=== PATIENT | female | born 1945 | race Caucasian/White ===

== ENCOUNTER 2016-02-24 17:31 | Inpatient (IN) | payer BC, OTHER ==
[~2016-02-24] VITALS: Ht 157.5 cm; Wt 82.0 kg
[~2016-02-24 17:31] MED LIST: ALBUAER2 INH; ALL300; ASPI81TA28 PO; DILT120C43 PO; DXY100 PO; FRS/40 PO; IPRASOL4 NEB; LORA-741 PO; MAGN250T3 PO; METO25TA56 PO; PARO1TAB27 PO; POTA10CA28 PO; PRED10TA PO; ZNTT/150 PO
--- NOTE | 2016-02-24 18:13 | DIAGNOSTIC IMAGING REPORT ---
CHEST ONE VIEW PORTABLE CLINICAL HISTORY: Respiratory distress. Dyspnea. COMPARISON STUDY: Chest radiograph December 30, 2015. FINDINGS: Interstitial thickening suggests pulmonary edema. There is stable cardiomegaly. No pneumothorax is present. Small to moderate right and small left pleural effusions are present. IMPRESSION: 1. Interstitial thickening suggestive of pulmonary edema. 2. Small to moderate right and small left pleural effusions. Electronically signed by: Esteban Tyler M.D. 02/24/2016 6:11 PM Dictated Date/Time: 02/24/2016 6:10 PM
[2016-02-24] MEDS ORDERED: ALBUT/IPRATROP 3MG/0.5MG NEB 3 ML VIAL INH STA (18:40)
[2016-02-24] MEDS ORDERED: METHYLPREDNISOLONE 125 MG VIAL IV STA (18:40)
[2016-02-24 19:07] LABS: BASO % 0.9 %; BASO ABS # 0.11 K/uL (0-0.2); COMPLETE YES; EOS % 5.6 %; HEMATOCRIT 39.8 % (37-47); IG% 0.2 %; LYMPH % 10.1 %; LYMPH ABS # 1.28 K/uL (1.2-3.4); MEAN CELL VOLUME 84.5 fL (80-100); MEAN CORPUSCULAR HEMOGLOBIN 26.3 pg (25-34); MEAN CORPUSCULAR HGB CONC 31.2 g/dl (32-36); MEAN PLATELET VOLUME 9.9 fL (7.4-10.4); MONO % 7.6 %; NEUT % 75.6 %; PLATELET COUNT 278 K/uL (130-400); RED BLOOD COUNT 4.71 M/uL (4.2-5.4); WHITE BLOOD COUNT 12.68 K/uL (4.8-10.8)
[2016-02-24 19:15] LABS: ALLEN TEST POS (POS); O2 ADMINISTRATION 2 L
[2016-02-24 19:16] LABS: ARTERIAL BLD GAS O2 SATURATION 87.3 % (90-95); ARTERIAL BLOOD GAS HCO3 24 mmol/L (19-24); ARTERIAL BLOOD GAS PO2 51 mm/Hg (80-95); ARTERIAL BLOOD GAS pH 7.51 (7.35-7.45)
[2016-02-24 19:17] LABS: ARTERIAL BLOOD GAS BASE EXCESS 1.8 mEq/L (-9-1.8)
[2016-02-24] MEDS ORDERED: CALC-478 PO (19:33)
[2016-02-24 19:43] LABS: BUN/CREATININE RATIO 21.5 (10-20); CALCIUM 9.6 mg/dl (8.5-10.1); CREATININE 1.1 mg/dl (0.60-1.20); POTASSIUM 3.8 mmol/L (3.5-5.1)
[2016-02-24 19:46] LABS: ALB/GLOB RATIO 0.9 (0.9-2)
[2016-02-24] MEDS ORDERED: FUROSEMIDE 40 MG/4 ML VIAL IV STA (20:57)
[2016-02-24] MEDS ORDERED: ACETAMINOPHEN 325 MG TAB PO PRN (22:00)
[2016-02-24] MEDS ORDERED: LORAZEPAM 0.5 MG TAB PO PRN (22:00)
[2016-02-24] MEDS ORDERED: ACETAMINOPHEN 325 MG TAB ONE ×2 (22:23→22:34)
--- NOTE | 2016-02-24 22:24 | EMERGENCY ROOM VISIT NOTE ---
History Report prepared by Saida: Dianna Livingston Under the Supervision of: Dr. Reymundo Reynoso M.D. First contact with patient: 17:45 Chief Complaint: RESPIRATORY PROBLEMS Stated Complaint: HARD TIME BREATHING, HEAVY IN CHEST Nursing Triage Summary: pt has hx of copd and CHF wears oxygen constantly pt has felt more sob all week chest tightness cough History of Present Illness The patient is a 71 year old female who presents to the Emergency Room with complaints of increased shortness of breath over the past week. Her shortness of breath is worse with exertion and talking, although that has been baseline for her over the past several months. She notes that she occasionally coughs but does not bring anything up. She also complains of sternal pain and pain under her left breast to the touch that began 2 days ago. She does not have any pain with breathing. Her current symptoms feel similar to previous flare-ups of COPD. The patient is on oxygen all the time. She was seen by Dr. Lani Adler yesterday and he recommended using a heating pad on her chest. Today, she developed some neck soreness and she states that her muscles felt tender. She was most recently admitted to the hospital for COPD flare up this past summer. The patient notes that she was hospitalized for pneumonia last year. She is on Lasix due to a history of pulmonary edema. She is not a smoker. She reports eating some salty foods over the recent holidays, but nothing out of the ordinary. She is not currently on steroids. She is not on a blood thinner. She has not had any recent long travel or immobilization. Pt denies LOC, headache, fevers, chills, diaphoresis, visual changes, nausea, vomiting, back pain, melena , hematochezia, urinary symptoms, calf soreness, numbness, weakness, lymphadenopathy, rash, or other complaints. Source of History: patient Onset: a week [employer] Position: other (Global - SOB) Timing: other (increased) Modifying Factors (Worsening): exertion, other (talking) Associated Symptoms: + chest pain, + neck pain Review of Systems See HPI for pertinent positives and negatives. A total of ten systems were reviewed and were otherwise negative. Past Medical & Surgical Medical Problems: (1) ACUTE BRONCO-PNEUM,ACUTE RESP FAIL (2) Acute CHF (3) acute exacer. copd, chronic resp failure (4) ACUTE EXACERBATION COPD, ABN.ECG (5) Acute kidney injury (6) ACUTE RESP.FAIL.,CHF,INTERST.LUNG DISEASE (7) Anterior Abdominal Wall Surgery (8) Appendectomy (9) Bronchitis (10) CHF exacerbation (11) CHF exacerbation (12) Congestive heart failure (13) Congestive heart failure (14) COPD exacerbation (15) Distal radius fracture, left (16) Epistaxis (17) Hernia (18) Hernia repair (19) History of - tubal ligation (20) Hypertension (21) Postoperative wound dehiscence (22) Radial head fracture, closed (23) RECCURENT SBO (24) Respiratory failure with hypoxia (25) Retinal artery occlusion (26) Right foot pain (27) Right foot pain (28) SBO (small bowel obstruction) (29) SOB (shortness of breath) (30) Tonsillectomy Family History Cancer Hypertension Social History Smoking Status: Never Smoker Alcohol Use: none Drug Use: none Marital Status: Housing Status: lives with family Occupation Status: retired Current/Historical Medications Scheduled Allopurinol (Allopurinol), 150 MG DAILY Aspirin (Aspirin Ec), 81 MG PO DAILY Hhnweym-Yxyipbsdg-Xwyl (Calcium & Magnesium + Zin 334-134-5 mg), 1 TAB PO DAILY Diltiazem Hcl Coated Beads (Cartia Xt), 120 MG PO DAILY Furosemide (Lasix), 40 MG PO BID Metoprolol Tartrate (Lopressor) (Lopressor), 25 MG PO BID Paroxetine (Paxil), 20 MG PO DAILY Potassium Chloride (Micro-K Ext Rel), 10 MEQ PO BID Ranitidine (Zantac), 150 MG PO BID Scheduled PRN Ipratropium-Albuterol (Duoneb), 3 ML NEB Q6H PRN for cough, shortness of breath Lorazepam (Ativan), 0.5 MG PO TID PRN for Anxiety Allergies Coded Allergies: Morphine (Verified Allergy, Unknown, 12/30/15) Sulfamethoxazole w/Trimethoprim (Verified Allergy, Unknown, ., 12/30/15) Codeine (Verified Adverse Reaction, Mild, nausea, 12/30/15) Penicillins (Verified Adverse Reaction, Mild, severe nausea,HAD CEPHALOSPORINS, ZOSYN W/O PROBLEM, 12/30/15) Physical Exam Vital Signs Date Time Temp Pulse Resp B/P Pulse Ox O2 Delivery O2 Flow Rate FiO2 1/6/17 22:04 68 22 167/89 93 Nasal Cannula 6.0 02/24/16 19:51 65 20 121/91 90 Nasal Cannula 4.0 02/24/16 18:13 52 02/24/16 17:47 Nasal Cannula 2.0 02/24/16 17:47 Nasal Cannula 2.0 02/24/16 17:37 Nasal Cannula 2.0 02/24/16 17:36 36.6 71 20 132/64 97 Nasal Cannula 2.0 Physical Exam GENERAL: Awake, alert, well-appearing, in no distress HENT: Normocephalic, atraumatic. Oropharynx unremarkable. EYES: Normal conjunctiva. Sclera non-icteric. NECK: Supple. No nuchal rigidity. FROM. No JVD. RESPIRATORY: Decreased breath sounds bilaterally. Pursed lip breathing. CARDIAC: Bradycardic rate, normal rhythm. Extremities warm and well perfused. Pulses equal. ABDOMEN: Soft, non-distended. No tenderness to palpation. No rebound or guarding. No masses. RECTAL: Deferred. MUSCULOSKELETAL: Chest examination reveals no tenderness. The back is symmetrical on inspection without obvious abnormality. There is no CVA tenderness to palpation. No joint edema. LOWER EXTREMITIES: Calves are equal size bilaterally and non-tender. Trace lower extremity edema. No discoloration. NEURO: Normal sensorium. No sensory or motor deficits noted. SKIN: No rash or jaundice noted. Medical Decision & Procedures ER Provider Diagnostic Interpretation: X-ray: Per my interpretation, radiologist review. CHEST ONE VIEW PORTABLE CLINICAL HISTORY: Respiratory distress. Dyspnea. COMPARISON STUDY: Chest radiograph December 30, 2015. FINDINGS: Interstitial thickening suggests pulmonary edema. There is stable cardiomegaly. No pneumothorax is present. Small to moderate right and small left pleural effusions are present. IMPRESSION: 1. Interstitial thickening suggestive of pulmonary edema. 2. Small to moderate right and small left pleural effusions. Electronically signed by: Esteban Tyler M.D. 02/24/2016 6:11 PM Dictated Date/Time: 02/24/2016 6:10 PM Laboratory Results 02/24/16 18:48 Red Blood Count 4.71, Mean Corpuscular Volume 84.5, Mean Corpuscular Hemoglobin 26.3, Mean Corpuscular Hemoglobin Concent 31.2, Mean Platelet Volume 9.9, Neutrophils (%) (Auto) 75.6, Lymphocytes (%) (Auto) 10.1, Monocytes (%) (Auto) 7.6, Eosinophils (%) (Auto) 5.6, Basophils (%) (Auto) 0.9, Neutrophils # (Auto) 9.60, Lymphocytes # (Auto) 1.28, Monocytes # (Auto) 0.96, Eosinophils # (Auto) 0.71, Basophils # (Auto) 0.11 02/24/16 18:48 Test 02/24/16 17:49 02/24/16 18:48 02/24/16 18:50 Influenza Type A Antigen Neg for Influ A (NEG) Influenza Type B Antigen Neg for Influ B (NEG) White Blood Count 12.68 K/uL (4.8-10.8) Red Blood Count 4.71 M/uL (4.2-5.4) Hemoglobin 12.4 g/dL (12.0-16.0) Hematocrit 39.8 % (37-47) Mean Corpuscular Volume 84.5 fL (80-100) Mean Corpuscular Hemoglobin 26.3 pg (25-34) Mean Corpuscular Hemoglobin Concent 31.2 g/dl (32-36) Platelet Count 278 K/uL (130-400) Mean Platelet Volume 9.9 fL (7.4-10.4) Neutrophils (%) (Auto) 75.6 % Lymphocytes (%) (Auto) 10.1 % Monocytes (%) (Auto) 7.6 % Eosinophils (%) (Auto) 5.6 % Basophils (%) (Auto) 0.9 % Neutrophils # (Auto) 9.60 K/uL (1.4-6.5) Lymphocytes # (Auto) 1.28 K/uL (1.2-3.4) Monocytes # (Auto) 0.96 K/uL (0.11-0.59) Eosinophils # (Auto) 0.71 K/uL (0-0.5) Basophils # (Auto) 0.11 K/uL (0-0.2) RDW Standard Deviation 60.8 fL (36.4-46.3) RDW Coefficient of Variation 19.5 % (11.5-14.5) Immature Granulocyte % (Auto) 0.2 % Immature Granulocyte # (Auto) 0.02 K/uL (0.00-0.02) Anion Gap 11.0 mmol/L (3-11) Est Creatinine Clear Calc Drug Dose 48.9 ml/min Estimated GFR () 58.1 Estimated GFR (Non- 50.1 BUN/Creatinine Ratio 21.5 (10-20) Calcium Level 9.6 mg/dl (8.5-10.1) Total Bilirubin 0.8 mg/dl (0.2-1) Aspartate Amino Transf (AST/SGOT) 14 U/L (15-37) Alanine Aminotransferase (ALT/SGPT) 15 U/L (12-78) Alkaline Phosphatase 114 U/L (45-117) Troponin I 0.018 ng/ml (0-0.045) Pro-B-Type Natriuretic Peptide 3560 pg/ml (0-900) Total Protein 7.4 gm/dl (6.4-8.2) Albumin 3.6 gm/dl (3.4-5.0) Globulin 3.8 gm/dl (2.5-4.0) Albumin/Globulin Ratio 0.9 (0.9-2) Arterial Blood pH 7.51 (7.35-7.45) Arterial Blood Partial Pressure CO2 31 mmHg (35-46) Arterial Blood Partial Pressure O2 51 mm/Hg (80-95) Arterial Blood HCO3 24 mmol/L (19-24) Arterial Blood Oxygen Saturation 87.3 % (90-95) Arterial Blood Base Excess 1.8 mEq/L (-9-1.8) Arterial Blood Gas Delivery 2 L David Test POS (POS) Laboratory results reviewed by me Medications Administered Medications (Trade) Dose Ordered Sig/Gilma Route Start Time Stop Time Status Last Admin Dose Admin Albuterol/ Ipratropium (Duoneb) 3 ml NOW STAT INH 02/24/16 18:40 02/24/16 18:42 DC 02/24/16 19:03 3 ML Methylprednisolone Sodium Succinate (Solu-Medrol IV) 125 mg NOW STAT IV 02/24/16 18:40 02/24/16 18:42 DC 02/24/16 19:03 125 MG Furosemide (Lasix Inj) 40 mg NOW STAT IV 02/24/16 20:57 02/24/16 20:58 DC 02/24/16 21:42 40 MG ECG Indication: SOB/dyspnea Rate (beats per minute): 53 Rhythm: sinus bradycardia Findings: T-wave inversion (Anterior), no ectopy Comparison ECG Date: 12/31/15 Change: no significant change ED Course 1830: The patient was evaluated in room B6. A complete history and physical exam was performed. 1839: Ordered Solu-Medrol 125 mg IV, DuoNeb 3 ml INH 2020: I reassessed the patient. She was not feeling much better after the DuoNeb. She is satting 94 on 4 liters of oxygen. 2057: Upon reexamination, the patient was resting comfortably. I discussed the test results and treatment plan with her. The patient will be evaluated for further management. Ordered Lasix Inj 40 mg IV. 2111: I discussed the case with Dr. Lani Adler [facility]. He will evaluate the patient for further management. Medical Decision Triage Nursing notes reviewed. The patient's presentation and history were concerning for shortness of breath. Etiologies such as pneumonia, COPD, reactive airway disease, CHF, cardiac ischemia, pulmonary embolism, pneumothorax, musculoskeletal, infections, gastrointestinal, as well as others were entertained. The patient was evaluated. She was pursed lip breathing. Breath sounds were tight. She was given a DuoNeb and Solu-Medrol based upon her history of COPD. The patient also notes taking Lasix. A chest x-ray performed. She did have some pulmonary edema. The patient had a mild leukocytosis but no evidence of pneumonia. She had a negative flu test. Chem panel cardiac markers were negative. BNP was moderately elevated concerning for CHF. ABG was done and shows significant hypoxia. The patient had a respiratory alkalosis present as well. She was given IV Lasix. Her oxygen was increased and the patient was feeling much better. The patient will need further evaluation and management in the hospital. Consultation was made with her primary physician Dr. Myra Villagomez. He evaluated the patient in the Emergency Room and admitted her for further treatment. The chart was completed utilizing [employer] Speech voice recognition software. Grammatical errors, random word insertions, pronoun errors, and incomplete sentences are an occasional consequence of this system due to software limitations, ambient noise, and hardware issues. Any formal questions or concerns about the content, text, or information contained within the body of this dictation should be directly addressed to the physician for clarification. Consults Time Called: 2057 Consulting Physician: Dr. Lani Adler - [facility] Returned Call: 2111 I discussed the case with him. He will evaluate the patient for further management. Impression Primary Impression: Respiratory failure Additional Impressions: Hypoxia, CHF (congestive heart failure), COPD ( chronic obstructive pulmonary disease) Scribe Attestation The scribe's documentation has been prepared under my direction and personally reviewed by me in its entirety. I confirm that the note above accurately reflects all work, treatment, procedures, and medical decision making performed by me. Departure Information Dispostion Being Evaluated By Hospitalist Referrals Chente Miranda M.D. (PCP) Patient Instructions A Signature Page, [facility]
[2016-02-25] VITALS (12 sets, daily range): BP systolic 130–150; BP diastolic 73–87; PULSE 59–110; TEMP 36.2–36.7; O2SAT 90–99; Ht 157.5 cm; Wt 82.0 kg
--- NOTE | 2016-02-25 00:51 | HISTORY & PHYSICAL EXAMINATION ---
DATE OF ADMISSION: 02/24/2016 A 71-year-old female admitted through the Emergency Room with acute respiratory failure. She has exacerbation of her chronic interstitial lung disease and also congestive heart failure. PRESENT ILLNESS: The patient with multiple medical problems including interstitial lung disease. Has had multiple exacerbations, requiring admissions. She has a history of abnormal EKG with a cardiac catheterization in July of 2015 which did not show any evidence of coronary artery disease. She does have severe interstitial lung disease and arterial hypertension and also chronic kidney disease. She has had multiple abdominal surgeries for hernias and recurrence. She has had multiple infections of her abdominal wall. The patient went out this evening to [facility] to celebrate her [facility]. While she was there, she got up and went to bathroom and then she felt like she was going to pass out. She was markedly dyspneic. She could not really do anything. She was brought to the Emergency Room. She was evaluated. Her treatment was initiated. The patient was seen in the office about 2 days ago. Overall, she was doing well and her condition was stable. She was complaining of pain in her abdominal wall, the upper side of the left abdomen. She has multiple nodular areas, all related to scarring and to the mesh from her prior surgeries for her abdominal hernias. Dr. Reynoso's note indicated that I asked the patient to apply moist heat to her chest and this is really not the case. Because of the tenderness and the pain over the upper abdominal area and the fact that it is related to scarring and mesh, I asked her to apply a heating pad to the painful area in her upper abdomen. I saw the patient in the Emergency Room. Unfortunately, she arrived to the Emergency Room around 1732. There was quite a bit of a problem related to her IV access. This is something really chronic for her. She received 1 dose of IV Solu-Medrol at 1903. She received high-flow treatment with albuterol. She received 1 dose of IV Lasix at 2. PAST MEDICAL HISTORY: 1. Multiple hospitalizations for abdominal pain and small-bowel obstruction. She also has had multiple abdominal hernias. Her last hospitalization for bowel obstruction was in 07/2015. She did require surgery by Dr. Da Silva. Subsequently, she had partial dehiscence of her wound and she has been sent to the wound care clinic and now her abdominal wall is healed. There is no ulceration or any open areas. 2. Known large ventral hernia which required surgery. 3. Prior hospitalizations for exacerbation of her lung disease with respiratory failure and abnormal EKG. She did have a cardiac catheterization done which did not show any evidence of coronary artery disease and no intervention was needed. 4. Hospitalization in 04/2005 with exacerbation of her lung disease secondary to bronchopneumonitis. 5. Longstanding history of arterial hypertension. 6. Appendectomy in the remote past. 7. After her appendectomy, she developed an incisional hernia. Subsequently, she had multiple areas of herniations that required multiple interventions, both here at [facility] and at [facility]. 8. 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 She has loss of vision in her right eye. 9. Fracture of the distal left radius in 2012 after a fall. 10. Bilateral tubal ligation in the remote past. 11. Hyperglycemia. Has not required any drug therapy. 12. There has been a chronic problem with dietary compliance, especially for her to try to lose weight or cut down on the salt intake as much as possible. SOCIAL HISTORY: She is . Has 3 children. There is no history of any smoking, no alcohol. She worked at [employer] in the past. She is retired. FAMILY HISTORY: Her father in his 50s, had a stroke. Her mother is in her 90s. She has multiple problems including arterial hypertension, peptic ulcer disease, valvular heart disease, congestive heart failure, but she is still alive and living independently. She has 3 brothers and 3 sisters. One sister has SLE. One sister is treated for arterial hypertension. ALLERGIES: Her allergy list includes: 1. CODEINE. 2. MORPHINE. 3. PENICILLIN. 4. SULFAMETHOXAZOLE WITH TRIMETHOPRIM. CURRENT MEDICATIONS: All as noted on her home medication list. REVIEW OF SYSTEMS: The main problem is with her shortness of breath. She has not had any fever. No chills. No sore throat, no earache. She does complain of chest pressure related to her shortness of breath. Markedly dyspneic with any activity. She does have chronic respiratory failure. She is on home oxygen. Abdominal pain as noted above, mostly abdominal wall pain. No back pain. She does have minimal ankle edema. PHYSICAL EXAMINATION: GENERAL: Well developed, in no distress. VITAL SIGNS: Blood pressure 132/64, pulse 71, respiration 20, temperature 36.6, oxygen saturation 97% on 2 liter oxygen by nasal cannula. SKIN: Warm and dry. No rash. HEENT: Loss of vision in the right eye. No mucosal abnormalities. Oxygen cannula in place. NECK: Supple. Nontender. No adenopathy, no thyromegaly. No JVD. CHEST: Normal. HEART: Regular heart sounds without any murmur, rub or gallop. LUNGS: Markedly decreased breath sounds. Bibasilar rales. ABDOMEN: Soft. She does have multiple nodular areas in her abdominal wall related to scarring and the mesh and prior surgeries. No evident organomegaly or masses. BACK: No spinal tenderness. EXTREMITIES: Trace edema, no clubbing, no cyanosis. Good pulses. NEUROLOGIC: She is alert and oriented without evidence of any deficit. LABORATORY TESTS: WBC count 12,680, hemoglobin 12.4, hematocrit 39.8, platelet count 278,000. Sodium 141, potassium 3.8, chloride 103, CO2 27, BUN 24, creatinine 1.1, glucose 95, calcium 9.6, total bilirubin 0.8, AST 14, ALT 15, alkaline phosphatase 114. Troponin I 0.018. ProBNP 3560. Total protein 7.4, albumin 3.6, globulin 3.8. Her chest x-ray is reported to show interstitial thickening suggestive of pulmonary edema and stable to moderate right and small left pleural effusions. Her electrocardiogram showed sinus bradycardia. No acute changes noted. ASSESSMENT: 1. Acute respiratory failure. 2. Severe interstitial lung disease. 3. Chronic respiratory failure, on home oxygen. 4. Bradycardia. 5. Arterial hypertension. 6. History of multiple abdominal surgeries for hernias. 7. Arterial hypertension. 8. Hyperglycemia. PLAN: The patient was admitted to PCU telemetry. Resuscitation level 1. All her laboratory tests were ordered. Cardiac isoenzymes were ordered. Serial electrocardiograms were also ordered. An echocardiogram was ordered. She will be diuresed with IV Lasix. We will monitor her electrolytes. We will check her test as noted. She is on oxygen. In the Emergency Room, I did increase her oxygen to 6 liters per minute by nasal cannula. Her oxygen saturation did improve. She did have a set of ABGs done in the Emergency Room on 2 liter oxygen by nasal cannula and the results were reported to show a pH of 7.51, pCO2 31, pO2 51, saturation 87.3%. For now, I held off on her diltiazem and also on her metoprolol. I was concerned about the bradycardia even in the face of respiratory failure and exacerbation of her lung disease. We have had severe problem with IV access every time she comes to the hospital. The last time she was admitted, we discussed placing an infusaport. Just to give an example, today she came to the Emergency Room and there was quite a bit of delay in establishing an IV line and ability to administer her medications intravenously. I will work on requesting a surgical consultation for placement of her A-port during this hospitalization.
[2016-02-25] MEDS ORDERED: FUROSEMIDE INJ 60 MG in SYRINGE 0 ML IV ONE (03:00)
[2016-02-25 03:47] LABS: INR 1.2 (0.9-1.1); PROTHROMBIN TIME (PATIENT) 12.7 SECONDS (9.0-12.0)
[2016-02-25] MEDS: LEVALBUTEROL 1.25MG/3ML NEB INH SCH ×6 (03:52→23:12)
[2016-02-25 06:22] LABS: BASO % 0.2 %; BASO ABS # 0.02 K/uL (0-0.2); COMPLETE YES; EOS % 0.5 %; HEMATOCRIT 37.4 % (37-47); IG% 0.4 %; LYMPH % 9.3 %; LYMPH ABS # 0.86 K/uL (1.2-3.4); MEAN CELL VOLUME 82.7 fL (80-100); MEAN CORPUSCULAR HEMOGLOBIN 25.7 pg (25-34); MEAN PLATELET VOLUME 10.2 fL (7.4-10.4); MONO % 1.4 %; NEUT % 88.2 %; PLATELET COUNT 274 K/uL (130-400); RED BLOOD COUNT 4.52 M/uL (4.2-5.4)
[2016-02-25 06:50] LABS: BLOOD UREA NITROGEN 28 mg/dl (7-18); BUN/CREATININE RATIO 20.1 (10-20); CALCIUM 9.3 mg/dl (8.5-10.1); CARBON DIOXIDE 26 mmol/L (21-32); CHLORIDE 103 mmol/L (98-107); GLUCOSE 202 mg/dl (70-99); POTASSIUM 3.8 mmol/L (3.5-5.1); SODIUM 140 mmol/L (136-145)
[2016-02-25 07:01] LABS: CKMB/CK RATIO 3.3 (0-3.0); THYROID STIMULATING HORMONE 0.622 uIu/ml (0.300-4.500)
[2016-02-25] MEDS ORDERED: PERFLUTREN LIPID MICROSPHERE (DEFINITY) IV ONE (07:43)
--- NOTE | 2016-02-25 07:44 | DIAGNOSTIC IMAGING REPORT ---
CHEST ONE VIEW PORTABLE CLINICAL HISTORY: Congestive heart failure. COMPARISON STUDY: Chest radiograph February 24, 2016. FINDINGS: There is no pneumothorax. There are small bilateral pleural effusions. There is pulmonary vascular congestion with mild interstitial thickening. Hazy right midlung opacity has developed. There is mild hazy left basilar opacity which is unchanged. IMPRESSION: 1. Findings suggestive of persistent pulmonary edema and small bilateral pleural effusions. 2. Interval development of hazy right midlung opacity. This could reflect layering pleural fluid, asymmetric pulmonary edema or superimposed pneumonia. Electronically signed by: Esteban Tyler M.D. 02/25/2016 7:42 AM Dictated Date/Time: 02/25/2016 7:41 AM
[2016-02-25] MEDS: ALLOPURINOL 300 MG TAB PO SCH (08:40)
[2016-02-25] MEDS: POTASSIUM CHLORIDE 20 MEQ TABCR PO SCH ×2 (08:40→21:29)
[2016-02-25] MEDS: PAROXETINE 20 MG TAB PO SCH (08:41)
[2016-02-25] MEDS: ASPIRIN 81 MG ECTAB PO SCH (08:41)
[2016-02-25] MEDS: RANITIDINE HCL 150 MG TAB PO SCH ×2 (08:41→21:29)
[2016-02-25] MEDS: HEPARIN SOD 5000 UNIT/0.5 ML CARP SQ SCH ×2 (08:52→21:31)
--- NOTE | 2016-02-25 09:13 | DIAGNOSTIC IMAGING REPORT ---
CHEST ONE VIEW PORTABLE CLINICAL HISTORY: Right PICC placement COMPARISON STUDY: Chest radiograph February 25, 2016 at 7:24 AM FINDINGS: The right PICC tip is obscured but likely projects over the proximal right atrium. The catheter could be withdrawn 3 cm. Cardiomegaly is unchanged. There are persistent bilateral pleural effusions and hazy bibasilar opacities. Pulmonary vascular congestion persists. IMPRESSION: 1. Right PICC tip partially obscured but likely projects of the proximal right atrium. The catheter could be withdrawn 3 cm. 2. Persistent bilateral pleural effusions, associated hazy opacities and pulmonary vascular congestion Electronically signed by: Esteban Tyler M.D. 02/25/2016 9:11 AM Dictated Date/Time: 02/25/2016 9:09 AM
--- NOTE | 2016-02-25 10:00 | DIAGNOSTIC IMAGING REPORT ---
CHEST ONE VIEW PORTABLE CLINICAL HISTORY: picc placement- catheter repositioned COMPARISON STUDY: Chest radiograph February 25, 2016 at 8:45 AM FINDINGS: The tip of the right PICC injected over the distal SVC. There is no pneumothorax. Small bilateral pleural effusions persist. Hazy right mid and lower lung opacity as well as left basilar opacity persists. There is interstitial thickening. IMPRESSION: 1. Tip of right PICC projects over the distal SVC. 2. Small bilateral pleural effusions, associated opacities and suspected mild pulmonary edema. Electronically signed by: Esteban Tyler M.D. 02/25/2016 9:58 AM Dictated Date/Time: 02/25/2016 9:57 AM
[2016-02-25] MEDS ORDERED: TRAMADOL HCL 50 MG TAB PO PRN (10:45)
--- NOTE | 2016-02-25 11:46 | ECHOCARDIOGRAM REPORT ---
*NOTICE TO RECEIVING CONSTITUTION PARTY AGENCY This information is strictly Confidential and protected under [place] law. [place] law prohibits you from making any further disclosure of this information unless further disclosure is expressly permitted by the written consent of the person to whom it pertains or is authorized by law. A general authorization for the release of medical or other information is not sufficient for this purpose. Hospital accepts no responsibility if the information is made available to any other person, INCLUDING THE PATIENT. Interpretation Summary * Name: KAYLENE FLEMING Study Date: 02/25/2016 07:43 AM BP: 131/75 mmHg * Patient Location: C.2T\S\E220\S\1 HR: 61 * : 1945 (M/d/yyyy) Gender: Female Height: 65 in * Age: 71 yrs Ethnicity: CA Weight: 180 lb * Ordering Physician: Chente Miranda * Performed By: Cynthia Garza * * Reason For Study: CHF * BSA: 1.9 m2 -- Conclusions -- * Ejection Fraction = 65-70%. Overall normal left ventricular function. * Significant dilatation of the right ventricle. The right ventricular systolic function is reduced as assessed by tricuspid annular plane systolic excursion (TAPSE) (TAPSE <1.6 cm). The right atrium is moderately dilated. * Right ventricular systolic pressure estimated 73mmHg (severe pulmonary hypertension). * Mild valvular aortic stenosis. * There is mild to moderate mitral regurgitation. * There is severe tricuspid regurgitation. Procedure Details * A complete two-dimensional transthoracic echocardiogram was performed (2D, M-mode, Doppler and color flow Doppler). * The study was technically difficult. * A contrast injection of Definity was performed to improve assessment of LV function. * Contrast was injected into an intravenous site in the right arm. * One vial of Definity ultrasound contrast was diluted in normal saline to a total volume of 10 ml. A total of '2' ml of solution was administered during imaging. * Lot # [id number] of Definity utilized for procedure. * Expiration date 08/04. Left Ventricle * The left ventricle is grossly normal size. * There is borderline concentric left ventricular hypertrophy. * Ejection Fraction = 65-70%. * The left ventricular wall motion is normal at rest. Right Ventricle * The right ventricular cavity size is enlarged (proximal parasternal long axis right ventricular outflow tract dimension >3.3 cm). * The right ventricular systolic function is reduced as assessed by tricuspid annular plane systolic excursion (TAPSE) (TAPSE <1.6 cm). Atria * The left atrium is mildly dilated. * The right atrium is moderately dilated. Mitral Valve * There is moderate mitral annular calcification. * There is mild to moderate mitral regurgitation. Tricuspid Valve * There is severe tricuspid regurgitation. * Right ventricular systolic pressure is elevated at >60mmHg. Aortic Valve * Mild valvular aortic stenosis. * Mild aortic regurgitation. Pulmonic Valve * The pulmonic valve is not well visualized. MMode 2D Measurements and Calculations IVSd 0.77 cm IVSs 1.2 cm LVIDd 4.9 cm LVIDs 3.4 cm LVPWd 0.75 cm LVPWs 0.95 cm IVS/LVPW 1.0 FS 32.0 % EDV(Teich) 115.0 ml ESV(Teich) 46.0 ml EF(Teich) 60.0 % EDV(cubed) 120.6 ml ESV(cubed) 37.9 ml EF(cubed) 68.6 % % IVS thick 60.1 % % LVPW thick 27.5 % LV mass(C)d 124.9 grams LV mass(C)dI 66.0 grams/m\S\2 LV mass(C)s 111.5 grams LV mass(C)sI 59.0 grams/m\S\2 SV(Teich) 68.9 ml SI(Teich) 36.4 ml/m\S\2 SV(cubed) 82.7 ml SI(cubed) 43.7 ml/m\S\2 ACS 1.2 cm asc Aorta Diam 3.0 cm LVOT diam 1.5 cm LVOT area 1.9 cm\S\2 LVAd ap4 20.6 cm\S\2 LVLd ap4 6.5 cm EDV(MOD-sp4) 53.3 ml EDV(sp4-el) 55.2 ml LVAs ap4 10.9 cm\S\2 LVLs ap4 5.5 cm ESV(MOD-sp4) 18.1 ml ESV(sp4-el) 18.4 ml EF(MOD-sp4) 66.0 % EF(sp4-el) 66.6 % LVAd ap2 26.3 cm\S\2 LVLd ap2 6.7 cm EDV(MOD-sp2) 85.1 ml EDV(sp2-el) 87.4 ml LVAs ap2 13.6 cm\S\2 LVLs ap2 5.3 cm ESV(MOD-sp2) 28.8 ml ESV(sp2-el) 29.5 ml EF(MOD-sp2) 66.2 % EF(sp2-el) 66.2 % LVLd %diff 2.8 % EDV(MOD-bp) 67.3 ml LVLs %diff -2.73 % ESV(MOD-bp) 23.1 ml EF(MOD-bp) 65.6 % SV(MOD-sp4) 35.1 ml SI(MOD-sp4) 18.6 ml/m\S\2 SV(MOD-sp2) 56.4 ml SI(MOD-sp2) 29.8 ml/m\S\2 SV(MOD-bp) 44.1 ml SI(MOD-bp) 23.3 ml/m\S\2 SV(sp4-el) 36.7 ml SI(sp4-el) 19.4 ml/m\S\2 SV(sp2-el) 57.9 ml SI(sp2-el) 30.6 ml/m\S\2 Doppler Measurements and Calculations MV E max cristina 99.8 cm/sec MV A max cristina 112.2 cm/sec MV E/A 0.89 MV V2 max 119.4 cm/sec MV max PG 5.7 mmHg MV V2 mean 62.0 cm/sec MV mean PG 1.9 mmHg MV V2 VTI 38.2 cm MV dec time 0.35 sec Ao V2 max 163.7 cm/sec Ao max PG 10.7 mmHg Ao max PG (full) 5.1 mmHg REGINA(V,A) 1.4 cm\S\2 REGINA(V,D) 1.4 cm\S\2 AI max cristina 374.9 cm/sec AI max PG 56.2 mmHg AI dec slope 148.7 cm/sec\S\2 AI P1/2t 738.3 msec LV V1 max PG 5.6 mmHg LV V1 max 118.1 cm/sec MR max cristina 365.3 cm/sec MR max PG 56.0 mmHg PA V2 max 62.6 cm/sec PA max PG 1.6 mmHg PI end-d cristina 122.4 cm/sec TR max cristina 388.2 cm/sec
[2016-02-25 12:53] LABS: CKMB/CK RATIO 3.3 (0-3.0)
[2016-02-25] MEDS ORDERED: ONDANSETRON INJ 8 MG in DEXTROSE 5% 50ML 50 ML IV PRN (15:45)
[2016-02-25] MEDS: KETOROLAC TROMETHAMINE 15 MG/ML VIAL IV PRN (15:55)
--- NOTE | 2016-02-25 15:55 | PROGRESS NOTE ---
DATE: 02/25/2016 DATE: 02/25/2016. SUBJECTIVE: Mrs. Shepard is a 71-year-old female admitted through the Emergency Room with: 1. Acute respiratory failure. 2. Acute congestive heart failure, mostly diastolic. 3. Severe interstitial lung disease. 4. Chronic respiratory failure on home oxygen. 5. Arterial hypertension. 6. History of multiple abdominal surgeries for abdominal wall hernias. The patient was admitted. She has extremely difficult IV access. She was given IV Lasix. She is diuresing. She really because of her respiratory status and her difficulty getting in and out of bed to urinate during the time she is being diuresed a Britton catheter was placed. Also a PICC line placement was ordered because of the difficulty for any IV access. This morning she is feeling better. She is resting comfortably. She still complains of shortness of breath with any activity. She is complaining of headache. No dizziness, no lightheadedness. No chest pain. No cough, no sputum. She does have some abdominal wall tenderness over the areas where she has mesh and some induration, but there is no evidence of any infection or any redness. No nausea, no vomiting. Has not had any problem with her bowel movements. She has a Britton catheter in place. No pain in her back or extremities. PHYSICAL EXAMINATION: GENERAL: Well-developed in no distress. VITAL SIGNS: Blood pressure 150/87, pulse 67, respirations 16, temperature 36.4, oxygen saturation 99% on 2 liter oxygen by nasal cannula. SKIN: Warm and dry. No rash. HEAD, EYES, EARS, NOSE, AND THROAT: Oxygen cannula in place. NECK: No JVD, no adenopathy. HEART: Regular heart sounds. LUNGS: Chronic coarse rales both lung elder. ABDOMEN: Soft. Some tenderness over the indurated areas, most likely related to her mesh. BACK: No spinal tenderness. EXTREMITIES: No edema, clubbing, or cyanosis. LABORATORY TESTS: WBC count 9200, hemoglobin 11.6, hematocrit 37.4, platelet count 274,000. Sodium 140, potassium 3.8, chloride 103, CO2 26, BUN 28, creatinine 1.4, glucose 202, calcium 9.3, magnesium 2.0, total CK 24, MB fraction 0.8, troponin I less than 0.015. TSH is 0.622. T4 9.8. Repeat chest x-ray this morning still showing the interstitial edema. ASSESSMENT: 1. Acute respiratory failure. 2. Acute diastolic congestive heart failure. 3. Arterial hypertension. 4. Chronic respiratory failure on home oxygen. 5. Interstitial lung disease. 6. Chronic kidney disease, usually is worsened by diuresis. 7. Overweight. 8. Hyperglycemia. PLAN: 1. Continuing the same medications including IV Lasix. 2. Continue monitoring her respiratory status and her congestive heart failure. 3. Because of extremely poor IV access and every time she comes to the hospital we have to place either a midline or PICC line discussed with the patient placing an Infusaport. That will make IV access much easier and will avoid any delays in her treatment in any acute situation. 4. Surgical consultation was requested from Dr. Alfredo Lynn. I spoke with him and requested a consultation for placement of an Infusaport. 5. Will start increasing her activity as soon her condition improves.
[2016-02-25] MEDS: FUROSEMIDE INJ 40 MG in SYRINGE 0 ML IV SCH (16:24)
[2016-02-25] MEDS: ZOLPIDEM TARTRATE 5 MG TAB PO PRN (21:28)
[2016-02-26] VITALS (13 sets, daily range): BP systolic 111–151; BP diastolic 62–97; PULSE 60–83; TEMP 36.4–36.8; O2SAT 86–100
[2016-02-26] MEDS: LEVALBUTEROL 1.25MG/3ML NEB INH SCH ×6 (03:17→23:36)
[2016-02-26 07:11] LABS: BASO % 0.1 %; BASO ABS # 0.02 K/uL (0-0.2); COMPLETE YES; EOS % 0.1 %; HEMATOCRIT 35.5 % (37-47); IG% 0.2 %; LYMPH % 8.9 %; LYMPH ABS # 1.39 K/uL (1.2-3.4); MEAN CELL VOLUME 84.5 fL (80-100); MEAN CORPUSCULAR HEMOGLOBIN 25.7 pg (25-34); MEAN CORPUSCULAR HGB CONC 30.4 g/dl (32-36); MEAN PLATELET VOLUME 9.9 fL (7.4-10.4); MONO % 10.8 %; NEUT % 79.9 %; PLATELET COUNT 283 K/uL (130-400); WHITE BLOOD COUNT 15.63 K/uL (4.8-10.8)
[2016-02-26 07:43] LABS: BUN/CREATININE RATIO 25.1 (10-20); CALCIUM 9.1 mg/dl (8.5-10.1); CREATININE 1.4 mg/dl (0.60-1.20); POTASSIUM 4.1 mmol/L (3.5-5.1)
--- NOTE | 2016-02-26 07:58 | DIAGNOSTIC IMAGING REPORT ---
CHEST ONE VIEW PORTABLE HISTORY: Short of breath. COMPARISON: Chest 02/25/2016. FINDINGS: No pneumothorax. Small bilateral pleural effusions have slightly improved. The heart remains enlarged. Mild pulmonary edema has also improved. The right PICC terminates in the SVC. Mitral annulus calcifications. IMPRESSION: Improvement in the mild interstitial pulmonary edema and small bilateral pleural effusions. Electronically signed by: Richi Pearson M.D. 02/26/2016 7:56 AM Dictated Date/Time: 02/26/2016 7:56 AM
[2016-02-26] MEDS: FUROSEMIDE INJ 40 MG in SYRINGE 0 ML IV SCH ×2 (08:16→18:14)
[2016-02-26] MEDS: ALLOPURINOL 300 MG TAB PO SCH (08:16)
[2016-02-26] MEDS: ASPIRIN 81 MG ECTAB PO SCH (08:17)
[2016-02-26] MEDS: RANITIDINE HCL 150 MG TAB PO SCH ×2 (08:17→20:45)
[2016-02-26] MEDS: PAROXETINE 20 MG TAB PO SCH (08:17)
[2016-02-26] MEDS: POTASSIUM CHLORIDE 20 MEQ TABCR PO SCH ×2 (08:18→20:44)
--- NOTE | 2016-02-26 08:19 | Medical Consult ---
Consultation Date of Consultation: Feb 26, 2016. Attending Physician: Chente Miranda M.D. History of Present Illness pt in/out of hospital frequently. this admission for respiratory issues. 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 (3) CHF (congestive heart failure) Status: Acute (4) CHF (congestive heart failure) Status: Acute (5) COPD (chronic obstructive pulmonary disease) Status: Acute (6) COPD (chronic obstructive pulmonary disease) Status: Acute (7) COPD with acute exacerbation Status: Acute (8) Dyspnea Status: Acute (9) Headache Status: Acute (10) Hypoxia Status: Acute (11) Interstitial lung disease Status: Acute (12) Nausea & vomiting Status: Acute (13) Neck pain Status: Acute (14) Pneumonia Status: Acute (15) Respiratory failure Status: Acute (16) Respiratory failure Status: Acute (17) Respiratory failure Status: Acute (18) Small bowel obstruction Status: Acute (19) Small bowel obstruction Status: Acute (20) UTI (urinary tract infection) Status: Acute Family History Cancer Hypertension Social History Smoking Status: Never Smoker Drug Use: none Marital Status: Housing Status: lives with family Occupation Status: retired Allergies Coded Allergies: Morphine (Verified Allergy, Unknown, 12/30/15) Sulfamethoxazole w/Trimethoprim (Verified Allergy, Unknown, ., 12/30/15) Codeine (Verified Adverse Reaction, Mild, nausea, 12/30/15) Penicillins (Verified Adverse Reaction, Mild, severe nausea,HAD CEPHALOSPORINS, ZOSYN W/O PROBLEM, 12/30/15) Current Inpatient Medications Current Inpatient Medications Medications (Trade) Dose Ordered Sig/Gilma Route Start Time Stop Time Status Last Admin Dose Admin Heparin Sodium (Porcine) (Heparin Sq 5000 Unit/0.5ml) 5,000 unit Q12H SQ 02/25/16 09:00 03/26/16 08:59 02/25/16 21:31 5,000 UNIT Acetaminophen (Tylenol Tab) 650 mg Q4H PRN PO 02/24/16 22:00 03/25/16 21:59 02/25/16 04:11 650 MG Allopurinol (Zyloprim Tab) 150 mg DAILY PO 02/25/16 09:00 03/26/16 08:59 02/25/16 08:40 150 MG Aspirin (Ecotrin Tab) 81 mg DAILY PO 02/25/16 09:00 03/26/16 08:59 02/25/16 08:41 81 MG Lorazepam (Ativan Tab) 0.5 mg TID PRN PO 02/24/16 22:00 03/25/16 21:59 Paroxetine HCl (pAXil TAB) 20 mg DAILY PO 02/25/16 09:00 03/26/16 08:59 02/25/16 08:41 20 MG Ranitidine HCl (zANTac TAB) 150 mg BID PO 02/25/16 09:00 03/26/16 08:59 02/25/16 21:29 150 MG Zolpidem Tartrate (Ambien Tab) 5 mg HS PRN PO 02/24/16 22:00 03/25/16 21:59 02/25/16 21:28 5 MG Levalbuterol (Xopenex 1.25MG/ 3ML Neb) 1.25 mg Q4R INH 02/25/16 04:00 03/26/16 03:59 02/26/16 07:30 1.25 MG Potassium Chloride (Klor-Con Tab) 20 meq BID PO 02/25/16 09:00 03/26/16 08:59 02/25/16 21:29 20 MEQ Heparin Sodium (Porcine) (Heparin 10 Unit/ ml 5 ml Flush) 5 ml PRN PRN FLUSH 02/25/16 09:00 03/26/16 08:59 Tramadol HCl 50 mg 50 mg Q4H PRN PO 02/25/16 10:45 03/26/16 10:44 02/25/16 12:35 50 MG Furosemide 40 mg/ Syringe 4 ml @ 4 mls/min BID17 IV 02/25/16 17:00 03/26/16 16:59 02/25/16 16:24 4 MLS/MIN Ondansetron HCl/ Dextrose (Zofran Inj/D5 50ml) 54 ml @ 200 mls/hr Q4H PRN IV 02/25/16 15:45 03/26/16 15:44 02/25/16 16:21 200 MLS/HR Ketorolac Tromethamine (Toradol Inj) 15 mg Q6H PRN IV 02/25/16 15:45 03/01/16 15:44 1/7/17 15:55 15 MG Review of Systems Respiratory: + cough, + shortness of breath Physical Exam Date Time Temp Pulse Resp B/P Pulse Ox O2 Delivery O2 Flow Rate FiO2 02/26/16 07:35 36.4 62 16 150/82 90 2.0 02/26/16 07:30 60 16 90 Nasal Cannula 2.0 02/26/16 04:00 Nasal Cannula 2.0 02/26/16 03:57 36.8 65 18 111/70 94 Nasal Cannula 2.0 02/26/16 03:18 65 16 92 Nasal Cannula 2.0 02/26/16 00:00 Nasal Cannula 2.0 02/25/16 23:31 36.6 73 20 130/73 94 Nasal Cannula 2.0 02/25/16 23:13 72 16 91 Nasal Cannula 2.0 02/25/16 20:13 73 16 90 Nasal Cannula 2.0 02/25/16 20:00 Nasal Cannula 2.0 02/25/16 19:46 36.6 70 18 134/74 93 Nasal Cannula 2.0 02/25/16 16:11 69 16 91 Nasal Cannula 2.0 02/25/16 16:00 Nasal Cannula 2.0 02/25/16 15:45 36.3 70 18 147/78 94 Nasal Cannula 2.0 02/25/16 12:00 Nasal Cannula 2.0 02/25/16 11:43 36.6 66 18 136/78 94 2.0 02/25/16 11:42 110 16 91 Nasal Cannula 2.0 02/25/16 08:28 36.4 67 16 150/87 99 Nasal Cannula 2.0 General Appearance: no apparent distress Head: normocephalic Eyes: normal inspection, EOMI ENT: hearing grossly normal Neck: supple, no adenopathy Abdomen/GI: non tender, soft Laboratory Results Last 24 Hours Test 02/25/16 12:20 02/25/16 17:55 02/26/16 06:22 Total Creatine Kinase 21 U/L Creatine Kinase MB 0.7 ng/ml Creatine Kinase MB Ratio 3.3 Troponin I < 0.015 ng/ml 0.020 ng/ml White Blood Count 15.63 K/uL Red Blood Count 4.20 M/uL Hemoglobin 10.8 g/dL Hematocrit 35.5 % Mean Corpuscular Volume 84.5 fL Mean Corpuscular Hemoglobin 25.7 pg Mean Corpuscular Hemoglobin Concent 30.4 g/dl Platelet Count 283 K/uL Mean Platelet Volume 9.9 fL Neutrophils (%) (Auto) 79.9 % Lymphocytes (%) (Auto) 8.9 % Monocytes (%) (Auto) 10.8 % Eosinophils (%) (Auto) 0.1 % Basophils (%) (Auto) 0.1 % Neutrophils # (Auto) 12.49 K/uL Lymphocytes # (Auto) 1.39 K/uL Monocytes # (Auto) 1.69 K/uL Eosinophils # (Auto) 0.01 K/uL Basophils # (Auto) 0.02 K/uL RDW Standard Deviation 59.9 fL RDW Coefficient of Variation 19.3 % Immature Granulocyte % (Auto) 0.2 % Immature Granulocyte # (Auto) 0.03 K/uL Sodium Level 143 mmol/L Potassium Level 4.1 mmol/L Chloride Level 105 mmol/L Carbon Dioxide Level 27 mmol/L Anion Gap 11.0 mmol/L Blood Urea Nitrogen 35 mg/dl Creatinine 1.40 mg/dl Est Creatinine Clear Calc Drug Dose 35.6 ml/min Estimated GFR () 43.4 Estimated GFR (Non- 37.4 BUN/Creatinine Ratio 25.1 Random Glucose 131 mg/dl Calcium Level 9.1 mg/dl Assessment & Plan discussed with Dr. Dahl. he and pt would like a mediport placed b/c she is extremely difficult to place IV's she needs to come to hospital frequently and He is afraid not being able to obtain IV's timely may become a medical emergency for her I discusses this with her including the risks ( bleeding/infection/dvt/ pneumothorax/infection of the port requiring removal etc...) she would like to have this placed will add on to the OR schedule for tomorrow
[2016-02-26] MEDS: HEPARIN SOD 5000 UNIT/0.5 ML CARP SQ SCH ×2 (08:20→20:51)
--- NOTE | 2016-02-26 17:44 | PROGRESS NOTE ---
DATE: 02/26/2016 A 71-year-old female admitted with: 1. Acute congestive heart failure thought to be diastolic. 2. Chronic respiratory failure. 3. Severe interstitial lung disease. 4. Arterial hypertension. 5. History of multiple abdominal wall surgeries because of recurrent hernias. The patient was admitted. She was diuresed with IV Lasix. She has extremely poor IV access. A PICC line was placed. She is receiving her IV Lasix. Overall, her condition improved. She denied any headache. No dizziness. No chest pain. Her shortness of breath is subsiding. She is on home oxygen. Denied any abdominal pain, no nausea, no vomiting. No problem with her bowel movements. She does have a Britton catheter in place. It was inserted during the time that she is being diuresed with Lasix because of the degree of difficulty she has to get up repeatedly to urinate. Denied any pain in her back. No ankle edema. REVIEW OF SYSTEMS: She is resting comfortably. I had to wake her up this morning. She slept well during the night. She did take 1 Ambien last night, only the 5 mg. PHYSICAL EXAMINATION: GENERAL: Well developed, in no distress. VITAL SIGNS: Blood pressure 150/82, pulse 62, respirations 16, temperature 36.4, oxygen saturation 90% on 2-liter oxygen by nasal cannula. SKIN: Warm and dry. No rash. HEENT: Oxygen cannula in place. NECK: No JVD, no adenopathy. HEART: Regular heart sounds. LUNGS: Decreased breath sounds. Basilar rales. ABDOMEN: Protruded. Soft, nontender. Multiple surgical scars. BACK: No spinal tenderness. EXTREMITIES: No edema, clubbing, or cyanosis. TODAY'S LABORATORY TESTS: WBC count 15,630, hemoglobin 10.8, hematocrit 35.5, platelet count 283,000. Sodium 143, potassium 4.1, chloride 105, CO2 27, BUN 35, creatinine 1.4, glucose 131, calcium 9.1. ASSESSMENT: 1. Acute diastolic congestive heart failure. 2. Diastolic dysfunction. 3. Chronic interstitial lung disease. 4. Chronic respiratory failure. 5. Arterial hypertension. 6. History of multiple abdominal surgeries. PLAN: 1. Continuing her IV Lasix. 2. Continue monitoring her renal function. In the past whenever she received IV Lasix, her creatinine does rise but is staying around 1.4 this time. We will continue monitoring that. 3. Her WBC count is elevated. We will monitor that. She did receive a dose of Solu-Medrol and that usually elevates her WBC count, but we will monitor that. I am not continuing her on steroid at this point. 4. Surgical consultation was requested and she was seen by Dr. Alfredo Lynn. We need to place an A-port. My main concern is that she has extremely difficult IV access. Even in the Emergency Room, there have been episodes where her treatment was delayed because of the absence of IV access. 5. The intent is for her to go back home after her acute hospitalization.
[2016-02-26] MEDS: ZOLPIDEM TARTRATE 5 MG TAB PO PRN (20:52)
[2016-02-26] MEDS: KETOROLAC TROMETHAMINE 15 MG/ML VIAL IV PRN (20:52)
[2016-02-27] VITALS (10 sets, daily range): BP systolic 123–164; BP diastolic 53–78; PULSE 74–89; TEMP 36.3–36.7; O2SAT 89–95
[2016-02-27] MEDS: LEVALBUTEROL 1.25MG/3ML NEB INH SCH ×6 (04:00→23:22)
[2016-02-27 06:20] LABS: BASO % 0.5 %; BASO ABS # 0.05 K/uL (0-0.2); COMPLETE YES; EOS % 3.8 %; HEMATOCRIT 34.3 % (37-47); IG% 0.2 %; LYMPH % 19.1 %; MEAN CELL VOLUME 86.4 fL (80-100); MEAN CORPUSCULAR HEMOGLOBIN 25.4 pg (25-34); MEAN CORPUSCULAR HGB CONC 29.4 g/dl (32-36); MEAN PLATELET VOLUME 9.5 fL (7.4-10.4); MONO % 10.7 %; NEUT % 65.7 %; PLATELET COUNT 255 K/uL (130-400); RED BLOOD COUNT 3.97 M/uL (4.2-5.4); WHITE BLOOD COUNT 9.94 K/uL (4.8-10.8)
[2016-02-27 06:52] LABS: BUN/CREATININE RATIO 27.3 (10-20); CALCIUM 8.7 mg/dl (8.5-10.1); CREATININE 1.5 mg/dl (0.60-1.20); POTASSIUM 4.3 mmol/L (3.5-5.1)
[2016-02-27] MEDS: HEPARIN SOD 5000 UNIT/0.5 ML CARP SQ SCH ×2 (09:00→21:11)
[2016-02-27] MEDS: FUROSEMIDE INJ 40 MG in SYRINGE 0 ML IV SCH ×2 (09:02→16:55)
[2016-02-27] MEDS: ALLOPURINOL 300 MG TAB PO SCH (09:06)
[2016-02-27] MEDS: ASPIRIN 81 MG ECTAB PO SCH (09:06)
[2016-02-27] MEDS: PAROXETINE 20 MG TAB PO SCH (09:06)
[2016-02-27] MEDS: POTASSIUM CHLORIDE 20 MEQ TABCR PO SCH ×2 (09:07→21:08)
[2016-02-27] MEDS: RANITIDINE HCL 150 MG TAB PO SCH ×2 (09:07→21:09)
[2016-02-27] MEDS ORDERED: MIDAZOLAM HCL 1 MG/ML 2ML VIAL ONE ×2 (11:40→11:41)
[2016-02-27] MEDS ORDERED: PROPOFOL IV EMULSION 10 MG/ML 20 ML VIAL IV ONE (11:40)
[2016-02-27] MEDS ORDERED: FENTANYL CITRATE INJ 50 MCG/1 ML 2 ML VIAL ONE (11:40)
[2016-02-27] MEDS ORDERED: NURSING VERBAL MED ORDER ONE (12:45)
[2016-02-27] MEDS ORDERED: CLINDAMYCIN 600 MG/54 ML D5W IV ONE (12:46)
--- NOTE | 2016-02-27 12:58 | History & Physical Bridge Note ---
H&P Re-Evaluation Bridge Note: I have examined the patient, reviewed the History & Physical and in the interval since the performance of the History & Physical I have noted the following changes of clinical significance: No changes noted
[2016-02-27] MEDS ORDERED: BUPIVACAINE/EPINEPHRINE 0.5% MPF 1:200,000 30 ML VIAL INJ ONE (14:14)
[2016-02-27] MEDS ORDERED: HEPARIN 500 UNITS/5ML FLUSH SYRINGE FLUSH ONE (14:15)
[2016-02-27] MEDS ORDERED: SODIUM CHLORIDE 0.9% PF 50 ML VIAL INJ ONE (14:16)
--- NOTE | 2016-02-27 14:18 | [facility] Operative Report ---
Operative Report Operative Date Feb 27, 2016. Pre-Operative Diagnosis Poor IV access Post-Operative Diagnosis same Procedure(s) Performed left subclavian mediport insertion Surgeon Dr. Alfredo Lynn Entry Level Project Coordinator Surgeon(s) None Estimated Blood Loss 10 ml Findings slightly aberrant subclavian vein Specimens none per surgeon Complication(s) None Disposition Recovery Room / PACU I attest to the content of the Intraoperative Record and any orders documented therein. Any exceptions are noted below.
[2016-02-27] MEDS ORDERED: ATROPINE SULFATE 0.1 MG/ML 5ML SYR IV PRN (14:30)
[2016-02-27] MEDS ORDERED: EpHEDrine SULFATE INJ 50 MG/ML AMP IV PRN (14:30)
--- NOTE | 2016-02-27 14:44 | Anesthesiology Progress Note ---
Anesthesia Post Op Note Date & Time Feb 27, 2016 at 14:43 Vital Signs Pain Intensity: 1 Vital Signs Past 12 Hours Date Time Temp Pulse Resp B/P Pulse Ox O2 Delivery O2 Flow Rate FiO2 02/27/16 14:30 36.2 78 16 147/79 95 Nasal Cannula 3 02/27/16 14:20 74 16 160/84 98 Nasal Cannula 3 02/27/16 14:12 36 77 16 162/76 97 Nasal Cannula 3 02/27/16 12:10 36.8 80 18 148/78 96 Nasal Cannula 4 02/27/16 11:41 80 16 92 Nasal Cannula 3.0 02/27/16 08:00 Nasal Cannula 2.0 02/27/16 07:31 36.5 77 20 137/72 90 Nasal Cannula 2.0 02/27/16 07:05 77 16 89 Nasal Cannula 3.0 Notes Mental Status: alert / awake / arousable, participated in evaluation Pt Amnestic to Procedure: Yes Nausea / Vomiting: adequately controlled Pain: adequately controlled Airway Patency, RR, SpO2: stable & adequate BP & HR: stable & adequate Hydration State: stable & adequate Anesthetic Complications: no major complications apparent
--- NOTE | 2016-02-27 14:46 | DIAGNOSTIC IMAGING REPORT ---
CHEST ONE VIEW PORTABLE CLINICAL HISTORY: port placement COMPARISON STUDY: 02/26/2016 FINDINGS: There is no change the position right-sided PICC catheter. There is been interval placement of a left subclavian A-Port catheter. The tip projects over the brachiocephalic vein confluence. The heart is enlarged. There is worsening pulmonary edema. There is calcification within the mitral valve annulus. No pneumothorax is visualized.[ IMPRESSION: 1. Worsening pulmonary edema 2. No evidence of pneumothorax status post placement of a left subclavian A-Port catheter Electronically signed by: Danie Ortiz M.D. 02/27/2016 2:44 PM Dictated Date/Time: 02/27/2016 2:42 PM
--- NOTE | 2016-02-27 17:57 | OPERATIVE REPORT ---
DATE OF OPERATION: 02/27/2016 PREOPERATIVE DIAGNOSES: Poor IV access and need for chronic IV access. POSTOPERATIVE DIAGNOSES: Same. PROCEDURE: Left subclavian MediPort insertion under fluoroscopy. SURGEON: Alfredo Lynn DO ESTIMATED BLOOD LOSS: 20 mL. COMPLICATIONS: No immediate. ANESTHESIA: MAC with local anesthetic. DISPOSITION: The patient tolerated the procedure well. DESCRIPTION OF PROCEDURE: After informed consent was obtained, the patient was taken to the operating suite and placed in the supine position. IV sedation was administered. Once the patient was comfortable, we tucked both arms and placed a rolled towel between her shoulder blades. We then sterilely prepped and draped the left subclavian region. We made a horizontal incision of the clavicle and carried this down through the soft tissue using electrocautery. We used blunt finger dissection to create housing pocket for the MediPort. We then used a finder needle to again IV access in the left subclavian vein. After the first stick, we again access; however, when we passed the wire under fluoroscopy, the wire kept wanting to pass into an accessory vein. I then removed this needle stick and performed a second needle stick more proximal on the clavicle. We were then able leak again accessed to the left subclavian vein and then passed the guidewire under fluoroscopy. I then removed the needle and again under fluoroscopy, passed the vascular dilator and peel-away sheath. We then cut the catheter tubing to appropriate size by measuring it under fluoroscopy. It was attached to the MediPort itself and secured using the collar. We then placed this into the pocket. We pulled away the dilator and advanced the catheter through the peel-away sheath. We then peeled the sheath away leaving the catheter in place. A C-arm placement looked okay. The catheter flushed easily and we were able to withdraw dark venous blood. We then flushed it with about 10 mL of injectable heparin saline mix. I then secured the MediPort to the pectoralis muscle using 0 Ethibond in interrupted fashion. We thoroughly irrigated the wound. I closed in 2 layers using 3-0 Monocryl for both layers. Sterile dressing was applied. The patient was awakened and transferred to recovery in stable condition. Postoperative portable chest x-ray is currently pending. I attest to the content of the Intraoperative Record and any orders documented therein. Any exceptio ns are noted below.
--- NOTE | 2016-02-27 20:36 | PROGRESS NOTE ---
DATE: 02/27/2016 A 71-year-old female, admitted with: 1. Acute diastolic congestive heart failure. 2. Interstitial lung disease. 3. Chronic respiratory failure. 4. Arterial hypertension. 5. History of multiple abdominal surgeries, mostly related to ventral and incisional hernias. Overall, she is doing better. Her shortness of breath has subsided. She is resting comfortably. She can sleep flat in bed without any shortness of breath. She denied any headache, dizziness or lightheadedness. No chest pain, no nausea, no vomiting. No problem with her bowel movements. She does have a Britton catheter in place. No ankle edema. PHYSICAL EXAMINATION: GENERAL: Well-developed, in no acute distress. VITAL SIGNS: Blood pressure 137/72, pulse 77, respiration 20, temperature 36.5 and oxygen saturation 90% on 2 liters oxygen by nasal cannula. SKIN: Warm and dry. No rash. HEENT: No evidence of any mucosal abnormalities. NECK: No JVD. HEART: Regular heart sounds. LUNGS: Chronic rales related to her interstitial lung disease. ABDOMEN: Soft, nontender. Multiple surgical scars. BACK: No spinal tenderness. EXTREMITIES: No edema, clubbing or cyanosis. TODAY'S LABORATORY TESTS: WBC count 9940, hemoglobin 10.1, hematocrit 34.3 and platelet count 255,000. Sodium 143, potassium 4.3, chloride 106, CO2 30, BUN 41, creatinine 1.5, glucose 86 and calcium 8.7. ASSESSMENT: 1. Acute diastolic congestive heart failure. 2. Severe interstitial lung disease. 3. Chronic respiratory failure, on home oxygen. 4. Arterial hypertension. 5. Chronic kidney disease. 6. Poor IV access. PLAN: 1. Her Britton catheter was removed. 2. Continue the same medications. 3. An infusaport was placed today by Dr. Lynn. The procedure was well tolerated. 4. We will gradually increase her activity. 5. Eventually, I anticipate that she will go home once her condition permits.
[2016-02-27] MEDS: ZOLPIDEM TARTRATE 5 MG TAB PO PRN (21:08)
[2016-02-27] MEDS: HYDROCODONE/ACETAMOPHEN 5/325MG TAB PO PRN (22:40)
[2016-02-28] VITALS (9 sets, daily range): BP systolic 133–172; BP diastolic 62–78; PULSE 77–91; TEMP 36.7; O2SAT 91–96
[2016-02-28] MEDS: LEVALBUTEROL 1.25MG/3ML NEB INH SCH ×6 (03:48→23:14)
[2016-02-28 06:23] LABS: BASO % 0.5 %; BASO ABS # 0.05 K/uL (0-0.2); COMPLETE YES; EOS % 8.1 %; HEMATOCRIT 33.9 % (37-47); IG% 0.3 %; LYMPH % 13.9 %; LYMPH ABS # 1.53 K/uL (1.2-3.4); MEAN CELL VOLUME 85.2 fL (80-100); MEAN CORPUSCULAR HEMOGLOBIN 25.4 pg (25-34); MEAN CORPUSCULAR HGB CONC 29.8 g/dl (32-36); MEAN PLATELET VOLUME 9.9 fL (7.4-10.4); MONO % 11.9 %; NEUT % 65.3 %; PLATELET COUNT 253 K/uL (130-400); RED BLOOD COUNT 3.98 M/uL (4.2-5.4); WHITE BLOOD COUNT 11.03 K/uL (4.8-10.8)
[2016-02-28 06:57] LABS: BUN/CREATININE RATIO 26.3 (10-20); CALCIUM 9.1 mg/dl (8.5-10.1); CREATININE 1.2 mg/dl (0.60-1.20)
[2016-02-28] MEDS: ALLOPURINOL 300 MG TAB PO SCH (08:09)
[2016-02-28] MEDS: RANITIDINE HCL 150 MG TAB PO SCH ×2 (08:10→20:21)
[2016-02-28] MEDS: PAROXETINE 20 MG TAB PO SCH (08:10)
[2016-02-28] MEDS: FUROSEMIDE INJ 40 MG in SYRINGE 0 ML IV SCH ×2 (08:10→16:34)
[2016-02-28] MEDS: POTASSIUM CHLORIDE 20 MEQ TABCR PO SCH ×2 (08:10→20:21)
[2016-02-28] MEDS: ASPIRIN 81 MG ECTAB PO SCH (08:10)
[2016-02-28] MEDS: HEPARIN SOD 5000 UNIT/0.5 ML CARP SQ SCH ×2 (08:14→20:20)
--- NOTE | 2016-02-28 11:51 | DIAGNOSTIC IMAGING REPORT ---
CHEST 2 VIEWS ROUTINE CLINICAL HISTORY: CHF, INTERSTITIAL LUNG DISEASE COMPARISON STUDY: 02/27/2016 FINDINGS: The heart remains enlarged. There is been no change the position right-sided PICC catheter left-sided A-Port catheter. There is calcification mitral valve annulus. There is improving congestive failure/pulmonary edema. There is a small right pleural effusion.[ IMPRESSION: 1. Improving congestive failure/pulmonary edema 2. Small right pleural effusion Electronically signed by: Danie Ortiz M.D. 02/28/2016 11:49 AM Dictated Date/Time: 02/28/2016 11:48 AM
[2016-02-28] MEDS: HYDROCODONE/ACETAMOPHEN 5/325MG TAB PO PRN (13:02)
[2016-02-28] MEDS: KETOROLAC TROMETHAMINE 15 MG/ML VIAL IV PRN (15:47)
[2016-02-28] MEDS: ZOLPIDEM TARTRATE 5 MG TAB PO PRN (20:20)
--- NOTE | 2016-02-28 23:27 | PROGRESS NOTE ---
DATE: 02/28/2016 A 71-year-old female admitted with diastolic congestive heart failure, interstitial lung disease and chronic respiratory failure. She is also treated for arterial hypertension. She has chronic kidney disease. She has history of multiple abdominal surgeries because of multiple hernias. The patient was admitted. Diuresed with IV Lasix. She has extremely poor IV access. An Infusaport was placed yesterday by Dr. Alfredo Lynn. The procedure was well-tolerated. Prior to that, she also had a PICC line placed. Her condition has gradually improved. She denied any chest pain. No shortness of breath at rest. She is resting comfortably. She is sleeping flat in bed without any shortness of breath. No abdominal pain, no nausea, no vomiting. No problem with her bowel movements or urination. No pain in her back or extremities. She is complaining of some discomfort at the site of the placement of the Infusaport. PHYSICAL EXAMINATION: GENERAL: Well developed, in no acute distress. VITAL SIGNS: Blood pressure 145/78, pulse 91, respiration 18, temperature 36.7, oxygen saturation 91% on 2 liters oxygen by nasal cannula. SKIN: Warm and dry. No rash. HEENT: Oxygen cannula in place. No mucosal abnormality. NECK: No JVD, no adenopathy. HEART: Regular heart sounds. LUNGS: Chronic interstitial sounds. ABDOMEN: Soft, nontender with no organomegaly or masses. BACK: No spinal tenderness. EXTREMITIES: No edema, clubbing, or cyanosis. LABORATORY TESTS: WBC count 11,030, hemoglobin 10.1, hematocrit 33.9, platelet count 253,000. Sodium 144, potassium 4.0, chloride 104, CO2 29, BUN 32, creatinine 1.2, glucose 104, calcium 9.1. Chest x-ray was done today and showed significant improvement of interstitial edema previously noted. ASSESSMENT: 1. Diastolic congestive heart failure. 2. Interstitial lung disease. 3. Chronic respiratory failure. 4. Arterial hypertension. 5. Chronic kidney disease. PLAN: 1. Continuing the same medications. 2. Continue diuresing with IV Lasix. 3. Overall, her condition is improved. I intend to send her home tomorrow morning if her condition remained stable throughout the night. We will remove her PICC line tomorrow and in the future we should be able to review is her [id number] without any delayed.
[2016-02-29 00:05] VITALS: BP 145/79; PULSE 82; TEMP 36.7; O2SAT 94
[2016-02-29] MEDS: LEVALBUTEROL 1.25MG/3ML NEB INH SCH ×3 (04:00→11:39)
[2016-02-29 06:40] LABS: BASO % 0.4 %; BASO ABS # 0.04 K/uL (0-0.2); COMPLETE YES; EOS % 10.2 %; HEMATOCRIT 35.5 % (37-47); IG% 0.3 %; LYMPH % 20.8 %; LYMPH ABS # 2.13 K/uL (1.2-3.4); MEAN CELL VOLUME 85.7 fL (80-100); MEAN CORPUSCULAR HEMOGLOBIN 25.6 pg (25-34); MEAN CORPUSCULAR HGB CONC 29.9 g/dl (32-36); MEAN PLATELET VOLUME 10.1 fL (7.4-10.4); MONO % 7.7 %; NEUT % 60.6 %; PLATELET COUNT 261 K/uL (130-400); RED BLOOD COUNT 4.14 M/uL (4.2-5.4); WHITE BLOOD COUNT 10.24 K/uL (4.8-10.8)
[2016-02-29 07:06] LABS: CALCIUM 9.3 mg/dl (8.5-10.1); CREATININE 1.2 mg/dl (0.60-1.20); POTASSIUM 4.6 mmol/L (3.5-5.1)
[2016-02-29 07:16] VITALS: PULSE 84; O2SAT 88
[2016-02-29 07:21] VITALS: BP 153/82; PULSE 81; TEMP 36.6; O2SAT 92
--- NOTE | 2016-02-29 08:33 | Discharge Instructions ---
Discharge Instructions Admission Reason for Admission: Acute Respiratory Failure, Chf Discharge Discharge Diagnosis / Problem: ACUTE DIASTOLIC CONGESTIVE HEART FAILURE. CHRONIC RESPIRATORY FAILURE. Discharge Goals Goal(s): Decrease discomfort, Improve function, Increase independence, Improve disease control, Improve nutritional status Activity Recommendations Activity Limitations: resume your previous activity . Instructions / Follow-Up Instructions / Follow-Up DR LANIER IN ONE WEEK Current Hospital Diet Patient's current hospital diet: Low Sodium Diet (2gm Na) Discharge Diet Recommended Diet: Low Sodium Diet (2gm Na) Procedures Procedures Performed: Left Subclavian Infusaport Insertion Pending Studies Studies pending at discharge: no Medical Emergencies . Who to Call and When: Medical Emergencies: If at any time you feel your situation is an emergency, please call 911 immediately. . Non-Emergent Contact Non-Emergency issues call your: Primary Care Provider . . "Provider Documentation" section prepared by Chente Lanier. VTE Core Measure Inpt VTE Proph given/why not?: Treatment not indicated
[2016-02-29] MEDS: PAROXETINE 20 MG TAB PO SCH (08:35)
[2016-02-29] MEDS: POTASSIUM CHLORIDE 20 MEQ TABCR PO SCH (08:35)
[2016-02-29] MEDS: FUROSEMIDE INJ 40 MG in SYRINGE 0 ML IV SCH (08:35)
[2016-02-29] MEDS: ASPIRIN 81 MG ECTAB PO SCH (08:35)
[2016-02-29] MEDS: ALLOPURINOL 300 MG TAB PO SCH (08:36)
[2016-02-29] MEDS: RANITIDINE HCL 150 MG TAB PO SCH (08:36)
[2016-02-29] MEDS: HEPARIN SOD 5000 UNIT/0.5 ML CARP SQ SCH (08:38)
[2016-02-29 10:16] VITALS: BP 153/82; PULSE 81; TEMP 36.6; O2SAT 92
--- NOTE | 2016-02-29 10:57 | Anesthesiology Progress Note ---
Anesthesia Post Op Note Date & Time Feb 29, 2016 at 10:56 Vital Signs Pain Intensity: 0.0 Vital Signs Past 12 Hours Date Time Temp Pulse Resp B/P Pulse Ox O2 Delivery O2 Flow Rate FiO2 02/29/16 10:16 36.6 81 16 92 Nasal Cannula 02/29/16 08:00 Nasal Cannula 02/29/16 07:21 36.6 81 16 153/82 92 2.0 02/29/16 07:16 84 16 88 Nasal Cannula 2.0 02/29/16 00:05 36.7 82 20 145/79 94 Nasal Cannula 2.0 02/29/16 00:00 Nasal Cannula 2.0 Notes Mental Status: alert / awake / arousable, participated in evaluation Pt Amnestic to Procedure: Yes Nausea / Vomiting: adequately controlled Pain: adequately controlled Airway Patency, RR, SpO2: stable & adequate BP & HR: stable & adequate Hydration State: stable & adequate Anesthetic Complications: no major complications apparent
--- NOTE | 2016-02-29 11:22 | Surgery Progress Note ---
Surgery Progress Note Date of Service Feb 29, 2016. Subjective Post OP Day: 1 little soreness from port placement Objective Vital Signs: Date Time Temp Pulse Resp B/P Pulse Ox O2 Delivery O2 Flow Rate FiO2 02/29/16 10:16 36.6 81 16 92 Nasal Cannula 02/29/16 08:00 Nasal Cannula 02/29/16 07:21 36.6 81 16 153/82 92 2.0 02/29/16 07:16 84 16 88 Nasal Cannula 2.0 02/29/16 00:05 36.7 82 20 145/79 94 Nasal Cannula 2.0 02/29/16 00:00 Nasal Cannula 2.0 02/28/16 19:45 84 16 96 Nasal Cannula 2.0 02/28/16 16:06 80 16 92 Nasal Cannula 2.0 02/28/16 16:00 92 Nasal Cannula 2.0 02/28/16 15:54 36.7 79 20 172/73 92 Nasal Cannula 2.0 02/28/16 11:30 77 16 91 Nasal Cannula 2.0 Incision(s): clean, dry, hematoma, ecchymosis Laboratory Results: Results Past 24 Hours Test 02/29/16 06:10 Range/Units White Blood Count 10.24 4.8-10.8 K/uL Red Blood Count 4.14 4.2-5.4 M/uL Hemoglobin 10.6 12.0-16.0 g/dL Hematocrit 35.5 37-47 % Mean Corpuscular Volume 85.7 80-100 fL Mean Corpuscular Hemoglobin 25.6 25-34 pg Mean Corpuscular Hemoglobin Concent 29.9 32-36 g/dl Platelet Count 261 130-400 K/uL Mean Platelet Volume 10.1 7.4-10.4 fL Neutrophils (%) (Auto) 60.6 % Lymphocytes (%) (Auto) 20.8 % Monocytes (%) (Auto) 7.7 % Eosinophils (%) (Auto) 10.2 % Basophils (%) (Auto) 0.4 % Neutrophils # (Auto) 6.21 1.4-6.5 K/uL Lymphocytes # (Auto) 2.13 1.2-3.4 K/uL Monocytes # (Auto) 0.79 0.11-0.59 K/uL Eosinophils # (Auto) 1.04 0-0.5 K/uL Basophils # (Auto) 0.04 0-0.2 K/uL RDW Standard Deviation 61.0 36.4-46.3 fL RDW Coefficient of Variation 19.2 11.5-14.5 % Immature Granulocyte % (Auto) 0.3 % Immature Granulocyte # (Auto) 0.03 0.00-0.02 K/uL Sodium Level 142 136-145 mmol/L Potassium Level 4.6 3.5-5.1 mmol/L Chloride Level 104 98-107 mmol/L Carbon Dioxide Level 29 21-32 mmol/L Anion Gap 9.0 3-11 mmol/L Blood Urea Nitrogen 29 7-18 mg/dl Creatinine 1.20 0.60-1.20 mg/dl Est Creatinine Clear Calc Drug Dose 42.1 ml/min Estimated GFR () 52.3 Estimated GFR (Non- 45.1 BUN/Creatinine Ratio 24.0 10-20 Random Glucose 91 70-99 mg/dl Calcium Level 9.3 8.5-10.1 mg/dl Assessment & Plan s/p port placement going home today can follow-up in our office for any concerns about incision has appt next week with PCP, can establish for port flushes
[2016-02-29 11:39] VITALS: PULSE 81; O2SAT 96
--- NOTE | 2016-02-29 21:47 | PROGRESS NOTE ---
DATE: 02/29/2016 A 71-year-old female, with multiple medical problems includin. Acute congestive heart failure, diastolic. 2. Diastolic dysfunction. 3. Interstitial lung disease. 4. Chronic respiratory failure. 5. Arterial hypertension. 6. Chronic kidney disease. Her condition has improved. She denied any headache. No dizziness, no lightheadedness. She denied any chest pain. No shortness of breath at rest and with her level of activity. No cough, no sputum. No abdominal pain, no nausea, no vomiting. No problem with her bowel movements. No problem urinating. During her hospitalization because of usual very poor IV access, an A-port was placed. PHYSICAL EXAMINATION: GENERAL: Well-developed, in no distress. VITAL SIGNS: Blood pressure 153/82, pulse 81, respirations 16, temperature 36.6 and oxygen saturation 92% on 2 liters oxygen by nasal cannula. SKIN: Warm and dry. No rash. HEENT: Oxygen cannula in place. NECK: No JVD, no adenopathy. HEART: Regular heart sounds. LUNGS: Decreased breath sounds. Chronic coarse rales. ABDOMEN: Obese, soft and nontender. BACK: No spinal tenderness. EXTREMITIES: No edema, clubbing or cyanosis. The site of her Infusaport is feeling fine. TODAY'S LABORATORY TESTS: WBC count 10,240, hemoglobin 10.6, hematocrit 35.5 and platelet count 261,000. Sodium 142, potassium 4.6, chloride 104, CO2 29, BUN 29, creatinine 1.2, glucose 91 and calcium 9.3. ASSESSMENT: 1. Acute congestive heart failure, diastolic. 2. Acute and chronic respiratory failure. 3. Interstitial lung disease. 4. Obesity. 5. Chronic kidney disease. PLAN: 1. Her condition is stable. 2. Continuing the same medications. 3. PICC line removed. 4. Home today. 5. Follow up in the office in one week.
--- NOTE | 2016-03-13 22:43 | DISCHARGE SUMMARY ---
DISCHARGE DIAGNOSES: 1. Acute diastolic congestive heart failure. 2. Acute respiratory failure superimposed on chronic respiratory failure. 3. Interstitial lung disease. 4. Arterial hypertension. 5. Chronic kidney disease. 6. History of multiple abdominal wall surgeries for hernias. 7. Poor IV access. DISCHARGE MEDICATIONS: Included: 1. Allopurinol 150 mg daily. 2. Aspirin 81 mg daily. 3. Calcium, magnesium and zinc supplement 334-134-5 mg 1 tablet daily. 4. Diltiazem CD 120 mg daily. 5. Furosemide 40 mg twice a day. 6. DuoNeb nebulizer 3 mL every 6 hours. 7. Lorazepam 0.5 mg 3 times a day as needed for anxiety. 8. Metoprolol tartrate 25 mg twice a day. 9. Paroxetine 20 mg daily. 10. Potassium chloride 10 mEq twice a day. 11. Ranitidine 150 mg twice a day. CONSULTATION: Dr. Alfredo Lynn in general surgery. PROCEDURE: Placement of an Infusaport. HISTORY OF PRESENT ILLNESS: Mrs. Shepard is a 71-year-old female admitted through the Emergency Room with acute respiratory failure. She has chronic interstitial lung disease and chronic respiratory failure. She is on home oxygen. She also presented with congestive heart failure. The patient was out with her family to [facility] to celebrate her birthday. While she was there, she got up and went to the bathroom and then she felt like she was going to pass out. She was markedly dyspneic. She could not really do anything. She was brought to the Emergency Room. She was evaluated. Her treatment was initiated. The patient was seen in the office about 2 days prior to her admission. Overall, she was doing quite well. She was complaining of pain in her abdominal wall and the upper abdominal area related to the mesh that she has had from prior surgery. She had an extensive workup in the Emergency Room. She was found to have congestive heart failure. Her oxygen saturation was markedly decreased. Her oxygen flow was increased. She was given IV Solu-Medrol and also a dose of IV Lasix. She was also given high-flow treatment. The patient was admitted for further treatment. PAST MEDICAL HISTORY, SOCIAL HISTORY AND FAMILY HISTORY: All as noted. ALLERGIES: 1. CODEINE. 2. MORPHINE. 3. PENICILLIN. 4. SULFA MEDICATION. MEDICATIONS ON ADMISSION: All as noted on her home medication list. PHYSICAL EXAMINATION AND ADMISSION LABORATORY TESTS: All as noted. HOSPITAL COURSE: The patient was admitted to PCU telemetry. Resuscitation level 1. All her laboratory tests were ordered. Cardiac isoenzymes and serial electrocardiograms were ordered. An echocardiogram was also ordered. She was continued on IV Lasix. Her electrolytes were monitored. From past experience whenever she is diuresed, her BUN and creatinine increased, but eventually they returned to her baseline. The patient was diuresed with IV Lasix. All her laboratory tests were monitored. Her cardiac isoenzymes were also monitored. There was no evidence of any myocardial infarction. Her echocardiogram showed evidence of diastolic dysfunction. Her condition gradually improved. Unfortunately, she has a very poor IV access, so a PICC line was placed. Her condition started to improve. Her activity was increased gradually. Her creatinine increased initially up to 1.5 but subsequently came down to 1.2. Also, her WBC count did rise and this was thought to be related to the steroids, but again, it started to come down toward the normal range. She was tolerating her diet. She was tolerating her ambulation. She was continued on oxygen. Because of her poor IV access, we discussed having an Infusaport placed. I consulted Dr. Alfredo Lynn. He was able to place the A-port without any difficulty. The patient was discharged home. Medications as noted above. She was continued on her oxygen. All her medications are as noted. Follow up in the office in 1 week.
== END 2016-02-29 13:02 | disposition home or self-care (01) | DRG 291 ==
LOC: ENRESERVDT → ENRESERVTM → C.EDB 17:32 → C.2T 22:09 → C.MED 02-26 12:15
PROVIDERS: ADMIT Internal Medicine; ATTEND Internal Medicine
PROC: 05H633Z Insertion of Infusion Device into Left Subclavian Vein, Percutaneous Approach (ICD-10-PCS; principal; 2016-02-27 12:30)
DX: I13.0 Hypertensive heart and chronic kidney disease with heart failure and stage 1 through stage 4 chronic kidney disease, or unspecified chronic kidney disease (principal); I50.31 Acute diastolic (congestive) heart failure; J96.00 Acute respiratory failure, unspecified whether with hypoxia or hypercapnia; J84.9 Interstitial pulmonary disease, unspecified; N18.9 Chronic kidney disease, unspecified; Z99.81 Dependence on supplemental oxygen; J44.9 Chronic obstructive pulmonary disease, unspecified; Z80.9 Family history of malignant neoplasm, unspecified; Z82.49 Family history of ischemic heart disease and other diseases of the circulatory system; E66.9 Obesity, unspecified; Z88.6 Allergy status to analgesic agent; Z88.0 Allergy status to penicillin; Z88.2 Allergy status to sulfonamides

== ENCOUNTER → 2016-03-08 | Outpatient (CLI) | payer BC ==
[~2016-03-08] MED LIST changes: -ALBUAER2 INH; +CALC-478 PO; +CIPR1TAB10 PO; -DXY100 PO; -MAGN250T3 PO; -PRED10TA PO
== END | disposition home or self-care (01) ==
LOC: C.LABSPEC 12:50
PROVIDERS: ATTEND Internal Medicine
DX: L02.211 Cutaneous abscess of abdominal wall (principal)

== ENCOUNTER 2016-04-06 12:50 | Inpatient (IN) | payer BC, OTHER ==
[~2016-04-06] VITALS: Ht 157.5 cm; Wt 81.6 kg
[~2016-04-06 12:50] MED LIST changes: -CIPR1TAB10 PO
[2016-04-06] MEDS ORDERED: BENZONATATE 100MG CAP PO PRN (13:15)
[2016-04-06 14:00] VITALS: BP 163/89; PULSE 71; TEMP 36.4; O2SAT 89; Ht 157.5 cm; Wt 81.6 kg
[2016-04-06 14:17] LABS: BASO % 0.6 %; BASO ABS # 0.08 K/uL (0-0.2); HEMATOCRIT 38.1 % (37-47); IG% 0.2 %; LYMPH % 13.7 %; LYMPH ABS # 1.75 K/uL (1.2-3.4); MEAN CELL VOLUME 83.6 fL (80-100); MEAN CORPUSCULAR HEMOGLOBIN 25.7 pg (25-34); MEAN PLATELET VOLUME 9.8 fL (7.4-10.4); MONO % 7.6 %; NEUT % 74.9 %; PLATELET COUNT 288 K/uL (130-400); RED BLOOD COUNT 4.56 M/uL (4.2-5.4); WHITE BLOOD COUNT 12.76 K/uL (4.8-10.8)
[2016-04-06 14:20] LABS: COMPLETE YES; MEAN CORPUSCULAR HGB CONC 30.7 g/dl (32-36)
[2016-04-06] MEDS: METHYLPREDNISOLONE IV 20 MG in SYRINGE 0 ML IV SCH ×2 (14:32→21:10)
[2016-04-06] MEDS: ACETAMINOPHEN 500 MG TAB PO PRN ×2 (14:38→23:56)
[2016-04-06 15:10] LABS: ALKALINE PHOSPHATASE 131 U/L (45-117); ALT/SGPT 12 U/L (12-78); AST/SGOT 17 U/L (15-37); BLOOD UREA NITROGEN 21 mg/dl (7-18); BUN/CREATININE RATIO 20.9 (10-20); CALCIUM 9.4 mg/dl (8.5-10.1); CARBON DIOXIDE 28 mmol/L (21-32); CHLORIDE 103 mmol/L (98-107); CREATININE 0.99 mg/dl (0.60-1.20); GLUCOSE 99 mg/dl (70-99); POTASSIUM 3.5 mmol/L (3.5-5.1); SODIUM 141 mmol/L (136-145)
[2016-04-06] MEDS: LEVALBUTEROL 1.25MG/3ML NEB INH SCH ×2 (15:15→15:28)
[2016-04-06 15:28] VITALS: PULSE 60; O2SAT 82
[2016-04-06 15:37] LABS: ALLEN TEST POS (POS); ARTERIAL BLOOD GAS BASE EXCESS 3.9 mEq/L (-9-1.8); ARTERIAL BLOOD GAS HCO3 27 mmol/L (19-24); ARTERIAL BLOOD GAS PO2 45 mm/Hg (80-95); ARTERIAL BLOOD GAS pH 7.52 (7.35-7.45); O2 ADMINISTRATION 3L
--- NOTE | 2016-04-06 16:59 | DIAGNOSTIC IMAGING REPORT ---
CHEST 2 VIEWS ROUTINE CLINICAL HISTORY: RESP FAILURE dyspnea COMPARISON STUDY: 02/28/2016 FINDINGS: Congestive heart failure. Bilateral pleural effusions. Central catheter medial left subclavian vein. IMPRESSION: Congestive heart failure. Bilateral pleural effusions. Findings are mildly progressive from the prior study. Electronically signed by: Mello Mayfield M.D. 04/06/2016 4:58 PM Dictated Date/Time: 04/06/2016 4:57 PM
[2016-04-06] MEDS ORDERED: FUROSEMIDE INJ 60 MG in SYRINGE 0 ML IV ONE ×2 (18:00→23:00)
[2016-04-06 21:00] VITALS: BP 135/79; PULSE 65; O2SAT 91
[2016-04-06] MEDS: LORAZEPAM 0.5 MG TAB PO PRN (21:09)
[2016-04-06] MEDS: POTASSIUM CHLORIDE 10 MEQ TABCR PO SCH (21:10)
[2016-04-06] MEDS: METOPROLOL TARTRATE 25 MG TAB PO SCH (21:10)
[2016-04-06] MEDS: RANITIDINE HCL 150 MG TAB PO SCH (21:10)
[2016-04-06] MEDS: HEPARIN SOD 5000 UNIT/0.5 ML CARP SQ SCH (21:14)
[2016-04-06 21:48] VITALS: PULSE 61; O2SAT 90
[2016-04-07] VITALS (12 sets, daily range): BP systolic 124–147; BP diastolic 64–82; PULSE 64–80; TEMP 36–36.6; O2SAT 89–98
[2016-04-07] MEDS: LEVALBUTEROL 1.25MG/3ML NEB INH SCH ×6 (00:33→19:50)
--- NOTE | 2016-04-07 00:37 | HISTORY & PHYSICAL EXAMINATION ---
DATE OF ADMISSION: 04/06/2016 A 71-year-old female admitted directly from the office with acute respiratory failure superimposed on chronic respiratory failure, diastolic congestive heart failure superimposed on chronic diastolic congestive heart failure. The patient with interstitial lung disease, has had multiple exacerbations requiring hospitalization. She also has diastolic congestive heart failure with multiple exacerbations. She has chronic kidney disease. She has chronic respiratory failure, on home oxygen. Has had multiple abdominal surgeries, has had recurrent hernias. Also recurrent ulcers in her abdominal wall. She has been going to the wound care clinic. There is also a major problem with dietary compliance as far as her salt intake. The patient does eat quite a bit of food with high salt intake including cold cuts and lunch meat and she does eat multiple meals at the [employer] and also canned products. The patient called the office this morning complaining of severe shortness of breath. We saw her in the office. She was markedly dyspneic. She was hypoxic even on her oxygen by nasal cannula at 3 liters. Her oxygen saturation was 87%. She was complaining of shortness of breath. No chest pain. She is complaining of wheezing and cough. No production of any sputum. No sore throat. In view of her severe dyspnea and hypoxemia, the patient was admitted directly from the office. PAST MEDICAL HISTORY: 1. As noted, she has had multiple prior hospitalizations with diastolic congestive heart failure. 2. Chronic respiratory failure, on home oxygen. 3. Multiple hospitalizations for abdominal pain and small-bowel obstruction. She also has multiple abdominal hernias. In July of 2015, she did require surgery for her bowel obstruction. She had mostly lysis of adhesions. Subsequently, she had partial dehiscence of her wound. She was treated at the wound care clinic. 4. Prior hospitalization for exacerbation of her lung disease with respiratory failure and abnormal electrocardiogram. She did have a cardiac catheterization done and she did not have evidence of any occlusive coronary artery disease. 5. Longstanding history of arterial hypertension, treated. 6. Appendectomy in the remote past. 7. After her appendectomy, that is when she developed ventral hernias and incisional hernias and has required multiple interventions both here at [facility] and also at [facility]. 8. Right central retinal artery occlusion in 2005. She does have loss of vision in the right eye. 9. Fracture of the distal left radius in 2012 after a fall. 10. Bilateral tubal ligation in the remote past. 11. Hyperglycemia. Not requiring any treatment. 12. A-Port placed during her last hospitalization because of poor IV access. SOCIAL HISTORY: She is , has 3 children. No history of any smoking or alcohol. She worked in the past at [employer] and she has been retired. FAMILY HISTORY: Her father in his 50s, had a stroke. Her mother is still alive, she is in her mid 90s. She has multiple problems including arterial hypertension, peptic ulcer disease, valvular heart disease, congestive heart failure. She is still living independently. She has 3 brothers and 3 sisters. One sister has SLE. One sister is treated for arterial hypertension. ALLERGIES: 1. CODEINE. 2. MORPHINE SULFATE. 3. PENICILLINS. 4. SULFA MEDICATIONS. MEDICATIONS ON ADMISSION: All as noted on her home medication list. REVIEW OF SYSTEMS: She has been complaining of feeling weak and tired. She denied any headache. No dizziness. No earache, sore throat or neck pain. Denied any chest pain. She is complaining of severe shortness of breath. She is on home oxygen. She does have pain in her upper abdomen related to scar tissue and mesh. No nausea, no vomiting. No problem with her bowel movements. No urinary problem. No pain in her back or extremities. No ankle edema. PHYSICAL EXAMINATION: GENERAL: Well developed, in no distress. Weight 81 kg, height 157.5 cm, BMI 32.7. VITAL SIGNS: Blood pressure 163/89, pulse 71, respirations 18, temperature 36.4, oxygen saturation 89% on 2 liter oxygen by nasal cannula. She did have another reading which was 82% on 3 liters by nasal cannula. SKIN: Warm and dry. No rash. HEENT: She does have loss of vision in her right eye. Normal oronasal and pharyngeal mucosa. Oxygen cannula in place. NECK: Supple without adenopathy or thyromegaly. No JVD. No carotid bruit. CHEST : A-port in place. HEART: Regular heart sounds. Distant. LUNGS: Decreased breath sounds bilaterally. She does have bilateral rales. ABDOMEN: Abdomen is protruded. She does have tenderness in the upper abdomen with areas of indurations related to scarring. No evident organomegaly. Good bowel sounds. BACK: No spinal tenderness. EXTREMITIES: No edema, clubbing or cyanosis. No joint or muscle tenderness. Good pulses. NEUROLOGIC: She is alert and oriented without deficit. ADMISSION LABORATORY TESTS: WBC count 12,760, hemoglobin 11.7, hematocrit 38.1, platelet count 288,000. Sodium 141, potassium 3.5, chloride 103, CO2 28, BUN 21, creatinine 0.99, glucose 99, calcium 9.4, total bilirubin 0.8, AST 17, ALT 12, alkaline phosphatase 131, total protein 6.9, albumin 3.5, globulin 3.4. Her chest x-ray showed evidence of bilateral pleural effusions. Findings are consistent with congestive heart failure. Her electrocardiogram showed a regular sinus rhythm. Incomplete right bundle-branch block. Possible right ventricular hypertrophy. ASSESSMENT: 1. Acute diastolic congestive heart failure. 2. Chronic diastolic congestive heart failure. 3. Interstitial lung disease. 4. Chronic respiratory failure, on home oxygen. 5. Obesity. 6. Noncompliance with salt intake which always is excessive. 7. Arterial hypertension. 8. History of multiple abdominal surgeries. 9. 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 PLAN: The patient was admitted to medical bed. Resuscitation level 1. All her laboratory tests were ordered. Will be diuresed with IV Lasix. Her electrolytes and renal function will be monitored. She is continued on her oral medications. Her oxygen flow was increased. We will monitor her oxygenation. On admission, her ABGs were markedly abnormal. Her pH was 7.52 with a pCO2 of 34, pO2 of 45 and saturation 92%. A Britton catheter was placed because it is very difficult for her to get in and out of bed to urinate, especially while she is being diuresed. Discussed her condition with the patient and her family. Her salt intake always has been an issue and it remains. She tells me that she knows what she needs to do but unfortunately she has not been able to be more compliant. STANLEY
[2016-04-07] MEDS: METHYLPREDNISOLONE IV 20 MG in SYRINGE 0 ML IV SCH ×4 (02:31→20:15)
[2016-04-07 05:59] LABS: BASO % 0.1 %; BASO ABS # 0.01 K/uL (0-0.2); COMPLETE YES; EOS % 0.1 %; HEMATOCRIT 37.3 % (37-47); IG% 0.3 %; LYMPH % 7.6 %; LYMPH ABS # 0.73 K/uL (1.2-3.4); MEAN CELL VOLUME 83.6 fL (80-100); MEAN CORPUSCULAR HEMOGLOBIN 25.6 pg (25-34); MEAN CORPUSCULAR HGB CONC 30.6 g/dl (32-36); MEAN PLATELET VOLUME 9.9 fL (7.4-10.4); MONO % 1.9 %; PLATELET COUNT 300 K/uL (130-400); RED BLOOD COUNT 4.46 M/uL (4.2-5.4); WHITE BLOOD COUNT 9.58 K/uL (4.8-10.8)
[2016-04-07 06:36] LABS: BUN/CREATININE RATIO 20.3 (10-20); CALCIUM 9.1 mg/dl (8.5-10.1); CREATININE 1.2 mg/dl (0.60-1.20); MAGNESIUM 1.9 mg/dl (1.8-2.4); POTASSIUM 3.9 mmol/L (3.5-5.1)
[2016-04-07] MEDS: POTASSIUM CHLORIDE 10 MEQ TABCR PO SCH ×2 (08:54→20:14)
[2016-04-07] MEDS: ASPIRIN 81 MG ECTAB PO SCH (08:54)
[2016-04-07] MEDS: DILTIAZEM HCL 120 MG CAPCR PO SCH (08:54)
[2016-04-07] MEDS: ALLOPURINOL 300 MG TAB PO SCH (08:55)
[2016-04-07] MEDS: METOPROLOL TARTRATE 25 MG TAB PO SCH ×2 (08:55→20:14)
[2016-04-07] MEDS: RANITIDINE HCL 150 MG TAB PO SCH ×2 (08:55→20:14)
[2016-04-07] MEDS: PAROXETINE 20 MG TAB PO SCH (08:55)
[2016-04-07] MEDS: HEPARIN SOD 5000 UNIT/0.5 ML CARP SQ SCH ×2 (08:57→20:41)
--- NOTE | 2016-04-07 09:58 | DIAGNOSTIC IMAGING REPORT ---
CHEST 2 VIEWS ROUTINE CLINICAL HISTORY: Congestive heart failure. COMPARISON STUDY: Chest radiograph April 06, 2016. FINDINGS: A left subclavian [id number] is in place. There is no pneumothorax. Small to moderate bilateral pleural effusions persist. Associated bibasilar opacities are unchanged. Cardiomegaly is unchanged. Pulmonary edema has slightly improved. There is extensive mitral annular calcification. IMPRESSION: 1. Persistent, but slightly improved, pulmonary edema. 2. No significant change in bilateral pleural effusions and associated bibasilar opacities which statistically represent atelectasis. Electronically signed by: Esteban Tyler M.D. 04/07/2016 9:57 AM Dictated Date/Time: 04/07/2016 9:56 AM
[2016-04-07] MEDS: ACETAMINOPHEN 500 MG TAB PO PRN (13:47)
--- NOTE | 2016-04-07 18:17 | PROGRESS NOTE ---
DATE: 04/07/2016 A 71-year-old female admitted with acute respiratory failure, acute diastolic congestive heart failure, arterial hypertension, chronic interstitial lung disease and chronic respiratory failure. The patient was admitted. She was started on IV Lasix. A Britton catheter was placed because it is difficult for her to get in and out of bed to void while she is being diuresed. She has diuresed very well through the night. Overall, she is improved. She denied any headache. No dizziness. She denied any chest pain. Her shortness of breath has definitely improved. No nausea, no vomiting. No swelling in her ankles. PHYSICAL EXAMINATION: GENERAL: Well-developed, in no distress. VITAL SIGNS: Blood pressure 145/80, pulse 64, temperature 36.6 and oxygen saturation 90% on 6 liters oxygen by nasal cannula. SKIN: Warm and dry. No rash. HEENT: Oxygen cannula is in place. NECK: No adenopathy, no thyromegaly, no JVD. HEART: Regular heart sounds. LUNGS: Markedly decreased breath sounds. No wheezing. ABDOMEN: Soft and nontender. Protruded. She does have an ulcer on her abdominal wall, with dressing. BACK: No spinal tenderness. EXTREMITIES: No edema, clubbing or cyanosis. LABORATORY TESTS: WBC count 9580, hemoglobin 11.4, hematocrit 37.3 and platelet count 300,000. Sodium 143, potassium 3.9, chloride 102, CO2 29, BUN 24, creatinine 1.2, glucose 154, calcium 9.1 and magnesium 1.9. ASSESSMENT: 1. Acute respiratory failure. 2. Acute diastolic congestive heart failure. 3. Chronic diastolic congestive heart failure. 4. Chronic respiratory failure, on home oxygen. 5. Arterial hypertension. 6. Ulcer, abdominal wall. PLAN: 1. She has diuresed a large amount of urine. She is doing better. 2. A chest x-ray was done today; showing some improvement as far as the congestive heart failure. 3. Continuing all her medications. 4. We will reassess the need for IV Lasix. 5. Dietary precautions have been an issue as far as her salt intake. I will ask the dietitian to see her again during her hospitalization to help her understand more about the salt restriction. The main problem is with the type of food that she eats. Cold cuts , canned foods, fast foods; all with high salt intake. [facility]
[2016-04-07] MEDS ORDERED: MAGNESIUM HYDROXIDE SUSP 30 ML UDC PO ONE (19:45)
[2016-04-07] MEDS: LORAZEPAM 0.5 MG TAB PO PRN (22:26)
[2016-04-08] VITALS (11 sets, daily range): BP systolic 116–150; BP diastolic 72–85; PULSE 61–85; TEMP 36.4–36.8; O2SAT 90–94
[2016-04-08] MEDS: LEVALBUTEROL 1.25MG/3ML NEB INH SCH ×7 (00:05→23:10)
[2016-04-08] MEDS: METHYLPREDNISOLONE IV 20 MG in SYRINGE 0 ML IV SCH ×4 (02:12→19:52)
[2016-04-08 06:14] LABS: BASO % 0.1 %; BASO ABS # 0.01 K/uL (0-0.2); COMPLETE YES; HEMATOCRIT 36.9 % (37-47); IG% 0.3 %; LYMPH % 4.6 %; LYMPH ABS # 0.85 K/uL (1.2-3.4); MEAN CORPUSCULAR HEMOGLOBIN 25.3 pg (25-34); MEAN CORPUSCULAR HGB CONC 30.9 g/dl (32-36); MONO % 5.2 %; NEUT % 89.8 %; PLATELET COUNT 325 K/uL (130-400); WHITE BLOOD COUNT 18.61 K/uL (4.8-10.8)
[2016-04-08 07:00] LABS: BUN/CREATININE RATIO 30.2 (10-20); CREATININE 1.3 mg/dl (0.60-1.20); POTASSIUM 3.8 mmol/L (3.5-5.1)
[2016-04-08] MEDS: POLYETHYLENE (MIRALAX) 17 GM PACK PO SCH (08:00)
[2016-04-08] MEDS: POTASSIUM CHLORIDE 10 MEQ TABCR PO SCH ×2 (08:15→19:52)
[2016-04-08] MEDS: DILTIAZEM HCL 120 MG CAPCR PO SCH (08:15)
[2016-04-08] MEDS: ASPIRIN 81 MG ECTAB PO SCH (08:15)
[2016-04-08] MEDS: PAROXETINE 20 MG TAB PO SCH (08:15)
[2016-04-08] MEDS: RANITIDINE HCL 150 MG TAB PO SCH ×2 (08:15→19:52)
[2016-04-08] MEDS: METOPROLOL TARTRATE 25 MG TAB PO SCH ×2 (08:15→19:52)
[2016-04-08] MEDS ORDERED: FUROSEMIDE INJ 40 MG in SYRINGE 0 ML IV ONE ×2 (08:15→09:45)
[2016-04-08] MEDS: ALLOPURINOL 300 MG TAB PO SCH (08:16)
[2016-04-08] MEDS: HEPARIN SOD 5000 UNIT/0.5 ML CARP SQ SCH ×2 (08:18→19:53)
--- NOTE | 2016-04-08 09:12 | DIAGNOSTIC IMAGING REPORT ---
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 Subtle increase in volume or right effusion. Persistent prominence of pulmonary vasculature. Unchanged small left effusion. IMPRESSION: Congestive failure essentially unchanged in the prior study. Possible subtle increase in volume of a small right effusion Electronically signed by: Mello Mayfield M.D. 04/08/2016 9:10 AM Dictated Date/Time: 04/08/2016 9:09 AM
[2016-04-08 10:28] LABS: URINE APPEARANCE CLEAR (CLEAR); URINE BILIRUBIN NEG (NEG); URINE COLOR YELLOW; URINE NITRITE POS (NEG); URINE SPECIFIC GRAVITY 1.008 (1.000-1.030); UROBILINOGEN NEG (NEG)
[2016-04-08 10:29] LABS: MANUAL MICROSCOPIC REQUIRED? NO; REVIEW REQ? NO
[2016-04-08] MEDS: CIPROFLOXACIN / D5W 400 MG in PREMIXED IN D5W 200 ML IV SCH ×2 (16:18→23:07)
--- NOTE | 2016-04-08 20:54 | PROGRESS NOTE ---
DATE: 04/08/2016 A 71-year-old female admitted with acute respiratory, acute diastolic congestive heart failure, chronic renal disease, chronic respiratory failure on home oxygen and chronic diastolic congestive heart failure. She is also treated for arterial hypertension. She has had multiple abdominal surgeries with multiple abdominal hernias. The patient was admitted. She was diuresed with IV Lasix. She had an excellent response. The main problem we are dealing with is her noncompliance with salt restriction at home. She did compensate on many occasions and required hospitalizations. She is feeling better. No headache. No dizziness. No chest pain. Her shortness of breath has improved. No abdominal pain, no nausea, no vomiting. No problem with her bowel movements. No melena. No rectal bleeding. She has a Britton catheter in place. No pain in her back or extremities. PHYSICAL EXAMINATION: GENERAL: Well-developed, in no distress. VITAL SIGNS: Blood pressure 116/72, pulse 63, respirations 16, temperature 36.4 and oxygen saturation 93% on 6 liters oxygen by nasal cannula SKIN: Warm and dry. No rash. HEENT: Oxygen cannula in place. NECK: No JVD. No adenopathy. HEART: Regular heart sounds. LUNGS: Decreased breath sounds. ABDOMEN: Obese, soft, nontender. Protruded. Dressing over an ulcerated area of her abdominal wall. BACK: No spinal tenderness. EXTREMITIES: No edema, clubbing or cyanosis. LABORATORY TESTS: WBC count 18,610, hemoglobin 11.4, hematocrit 36.9 platelet count 325,000. Sodium 142, potassium 3.8, chloride 102, CO2 29, BUN 39, creatinine 1.3, glucose 148, calcium 9.0. Her chest x-ray done this morning showed evidence of congestive heart failure. The right pleural effusion is still small; there may be a slight increase. ASSESSMENT: 1. Acute diastolic congestive heart failure. 2. Chronic diastolic congestive heart failure. 3. Chronic respiratory failure. 4. Interstitial lung disease. 5. Obesity. 6. Arterial hypertension. PLAN: 1. We will continue IV Lasix, we will be give additional doses today. 2. Continue monitoring her respiratory status. 3. Continue all her other medications. 4. We will start cutting down on her steroids. 5. Elevation of her WBC count is related to the steroids that has happened on every hospitalization she has had in the past. 6. Continue monitoring her renal function. 7. We will remove the Britton catheter once her diuresis is completed. We will increase her activity. [facility]
[2016-04-08] MEDS: LORAZEPAM 0.5 MG TAB PO PRN (21:26)
[2016-04-09] VITALS (12 sets, daily range): BP systolic 136–159; BP diastolic 79–96; PULSE 60–69; TEMP 36.4–36.6; O2SAT 90–96
[2016-04-09] MEDS: METHYLPREDNISOLONE IV 20 MG in SYRINGE 0 ML IV SCH ×2 (01:28→08:46)
[2016-04-09] MEDS: LEVALBUTEROL 1.25MG/3ML NEB INH SCH ×6 (03:20→23:58)
[2016-04-09] MEDS: CIPROFLOXACIN / D5W 400 MG in PREMIXED IN D5W 200 ML IV SCH ×2 (08:46→20:44)
[2016-04-09] MEDS: ASPIRIN 81 MG ECTAB PO SCH (08:47)
[2016-04-09] MEDS: ALLOPURINOL 300 MG TAB PO SCH (08:47)
[2016-04-09] MEDS: PAROXETINE 20 MG TAB PO SCH (08:47)
[2016-04-09] MEDS: RANITIDINE HCL 150 MG TAB PO SCH ×2 (08:47→19:50)
[2016-04-09] MEDS: METOPROLOL TARTRATE 25 MG TAB PO SCH ×2 (08:47→19:50)
[2016-04-09] MEDS: POTASSIUM CHLORIDE 10 MEQ TABCR PO SCH ×2 (08:48→19:51)
[2016-04-09] MEDS: POLYETHYLENE (MIRALAX) 17 GM PACK PO SCH (08:48)
[2016-04-09] MEDS: DILTIAZEM HCL 120 MG CAPCR PO SCH (08:48)
[2016-04-09] MEDS: HEPARIN SOD 5000 UNIT/0.5 ML CARP SQ SCH ×2 (08:50→20:45)
[2016-04-09] MEDS ORDERED: FUROSEMIDE INJ 40 MG in SYRINGE 0 ML IV SCH ×2 (09:00→15:00)
[2016-04-09 09:32] LABS: BASO % 0.1 %; BASO ABS # 0.01 K/uL (0-0.2); COMPLETE YES; HEMATOCRIT 38.9 % (37-47); IG% 0.2 %; LYMPH % 7.6 %; LYMPH ABS # 1.35 K/uL (1.2-3.4); MEAN CELL VOLUME 84.6 fL (80-100); MEAN CORPUSCULAR HEMOGLOBIN 25.4 pg (25-34); MEAN CORPUSCULAR HGB CONC 30.1 g/dl (32-36); MEAN PLATELET VOLUME 10.2 fL (7.4-10.4); MONO % 0.9 %; NEUT % 91.2 %; PLATELET COUNT 345 K/uL (130-400); WHITE BLOOD COUNT 17.84 K/uL (4.8-10.8)
[2016-04-09 09:53] LABS: BUN/CREATININE RATIO 32.5 (10-20); CALCIUM 9.1 mg/dl (8.5-10.1); CREATININE 1.5 mg/dl (0.60-1.20); POTASSIUM 4.1 mmol/L (3.5-5.1)
[2016-04-09] MEDS: ACETAMINOPHEN 500 MG TAB PO PRN (13:39)
[2016-04-09] MEDS: LORAZEPAM 0.5 MG TAB PO PRN (20:50)
--- NOTE | 2016-04-09 22:48 | PROGRESS NOTE ---
DATE: 04/09/2016 SUBJECTIVE: A 71-year-old female admitted with acute respiratory failure and acute diastolic congestive heart failure. She is treated for arterial hypertension, chronic kidney disease, has had prior episodes of decompensation with her congestive heart failure. She also has interstitial lung disease. Chronic respiratory failure, she is on home oxygen. The patient was admitted. She was started on IV Lasix. Also IV steroids. Her condition gradually improved. She diuresed very well. She denied any headache or dizziness. No chest pain, no shortness of breath with her activity around her room. No nausea, no vomiting. No problem with her bowel movements. No problem urinating. The Britton catheter was removed today. No pain in her back or extremities. PHYSICAL EXAMINATION: GENERAL: Well developed in no distress. VITAL SIGNS: Blood pressure 159/84, pulse 68, respirations 20, temperature 36.4, oxygen saturation 90% on 6 liters, multiple other saturations were taken during the day and her oxygen saturations were 94% and 96% on 4 liters and 94% on 3 liters oxygen by nasal cannula. SKIN: Warm and dry. No rash. HEENT: Oxygen cannula in place. NECK: No JVD, no adenopathy. HEART: Regular heart sounds. LUNGS: Decreased breath sounds. No wheezing. ABDOMEN: Soft, nontender. Dressing of the abdomen over the ulcerated area. BACK: No spinal tenderness. EXTREMITIES: No edema, clubbing, or cyanosis. TODAY'S LABORATORY TESTS: WBC count 17,840, hemoglobin 11.7, hematocrit 38.9, platelet count 345,000. Sodium 139, potassium 4.1, chloride 102, CO2 25, BUN 49, creatinine 1.5. Glucose 194, calcium 9.1. ASSESSMENT: 1. Acute respiratory failure. 2. Chronic respiratory failure. 3. Acute diastolic congestive heart failure. 4. Interstitial lung disease. 5. Arterial hypertension. 6. Obesity. 7. Abdominal wall ulcer. PLAN: 1. She was given additional IV Lasix today. 2. Also, the Britton catheter was removed. 3. Switched to oral prednisone from Solu-Medrol. 4. If her condition remains stable, the intent is for her to go home tomorrow. We will be repeating her chest x-ray in the future. She will be continued on her oral Lasix. [facility]TD[facility]
[2016-04-10 04:29] VITALS: PULSE 74; O2SAT 93
[2016-04-10] MEDS: LEVALBUTEROL 1.25MG/3ML NEB INH SCH ×2 (04:29→07:28)
[2016-04-10 06:08] LABS: COMPLETE YES; HEMATOCRIT 36.1 % (37-47); IG% 0.2 %; LYMPH % 9.7 %; MEAN CELL VOLUME 82.4 fL (80-100); MEAN CORPUSCULAR HEMOGLOBIN 25.3 pg (25-34); MEAN CORPUSCULAR HGB CONC 30.7 g/dl (32-36); MEAN PLATELET VOLUME 9.9 fL (7.4-10.4); MONO % 3.7 %; NEUT % 86.4 %; PLATELET COUNT 269 K/uL (130-400); RED BLOOD COUNT 4.38 M/uL (4.2-5.4); WHITE BLOOD COUNT 13.41 K/uL (4.8-10.8)
[2016-04-10 06:41] LABS: BUN/CREATININE RATIO 36.9 (10-20); CALCIUM 8.9 mg/dl (8.5-10.1); CREATININE 1.3 mg/dl (0.60-1.20); POTASSIUM 4.3 mmol/L (3.5-5.1)
[2016-04-10 07:28] VITALS: PULSE 61; O2SAT 93
[2016-04-10] MEDS ORDERED: CIPR1TAB10 PO (07:35)
--- NOTE | 2016-04-10 07:39 | Discharge Instructions ---
Discharge Instructions Admission Reason for Admission: Respiratory Failure, Chronic Lung Disease Discharge Discharge Diagnosis / Problem: RESPIRATORY FAILURE, CONGESTIVE FEART FAILURE, INTERSTITIAL LUNG DISEASE Discharge Goals Goal(s): Decrease discomfort, Increase independence, Improve disease control, Improve nutritional status Activity Recommendations Activity Limitations: resume your previous activity . Instructions / Follow-Up Instructions / Follow-Up YOU NEED TO BE VERY CAREFUL WITH SALT INTAKE DR LANIER IN ONE WEEK Current Hospital Diet Patient's current hospital diet: Low Sodium Diet (2gm Na) Discharge Diet Recommended Diet: Low Sodium Diet (2gm Na) Pending Studies Studies pending at discharge: no Medical Emergencies . Who to Call and When: Medical Emergencies: If at any time you feel your situation is an emergency, please call 911 immediately. . Non-Emergent Contact Non-Emergency issues call your: Primary Care Provider . . "Provider Documentation" section prepared by Chente Lanier. VTE Core Measure Inpt VTE Proph given/why not?: Treatment not indicated
[2016-04-10 07:43] VITALS: BP 143/82; PULSE 61; TEMP 36.5; O2SAT 93
[2016-04-10] MEDS: METOPROLOL TARTRATE 25 MG TAB PO SCH (07:49)
[2016-04-10] MEDS: POLYETHYLENE (MIRALAX) 17 GM PACK PO SCH (07:49)
[2016-04-10] MEDS: RANITIDINE HCL 150 MG TAB PO SCH (07:49)
[2016-04-10] MEDS: ALLOPURINOL 300 MG TAB PO SCH (07:49)
[2016-04-10] MEDS: CIPROFLOXACIN / D5W 400 MG in PREMIXED IN D5W 200 ML IV SCH (07:49)
[2016-04-10] MEDS: ASPIRIN 81 MG ECTAB PO SCH (07:50)
[2016-04-10] MEDS: POTASSIUM CHLORIDE 10 MEQ TABCR PO SCH (07:50)
[2016-04-10] MEDS: PAROXETINE 20 MG TAB PO SCH (07:50)
[2016-04-10] MEDS: HEPARIN SOD 5000 UNIT/0.5 ML CARP SQ SCH (07:50)
[2016-04-10] MEDS: DILTIAZEM HCL 120 MG CAPCR PO SCH (07:50)
[2016-04-10 08:00] VITALS: BP 121/74; PULSE 62; TEMP 36.5; O2SAT 92
--- NOTE | 2016-04-11 00:44 | PROGRESS NOTE ---
DATE: 04/10/2016 A 71-year-old female admitted with acute respiratory failure superimposed on chronic respiratory failure and diastolic congestive heart failure. She is treated for arterial hypertension. Obesity. Interstitial lung disease. Her condition improved. She was diuresed with IV Lasix. She had good diuresis. Her condition improved without any headache or dizziness. No chest pain, no chest pain. She does complain of shortness of breath with activity. She is on oxygen. No abdominal pain, no nausea, no vomiting. No problem with her bowel movements or urination. No ankle edema. PHYSICAL EXAMINATION: GENERAL: Well developed, in no distress. VITAL SIGNS: Blood pressure 121/74, pulse 62, respiration 18, temperature 36.5, oxygen saturation 92% on 3 liters oxygen by nasal cannula. SKIN: Warm and dry. No rash. HEENT: Oxygen cannula in place. NECK: No JVD. No adenopathy. HEART: Regular heart sounds. LUNGS: Decreased breath sounds bilaterally. No wheezing. ABDOMEN: Soft, nontender. There is a small area of ulcer on her abdominal wall, with dressing. BACK: No spinal tenderness. EXTREMITIES: No edema, clubbing, or cyanosis. ASSESSMENT: 1. Acute diastolic congestive heart failure. 2. Respiratory failure. 3. Arterial hypertension. 4. Interstitial lung disease. PLAN: 1. She diuresed very well, her condition improved. 2. Continuing the same medications. 3. Continue oxygen at the same level of 3 liters per minute. 4. Discharged home today. 5. She does have a urinary tract infection and she was discharged on oral Cipro. 6. Follow up in the office in 1 week.
--- NOTE | 2016-04-24 00:14 | DISCHARGE SUMMARY ---
DISCHARGE DIAGNOSES: 1. Acute diastolic congestive heart failure. 2. Chronic diastolic congestive heart failure. 3. Interstitial lung disease. 4. Chronic obstructive pulmonary disease. 5. Chronic respiratory failure, on home oxygen. 6. Arterial hypertension. 7. History of multiple abdominal surgeries. 8. Noncompliance with dietary restriction as far as salt intake. 9. 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 10. Obesity. 11. Urinary tract infection. DISCHARGE MEDICATIONS: Include: 1. Ciprofloxacin 250 mg twice a day for 7 days. 2. Allopurinol 150 mg daily. 3. Aspirin 81 mg daily. 4. Calcium, magnesium and zinc supplement 334-130-5 mg 1 tablet daily. 5. Diltiazem CD 120 mg daily. 6. Furosemide 40 mg twice a day. 7. DuoNeb through her nebulizer every 6 hours. 8. Lorazepam 0.5 mg, up to 3 times a day as needed for anxiety. 9. Metoprolol tartrate 25 mg twice a day. 10. Paxil 20 mg daily. 11. Potassium chloride 10 mEq twice a day. 12. Ranitidine 150 mg twice a day. A 71-year-old female, admitted directly from the office with acute respiratory failure superimposed on chronic respiratory failure, diastolic congestive heart failure, superimposed on chronic diastolic congestive heart failure. The patient also has interstitial lung disease, obstructive lung disease. She is on home oxygen. She has had prior episodes of diastolic congestive heart failure. She also has chronic kidney disease. She has had multiple abdominal surgeries with hernias and the last time she had surgery was for small bowel obstruction that required lysis of adhesions and partial small bowel resection. The patient called the office on the morning of her admission complaining of severe shortness of breath. Her [id number] brought her to the office. She was markedly dyspneic. She was hypoxic even on her oxygen by nasal cannula at 3 liters per minute by nasal cannula. Her oxygen saturation was down to 87%. She was complaining of shortness of breath. Cannot catch her breath. No chest pain. She was also complaining of wheezing and cough. In view of her symptomatology, arrangements were made for admission. PAST MEDICAL HISTORY, SOCIAL HISTORY AND FAMILY HISTORY: All as noted. ALLERGIES: 1. CODEINE. 2. MORPHINE SULFATE. 3. PENICILLIN. 4. SULFA MEDICATIONS. MEDICATIONS ON ADMISSION: All as noted. PHYSICAL EXAMINATION AND ADMISSION LABORATORY TESTS: All as noted. HOSPITAL COURSE: The patient was admitted to medical bed. Resuscitation level 1. All her laboratory tests were ordered. She was given IV Lasix for diuresis. Her renal function and electrolytes were monitored. She was continued on her oral medications. Continued on oxygen. On admission, her ABGs were markedly abnormal. Her pH was 7.52 with a pCO2 of 34, pO2 45, saturation 92%. A Britton catheter was placed because it was difficult for her to get in and out of bed to void, especially that she is being diuresed. One of the major issues we have been dealing with is her dietary noncompliance. She really does not watch her diet, especially the salt intake. The type of foods that she eats, mostly cold cuts, lunch meat and canned food. Also, she eats quite a bit at the pizza shop. All these foods have a large amount of sodium in them. She understands that, but she continues without taking the necessary precautions. The patient diuresed very well. Her condition started to improve. Her laboratory tests were monitored. She had an excellent diuresis. She was continued on her medications, especially the IV Lasix. Also initially, because of the wheezing and the chronic lung disease, she was started on Solu-Medrol IV and the dose was also reduced. As her condition improved, we started increasing her activity. Also, we were able to cut down on her diuresis. Her Britton catheter was also removed. Her urine culture did grow E. coli. She was started on ciprofloxacin. Her condition improved. She was tolerating her diet. She was getting out of bed. The patient was discharged home. Medications as noted above. Follow up in the office in 1 week. She was determined this time to be more careful with her diet. [facility]
== END 2016-04-10 10:25 | disposition home or self-care (01) | DRG 291 ==
LOC: C.4E 13:09
PROVIDERS: ADMIT Internal Medicine; ATTEND Internal Medicine
DX: I50.33 Acute on chronic diastolic (congestive) heart failure (principal); J96.21 Acute and chronic respiratory failure with hypoxia; J84.9 Interstitial pulmonary disease, unspecified; I13.0 Hypertensive heart and chronic kidney disease with heart failure and stage 1 through stage 4 chronic kidney disease, or unspecified chronic kidney disease; L98.499 Non-pressure chronic ulcer of skin of other sites with unspecified severity; N18.9 Chronic kidney disease, unspecified; H54.61 Unqualified visual loss, right eye, normal vision left eye; R73.9 Hyperglycemia, unspecified; E66.9 Obesity, unspecified; Z68.32 Body mass index [BMI] 32.0-32.9, adult; Z91.11 Patient's noncompliance with dietary regimen; Z99.81 Dependence on supplemental oxygen

== ENCOUNTER 2016-04-25 11:55 | Inpatient (IN) | payer BC, OTHER ==
[~2016-04-25] VITALS: Ht 157.5 cm; Wt 78.7 kg
[2016-04-25] MEDS ORDERED: ONDANSETRON INJ 2 MG/ML 2 ML VIAL IV STA (12:22)
[2016-04-25 13:10] VITALS: PULSE 77; O2SAT 86
[2016-04-25] MEDS ORDERED: ALBUT/IPRATROP 3MG/0.5MG NEB 3 ML VIAL INH ONE (13:45)
--- NOTE | 2016-04-25 13:57 | EMERGENCY ROOM VISIT NOTE ---
History Report prepared by Saida: Ivory Boo Under the Supervision of: Dr. Desmond Tate D.O. First contact with patient: 13:26 Chief Complaint: ABDOMINAL PAIN Stated Complaint: SICK TO STOMACH Nursing Triage Summary: Triage Note: pt reports nausea and vomitting since eating at approx 1145. pt denies any abd pain at this time reports "i had pain before when this happend." History of Present Illness The patient is a 71 year old female who presents to the Emergency Room with complaints of worsening abdominal pain for the past week. The patient states that she has had this abdominal pain for "some time," but over the past week it has become much worse. She feels nauseated after eating. She describes her pain as sharp. 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 She denies any hematemesis. The patient had a normal bowel movement this morning. She has not been passing any gas today. She has a history of a bowel obstruction but is unsure if these symptoms feel similar or different. She denies black or bloody stools. The patient typically wears 3L of O2 due to her COPD. In the ED today the nurse reports that the patient was at 69% on 3L of O2. She has a port in place in her upper left chest, but denies any personal history of cancer. Source of History: patient, nursing staff Onset: the past week Position: abdomen Quality: sharp Timing: worsening Modifying Factors (Worsening): eating Associated Symptoms: + SOB, + nausea, + vomiting, No hematochezia, No melena Review of Systems See above for pertinent positives & negatives. A total of 10 systems reviewed and were otherwise negative. Past Medical & Surgical Medical Problems: (1) ACUTE BRONCO-PNEUM,ACUTE RESP FAIL (2) Acute CHF (3) acute exacer. copd, chronic resp failure (4) ACUTE EXACERBATION COPD, ABN.ECG (5) Acute kidney injury (6) ACUTE RESP.FAIL.,CHF,INTERST.LUNG DISEASE (7) ACUTE RESP.FAIL.,EXACERB.LUNG DIS (8) ACUTE+CHRONIC RESP.FAIL,,?ABD ABCESS (9) Anterior Abdominal Wall Surgery (10) Appendectomy (11) Bronchitis (12) CHF exacerbation (13) CHF exacerbation (14) Congestive heart failure (15) Congestive heart failure (16) COPD exacerbation (17) Distal radius fracture, left (18) Epistaxis (19) Hernia (20) Hernia repair (21) History of - tubal ligation (22) Hypertension (23) Postoperative wound dehiscence (24) Radial head fracture, closed (25) RECCURENT SBO (26) Respiratory failure with hypoxia (27) Retinal artery occlusion (28) Right foot pain (29) Right foot pain (30) SBO (small bowel obstruction) (31) SOB (shortness of breath) (32) Tonsillectomy Family History Cancer Hypertension Social History Smoking Status: Never Smoker Alcohol Use: none Drug Use: none Marital Status: Housing Status: lives with family Occupation Status: retired Current/Historical Medications Scheduled Allopurinol (Allopurinol), 150 MG QAM Aspirin (Aspirin Ec), 81 MG PO QAM Ayoyrog-Swqfayhxe-Giey (Calcium & Magnesium + Zin 334-134-5 mg), 1 TAB PO QAM Diltiazem Hcl Coated Beads (Cartia Xt), 120 MG PO QAM Furosemide (Lasix), 40 MG PO BID Metoprolol Tartrate (Lopressor) (Lopressor), 25 MG PO BID Paroxetine (Paxil), 20 MG PO DAILY Potassium Chloride (Micro-K Ext Rel), 10 MEQ PO BID Ranitidine (Zantac), 150 MG PO BID Scheduled PRN Ipratropium-Albuterol (Duoneb), 3 ML NEB Q6H PRN for cough, shortness of breath Lorazepam (Ativan), 0.5 MG PO TID PRN for Anxiety Allergies Coded Allergies: Morphine (Verified Allergy, Unknown, 04/25/16) Sulfamethoxazole w/Trimethoprim (Verified Allergy, Unknown, ., 04/25/16) Codeine (Verified Adverse Reaction, Mild, nausea, 04/25/16) Penicillins (Verified Adverse Reaction, Mild, severe nausea,HAD CEPHALOSPORINS, ZOSYN W/O PROBLEM, 04/25/16) Physical Exam Vital Signs Date Time Temp Pulse Resp B/P Pulse Ox O2 Delivery O2 Flow Rate FiO2 04/25/16 17:34 58 04/25/16 16:25 60 17 86 Mask 10.0 04/25/16 15:58 127/64 04/25/16 15:57 62 18 127/64 88 Mask 10.0 04/25/16 15:55 62 25 83 04/25/16 15:25 60 30 86 04/25/16 14:55 60 30 87 04/25/16 14:30 58 24 135/65 88 Mask 10.0 04/25/16 14:25 60 21 90 04/25/16 14:00 135/65 04/25/16 13:59 132/74 04/25/16 13:55 58 22 87 04/25/16 13:25 57 26 04/25/16 13:10 77 18 86 Diffusion Mask 10.0 04/25/16 13:08 58 04/25/16 13:07 65 04/25/16 13:00 146/70 04/25/16 13:00 83 Mask 10.0 04/25/16 12:58 67 20 146/72 76 Nasal Cannula 3.0 04/25/16 12:00 36.3 83 20 151/70 96 Nasal Cannula 3.0 Physical Exam GENERAL: Patient is well appearing and in no acute distress. HEENT: No acute trauma, normocephalic atraumatic, mucous membranes moist, no nasal congestion, no scleral icterus. NECK: No stridor, no adenopathy, no meningismus, trachea is midline. LUNGS: No dyspnea. Diffuse wheezes bilaterally. No rhonchi. HEART: Tachycardic rate and regular rhythm. No murmurs, rubs, gallops appreciated. ABDOMEN: Protuberant abdomen with ventral tenderness, bowel sounds positive, no masses appreciated, no peritonitis. BACK: No midline tenderness, no CVA tenderness EXTREMITIES: Normal motion all extremities, no cyanosis, no edema. NEUROLOGIC: Alert and oriented, no acute motor or sensory deficits, no focal weakness, cranial nerves grossly intact. SKIN: No rash, no jaundice, no diaphoresis. Medical Decision & Procedures ER Provider Diagnostic Interpretation: Radiology results as stated below per my review and radiologist interpretation: CHEST ONE VIEW PORTABLE CLINICAL HISTORY: SHORTNESS OF BREATH COMPARISON STUDY: 04/08/2016 FINDINGS: The cardiac and mediastinal contours remain stable. There is a left subclavian central venous A-Port catheter. There is radiographic evidence of congestive failure. There are persistent bilateral pleural effusions with associated bibasal airspace opacities[ IMPRESSION: Congestive failure with bilateral pleural effusions and associated bibasal airspace opacities Electronically signed by: Danie Ortiz M.D. 04/25/2016 1:54 PM Dictated Date/Time: 04/25/2016 1:53 PM KUB CLINICAL HISTORY: hx sob COMPARISON STUDY: 08/08/2015 FINDINGS: Increased fecal load throughout the colon. No evidence for true bowel obstructive change. No significant small bowel distention IMPRESSION: Nonobstructive bowel pattern. Increased fecal load throughout the colon Electronically signed by: Mello Mayfield M.D. 04/25/2016 4:26 PM Dictated Date/Time: 04/25/2016 4:[address] SCAN OF THE ABDOMEN AND PELVIS WITH IV CONTRAST CLINICAL HISTORY: Nausea. Generalized abdominal pain. COMPARISON STUDY: Abdominal CT dated 08/04/2015. KUB dated 04/25/2016. TECHNIQUE: Following the IV administration of 93 cc of Optiray 320, CT scan of the abdomen and pelvis is performed from the lung bases to the proximal femora. Images are reviewed in the axial, sagittal, and coronal planes. IV contrast was administered without complication. Automated dose control exposure was utilized. CT DOSE: 580.37 mGy.cm FINDINGS: Lung bases: The heart is enlarged and without pericardial effusion. The coronary arteries and mitral annulus are densely calcified. There are moderate pleural effusions with dense bibasilar consolidation. Liver: The contrast-enhanced liver is top normal in size and normal in contour. The liver demonstrates diffusely diminished attenuation consistent with hepatic steatosis. There is no intrahepatic biliary ductal dilatation. The hepatic veins and portal veins are patent. Gallbladder: Unremarkable. Spleen: Normal in size and attenuation. Pancreas: Mildly atrophic and grossly unremarkable. Adrenal glands: Unremarkable. Kidneys: The contrast enhanced kidneys are atrophic and without hydronephrosis. The kidneys enhance symmetrically. Scattered subcentimeter cortical hypodensities likely represent cysts but are too small for definitive characterization. Abdominal vasculature: The abdominal aorta is normal in course and caliber noting moderate to advanced atherosclerotic calcification. Bowel: There is marked laxity of the ventral abdominal wall with diastases of the rectus musculature and ventral protrusion of both small bowel loops and colon. There is no bowel obstruction. A duodenal diverticulum is noted. Moderate colonic fecal retention is observed. The appendix is not identified and reported surgically absent. Peritoneum: There is a small volume of abdominopelvic ascites. No intraperitoneal free air is seen. Fluid is seen tracking along the mesentery. A more organized collection is questioned with a thin enhancing wall on image #[id number] in the ventral central mesentery. Lymphadenopathy: None. Pelvic viscera: Although decompressed, the bladder wall appears thickened and there is pericystic stranding identified. The uterus and adnexa are normal as imaged. Skeletal structures: The skeletal structures are osteopenic. Mild lumbosacral spondylosis is observed. No lytic or blastic lesions are seen. There are healed right pubic ring fractures. IMPRESSION: 1. There is marked laxity of the ventral abdominal wall with diastases of the rectus abdominal musculature and ventral protrusion of both small bowel and colon. 2. There is no bowel obstruction. Moderate fecal retention is seen throughout the colon. 3. There is a small volume of abdominopelvic ascites. No intraperitoneal free air is seen. 4. A 3.9 x 1.7 cm more organized fluid collection is questioned in the mid abdomen. Although considered unlikely, abscess would be impossible to exclude. Clinical correlation will be required. 5. Moderate pleural effusions with dense bibasilar consolidation. 6. Cardiomegaly. 7. Hepatic steatosis. 8. The bladder wall appears thickened and there is pericystic inflammation. Correlate clinically and with urinalysis for evidence of cystitis. 9. Additional changes as above. Electronically signed by: Sunil Keenan M.D. 04/25/2016 5:45 PM Dictated Date/Time: 04/25/2016 5:34 PM Laboratory Results Test 04/25/16 13:31 04/25/16 14:15 04/25/16 14:35 Red Blood Cell Morphology Unremarkable Urine Color DK YELLOW Urine Appearance CLOUDY (CLEAR) Urine pH 5.0 (4.5-7.5) Urine Specific Monitor 1.020 (1.000-1.030) Urine Protein 3+ (NEG) Urine Glucose (UA) NEG (NEG) Urine Ketones NEG (NEG) Urine Occult Blood NEG (NEG) Urine Nitrite NEG (NEG) Urine Bilirubin NEG (NEG) Urine Urobilinogen NEG (NEG) Urine Leukocyte Esterase TRACE (NEG) Urine WBC (Auto) 1-5 /hpf (0-5) Urine RBC (Auto) 0-4 /hpf (0-4) Urine Hyaline Casts (Auto) 5-10 /lpf (0-5) Urine Epithelial Cells (Auto) >30 /lpf (0-5) Urine Bacteria (Auto) NEG (NEG) Urine Renal Epithelial Cells /lpf (0-5) Urine Crystals See comments (NONE PRSENT) Urine Pathogenic Casts /lpf (0) Urine Mucus PRESENT (NONE PRSENT) Direct Bilirubin mg/dl (0-0.2) Troponin I < 0.015 ng/ml (0-0.045) Pro-B-Type Natriuretic Peptide 4645 pg/ml (0-900) Chemistry Specimen Hemolysis Laboratory results as reviewed by me. Medications Administered Medications (Trade) Dose Ordered Sig/Gilma Route Start Time Stop Time Status Last Admin Dose Admin Ondansetron HCl (Zofran Inj) 4 mg NOW STAT IV 04/25/16 12:22 04/25/16 12:24 DC 04/25/16 13:04 4 MG Albuterol/ Ipratropium (Duoneb) 6 ml ONE ONCE INH 04/25/16 13:45 04/25/16 13:46 DC 04/25/16 13:50 6 ML Morphine Sulfate (MoRPHine SULFATE INJ) 2 mg NOW STAT IV 04/25/16 14:03 04/25/16 14:13 DC 04/25/16 14:22 2 MG Piperacillin Sod/ Tazobactam Sod (Zosyn Iv) 4.5 gm NOW STAT IV 04/25/16 18:26 04/25/16 18:28 DC 04/25/16 19:13 4.5 GM Acetaminophen (Tylenol Tab) 650 mg Q4H PRN PO 04/25/16 18:45 05/25/16 18:44 04/26/16 00:46 650 MG Hydromorphone HCl (Dilaudid Inj) 0.5 mg Q3H PRN IV 04/25/16 18:45 04/26/16 10:42 DC 04/26/16 06:11 0.5 MG Lorazepam (Ativan Tab) 0.5 mg TID PRN PO 04/25/16 18:45 04/26/16 10:42 DC 04/26/16 00:46 0.5 MG ECG Indication: SOB/dyspnea Rate (beats per minute): 60 Rhythm: sinus bradycardia Findings: RBBB (incomplete), prolonged QT (at 542) Comparison ECG Date: 04/06/16 Change: Increase in QTC. ED Course 1222: ED PROTOCOL ORDER: Zofran 4 mg IV 1326: The patient was evaluated in room C9. A complete history and physical exam was performed. 1345: DuoNeb 6 ml INH 1403: Morphine sulfate 2 mg IV 1646: I updated the patient on the results. She is doing well. 1822: I reassessed the patient at this time. She is resting comfortably. I discussed the results and treatment plan with the patient. I answered all pertaining questions that she had. She expressed understanding and verbalized agreement. 1834: I spoke with Dr. Dahl. We discussed the patients results and treatment plan. He will evaluate the patient in the ED for further management. Medical Decision Differential: Appendicitis, Diverticulitis, PUD/Gastritis, Biliary Pathology, UTI, Pyelonephritis, Renal Colic, Bowel Obstruction, Aortic Pathology, Acute Coronary Syndrome, amongst other pathologies entertained. Patient is 71-year-old female who requires home oxygen normally at 3 L. She presented today for increasing abdominal pain nausea with occasional vomiting. More to a prior small bowel obstruction she had surgically corrected several months ago. While in the emergency department her oxygen requirement continued to increase, she was asymptomatic however. On blood gas testing it appears that she has acute on chronic respiratory failure I am highly suspicious that is due to increasing atelectatic lung and poor positioning in the hospital bed which she sitting more in a recumbent position as opposed to the upright position she is normally in. Additionally she was found to have a fluid collection indicative of possible early abscess, accordingly have started her on Zosyn for possible intra- abdominal abscess as well as it would also have adequate pulmonary coverage. Consults Time Called: 1823 Consulting Physician: Dr. Dahl Returned Call: [address] Dahl. We discussed the patients results and treatment plan. He will evaluate the patient in the ED for further management. Impression Primary Impression: Acute and chronic respiratory failure Additional Impression: Intra-abdominal abscess Scribe Attestation The scribe's documentation has been prepared under my direction and personally reviewed by me in its entirety. I confirm that the note above accurately reflects all work, treatment, procedures, and medical decision making performed by me. Departure Information Dispostion Being Evaluated By Hospitalist Referrals Chente Miranda M.D. (PCP) Patient Instructions My [facility] Problem Qualifiers
[2016-04-25] MEDS ORDERED: MoRPHine SULFATE 2 MG/ML CARP IV STA (14:03)
[2016-04-25 14:10] LABS: MEAN CORPUSCULAR HGB CONC 30.9 g/dl (32-36); MEAN PLATELET VOLUME 10.9 fL (7.4-10.4); PLATELET COUNT 222 K/uL (130-400)
[2016-04-25 14:13] LABS: HEMATOCRIT 40.4 % (37-47); MEAN CELL VOLUME 82.3 fL (80-100); MEAN CORPUSCULAR HEMOGLOBIN 25.5 pg (25-34); RED BLOOD COUNT 4.91 M/uL (4.2-5.4); WHITE BLOOD COUNT 13.82 K/uL (4.8-10.8)
[2016-04-25 14:14] LABS: BASO % 0.9 %; BASO ABS # 0.13 K/uL (0-0.2); COMPLETE YES; EOS % 2.3 %; IG% 0.4 %; LYMPH ABS # 0.69 K/uL (1.2-3.4); NEUT % 82.4 %
[2016-04-25 14:57] LABS: URINE APPEARANCE CLOUDY (CLEAR); URINE COLOR DK YELLOW; URINE EPITHELIAL CELL AUTO >30 /lpf (0-5); URINE NITRITE NEG (NEG); UROBILINOGEN NEG (NEG); ZZURINE CULT IF INDIC CATH NO
[2016-04-25 15:12] LABS: MANUAL MICROSCOPIC REQUIRED? NO; REVIEW REQ? YES
[2016-04-25] MEDS ORDERED: OPTIRAY 320 IV PRN (15:15)
[2016-04-25 15:16] LABS: URINE BILIRUBIN NEG (NEG)
[2016-04-25 15:32] LABS: URINE MUCUS PRESENT (NONE PRSENT)
[2016-04-25 15:44] LABS: ALKALINE PHOSPHATASE 147 U/L (45-117); ALT/SGPT 16 U/L (12-78); AST/SGOT 19 U/L (15-37); BLOOD UREA NITROGEN 25 mg/dl (7-18); BUN/CREATININE RATIO 19.6 (10-20); CALCIUM 8.9 mg/dl (8.5-10.1); CARBON DIOXIDE 27 mmol/L (21-32); CHLORIDE 105 mmol/L (98-107); GLUCOSE 137 mg/dl (70-99); POTASSIUM 4.3 mmol/L (3.5-5.1); SODIUM 141 mmol/L (136-145)
--- NOTE | 2016-04-25 16:27 | DIAGNOSTIC IMAGING REPORT ---
KUB CLINICAL HISTORY: hx sob COMPARISON STUDY: 08/08/2015 FINDINGS: Increased fecal load throughout the colon. No evidence for true bowel obstructive change. No significant small bowel distention IMPRESSION: Nonobstructive bowel pattern. Increased fecal load throughout the colon Electronically signed by: Mello Mayfield M.D. 04/25/2016 4:26 PM Dictated Date/Time: 04/25/2016 4:14 PM
[2016-04-25 17:44] LABS: ALLEN TEST POS (POS); ARTERIAL BLD GAS O2 SATURATION 89.4 % (90-95); ARTERIAL BLOOD GAS BASE EXCESS -1.4 mEq/L (-9-1.8); ARTERIAL BLOOD GAS HCO3 25 mmol/L (19-24); ARTERIAL BLOOD GAS PO2 64 mm/Hg (80-95); ARTERIAL BLOOD GAS pH 7.33 (7.35-7.45); O2 ADMINISTRATION 10 liters O2
--- NOTE | 2016-04-25 17:46 | DIAGNOSTIC IMAGING REPORT ---
CT SCAN OF THE ABDOMEN AND PELVIS WITH IV CONTRAST CLINICAL HISTORY: Nausea. Generalized abdominal pain. COMPARISON STUDY: Abdominal CT dated 08/04/2015. KUB dated 04/25/2016. TECHNIQUE: Following the IV administration of 93 cc of Optiray 320, CT scan of the abdomen and pelvis is performed from the lung bases to the proximal femora. Images are reviewed in the axial, sagittal, and coronal planes. IV contrast was administered without complication. Automated dose control exposure was utilized. CT DOSE: 580.37 mGy.cm FINDINGS: Lung bases: The heart is enlarged and without pericardial effusion. The coronary arteries and mitral annulus are densely calcified. There are moderate pleural effusions with dense bibasilar consolidation. Liver: The contrast-enhanced liver is top normal in size and normal in contour. The liver demonstrates diffusely diminished attenuation consistent with hepatic steatosis. There is no intrahepatic biliary ductal dilatation. The hepatic veins and portal veins are patent. Gallbladder: Unremarkable. Spleen: Normal in size and attenuation. Pancreas: Mildly atrophic and grossly unremarkable. Adrenal glands: Unremarkable. Kidneys: The contrast enhanced kidneys are atrophic and without hydronephrosis. The kidneys enhance symmetrically. Scattered subcentimeter cortical hypodensities likely represent cysts but are too small for definitive characterization. Abdominal vasculature: The abdominal aorta is normal in course and caliber noting moderate to advanced atherosclerotic calcification. Bowel: There is marked laxity of the ventral abdominal wall with diastases of the rectus musculature and ventral protrusion of both small bowel loops and colon. There is no bowel obstruction. A duodenal diverticulum is noted. Moderate colonic fecal retention is observed. The appendix is not identified and reported surgically absent. Peritoneum: There is a small volume of abdominopelvic ascites. No intraperitoneal free air is seen. Fluid is seen tracking along the mesentery. A more organized collection is questioned with a thin enhancing wall on image #[id number] in the ventral central mesentery. Lymphadenopathy: None. Pelvic viscera: Although decompressed, the bladder wall appears thickened and there is pericystic stranding identified. The uterus and adnexa are normal as imaged. Skeletal structures: The skeletal structures are osteopenic. Mild lumbosacral spondylosis is observed. No lytic or blastic lesions are seen. There are healed right pubic ring fractures. IMPRESSION: 1. There is marked laxity of the ventral abdominal wall with diastases of the rectus abdominal musculature and ventral protrusion of both small bowel and colon. 2. There is no bowel obstruction. Moderate fecal retention is seen throughout the colon. 3. There is a small volume of abdominopelvic ascites. No intraperitoneal free air is seen. 4. A 3.9 x 1.7 cm more organized fluid collection is questioned in the mid abdomen. Although considered unlikely, abscess would be impossible to exclude. Clinical correlation will be required. 5. Moderate pleural effusions with dense bibasilar consolidation. 6. Cardiomegaly. 7. Hepatic steatosis. 8. The bladder wall appears thickened and there is pericystic inflammation. Correlate clinically and with urinalysis for evidence of cystitis. 9. Additional changes as above. Electronically signed by: Sunil Keenan M.D. 04/25/2016 5:45 PM Dictated Date/Time: 04/25/2016 5:34 PM
[2016-04-25] MEDS ORDERED: PIPERACILLIN/TAZOBACTAM 4.5 GM/100ML D5W IV STA (18:26)
[2016-04-25] MEDS ORDERED: HYDROmorphone INJ 0.5 MG/0.5 ML SYR IV PRN (18:45)
[2016-04-25] MEDS ORDERED: LORAZEPAM 0.5 MG TAB PO PRN (18:45)
[2016-04-25] MEDS ORDERED: FUROSEMIDE INJ 60 MG in SYRINGE 0 ML IV ONE (20:00)
[2016-04-25] MEDS ORDERED: PIPERACILL/TAZOBAC CONSULT ACTIVE PRN (20:15)
[2016-04-25] MEDS: POTASSIUM CHLORIDE 10 MEQ TABCR PO SCH (20:40)
[2016-04-25 20:45] LABS: INR 1.1 (0.9-1.1); PROTHROMBIN TIME (PATIENT) 11.7 SECONDS (9.0-12.0)
[2016-04-25] MEDS ORDERED: METOPROLOL TARTRATE 25 MG TAB PO SCH (21:00)
[2016-04-25] MEDS: LEVALBUTEROL 1.25MG/3ML NEB INH SCH (21:14)
[2016-04-25 21:15] VITALS: PULSE 59; O2SAT 87
[2016-04-25] MEDS: HEPARIN SOD 5000 UNIT/0.5 ML CARP SQ SCH (21:40)
[2016-04-25 22:00] VITALS: O2SAT 88; Ht 157.5 cm; Wt 78.7 kg
--- NOTE | 2016-04-25 23:32 | HISTORY & PHYSICAL EXAMINATION ---
DATE OF ADMISSION: 04/25/2016 A 71-year-old female, admitted with worsening abdominal pain. She also has acute superimposed on chronic respiratory failure. HISTORY OF PRESENT ILLNESS: The patient with multiple medical problems including interstitial lung disease, obstructive lung disease, chronic respiratory failure, on home oxygen, diastolic congestive heart failure, has had multiple exacerbations, chronic kidney disease, obesity, has had multiple abdominal surgeries, has had multiple hernias involving her abdominal wall, requiring multiple interventions. She was last hospitalized at on 04/06/2016 with an acute diastolic congestive heart failure. The patient called the office last night, stating that she has had a problem with burning on urination and urinary frequency and some discomfort in her lower abdomen. She was asked to come to the office to check a urinalysis. This was done this morning. There was no evidence of any urinary tract infection. Subsequently, she continued to have lower abdominal pain. The lower abdomen was getting worse. She was having nausea and she vomited once. She did have a normal bowel movement. There was no blood in her stool. She has not had any fever or any chills. The patient came to the Emergency Room. She was evaluated. She had imaging studies. There was a moderate amount of stool in her intestine. Also there was suspicion that she may have a fluid collection in her abdomen. An abscess could not be ruled out definitely. Cultures were done in the Emergency Room. She was started on IV Zosyn. I saw the patient in the Emergency Room and she was admitted. PAST MEDICAL HISTORY: 1. Diastolic congestive heart failure, has had multiple hospitalizations in the past. 2. Chronic respiratory failure, on home oxygen. 3. Chronic obstructive pulmonary disease. 4. Chronic interstitial lung disease. 5. Has had multiple hospitalizations for abdominal pain and small bowel obstruction. In July of 2015, she did require surgery for lysis of adhesions. She also had a partial small bowel resection. 6. Longstanding history of arterial hypertension. 7. Appendectomy in the remote past. 8. After her appendectomy, she developed a ventral hernia. She also had incisional hernias. Since then she has had multiple interventions both here at and at [facility] because of the hernia and the infections and the ruptures. 9. Right central retinal artery occlusion in 2005. She has loss of vision in her right eye. 10. Hyperglycemia, not requiring any treatment. 11. Bilateral tubal ligation in the remote past. 12. A-port was placed during her prior hospitalization because of poor IV access. SOCIAL HISTORY: She is , has 3 children. There is no history of any smoking or alcohol. 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 FAMILY HISTORY: Her father in his 50s, had a stroke. Her mother is still alive. She is in her 90s, has multiple problems including arterial hypertension, peptic ulcer disease, aortic stenosis, congestive heart failure. She is still living independently. She has 3 brothers and 3 sisters. One sister has SLE. One sister is treated for arterial hypertension. ALLERGIES: 1. CODEINE. 2. MORPHINE SULFATE. 3. PENICILLIN. 4. SULFA MEDICATION. MEDICATIONS ON ADMISSION: All as noted on her home medication list. REVIEW OF SYSTEMS: As noted above. PHYSICAL EXAMINATION: GENERAL: Well developed, in no acute distress. Her recorded weight is 80 kg, height 157.5 cm, BMI 32.2. VITAL SIGNS: On arrival to the Emergency Room, her blood pressure was 151/70, pulse 83, respirations 20, temperature 36.3, oxygen saturation 96% on 3-liter oxygen by nasal cannula. Shortly after she arrived, she became dyspneic and hypoxic and her oxygen saturation dropped down to 76% on 3 liters. She was placed on a mask. SKIN: Warm and dry. No rash. HEENT: She does have loss of vision in her right eye. No mucosal abnormality. Oxygen mask in place. NECK: Supple. Nontender. No adenopathy, no thyromegaly. No JVD. No carotid bruit. CHEST: A-port in place. HEART: Regular heart sounds. No evident murmur, rub, or gallop. LUNGS: Markedly decreased breath sounds. No wheezing. ABDOMEN: Protruded. Soft. Multiple scars. No evident organomegaly or masses. Good bowel sounds. BACK: No spinal tenderness. EXTREMITIES: Trace to 1+ edema. No clubbing, no cyanosis. No joint or muscle tenderness. Good pulses. NEUROLOGIC: She is alert and oriented. There is no deficit. LABORATORY TESTS: WBC count 13,820, hemoglobin 12.5, hematocrit 40.4, platelet count 220,000. INR 1.1. Sodium 141, potassium 4.3, chloride 105, CO2 27, BUN 25, creatinine 1.3, glucose 137, calcium 8.9, total bilirubin 0.7, AST 19, ALT 16, alkaline phosphatase 147. Troponin I less than 0.015. ProBNP 4645. Total protein 7.1, albumin 4.3. ABGs done on 10-liter oxygen by mask showed the pH 7.33, pCO2 of 49, pO2 64, saturation 89.4%. Her urinalysis showed trace leukocyte esterase with only 1-5 WBCs. Imaging studies including a chest x-ray which showed congestive heart failure with bilateral pleural effusions and bibasilar airspace opacities. Her CT scan of the abdomen and pelvis, there was marked laxity of the ventral abdominal wall with diastasis of the rectus abdominal musculature and ventral protrusion of both small bowel and colon. There was no evidence of any obstruction. Moderate fecal retention noted throughout the colon. Small amount of ascites noted. A 3.9 x 1.7 cm more organized fluid collection was questioned in the mid abdomen. The possibility of an abscess could not be excluded. She had moderate pleural effusions with dense bibasilar consolidation. Cardiomegaly was noted. Hepatic steatosis was noted. The urinary bladder wall was thickened. The possibility of cystitis was considered, but her urinalysis is not consistent with that. ASSESSMENT: 1. Acute and chronic respiratory failure. 2. Interstitial lung disease. 3. Obstructive lung disease. 4. Chronic respiratory failure. 5. Question fluid collection of the abdomen with possibility of abscess, but not certain. 6. Chronic kidney disease. 7. History of multiple abdominal surgeries related to abdominal hernias. 8. Diastolic congestive heart failure. 9. History of cardiac catheterization done in July of last year showed no evidence of any occlusive coronary artery disease. PLAN: The patient was admitted to medical bed. Resuscitation level 1. All her laboratory tests were ordered. She was started on IV Zosyn. She was also given Xopenex. We will try to reduce her oxygen as tolerated. We will need to proceed with evaluation of the collection noted and see if it is indeed any infectious process. I will speak with the radiologist and see if an ultrasound will be helpful or a needle aspiration if possible. We will increase her activity as tolerated. She will be diuresed with IV Lasix as we have done in the past. A Britton catheter was placed because it is very difficult with her respiratory status to get in and out of bed to urinate during the period of diuresis. Tomorrow morning, I will give her a dose of magnesium.
[2016-04-25 23:56] VITALS: PULSE 54; O2SAT 92
[2016-04-25] MEDS: PIPERACILL/TAZOBAC IV 3.375 GM in DEXTROSE 5% 100ML 100 ML IV SCH (23:56)
[2016-04-26] VITALS (28 sets, daily range): BP systolic 107–164; BP diastolic 61–92; PULSE 52–110; TEMP 36.1–36.8; O2SAT 81–100
[2016-04-26] MEDS: ACETAMINOPHEN 325 MG TAB PO PRN (00:46)
[2016-04-26] MEDS: LEVALBUTEROL 1.25MG/3ML NEB INH SCH ×7 (01:59→23:31)
[2016-04-26] MEDS ORDERED: LORAZEPAM 0.5 MG TAB PO STA (04:22)
[2016-04-26] MEDS ORDERED: NURSING VERBAL MED ORDER ONE ×4 (04:30→17:15)
[2016-04-26] MEDS ORDERED: OPTIRAY 320 IV PRN (04:45)
[2016-04-26] MEDS ORDERED: METHYLPREDNISOLONE IV 125 MG in SYRINGE 0 ML IV ONE (04:45)
[2016-04-26] MEDS ORDERED: ONDANSETRON INJ 2 MG/ML 2 ML VIAL ONE ×2 (05:16→12:40)
[2016-04-26] MEDS ORDERED: ONDANSETRON INJ 8 MG in DEXTROSE 5% 50ML 50 ML IV ONE (05:30)
[2016-04-26] MEDS ORDERED: FUROSEMIDE INJ 60 MG in SYRINGE 0 ML IV ONE (06:00)
--- NOTE | 2016-04-26 06:37 | DIAGNOSTIC IMAGING REPORT ---
CHEST CTA for PULMONARY ARTERIES CT DOSE: 573.91 mGy.cm HISTORY: Chest pain dyspnea TECHNIQUE: Multiaxial CT images of the chest were performed following the intravenous administration of contrast to evaluate the pulmonary arteries. Maximal intensity projection images were also obtained. COMPARISON STUDY: 03/24/2015 FINDINGS: Large bilateral pleural effusions. Bilateral lower lobe atelectatic change. Esophagus is fluid-filled. Several nonspecific mediastinal and/or hilar nodes. Upper abdominal ascites. Pulmonary vasculature enhances appropriately. No significant and/or major central filling defects. Heart is moderately enlarged. IMPRESSION: 1. Study is negative for pulmonary embolus. 2. Bilateral pleural effusions with bilateral lower lobe atelectatic change. 3. Fluid-filled esophagus. 4. Secondary evidence for pulmonary arterial hypertension. 5. Mild cardiomegaly. Electronically signed by: Mello Mayfield M.D. 04/26/2016 6:36 AM Dictated Date/Time: 04/26/2016 6:34 AM
[2016-04-26 06:52] LABS: BASO % 0.8 %; BASO ABS # 0.12 K/uL (0-0.2); COMPLETE YES; EOS % 1.2 %; HEMATOCRIT 42.3 % (37-47); IG% 0.3 %; LYMPH % 7.2 %; MEAN CELL VOLUME 83.6 fL (80-100); MEAN CORPUSCULAR HEMOGLOBIN 24.9 pg (25-34); MEAN CORPUSCULAR HGB CONC 29.8 g/dl (32-36); MEAN PLATELET VOLUME 10.2 fL (7.4-10.4); MONO % 8.6 %; NEUT % 81.9 %; PLATELET COUNT 268 K/uL (130-400); RED BLOOD COUNT 5.06 M/uL (4.2-5.4); WHITE BLOOD COUNT 15.21 K/uL (4.8-10.8)
[2016-04-26 07:06] LABS: PARTIAL THROMBOPLASTIN RATIO 1.3
[2016-04-26 07:08] LABS: BUN/CREATININE RATIO 17.2 (10-20); CALCIUM 9.1 mg/dl (8.5-10.1); CREATININE 1.7 mg/dl (0.60-1.20); POTASSIUM 4.8 mmol/L (3.5-5.1)
[2016-04-26 07:11] LABS: ALB/GLOB RATIO 0.9 (0.9-2)
[2016-04-26] MEDS: PIPERACILL/TAZOBAC IV 3.375 GM in DEXTROSE 5% 100ML 100 ML IV SCH ×3 (07:55→23:31)
--- NOTE | 2016-04-26 08:32 | Clinical Documentation Query ---
Dr. ANASTACIO [facility] : CLINICAL DOCUMENTATION QUERIES QUERY 1 OF 2 Patient is a 71 year old female admitted for evaluation and treatment of: 1. Acute and chronic respiratory failure. 2. Interstitial lung disease. 3. Obstructive lung disease. 4. Chronic respiratory failure. 5. Question fluid collection of the abdomen with possibility of abscess, but not certain. 6. Chronic kidney disease. 7. History of multiple abdominal surgeries related to abdominal hernias. 8. Diastolic congestive heart failure She is being treated with IV Lasix and monitored with I/O including Britton catheter. Chest radiograph read to include "Congestive failure with bilateral pleural effusions and associated bibasal airspace opacities". Please explicitly specify the acuity of diastolic CHF in your patient as this cannot be assumed by the professional flamer sealer and impacts DRG assignment. Thank you. In your clinical opinion is this patient being managed for: ( x ) Acute on chronic diastolic congestive heart failure ( ) Other explanation of clinical findings (Please Explain) ( ) Unable to determine (Please Define) ( ) Need to Discuss ( ) Not Agree The medical record reflects the following clinical findings, treatment, and risk factors. Clinical Indicators: As above Treatment:IV Lasix and monitored with I/O including Britton catheter, chest radiograph, CT chest Risk Factors: Age, history of chronic diastolic CHF with prior exacerbations, COPD, hypertension. QUERY 2 OF 2 Documentation includes CKD, not otherwise specified. Historical GFR range from 11/03 to present of 34-60 ml/min. Additionally, BUN and creatinine on admission were 25 mg/dl adn 1.30 mg/dl with rise on hospital day 2 to 29 mg/dl and 1.70 mg/dl. Risk factors include acute on chronic diastolic CHF, Lasix administration. She is being monitored with serial chemistries. In your clinical opinion is this patient being managed for: (x ) Acute kidney failure on CKD stage 3 ( ) Other explanation of clinical findings (Please Explain) ( ) Unable to determine (Please Define) ( ) Need to Discuss ( ) Not Agree The medical record reflects the following clinical findings, treatment, and risk factors. Clinical Indicators: As above Treatment: She is being monitored with serial chemistries. Risk Factors: Acute on chronic diastolic CHF, Lasix administration Please clarify and document your clinical opinion in the progress notes and discharge summary. Terms such as "probable", "suspected", "likely", "questionable", "possible", or "still to be ruled out" are acceptable. IF IN AGREEMENT, YOU MUST DOCUMENT ABOVE DIAGNOSTIC STATEMENT IN DAILY PROGRESS NOTES AND DISCHARGE SUMMARY. This document is not part of the patient's record. Thank You, Desmond Salamanca, LAKIA [phone]
[2016-04-26] MEDS: POTASSIUM CHLORIDE 10 MEQ TABCR PO SCH ×2 (08:44→21:00)
[2016-04-26] MEDS: DILTIAZEM HCL 120 MG CAPCR PO SCH (08:44)
[2016-04-26] MEDS: ALLOPURINOL 300 MG TAB PO SCH (08:45)
[2016-04-26] MEDS: PAROXETINE 20 MG TAB PO SCH (08:45)
[2016-04-26] MEDS: HEPARIN SOD 5000 UNIT/0.5 ML CARP SQ SCH ×2 (08:54→21:55)
[2016-04-26] MEDS ORDERED: NALOXONE HCL 0.4 MG/1 ML VIAL/CARP IV STA (09:54)
[2016-04-26 09:55] LABS: ARTERIAL BLD GAS O2 SATURATION 98.3 % (90-95); ARTERIAL BLOOD GAS BASE EXCESS -3.3 mEq/L (-9-1.8); ARTERIAL BLOOD GAS HCO3 26 mmol/L (19-24); ARTERIAL BLOOD GAS PO2 131 mm/Hg (80-95); ARTERIAL BLOOD GAS pH 7.22 (7.35-7.45)
[2016-04-26 09:57] LABS: ALLEN TEST POS (POS); O2 ADMINISTRATION 100% FIO2
[2016-04-26] MEDS ORDERED: METHYLPREDNISOLONE IV 20 MG in SYRINGE 0 ML IV SCH (10:00)
--- NOTE | 2016-04-26 10:06 | DIAGNOSTIC IMAGING REPORT ---
CHEST ONE VIEW PORTABLE CLINICAL HISTORY: right thoracentesis dyspnea COMPARISON STUDY: 04/25/2016 FINDINGS: Interval right sided thoracentesis. No evidence pneumothorax. Unchanging consolidative change left base. IMPRESSION: No evidence pneumothorax status post right thoracentesis Electronically signed by: Mello Mayfield M.D. 04/26/2016 10:05 AM Dictated Date/Time: 04/26/2016 10:02 AM
--- NOTE | 2016-04-26 10:58 | PULMONARY CONSULTATION ---
DATE OF CONSULTATION: 04/26/2016 TIME: 10:00 a.m. REPORT OF CONSULTATION: The patient was seen in room 261, bed 1. She is a 71-year-old female who presented to the Emergency Room yesterday complaining of abdominal pain. This had been going on for approximately a week. She had nausea, especially postprandially. She did have some vomiting. There was no reported hematemesis. She reportedly had had a bowel movement yesterday. She has a history of bowel obstruction in the past and she has also had numerous abdominal surgeries. Her oxygen saturation in the Emergency Department was only 69% on 3 liters of oxygen. She was placed on a mask. Subsequently, BiPAP was tried. Reportedly, she did not tolerate the BiPAP. She is currently on BiPAP, however. She has become more obtunded this morning. The patient herself is minimally arousable and cannot give me any history. Dr. Bernardo within the past half hour did a right thoracentesis with removal of 800 mL of fluid. He felt it was an urgent procedure and the patient was unable to give permission. He thus did the procedure in light of the fact it seemed to be an emergency. The patient does have a history of lung problems. I discussed the case with Dr. Dahl who tells me she has interstitial lung disease and COPD. She also has diastolic congestive heart failure. Her x-ray has shown bilateral pleural effusions. PAST SURGICAL HISTORY: 1. Appendectomy. 2. Left radius fracture. 3. Hernia repair. 4. Tubal ligation. 5. At least 1 surgery or perhaps multiple for bowel obstruction. PAST MEDICAL HISTORY: Respiratory failure, COPD, CHF, acute kidney injury, epistaxis, retinal artery occlusion. SOCIAL HISTORY: Tobacco none. ETOH -- none. ALLERGIES: PENICILLIN, SULFA, CODEINE, MORPHINE. FAMILY HISTORY: Father in his 50s from a CVA. Mother living in her 90s with hypertension and CHF. One sister living has SLE. REVIEW OF SYSTEMS: Unobtainable. MEDICATIONS (AT HOME): 1. DuoNeb p.r.n. 2. Ativan 0.5 t.i.d. p.r.n. 3. Ranitidine 150 b.i.d. 4. Potassium 10 mEq b.i.d. 5. Paxil 20 mg daily. 6. Lopressor 25 mg b.i.d. 7. Furosemide 40 mg b.i.d. 8. Diltiazem 120 mg daily. 9. Aspirin 81 mg daily. 10. Allopurinol 150 mg daily. PHYSICAL EXAMINATION: VITAL SIGNS: The patient is a 71-year-old female who is minimally responsive. I could only get her to barely open her eyes and take a breath with strong encouragement. HEENT: Pupils were reactive. I could not examine the nasal passage or oropharynx due to the BiPAP mask. Her BMI is 32.2. HEART: Rate is 55 per minute. Rhythm was regular. LUNGS: Lung elder revealed severely diminished breath sounds bilaterally but more so on the right. This is following thoracentesis. Her respirations were shallow. Respiratory rate was approximately 8. Oxygen saturation was 98%. ABDOMEN: Markedly distended. She has numerous scars from prior surgeries. Bowel sounds were somewhat distant. There was no apparent tenderness to palpation, but the patient is almost obtunded. A Britton catheter is in place. EXTREMITIES: Showed trace edema bilaterally. There was no cyanosis or clubbing. LABORATORY DATA: CBC today shows a white count of 15.21. Hemoglobin is 12.6. Platelets 268,000. INR is 1.1. PTT was 32.6. D-dimer was 5880. Urinalysis shows 3+ protein, bacteria was negative. Pleural pH was 7.25. Blood gas yesterday afternoon at 5:30 p.m. showed a pH of 7.33 with a pCO2 of 49 and a pO2 of 64. This was done with 10 liters of oxygen. Blood gas just done at 9:42 a.m. showed a pH of 7.22 with a pCO2 of 64 and a pO2 of 131. This reflects acute respiratory acidosis. Electrolytes show sodium 141, potassium 4.8, chloride 102, bicarb 28. BUN was 29 with a creatinine of 1.7. Blood sugar is 136. AST was 14, ALT 16, and alkaline phosphatase was 134 which should be mildly elevated. Troponin was negative. IMPRESSION: 1. Acute on chronic respiratory failure with hypoxia and hypercarbia. 2. Bilateral pleural effusions. 3. Interstitial lung disease by history. 4. Chronic obstructive pulmonary disease by history. 5. Abdominal pain of uncertain origin. RECOMMENDATIONS: It is advised that the patient be moved to the Intensive Care Unit. I am going to have them put a backup rate on the BiPAP. We will back her up with a rate of 16 for now. She has had some narcotic within the past several hours. We will give her 1 dose of Narcan and see if she has any response. The patient did have a CT angio of the chest that was negative for pulmonary embolism. There were significant atelectatic changes of both lower lung elder which probably are related to the effusions. She did have a fluid-filled esophagus which would make vomiting or aspiration more of a concern. She did have dye for that study and we need to have close observation on her creatinine which did go from 1.3 up to 1.7. I consider her condition critical. The patient needs some nebulizer treatments. She is ordered Xopenex q. 4 hours. Thank you for asking me to assist in her care.
[2016-04-26] MEDS ORDERED: PANTOprazole INJ 40 MG in SYRINGE 0 ML IV SCH (11:00)
[2016-04-26 11:15] LABS: PLEURAL FLUID TOTAL PROTEIN 4.7 g/dl
[2016-04-26] MEDS ORDERED: FLUMAZENIL 0.1 MG/1 ML 10 ML VIAL IV STA (11:16)
[2016-04-26] MEDS ORDERED: FLUMAZENIL 0.1 MG/1 ML 10 ML VIAL - CCU EMERGENCY DRUG IV ONE (11:24)
--- NOTE | 2016-04-26 11:39 | DIAGNOSTIC IMAGING REPORT ---
CHEST ONE VIEW PORTABLE CLINICAL HISTORY: s/p R thoracentesis ? PTX dyspnea COMPARISON STUDY: 04/26/2016 9:53 AM FINDINGS: Study remains negative for pneumothorax. Generally good aeration right hemithorax. Persistent consolidative change left base. IMPRESSION: No evidence pneumothorax. Unchanging consolidative change left base. Electronically signed by: Mello Mayfield M.D. 04/26/2016 11:38 AM Dictated Date/Time: 04/26/2016 11:36 AM
[2016-04-26 12:17] LABS: IPAP 18; ISTAT ALLEN TEST Pass; ISTAT ARTERIAL BLOOD GAS HCO3 27 meq/L (19-24); ISTAT ARTERIAL BLOOD GAS PCO2 53 mmHg (35-46); ISTAT ARTERIAL BLOOD GAS PO2 169 mmHg (80-95); ISTAT ARTERIAL BLOOD GAS pH 7.31 (7.35-7.45); ISTAT CARBON DIOXIDE 28 mEq/l (24-31); ISTAT DELIVERY SYSTEM BIPAP; ISTAT FIO2 100 %; ISTAT RATE 20; ISTAT SITE L Radial
[2016-04-26 12:23] LABS: PLEURAL FLUID APPEARANCE BLOODY; PLEURAL FLUID COLOR RED; PLEURAL FLUID MONONUC RELAT 61.1 %; PLEURAL FLUID POLYNUC 38.9 %; PLEURAL FLUID SOURCE RIGHT LUNG; PLEURAL FLUID WBC (A) 293 /uL
--- NOTE | 2016-04-26 13:43 | CRITICAL CARE CONSULTATION ---
DATE OF CONSULTATION: 04/26/2016 CHIEF COMPLAINT: Drowsiness and low oxygen saturations. HISTORY OF PRESENT ILLNESS: The patient is a 71-year-old woman with multiple medical problems such as hypertension, interstitial lung disease, diastolic dysfunction and chronic kidney disease and she presented to the Emergency Department yesterday secondary to abdominal pain. She is unable to give me any history secondary to her altered mental status. She was seen in the Emergency Department, where she was noted to be hypoxemic. She had a KUB done, showing increased fecal load throughout the colon and also CT of the abdomen and pelvis with IV contrast, revealing moderate fecal retention throughout the colon as well as a 3.9 x 1.7-cm fluid collection in the mid abdomen with a question of abscess. She also had moderate pleural effusions and dense bibasilar consolidation. Please see the full report for details. She was admitted to the hospital and received Lasix 60 mg last night. She was on a 100% nonrebreather mask and at some point, was tried on BiPAP last night. I understand she wore it for about half an hour. Last night, she also received Ativan and this morning, she received Ativan as well as Dilaudid. Due to low oxygen saturations or borderline oxygen saturation, she was placed on BiPAP and a pulmonary consultation was sought. I got a call from Dr. Silvestre regarding this patient, who was having some periods of apnea on the BIPAP with borderline oxygen saturations. She was transferred to the intensive care unit and BiPAP settings have been adjusted. She will awaken, but does not stay awake for very long. She was given Narcan 0.8 mg prior to transfer to the ICU and I have given her a total of 0.4 mg of flumazenil, which seems to have improved her mental status somewhat. She denies chest pain or abdominal pain. She is mildly nauseated. She was not coughing prior to being hospitalized and she has undergone a right thoracentesis today by the thoracic surgery service for a total of 800 mL of fluid. PAST MEDICAL HISTORY: Hypertension; interstitial lung disease and she wears oxygen at home, but not all the time; diastolic dysfunction, and chronic kidney disease. Pulmonary function tests in January of 2015 showed mild obstruction with normal DLCO. Ulceration of the abdominal wall, small bowel obstruction, obesity, retinal artery occlusion with vision loss in the right eye. Pulmonary hypertension, most recent echocardiogram in February 2016 showed right ventricular dilatation and severe pulmonary hypertension. PAST SURGICAL HISTORY: Status post multiple abdominal surgeries secondary to hernia or small bowel obstruction, appendectomy, bilateral tubal ligation, A-port, and tonsillectomy. ALLERGIES: CODEINE, MORPHINE, PENICILLIN, AND BACTRIM. OUTPATIENT MEDICATIONS: Allopurinol 150 mg daily, aspirin 81 mg daily, calcium/magnesium/zinc 1 tab daily, Cartia XT 120 mg p.o. q.a.m., Lasix 40 mg b.i.d., DuoNebs p.r.n., Ativan 0.5 mg t.i.d. p.r.n., Lopressor 25 mg p.o. b.i.d., Paxil 20 mg daily, potassium chloride 10 mEq b.i.d., and Zantac 150 mg p.o. b.i.d. SOCIAL HISTORY: She does not smoke or drink. 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 FAMILY HISTORY: Significant for father, who of a CVA. Mother with congestive heart failure, heart valvular disease and peptic ulcer disease. REVIEW OF SYSTEMS: Unable to be obtained as the patient cannot stay awake long enough for me to ask for many questions. PHYSICAL EXAMINATION: VITAL SIGNS: Temperature 36.5, heart rate 56, respiratory rate 20, blood pressure 131/73, and oxygen saturation 96% on BiPAP 18/7 at 100%. HEENT: Pupils are approximately 8 mm bilaterally and reactive. Oral examination is limited due to the BIPAP mask being in place, but the tongue appears dry. NECK: Veins are flat. LUNGS: With decreased breath sounds in bilateral bases, right greater than left. No rales, rhonchi or wheezes. HEART: Bradycardic, regular. No murmurs. ABDOMEN: Soft, nondistended, and nontender. There are multiple scars over the abdomen. EXTREMITIES: Slightly cool with 1+ dorsalis pedis and radial pulses bilaterally. NEUROLOGIC: She will awaken, tell me her name, follow commands, move all 4 extremities and fall back asleep. LABORATORY DATA: White blood cell count 15.28, hemoglobin 12.6, hematocrit 42.3 and platelets 268. ABG, pH 7.22, pCO2 of 64, pO2 of 131, and HCO3 of 26. Followup ABG, pH 7.31, pCO2 of 53, pO2 of 169, and HCO3 of 27. Sodium 141, potassium 4.8, chloride 102, CO2 of 28, BUN 29, creatinine 1.7, and blood sugar 137. AST 14 and ALT 134. ProBNP 4645. Urinalysis shows 1-5 white blood cells, trace leukocyte esterase, some urinary crystals as well as some mucus. Microbiology data is pending. Portable chest x-ray from this morning and this afternoon were reviewed and showed improvement of the right-sided pleural effusion and better aeration on the right. There is still effusion and some atelectasis or consolidation on the left at the base. CT angiogram of the chest shows no pulmonary embolus with bilateral pleural effusions and bilateral lower lobe atelectasis as well as fluid filled esophagus, secondary evidence for pulmonary arterial hypertension and mild cardiomegaly. EKG from admission shows sinus bradycardia, incomplete right bundle-branch block with prolonged QT interval. IMPRESSION: 1. Acute on chronic hypoxemic hypercapnic respiratory failure. Her arterial blood gas is improving with adjustment of the BiPAP settings as well as the use of some Narcan. Hopefully, she will oxygenate better now that she also has had a right-sided thoracentesis. She may also benefit from a left-sided thoracentesis. 2. Acute kidney injury on chronic kidney disease. She had Lasix last night. 3. Metabolic encephalopathy secondary to hypercapnia. This may also be secondary to sedating medications verses infection 4. Possible intraabdominal abscess, although her abdominal exam is benign right now. She has a leukocytosis but is not febrile. 5. Severe pulmonary hypertension. 6. Oxygen dependent pulmonary disease. 7. History of hypertension. 8. History of diastolic dysfunction. 9. Bilateral pleural effusions, unclear etiology. PLAN: 1. Continue Romazicon p.r.n. 2. I will increase the steroids to 60 mg IV q. 6 hours. 3. Continue BiPAP - settings have been adjusted and her mental status has improved. Follow up ABG. 4. Consider thoracentesis on the left side. 5. Consider discontinuing Zosyn. Follow cultures and exam. 6. Continue DVT and GI prophylaxis. 7. Consider bronchodilators, although she is not wheezing. 8. Discontinue Ativan and Dilaudid. 9. Maintain n.p.o. until she is awake enough to take medications and her nutrition safely. The patient's care was discussed in detail with Dr. Dahl. Please call me with any questions or concerns. Critical care time 60 minutes. MTDD
--- NOTE | 2016-04-26 14:26 | OPERATIVE REPORT ---
DATE OF OPERATION: 04/26/2016 PREOPERATIVE DIAGNOSIS: Bilateral pleural effusions, right greater than left in a patient who has acute respiratory failure. POSTOPERATIVE DIAGNOSIS: Same. PROCEDURE: Right thoracentesis. ANESTHESIA: Local. SURGEON: Dr. Bernardo. CIRCUIT MANAGER: HEIDY Felder. INDICATION FOR PROCEDURE: Met the patient on the morning of 04/26/2016 and she looked quite ill to me. She had marginal saturations even on BiPAP. We sat her up and I performed a right thoracentesis under ultrasound guidance without difficulty. 800 mL of reddish serous fluid was drained. The pH of this was 7.25. She tolerated it well and chest x-ray showed no evidence of pneumothorax with good drainage of right pleural fluid. DESCRIPTION OF PROCEDURE: The patient sitting upright. I used ultrasound and found a window a bit lateral to the midclavicular line. This area was prepped and draped in the usual sterile fashion. 1% Xylocaine without epinephrine was used to anesthetize the skin and subcutaneous tissues. A large bore needle was used to anesthetize the deeper tissues and pleura and I got free flowing fluid back. Guidewire was inserted and needle removed. A triple lumen catheter was slid over the guidewire a total of 17 cm and the guidewire removed. Two ports (middle and proximal ports) were then attached to suction devices and about 400 mL was drawn into each one. The patient had some reexpansion coughing. She did not appear to have pain. We could drain no more fluid, and I removed the catheter. We put antimicrobial dressing over this. Chest x-ray showed no evidence of pneumothorax. I attest to the content of the Intraoperative Record and any orders documented therein. Any exceptions are noted below. MTDD
--- NOTE | 2016-04-26 14:27 | SURGICAL CONSULTATION ---
DATE OF CONSULTATION: 04/26/2016 DATE OF CONSULTATION: 04/25/2016. REASON FOR CONSULTATION: Bilateral pleural effusions. HISTORY OF PRESENT ILLNESS: Maribel Shepard is a 71-year-old female who is normally followed by Dr. Dahl. The patient has a history of multiple problems with her abdomen and had multiple episodes of small bowel obstructions who presented with abdominal pain for a week. She came to the Emergency Room on 04/25/2016 complaining of abdominal pain and with some vomiting and some nausea and was found to be markedly hypoxic with saturations in the 60s. She was admitted to the hospital to the floor and I was asked to see her. She had bilateral pleural effusions but no evidence of pulmonary embolism. The patient has a mildly elevated white count, but is markedly hypoxic. I was asked to see her and she was on BiPAP with saturations in the high 80s and was essentially obtunded. I was asked to manage these pleural effusions. PAST MEDICAL HISTORY: 1. Chronic obstructive pulmonary disease. 2. Apparent interstitial lung disease. 3. Acute kidney injury in the past. 4. Episodes of congestive heart failure. 5. Retinal artery occlusion. 6. Lifetime nonsmoker. 7. Questionable history of gout. PAST SURGICAL HISTORY: 1. Open reduction internal fixation of left radius fracture. 2. Appendectomy. 3. Incisional hernia at site of appendectomy with subsequent repair. 4. Recurrent multiple repairs. 5. Bilateral tubal ligation. 6. 3, para 3. 7. Insertion of left infraclavicular Port-A-Cath. MEDICATIONS (AT HOME): 1. Allopurinol. 2. DuoNebs. 3. Aspirin. 4. Diltiazem. 5. Lopressor. 6. Paxil. 7. Lasix. 8. Potassium supplements. 9. Ranitidine. 10. Ativan. ALLERGIES: 1. PENICILLIN. 2. SULFA. 3. MORPHINE. 4. CODEINE. SOCIAL HISTORY: The patient has never smoked cigarettes or used alcohol. She is , lives in [place]. She lives with her family. FAMILY MEDICAL HISTORY: The patient's mother is still in her 90s. Father in his 50's, had a cerebrovascular accident. She has a sister who has lupus. Her children are healthy. REVIEW OF SYSTEMS (FROM CHART): There were known episodes of small-bowel obstruction in the past and has history of small-bowel obstructions and presented with abdominal pain. Had this for over the past week or so. She is moving her bowels. She has become much more short of breath. She has also had some vomiting. She does not have a cardiac history, not really and she is not really answering questions, but apparently no history of chest pain or palpitations. No skin breakdown. She does have some edema of her lower legs. She has become very weak. The patient does have a Port-A-Cath due to poor IV access. PHYSICAL EXAMINATION: GENERAL: This is a 5 foot 2 inch, 175 pound white female who is wearing BiPAP and not really responding to questions. HEAD, EYES, EARS, NOSE, AND THROAT: Her sclerae are quite pale and her pupils are small but reactive. She has no evidence of scleral icterus. Oral mucosa is quite dry. NECK: Supple. Hard for me to hear a bruit, but I she did not appear to have any upper airway stridor or lymphadenopathy. LUNGS: Decreased breath sounds in both bases. Distant heart sounds but regular rate. ABDOMEN: She has a small breakdown lower abdomen at another incision site which is about 1.5 x 0.5 cm with a small eschar. Her abdomen is a bit distended, but it is difficult to say if she has tenderness. She has hypoactive bowel sounds. I detect no obvious hernias with incarceration. The patient is diaphoretic and cool. I could not palpate pulses. She had no joint effusions. NEUROLOGIC: She is moving everything but very difficult to keep awake. ASSESSMENT AND PLAN: Bilateral pleural effusions, right greater than left in a patient who appears to be quite ill, also quite hypoxic. Despite the fact this patient is unable to give consent, I felt that a thoracentesis would be very important given her quite precarious respiratory state. I discussed this with Dr. Silvestre after I performed a thoracentesis and drained her for 800 mL on the right. She appeared to be a bit better, still is quite toxic appearing. We are going to move her to the intensive care unit.
--- NOTE | 2016-04-26 16:37 | DIAGNOSTIC IMAGING REPORT ---
CHEST ONE VIEW PORTABLE CLINICAL HISTORY: History of left-sided thoracentesis COMPARISON STUDY: 04/26/2016 FINDINGS: The heart is mildly enlarged. The left-sided A-Port catheter remains unchanged in position. There is a small left-sided pneumothorax with maximal pleural separation of 12 mm. This subpulmonic right pleural effusion. There is improved aeration left base. There is improving pulmonary vascular congestion.[ IMPRESSION: 1. Small 12 mm left apical pneumothorax status post thoracentesis 2. Subglottic right pleural effusion 3. Improving pulmonary vascular congestion 4. Improving aeration of the left lung base Electronically signed by: Danie Ortiz M.D. 04/26/2016 4:36 PM Dictated Date/Time: 04/26/2016 4:34 PM
[2016-04-26] MEDS: METHYLPREDNISOLONE IV 60 MG in SYRINGE 0 ML IV SCH ×2 (16:42→21:57)
--- NOTE | 2016-04-26 17:20 | OPERATIVE REPORT ---
DATE OF OPERATION: 04/26/2016 PREOPERATIVE DIAGNOSIS: Left pleural effusion with continued respiratory insufficiency. POSTOPERATIVE DIAGNOSIS: Same. PROCEDURE: Left thoracentesis under ultrasound guidance. SURGEON: Dr. Bernardo. WEB ART DIRECTOR: HEIDY Felder. ANESTHESIA: Local. SPECIFICS OF PROCEDURE: I am concerned about this patient. I performed a right thoracentesis for 800 mL of fluid this morning and while the Gram stain has been negative, pH was 7.25 and I am a bit concerned about that. It is still unclear to us as to the etiology of this woman's mental obtundation and overall presentation. My concern is that she may have an early septic onset. I discussed this case and felt that we should do a therapeutic left thoracentesis also, which the CT scan showed a few 100 mL of fluid there. She has remained on BiPAP. PROCEDURE IN DETAIL: The patient was placed in the seated position. Under ultrasound guidance, the area was selected. This window between her ribs is about the 7th interspace, a bit laterally, in the midclavicular line posteriorly. The patient was prepped and draped in usual sterile fashion. A skin wheal was raised with 25 gauge needle, a large bore needle was used to enter the pleural cavity. We got some fluid back. We also got some air. A large bore needle was used to enter the pleural cavity and get free flowing fluid and a guidewire was inserted through this and needle removed. An introducer was used to dilate this up gently and then a triple lumen catheter was slid into 17 cm. A total of about 500 mL of a tea-colored fluid was drained. It was sent to the lab for analysis. I removed the catheter slowly after we could get no more fluid. We drained a minimum amount of air. I placed a suture to prevent any backbleeding. Antimicrobial dressing was placed. Chest x-ray showed resolution of the fluid and she had a small pneumothorax apically. We will continue to watch this. I did discuss this with Dr. Monie Dang from the shoe laster service. The patient remains a bit lethargic. She sounds better on auscultation. Her A-a gradient is a bit better also. I attest to the content of the Intraoperative Record and any orders documented therein. Any exceptio ns are noted below.
[2016-04-26] MEDS: FLUMAZENIL 0.1 MG/1 ML 10 ML VIAL IV SCH (17:22)
[2016-04-26 17:40] LABS: PLEURAL FLUID APPEARANCE BLOODY; PLEURAL FLUID COLOR RED; PLEURAL FLUID MONONUC RELAT 78.2 %; PLEURAL FLUID POLYNUC 21.8 %; PLEURAL FLUID SOURCE RIGHT LUNG; PLEURAL FLUID WBC (A) 544 /uL
[2016-04-26 17:41] LABS: PLEURAL FLUID TOTAL PROTEIN 3.6 g/dl
[2016-04-26] MEDS ORDERED: ACETAMINOPHEN IV 100 ML IV ONE (17:45)
--- NOTE | 2016-04-26 17:45 | Progress Note ---
Progress Note Date of Service Apr 26, 2016. Progress Note Architecture Drafter: Patient's minute ventilation on Bipap is variable. She will awaken and can stay awake to have a normal conversation but falls asleep easily if not stimulated. She describes SOB that was worse over the past few days - had to sit down more often with activity and abdominal pain with some nausea that "comes and goes". She denies abdominal pain presently. She denies fevers or productive cough. She was given another 0.2mg of romazicon x2 this afternoon although I don't think, at this point, the benzodiazapines from last night should be affecting her mental status. Her F/U abg after transfer the the ICU was improved. She is s/p L thoracentesis by Dr. Bernardo this afternoon. F/U CXR with 12mm PTX. Will keep on 100% FIO2 and follow serial chest xrays. O2 saturation is 100% on 100% FIO2 but difficult to obtain saturations. I am reluctant to decrease her inspiratory pressure on the bipap due to her variable minute ventilation but it may put her at risk for developing an larger ptx. Without it, she may retain more CO2 and require intubation. Will continue to follow carefully.
--- NOTE | 2016-04-26 20:58 | PROGRESS NOTE ---
DATE: 04/26/2016 A 71-year-old female, admitted with: 1. Acute superimposed on chronic respiratory failure. 2. Chronic obstructive pulmonary disease. 3. Interstitial lung disease. 4. Chronic respiratory failure, on home oxygen. 5. History of multiple abdominal surgeries. I saw the patient early this morning. The main problem is that she was having problem maintaining an adequate oxygen saturation. She was placed on a mask. The flow had to be increased to 15 liters per minute. Her saturation remained borderline, but as time passed her saturations started to decrease even with 15 liters of oxygen. We were able to place her on BiPAP. We tried the BiPAP during the night, but she definitely did not tolerate it. This morning, her mental status was getting worse. She was getting more obtunded. When I first saw her in the morning, I was able to wake her up and then speak with her and she was answering appropriately, but then subsequently she was becoming more obtunded. The patient has bilateral pleural effusion. I did request a consultation from Dr. Bernardo. He saw the patient this morning and he did a right-sided thoracentesis and was able to remove 800 mL of fluid. I was expecting that with removal of pleural fluid her respiratory status should start improving, but her mental status continues to be more obtunded. She was seen in pulmonary consultation by. Dr. Silvestre. Dr. Silvestre ordered a set of ABGs. Her ABGs were abnormal. Her pH was 7.22 with a pCO2 of 64, pO2 131 and saturation was 98.3%. This was on 100% oxygen. Dr. Silvestre recommended that we move the patient to ICU. This was done little before noon time. She was continued on her BiPAP. She already had a thoracentesis on the right side. Dr. Bernardo came back in the afternoon and did a thoracentesis on the left side. Subsequently, she developed a 12 mm pneumothorax. Her mental status improved, but initially we had to keep waking her up. Otherwise, she drifts into her sleep and her respiratory status was quite precarious. During last night, the patient did receive 1 dose of Dilaudid and also received oral lorazepam. Both medications were reversed. I saw Mrs. Shepard again this afternoon. Her family was at her bedside. She was still on the BiPAP. She seems to be tolerating it. She was complaining of feeling thirsty and her mouth is very dry. She denied any headache. No dizziness. Denied any chest pain. Her respiratory status seems to be stable at this point. No abdominal pain, no nausea, no vomiting. She does have a Britton catheter in place. When she was admitted yesterday, a CT scan of the abdomen and pelvis were done. The radiologist was concerned about the possibility of a collection, but I spoke with him this morning and actually the collection he is describing is not really certain and he thought it will be too small to try to attempt any drainage. His recommendation was to repeat her CT scan in about 1 week. Also, when she came in last night to the Emergency Room she was started on IV Zosyn. PHYSICAL EXAMINATION: VITAL SIGNS: This evening, her blood pressure was 127/66; pulse 58; respirations 18; temperature 36.2 and oxygen saturation was 100% on her BiPAP. SKIN: Warm and dry. No rash. HEENT: BiPAP mask in place. NECK: No JVD, no adenopathy. HEART: Regular heart sounds. LUNGS: Decreased breath sounds. No evidence of any wheezing. ABDOMEN: Soft. There is minimal tenderness, but no guarding or rebound. Good bowel sounds. EXTREMITIES: No edema, clubbing or cyanosis. Her last set of ABGs which was done around noon time showed a pH of 7.31, pCO2 53, pO2 169 and saturation 99%. This was also done on 100% oxygen. Today's CBC showed a WBC count of 15,210, hemoglobin 12.6, hematocrit 42.3, platelet count 268,000. Sodium 141, potassium 4.8, chloride 102, CO2 28, BUN 29, creatinine 1.7, glucose 136, calcium 9.1, total bilirubin 0.9, AST 14, ALT 16, alkaline phosphatase 134, total protein 7.0 and albumin 3.4. ASSESSMENT: 1. Acute respiratory failure. 2. Chronic respiratory failure. 3. Chronic obstructive lung disease. 4. Interstitial lung disease. 5. Mental status changes with obtundation. 6. Arterial hypertension. 7. Chronic kidney disease. PLAN: 1. She is continued on the same medications. 2. Continuing on her BiPAP. 3. Serial chest x-rays will be done to monitor the size of her pneumothorax. 4. As noted, all her family was at her bedside. We discussed her condition. 5. The plan is to continue her IV Zosyn for now. 6. We will plan on repeating her CT scan in the future.
--- NOTE | 2016-04-26 21:11 | DIAGNOSTIC IMAGING REPORT ---
CHEST ONE VIEW PORTABLE CLINICAL HISTORY: Pneumothorax. History of left-sided thoracentesis. COMPARISON STUDY: 04/26/2016 FINDINGS: The heart is mildly enlarged. The left-sided A-Port catheter remains unchanged in position. There is calcification mitral valve annulus. There is interstitial thickening most pronounced within the right lower lobe. There is mild right hilar prominence. There is a small subpulmonic right pleural effusion. There is interval decrease in the size of the left pneumothorax with only a trace residual.[ IMPRESSION: Interval decrease in the size of the small left apical pneumothorax. Electronically signed by: Danie Ortiz M.D. 04/26/2016 9:10 PM Dictated Date/Time: 04/26/2016 9:09 PM
[2016-04-27] VITALS (19 sets, daily range): BP systolic 104–140; BP diastolic 50–104; PULSE 70–87; TEMP 36.4–36.9; O2SAT 86–100
[2016-04-27] MEDS: METHYLPREDNISOLONE IV 60 MG in SYRINGE 0 ML IV SCH (03:29)
[2016-04-27] MEDS: LEVALBUTEROL 1.25MG/3ML NEB INH SCH ×6 (03:44→23:12)
[2016-04-27 06:11] LABS: HEMATOCRIT 40.3 % (37-47); MEAN CORPUSCULAR HEMOGLOBIN 24.8 pg (25-34); MEAN CORPUSCULAR HGB CONC 29.5 g/dl (32-36); PLATELET COUNT 260 K/uL (130-400)
[2016-04-27 06:47] LABS: BASO % 0.1 %; BASO ABS # 0.03 K/uL (0-0.2); COMPLETE YES; IG% 0.3 %; LYMPH % 6.7 %; LYMPH ABS # 1.36 K/uL (1.2-3.4); MONO % 2.6 %; NEUT % 90.3 %; POLYCHROMASIA 1+
[2016-04-27 06:48] LABS: BUN/CREATININE RATIO 17.4 (10-20); CALCIUM 9.1 mg/dl (8.5-10.1); CREATININE 2.4 mg/dl (0.60-1.20); MAGNESIUM 2.6 mg/dl (1.8-2.4); PHOSPHORUS 6.9 mg/dl (2.5-4.9); POTASSIUM 5.3 mmol/L (3.5-5.1)
[2016-04-27] MEDS: PIPERACILL/TAZOBAC IV 3.375 GM in DEXTROSE 5% 100ML 100 ML IV SCH ×2 (07:25→17:23)
--- NOTE | 2016-04-27 07:25 | DIAGNOSTIC IMAGING REPORT ---
CHEST ONE VIEW PORTABLE CLINICAL HISTORY: pleural effusion dyspnea COMPARISON STUDY: 04/26/2016 FINDINGS: No significant residual pneumothorax. Unchanging increased density left base. Right lung is generally clear. Pulmonary vasculature is mildly prominent diminished from the prior study. IMPRESSION: Mildly improved exam. No significant residual pneumothorax. Electronically signed by: Mello Mayfield M.D. 04/27/2016 7:23 AM Dictated Date/Time: 04/27/2016 7:21 AM
[2016-04-27] MEDS: ACETAMINOPHEN 325 MG TAB PO PRN (07:28)
[2016-04-27] MEDS: POTASSIUM CHLORIDE 10 MEQ TABCR PO SCH (07:54)
[2016-04-27] MEDS: ALLOPURINOL 300 MG TAB PO SCH (07:55)
[2016-04-27] MEDS: PAROXETINE 20 MG TAB PO SCH (07:55)
[2016-04-27] MEDS: HEPARIN SOD 5000 UNIT/0.5 ML CARP SQ SCH ×2 (07:57→20:45)
[2016-04-27] MEDS: DILTIAZEM HCL 120 MG CAPCR PO SCH (07:59)
--- NOTE | 2016-04-27 09:02 | Surgery Progress Note ---
Subjective Date of Service: Apr 27, 2016. Pt. notes this am her breathing has markedly improved. She currently denies fevers, shakes, chills. No CP. Objective Vitals Date Time Temp Pulse Resp B/P Pulse Ox O2 Delivery O2 Flow Rate FiO2 04/27/16 07:20 80 25 100 BiPAP/CPAP 100 04/27/16 07:20 80 100 100 04/27/16 06:00 79 18 139/74 100 BiPAP 100 04/27/16 04:00 36.8 75 23 138/76 100 BiPAP 100 04/27/16 04:00 100 BiPAP 100 04/27/16 03:10 76 22 95 BiPAP/CPAP 100 04/27/16 02:55 76 95 100 04/27/16 02:00 74 19 133/78 100 BiPAP 100 04/27/16 00:01 36.9 72 25 125/78 100 BiPAP 100 04/26/16 23:59 100 BiPAP 100 04/26/16 23:33 73 100 100 04/26/16 23:31 73 18 97 BiPAP/CPAP 100 04/26/16 22:00 69 18 107/66 94 BiPAP 100 04/26/16 20:03 63 100 100 04/26/16 20:00 36.8 70 17 121/61 100 BiPAP 100 04/26/16 20:00 100 BiPAP 100 04/26/16 19:30 63 21 100 BiPAP/CPAP 100 04/26/16 18:00 60 15 133/73 94 BiPAP 100 04/26/16 16:36 58 20 97 BiPAP/CPAP 100 04/26/16 16:00 BiPAP 100 04/26/16 16:00 36.2 58 18 127/66 100 BiPAP 100 04/26/16 14:21 59 100 100 04/26/16 14:00 59 16 115/64 100 BiPAP 100 04/26/16 12:15 57 20 123/68 94 BiPAP 100 04/26/16 12:00 BiPAP 100 04/26/16 12:00 59 19 134/63 96 BiPAP 100 04/26/16 11:45 57 19 131/73 96 BiPAP 100 04/26/16 11:42 56 20 92 BiPAP/CPAP 100 04/26/16 11:42 56 97 100 04/26/16 11:30 55 20 148/71 90 BiPAP 100 04/26/16 11:24 36.5 56 16 04/26/16 11:15 56 20 164/67 92 BiPAP 100 04/26/16 11:01 56 14 143/69 95 BiPAP 100 04/26/16 11:00 36.1 55 15 Physical Exam General: + well developed, + well nourished, No distress CV: + RRR Pulmonary: + pertinent finding (slight decrease noted at bases), No accessory muscle use, No respiratory distress Neurologic: + alert & oriented x 3 Radiology CXR today shows marked improvement of pleural effusion and no significant pneumothorax Assessment & Plan 71 year old female with acute respiratory failure BILATERAL PLEURAL EFFUSIONS NOTED -pt. underwent bilateral thoracentesis (04/26/16) -no organisms noted on gram stains; bacterial cultures are pending -fungal and AFB culture are pending -pleural fluid cytology pending -fluid appears transudative -continue abx. as directed by primary service -PNEUMOTHORAX -left sided following thoracentesis -resolved on serial CXR
[2016-04-27] MEDS: PANTOprazole SOD 40 MG TAB PO SCH (09:58)
[2016-04-27] MEDS: METHYLPREDNISOLONE IV 40 MG in SYRINGE 0 ML IV SCH ×3 (10:05→22:17)
[2016-04-27 11:31] LABS: BUN/CREATININE RATIO 17.8 (10-20); CREATININE 2.5 mg/dl (0.60-1.20); POTASSIUM 5.3 mmol/L (3.5-5.1)
[2016-04-27] MEDS ORDERED: FENTANYL CITRATE INJ 50 MCG/1 ML 2 ML VIAL IV ONE (13:45)
--- NOTE | 2016-04-27 14:33 | CRITICAL CARE PROGRESS NOTE ---
DATE: 04/27/2016 DATE: 04/27/2016. GENERAL INFORMATION: This is a 71-year-old woman with a history of interstitial lung disease who was transferred from the floor to the intensive care unit yesterday secondary to somnolence and acute on chronic hypoxemic hypercapneic respiratory failure. She was maintained on BiPAP overnight 14/7 100%. She had been given Romazicon as well as Narcan yesterday and had bilateral thoracenteses which I believe both to be transudative. She developed a left apical pneumothorax yesterday and follow-up chest x-ray that I reviewed last night showed resolution. This morning her care was discussed in detail on multidisciplinary rounds. She is like a new woman today. She is awake, alert and complains of headache for which Tylenol has not been effective. She has been off the BiPAP since this morning and is eating a little bit. She is on 5 liters nasal cannula and is not coughing. She denies abdominal pain. PHYSICAL EXAMINATION: VITAL SIGNS: Maximum temperature 36.8, heart rate 70-80, respiratory rate 19-25, blood pressure 107-139/70s, oxygen saturation 92% on 4 liters nasal cannula. 24-hour fluid balance negative 558 mL. GENERAL: She is awake, alert and sitting in a chair. She appears mildly dyspneic. NEUROLOGIC: She follows commands and moves all 4 extremities. LUNGS: Have decreased breath sounds throughout. No rales, rhonchi or wheezes. HEART: Regular rate and rhythm. CHEST: Symmetric expansion. Abdominal exam limited due to her seated position but seems somewhat firm, but nontender. Hypoactive bowel sounds. EXTREMITIES: With trace pretibial edema. LABORATORY DATA: White blood cell count 20.2, hemoglobin 11.9, hematocrit 40.3, platelets 260. Sodium 137, potassium 5.3, chloride 100, CO2 23, BUN 45, creatinine 2.5, blood sugar 202. Procalcitonin 0.12. MICROBIOLOGY DATA shows blood cultures from 04/25/2016 no growth to date. Right-sided thoracentesis no organisms on Gram stain, no growth to date. AFB culture sent and pending. Fungal smear pending. Urine culture less than 1000 colonies per mL. Left thoracentesis fluid shows no organisms and no growth thus far. AFB pending. IMAGING: Portable chest x-ray from this morning was reviewed and shows mildly prominent pulmonary vasculature and decreased size of bilateral pleural effusions compared to yesterday morning. MEDICATIONS: Acetaminophen, allopurinol, Cardizem, heparin, Xopenex, Solu-Medrol, Zofran, Protonix, Paxil, Zosyn. IMPRESSION: 1. Acute on chronic hypoxemic hypercapnic respiratory failure. This is improved status post bilateral thoracentesis. She may have also had altered mental status secondary to some of the medication she was given along with her renal failure and elevated carbon dioxide level. She is doing quite well in this regard today. 2. Acute kidney injury, this may be secondary to contrast she received. She is nonoliguric, but her potassium is mildly elevated. 3. Metabolic encephalopathy, improved. 4. Possible intraabdominal abscess, relatively benign exam today. Leukocytosis is a bit worse today, but she is also on steroids. 5. Severe pulmonary hypertension. 6. Interstitial lung disease with oxygen dependence 3 liters by nasal cannula. 7. History of diastolic dysfunction. 8. Bilateral pleural effusions this admission status post bilateral thoracentesis, nothing so far to suggest empyema. 9. Headache. 10. Left pneumothorax, resolved. PLAN: NEUROLOGY: Continue acetaminophen for pain. I will give her 1 dose of 12.5 mcg of fentanyl to see if that will take the edge off of her headache. Avoid NSAIDs and regular use of sedatives as far as pain medicines go. PULMONARY: Decrease Solu-Medrol to 40 mg IV q. 6 hours. Continue bronchodilators. I think she can use the BiPAP as needed. Out of bed to chair and encourage incentive spirometry. CARDIOVASCULAR: History of hypertension. Continue antihypertensives. RENAL: Follow the BUN and creatinine carefully along with her volume status. She received Lasix yesterday. Hold on any diuresis today. Replete electrolytes. She had a renal diet already ordered. GASTROINTESTINAL: Diet was advanced this morning. Provide GI prophylaxis. INFECTIOUS DISEASE: She is on Zosyn secondary to what may have had been an intraabdominal abscess. I think her white blood cell count may be elevated secondary to her steroids. Consider discontinuing Zosyn tomorrow if she continues to improve. She will require a follow-up CT scan of the abdomen to reassess. Avoid IV contrast. MISCELLANEOUS: Continue heparin and SCDs for DVT prophylaxis. Thank you for asking me to see this nice lady. Her was at the bedside and I updated him today. STANLEY
[2016-04-27] MEDS ORDERED: NURSING VERBAL MED ORDER ONE (17:30)
[2016-04-27] MEDS: ALBUMIN HUMAN 25% 12.5 GM/50 ML VIAL IV SCH ×2 (18:24→18:37)
[2016-04-27 18:36] LABS: BUN/CREATININE RATIO 17.7 (10-20); CALCIUM 8.6 mg/dl (8.5-10.1); POTASSIUM 5.2 mmol/L (3.5-5.1)
[2016-04-27] MEDS ORDERED: SODIUM CHLORIDE 0.45% 1000ML 1,000 ML IV SCH (19:15)
--- NOTE | 2016-04-27 19:59 | PROGRESS NOTE ---
DATE: 04/27/2016 SUBJECTIVE: A 71-year-old female admitted with acute respiratory failure. She has multiple medical problems including chronic obstructive pulmonary disease, chronic interstitial lung disease, chronic respiratory failure on home oxygen, has had multiple abdominal surgeries. She was also complaining of abdominal pain. The patient was admitted. Her respiratory status deteriorated. She was transferred to ICU. She required BiPAP. She had received IV Dilaudid and oral lorazepam prior to the deterioration of her lung disease and respiratory failure and mental status which became obtunded. Both medications were reversed. Overall, her condition is improving. She is now off her BiPAP. She is back on nasal cannula. She is maintaining a good saturation. As far as her mental status, she is pretty much to her baseline this evening. She denied any headache. No dizziness. Denied any chest pain. No cough, no sputum. No abdominal pain, no nausea, no vomiting. Has not had a bowel movement. She does have a Britton catheter in place. PHYSICAL EXAMINATION: GENERAL: Well-developed in no distress. VITAL SIGNS: Blood pressure 122/60, pulse 70, respirations 15, temperature 36.5, oxygen saturation 98% on 4 liter oxygen by nasal cannula. SKIN: Warm and dry. No rash. HEENT: Oxygen cannula in place. NECK: No adenopathy. No JVD. HEART: Regular heart sounds. LUNGS: Decreased breath sounds. No wheezing. ABDOMEN: Soft. Minimal diffuse tenderness without any guarding or rebound. EXTREMITIES: No edema, clubbing, or cyanosis. TODAY'S LABORATORY TESTS: This morning her WBC count was 20,200, hemoglobin 11.9, hematocrit 40.3, platelet count 260,000. Her PRP showed a sodium 137, potassium 5.3, chloride 100, CO2 23, BUN 45, creatinine 2.5, glucose 202, calcium 9.0. Rechecked her PRP this evening and her sodium was 136, potassium 5.2, chloride 99, CO2 24, BUN 53, creatinine 3.0, glucose 220, calcium 8.6. Her chest x-ray done this morning showed decrease in the size of the previously noted pneumothorax from yesterday. Overall, the appearance of her chest was improved. The patient did undergo bilateral thoracentesis yesterday. ASSESSMENT: 1. Acute respiratory failure. 2. Chronic respiratory failure, on home oxygen. 3. Chronic obstructive lung disease. 4. Interstitial lung disease. 5. Acute renal failure superimposed on chronic renal failure. PLAN: 1. Continuing her medications. 2. This evening, I started her on half normal saline just 50 mL an hour. 3. This has been observed in the past whenever she was admitted and she required diuresis and she is acutely ill and she goes on steroids. Her WBC count increases and also her renal function deteriorates, but eventually she goes back to her baseline. 4. She is on nasal cannula. 5. We will repeat her laboratory tests in the morning.
[2016-04-27] MEDS: INSULIN ASPART 100 UNITS/ML 3 ML PEN SC SCH (20:50)
[2016-04-28] VITALS (28 sets, daily range): BP systolic 128–163; BP diastolic 61–78; PULSE 74–90; TEMP 36.3–37.5; O2SAT 88–97
[2016-04-28] MEDS: ACETAMINOPHEN 325 MG TAB PO PRN (00:40)
[2016-04-28] MEDS: METHYLPREDNISOLONE IV 40 MG in SYRINGE 0 ML IV SCH ×4 (03:49→23:35)
[2016-04-28] MEDS: PIPERACILL/TAZOBAC IV 3.375 GM in DEXTROSE 5% 100ML 100 ML IV SCH ×2 (03:49→17:10)
[2016-04-28] MEDS: LEVALBUTEROL 1.25MG/3ML NEB INH SCH ×6 (04:45→23:44)
[2016-04-28 06:06] LABS: BASO ABS # 0.01 K/uL (0-0.2); COMPLETE YES; HEMATOCRIT 34.7 % (37-47); IG% 0.3 %; LYMPH % 2.1 %; LYMPH ABS # 0.44 K/uL (1.2-3.4); MEAN CELL VOLUME 80.3 fL (80-100); MEAN CORPUSCULAR HEMOGLOBIN 25.2 pg (25-34); MEAN CORPUSCULAR HGB CONC 31.4 g/dl (32-36); MEAN PLATELET VOLUME 9.5 fL (7.4-10.4); MONO % 3.8 %; NEUT % 93.8 %; PLATELET COUNT 238 K/uL (130-400); RED BLOOD COUNT 4.32 M/uL (4.2-5.4); WHITE BLOOD COUNT 20.75 K/uL (4.8-10.8)
[2016-04-28 06:33] LABS: BUN/CREATININE RATIO 19.1 (10-20); CALCIUM 8.8 mg/dl (8.5-10.1); CREATININE 3.2 mg/dl (0.60-1.20); MAGNESIUM 2.5 mg/dl (1.8-2.4); PHOSPHORUS 6.4 mg/dl (2.5-4.9); POTASSIUM 4.9 mmol/L (3.5-5.1)
--- NOTE | 2016-04-28 07:04 | DIAGNOSTIC IMAGING REPORT ---
CHEST ONE VIEW PORTABLE CLINICAL HISTORY: Pleural effusions COMPARISON STUDY: 04/27/2016 FINDINGS: The cardiac and mediastinal contours remain stable. There is a left subclavian central venous catheter. Small bilateral pleural effusions are suspected. Since the prior study, the patient developed right basilar airspace opacities. There is also evidence for left basilar atelectasis/consolidation. IMPRESSION: 1. No evidence of pneumothorax 2. Increasing small right pleural effusion 3. Interval development of right basilar airspace opacities. Clinical correlation in regards to a pneumonia is recommended 4. Persistent left basilar atelectasis/consolidation Electronically signed by: Danie Ortiz M.D. 04/28/2016 7:03 AM Dictated Date/Time: 04/28/2016 7:01 AM
--- NOTE | 2016-04-28 07:29 | Surgery Progress Note ---
Subjective Date of Service: Apr 28, 2016. Pt. resting in bed. She states her breathing feels comfortable. Objective Vitals Date Time Temp Pulse Resp B/P Pulse Ox O2 Delivery O2 Flow Rate FiO2 04/28/16 06:00 76 15 137/73 96 BiPAP 100 04/28/16 05:37 78 96 60 04/28/16 04:45 76 18 97 BiPAP/CPAP 60.0 04/28/16 04:00 BiPAP 60 04/28/16 04:00 36.8 78 14 141/70 93 BiPAP 60 04/28/16 02:00 81 93 60 04/28/16 02:00 79 16 141/74 93 BiPAP 04/28/16 00:01 36.8 82 17 128/61 93 BiPAP 60 04/27/16 23:59 BiPAP 60 04/27/16 23:13 80 100 100 04/27/16 23:00 82 18 98 BiPAP/CPAP 60.0 04/27/16 22:00 80 19 128/50 86 Nasal Cannula 04/27/16 20:00 Nasal Cannula 4.0 04/27/16 20:00 78 22 95 Nasal Cannula 5.0 04/27/16 20:00 36.4 79 20 140/82 90 Nasal Cannula 04/27/16 18:07 76 22 95 Mask 9.0 04/27/16 18:00 85 17 133/68 95 Nasal Cannula 4.0 04/27/16 16:00 36.5 70 15 122/60 98 Nasal Cannula 4.0 04/27/16 16:00 Nasal Cannula 4.0 04/27/16 14:00 75 23 104/81 98 Nasal Cannula 4.0 04/27/16 12:00 Nasal Cannula 4.0 04/27/16 12:00 36.8 79 19 128/60 100 Nasal Cannula 4.0 04/27/16 11:20 79 22 92 Mask 9.0 04/27/16 10:00 79 12 114/55 97 Nasal Cannula 4.0 04/27/16 08:00 36.9 87 17 133/104 95 Nasal Cannula 4.0 04/27/16 08:00 Nasal Cannula 04/27/16 08:00 Nasal Cannula 4.0 Physical Exam General: No distress CV: + RRR Pulmonary: + pertinent finding (decreased at abses), No accessory muscle use, No respiratory distress Neurologic: + alert & oriented x 3 Radiology CXR today shows no pneumothorax; right basilar opacity noted Assessment & Plan 71 year old female with acute respiratory failure BILATERAL PLEURAL EFFUSIONS NOTED -pt. underwent bilateral thoracentesis (04/26/16) -no organisms noted on gram stains; bacterial cultures are (-) to date -fungal and AFB culture are pending -pleural fluid cytology shows no malignancy -fluid appears transudative -continue abx. as directed by primary service -PNEUMOTHORAX -left sided following thoracentesis -resolved on serial CXRs
[2016-04-28] MEDS: INSULIN ASPART 100 UNITS/ML 3 ML PEN SC SCH ×4 (08:24→20:45)
[2016-04-28] MEDS: ALLOPURINOL 300 MG TAB PO SCH (09:17)
[2016-04-28] MEDS: PANTOprazole SOD 40 MG TAB PO SCH (09:18)
[2016-04-28] MEDS: PAROXETINE 20 MG TAB PO SCH (09:18)
[2016-04-28] MEDS: DILTIAZEM HCL 120 MG CAPCR PO SCH (09:18)
[2016-04-28] MEDS: HEPARIN SOD 5000 UNIT/0.5 ML CARP SQ SCH ×2 (09:21→21:48)
[2016-04-28] MEDS: ONDANSETRON INJ 2 MG/ML 2 ML VIAL IV PRN (11:21)
[2016-04-28] MEDS ORDERED: DOCUSATE SODIUM 100 MG CAP PO ONE (12:15)
[2016-04-28] MEDS ORDERED: POLYETHYLENE (MIRALAX) 17 GM PACK PO ONE (12:30)
[2016-04-28] MEDS ORDERED: CALCIUM CARBONATE 500 MG CHEWABLE PO PRN (13:15)
--- NOTE | 2016-04-28 14:27 | CRITICAL CARE PROGRESS NOTE ---
DATE: 04/28/2016 DATE: 04/28/2016. SUBJECTIVE: There were no acute events overnight. The patient wore her BIPAP 15/5 with an FIO2 of 60% throughout most of the night. Her oxygen saturations are marginal on 6 liters nasal cannula while she is eating, but overall she is feeling better. Her care was discussed with her bedside nurse, Karen. She has not had a bowel movement yet. She denies pain and no longer has a headache. PHYSICAL EXAMINATION: VITAL SIGNS: Temperature 36.8, heart rate 70s-80s, respiratory rate 15-18, blood pressure 120-141/70s, oxygen saturation 88-92% on 6 liters nasal cannula. 24-hour fluid balance positive 746 mL. GENERAL: She is awake, alert sitting in the chair and can speak in full sentences, but appears mildly dyspneic. NEUROLOGIC: She is easily able to carry on a conversation and she is generally weak. She moves all 4 extremities. LUNGS: Decreased breath sounds throughout, more so in the right base. No rhonchi or wheezes. HEART: Regular rate and rhythm. No murmurs, gallops or rubs. ABDOMINAL EXAMINATION: Deferred due to her seated position. EXTREMITIES: Warm. No edema. LABORATORY DATA: White blood cell count 20.75, hemoglobin 10.9, hematocrit 34.7, and platelets 238. Sodium 136, potassium 4.9, chloride 98, CO2 24, BUN 61, creatinine 3.2, blood sugar 165, magnesium 2.5, phosphorus 6.4. Additional labs also reviewed. MEDICATIONS: Acetaminophen, allopurinol, TUMs, diltiazem, subcutaneous heparin, sliding scale insulin, Xopenex, Solu-Medrol, Zofran, Protonix, Paxil, Zosyn day 3. Microbiology data reviewed. IMAGING: Portable chest x-ray from this morning was reviewed and shows increasing right pleural effusion and right basilar airspace opacities. Bibasilar infiltrates which may be atelectasis or consolidation. IMPRESSION: 1. Acute on chronic hypoxemic hypercapnic respiratory failure, improved from when she was admitted to the intensive care unit; however, she is still hypoxemic. She is status post bilateral thoracentesis, which were transudative. 2. Bilateral pleural effusions status post thoracentesis. 3. Metabolic encephalopathy, resolved. 4. Acute kidney injury, worsening may be secondary to having 2 dye loads on admission. Hyperkalemia is improved. Dr. Tinsley is now seeing the patient. 5. Possible intra-abdominal fluid collection. The patient has no complaints of abdominal pain but was a bit nauseated earlier today. Leukocytosis is improving and overall her abdominal exam is unimpressive although very limited due to her seated position today. 6. Severe pulmonary hypertension. 7. History of interstitial lung disease with oxygen dependence. 8. History of diastolic dysfunction. 9. Headache, resolved. 10. Left pneumothorax after thoracentesis, resolved. 11. Constipation. PLAN: NEUROLOGIC: Avoid sedating medications. Continue acetaminophen for pain control. PULMONARY: Continue bronchodilators and I will decrease her steroids to 40 mg IV q. 8 hours today. Consider inhaled steroids. Continue BIPAP at night and p.r.n. She may benefit from diuresis. She may require another thoracentesis or PleurX catheter on the right. Follow chest xray. CARDIOVASCULAR: Continue po Cardizem. Watch volume status carefully. INFECTIOUS DISEASE: No clear source of infection. She is on Zosyn empirically secondary to the potential intra-abdominal fluid collection and possibly pneumonia with leukocytosis. She is also on steroids. WBC is improving. GASTROINTESTINAL: She is eating well. Colace and MiraLax were added to her medication profile. Continue protonix for GI prophylaxis. RENAL: Her IV fluids have been discontinued. Follow potassium carefully. Await any other recommendations by Dr. Tinsley. HEMATOLOGY: No acute active issues. Continue heparin for DVT prophylaxis. Thank you for asking me to see this patient. I discussed her care with both the patient and her . Questions were answered. STANLEY
[2016-04-28 18:31] LABS: BUN/CREATININE RATIO 18.5 (10-20); CREATININE 3.5 mg/dl (0.60-1.20); POTASSIUM 4.8 mmol/L (3.5-5.1)
[2016-04-28] MEDS: DOCUSATE SODIUM 100 MG CAP PO SCH (20:33)
--- NOTE | 2016-04-28 22:04 | PROGRESS NOTE ---
DATE: 04/28/2016 SUBJECTIVE: A 71-year-old female with multiple problems includin. Acute and chronic respiratory failure. 2. Acute on chronic renal failure. 3. Chronic obstructive pulmonary disease. 4. Interstitial lung disease. 5. Chronic respiratory failure on home oxygen. 6. Right-sided heart failure. 7. Pulmonary hypertension. The patient had to be kept on her BiPAP through the night. Also, throughout the day today. Whenever she is placed on her oxygen by mask or by nasal cannula her oxygen saturation does decrease significantly. So she is continued on the BiPAP. She maintains a good saturation. Her mental status has markedly improved. She is quite to her baseline. She denied any headache or dizziness. No chest pain. No shortness of breath at rest. She is not tachypneic. Denied any abdominal pain, no nausea, no vomiting. She is tolerating her diet. She has not had a bowel movement yet. She has a Britton catheter in place. PHYSICAL EXAMINATION: GENERAL: Well developed, in no distress. VITAL SIGNS: Blood pressure 135/72, pulse 77, respirations 18, temperature 36.7, oxygen saturation 92% on her BiPAP with 60% FIO2. SKIN: Warm and dry. No rash. HEENT: BiPAP mask in place. NECK: No JVD. No adenopathy. HEART: Regular heart sounds. LUNGS: Markedly decreased breath sounds. No wheezing. ABDOMEN: Soft, nontender. EXTREMITIES: No edema, clubbing, or cyanosis. TODAY'S LABORATORY TESTS: WBC count 20,750, hemoglobin 10.9, hematocrit 34.7, platelet count 238,000. Sodium 136, potassium 4.9, chloride 98, CO2 of 24, BUN 61, creatinine 3.2, glucose 165, calcium 8.8, phosphorus 6.4, magnesium 2.5. Her chest x-ray showed small right pleural effusion. She does have what is described as right basilar airspace opacities. Persistent left basilar atelectasis/consolidation. PLAN: 1. Continuing the same medications. 2. Continue the low flow rate of IV fluid. 3. Because of her worsening renal function, renal consultation was requested. She was seen by Dr. Tinsley. 4. Will continue the BiPAP. 5. Continue monitoring her chest x-ray and the reaccumulation of the right-sided pleural effusion. If it becomes significant, Dr. Dang is recommending a PleurX tube to be placed by Dr. Bernardo. 6. She is kept in ICU today. We will monitor her condition. If she remains stable, we will consider moving her to PCU tomorrow.
[2016-04-29] VITALS (34 sets, daily range): BP systolic 132–164; BP diastolic 56–87; PULSE 76–100; TEMP 36.6–36.8; O2SAT 85–97
[2016-04-29] MEDS: ONDANSETRON INJ 2 MG/ML 2 ML VIAL IV PRN ×3 (00:29→11:08)
[2016-04-29] MEDS: LEVALBUTEROL 1.25MG/3ML NEB INH SCH ×6 (03:14→23:17)
[2016-04-29] MEDS ORDERED: NURSING VERBAL MED ORDER ONE ×3 (03:15→23:30)
[2016-04-29] MEDS ORDERED: METOCLOPRAMIDE HCL INJ 5 MG/ML 2 ML VIAL ONE (03:22)
[2016-04-29] MEDS: PIPERACILL/TAZOBAC IV 3.375 GM in DEXTROSE 5% 100ML 100 ML IV SCH ×2 (04:16→16:12)
[2016-04-29 05:29] LABS: BASO % 0.1 %; BASO ABS # 0.01 K/uL (0-0.2); COMPLETE YES; HEMATOCRIT 35.3 % (37-47); IG% 0.3 %; LYMPH % 4.2 %; LYMPH ABS # 0.68 K/uL (1.2-3.4); MEAN CELL VOLUME 78.6 fL (80-100); MEAN CORPUSCULAR HEMOGLOBIN 24.7 pg (25-34); MEAN CORPUSCULAR HGB CONC 31.4 g/dl (32-36); MONO % 2.2 %; NEUT % 93.2 %; PLATELET COUNT 251 K/uL (130-400); RED BLOOD COUNT 4.49 M/uL (4.2-5.4); WHITE BLOOD COUNT 16.16 K/uL (4.8-10.8)
[2016-04-29 06:02] LABS: BUN/CREATININE RATIO 20.2 (10-20); CALCIUM 8.7 mg/dl (8.5-10.1); CREATININE 3.6 mg/dl (0.60-1.20); MAGNESIUM 2.6 mg/dl (1.8-2.4); POTASSIUM 4.4 mmol/L (3.5-5.1)
[2016-04-29] MEDS: INSULIN ASPART 100 UNITS/ML 3 ML PEN SC SCH ×4 (06:10→20:03)
[2016-04-29] MEDS ORDERED: BISACODYL 10 MG SUPP ONE ×2 (07:57→13:16)
[2016-04-29] MEDS ORDERED: BISACODYL 10 MG SUPP PR STA (07:57)
--- NOTE | 2016-04-29 07:59 | DIAGNOSTIC IMAGING REPORT ---
KUB CLINICAL HISTORY: Enteric tube placement. FINDINGS: An AP, portable, supine abdominal radiograph is correlated with abdominal CT dated 317. An enteric tube projects over the distal stomach. There is no radiographic evidence of bowel obstruction. Fecal retention is seen in the colon. Surgical mesh is noted in the abdomen. No evidence of intraperitoneal free air is seen on this supine view. The skeletal structures are osteopenic. Lumbosacral spondylosis is observed. Cardiomegaly is noted. There are bilateral pleural effusions. IMPRESSION: 1. An enteric tube projects over the distal stomach. 2. There is no radiographic evidence of bowel obstruction. Electronically signed by: Sunil Keenan M.D. 04/29/2016 7:57 AM Dictated Date/Time: 04/29/2016 7:56 AM
[2016-04-29] MEDS: HEPARIN SOD 5000 UNIT/0.5 ML CARP SQ SCH ×2 (08:05→20:04)
[2016-04-29] MEDS: METHYLPREDNISOLONE IV 40 MG in SYRINGE 0 ML IV SCH ×2 (08:06→16:12)
--- NOTE | 2016-04-29 08:17 | Surgery Progress Note ---
Subjective Date of Service: Apr 29, 2016. Pt. notes her breathing does not feel quite as good as yesterday. Objective Vitals Date Time Temp Pulse Resp B/P Pulse Ox O2 Delivery O2 Flow Rate FiO2 04/29/16 07:30 88 93 60 04/29/16 07:28 88 24 93 BiPAP/CPAP 60 04/29/16 06:01 89 15 164/84 93 04/29/16 06:00 87 13 93 04/29/16 05:22 87 93 60 04/29/16 05:01 89 13 155/80 94 04/29/16 05:00 88 13 93 04/29/16 04:24 90 BiPAP 60.0 60 04/29/16 04:01 36.8 80 17 151/77 93 04/29/16 04:00 80 15 93 04/29/16 03:30 86 22 162/87 91 04/29/16 03:14 94 24 92 BiPAP/CPAP 60 04/29/16 01:00 36.7 93 17 162/85 92 04/29/16 00:09 90 BiPAP 60.0 60 04/29/16 00:00 90 19 151/74 91 04/28/16 23:45 90 94 60 04/28/16 23:44 90 20 94 BiPAP/CPAP 60 04/28/16 23:08 77 14 153/66 90 04/28/16 23:00 78 15 153/66 90 04/28/16 22:00 80 19 163/74 90 04/28/16 21:00 77 18 151/72 90 04/28/16 20:03 77 95 60 04/28/16 20:02 77 18 95 BiPAP/CPAP 60 04/28/16 20:00 36.7 77 20 141/78 90 04/28/16 20:00 90 BiPAP 60.0 60 04/28/16 19:00 77 29 143/65 90 04/28/16 18:00 76 17 140/69 90 BiPAP 60 04/28/16 16:00 37.5 76 17 140/72 94 BiPAP 60 04/28/16 16:00 37.5 76 17 140/72 94 BiPAP 04/28/16 16:00 92 BiPAP 60.0 60 04/28/16 15:45 74 95 60 04/28/16 15:43 74 16 95 BiPAP/CPAP 60.0 04/28/16 14:00 75 22 152/70 92 BiPAP 60 04/28/16 12:00 36.3 89 26 154/66 88 Nasal Cannula 6.0 04/28/16 12:00 92 BiPAP 60.0 60 04/28/16 11:14 80 93 60 04/28/16 11:13 80 23 93 BiPAP/CPAP 60.0 04/28/16 10:00 80 14 152/71 04/28/16 08:18 80 96 60 04/28/16 08:17 80 18 96 BiPAP/CPAP 60.0 Physical Exam General: No distress CV: + RRR Pulmonary: + pertinent finding (decreased at bases) Neurologic: + alert & oriented x 3 Radiology CXR today shows no pneumothorax, right basilar opacity and small pleural effusion Assessment & Plan 71 year old female with acute respiratory failure BILATERAL PLEURAL EFFUSIONS NOTED -pt. underwent bilateral thoracentesis (04/26/16) -no organisms noted on gram stains; bacterial cultures are (-) to date -fungal and AFB culture are pending -pleural fluid cytology shows no malignancy -fluid appears transudative -continue abx. as directed by primary service -if pleural effusions reaccumulate, will consider placing pleurex catheter -PNEUMOTHORAX -left sided following thoracentesis -resolved on serial CXRs
--- NOTE | 2016-04-29 08:20 | DIAGNOSTIC IMAGING REPORT ---
SINGLE VIEW CHEST CLINICAL HISTORY: Hypoxia. FINDINGS: An AP, portable, upright chest radiograph is compared to study dated 04/28/2016. Correlation is made with chest CT dated 04/26/2016. The examination is degraded by portable technique and patient rotation, as well as by the patient's head obscuring the lung apices. A left subclavian central venous infusion port is unchanged in position. An enteric tube projects below the diaphragm. The heart is enlarged and there is atherosclerotic calcification of the thoracic and. Pulmonary vascular congestion persists. The mitral annulus is densely calcified. There are layering pleural effusions with bibasilar consolidation. No pneumothorax is seen. The skeletal structures are osteopenic. The bony thorax is grossly intact. Degenerative change is noted throughout the thoracic spine. IMPRESSION: 1. Cardiomegaly with evidence of congestive failure. This is similar to yesterday. 2. Layering pleural effusions with bibasilar consolidation, also unchanged. 3. An enteric tube now projects above the diaphragm. Electronically signed by: Sunil Keenan M.D. 04/29/2016 8:19 AM Dictated Date/Time: 04/29/2016 8:16 AM
[2016-04-29] MEDS: POLYETHYLENE (MIRALAX) 17 GM PACK PO SCH (09:00)
[2016-04-29] MEDS: DOCUSATE SODIUM 100 MG CAP PO SCH ×2 (09:29→19:58)
[2016-04-29] MEDS ORDERED: FUROSEMIDE INJ 60 MG in SYRINGE 0 ML IV SCH (09:45)
--- NOTE | 2016-04-29 09:49 | Nephrology Consultation ---
Nephrology Consultation Date & Providers Date of Consultation: Apr 28, 2016. Primary Care Provider: Chente Miranda M.D. Referring Provider: Reason for Consultation Evaluation and management for acute kidney injury with history of chronic kidney disease. History of Present Illness Maribel Is a 71-year-old female with past medical history significant for stage 3 chronic kidney disease, hypertension, history of for of pulmonary hypertension and diastolic dysfunction admitted to the hospital with abdominal pain and acute respiratory failure with acute on chronic diastolic CHF. Nephrologic consult was requested as patient developed acute kidney injury and has been progressively worsening over last few days. Electronic medical records including labs and imaging are reviewed in detail during patient's visit. Maribel presented to the emergency room as she was having abdominal pain. CT scan of abdominal and pelvis with IV contrast on admission was otherwise unremarkable of although there was some eye of intra-abdominal fluid collection and abscess could not be excluded. She was started with IV Zosyn empirically, blood culture was negative. On admission she was also having shortness of breath, thought to be secondary to acute exacerbation of chronic diastolic CHF and started on IV Lasix. at home she was on Lasix 40 twice a day. She was found to have bilateral pleural effusion and had thoracentesis done and the fluid was found to be at a transudative. Yesterday she was transferred to ICU 2 days ago as she was found to have some change in mental status and respiratory depression which was thought to be at due to some pain medications. Her mental status improve significantly and currently she is awake and alert although she a has been up on BiPAP as serum her oxygen saturation drops significantly once BiPAP is removed. chest x-ray yesterday was concerning for right lower lobe pneumonia and continued on Zosyn. She has stage 3 chronic kidney disease however her baseline creatinine seems to be extremely variable and every time she presented to the hospital with CHF exacerbation, she had change in her renal function. her change in creatinine seems to be some volume related as her creatinine was 1.0 in March. at home she has been on Lasix 40 twice a day. on admission her creatinine was 1.3 on 04/25/2016. she had CT scan of abdomen pelvis and CTA both with IV contrast on 04/25 and 04/26. Her renal function rapidly started to decline and creatinine this morning was 3.2. her blood pressure has been variable throughout the hospital course but no significant hypotensive episode. on admission she was started on IV Lasix which was stopped as her renal function worsened. Yesterday IV fluid was restarted at 50 cc/hour.. Her urine output has been low over last 2 days which did not improve overnight. Urinalysis was positive for proteinuria no sign of significant urinary tract infection. Echo in December 2015 showed EF 65-70%, grade 1 diastolic dysfunction and pulmonary hypertension. Abdomen CT on admission showed otherwise normal size kidney with cortical atrophy. Currently overall she is feeling slightly better compared to last few days, denies any significant shortness of breath or chest pain, has anorexia but denies any nausea or abdominal pain. Allergies Coded Allergies: Morphine (Verified Allergy, Unknown, 04/25/16) Sulfamethoxazole w/Trimethoprim (Verified Allergy, Unknown, ., 04/25/16) Codeine (Verified Adverse Reaction, Mild, nausea, 04/25/16) Penicillins (Verified Adverse Reaction, Mild, severe nausea,HAD CEPHALOSPORINS, ZOSYN W/O PROBLEM, 04/25/16) Inpatient Medications Current Inpatient Medications Medications (Trade) Dose Ordered Sig/Gilma Route Start Time Stop Time Status Last Admin Dose Admin Ioversol (Optiray 320) 100 ml UD PRN IV 04/25/16 15:15 04/29/16 15:14 Acetaminophen (Tylenol Tab) 650 mg Q4H PRN PO 04/25/16 18:45 05/25/16 18:44 04/28/16 00:40 650 MG Heparin Sodium (Porcine) (Heparin Sq 5000 Unit/0.5ml) 5,000 unit Q12H SQ 04/25/16 21:00 05/25/16 20:59 04/28/16 09:21 5,000 UNIT Allopurinol (Zyloprim Tab) 150 mg QAM PO 04/26/16 09:00 05/26/16 08:59 04/28/16 09:17 150 MG Diltiazem HCl (Cardizem Cd Cap) 120 mg QAM PO 04/26/16 09:00 05/26/16 08:59 04/28/16 09:18 120 MG Paroxetine HCl (pAXil TAB) 20 mg DAILY PO 04/26/16 09:00 05/26/16 08:59 04/28/16 09:18 20 MG Piperacillin Sod/ Tazobactam Sod (Consult) 1 ea UD PRN N/A 04/25/16 20:15 05/25/16 20:14 Heparin Sodium (Porcine) (Heparin 100 Unit/ml 5ml Flush) 5 ml PRN PRN IV 04/25/16 20:30 05/25/16 20:29 04/26/16 06:11 5 ML Ioversol (Optiray 320) 100 ml UD PRN IV 04/26/16 04:45 04/30/16 04:44 Levalbuterol (Xopenex 1.25MG/ 3ML Neb) 1.25 mg Q4R INH 04/26/16 05:00 05/26/16 04:59 04/28/16 11:13 1.25 MG Ondansetron HCl 4 mg 4 mg Q6H PRN IV 04/26/16 13:00 05/26/16 12:59 04/28/16 11:21 4 MG Acetaminophen 100 ml @ 400 mls/hr Q8H PRN IV 04/26/16 17:30 05/26/16 17:29 Methylprednisolone Sodium Succinate/ Syringe (Solu-Medrol IV/ Syringe) 0.64 ml @ 1.5 mls/min Q6H IV 04/27/16 10:00 05/27/16 09:59 04/28/16 09:22 1.5 MLS/MIN Pantoprazole Sodium 40 mg 40 mg QAM PO 04/27/16 09:00 05/27/16 08:59 04/28/16 09:18 40 MG Piperacillin Sod/ Tazobactam Sod/ Dextrose (Zosyn Iv/D5 100ml) 115 ml @ 28.75 mls/ hr Q12H IV 04/27/16 16:00 05/04/16 23:59 04/28/16 03:49 28.75 MLS/HR Insulin Aspart SLIDING SCALE G... ACHS SC 04/27/16 21:00 05/27/16 20:59 04/28/16 08:24 3 UNITS Sodium Chloride (1/2 Nss 1000ml) 1,000 ml @ 50 mls/hr Q20H IV 04/27/16 19:15 05/27/16 19:14 04/27/16 20:41 50 MLS/HR Docusate Sodium (coLACE CAP) 100 mg BID PO 04/28/16 21:00 05/28/16 20:59 Polyethylene (Miralax Powder Packet) 17 gm DAILY PO 04/29/16 09:00 05/29/16 08:59 Family History Cancer Hypertension Social History Smoking Status: Never Smoker Drug Use: none Marital Status: Occupation: retired Review of Systems A complete review of systems was performed. Pertinent positives are noted above. All other systems are negative. Physical Exam Date Time Temp Pulse Resp B/P Pulse Ox O2 Delivery O2 Flow Rate FiO2 04/28/16 11:14 80 93 60 04/28/16 11:13 80 23 93 BiPAP/CPAP 60.0 04/28/16 10:00 80 14 152/71 04/28/16 08:18 80 96 60 04/28/16 08:17 80 18 96 BiPAP/CPAP 60.0 04/28/16 08:00 36.7 77 18 135/72 92 BiPAP 60 04/28/16 08:00 92 BiPAP 60.0 60 04/28/16 08:00 BiPAP 60 04/28/16 06:00 76 15 137/73 96 BiPAP 100 04/28/16 05:37 78 96 60 04/28/16 04:45 76 18 97 BiPAP/CPAP 60.0 04/28/16 04:00 BiPAP 60 04/28/16 04:00 36.8 78 14 141/70 93 BiPAP 60 04/28/16 02:00 81 93 60 04/28/16 02:00 79 16 141/74 93 BiPAP 04/28/16 00:01 36.8 82 17 128/61 93 BiPAP 60 04/27/16 23:59 BiPAP 60 04/27/16 23:13 80 100 100 04/27/16 23:00 82 18 98 BiPAP/CPAP 60.0 04/27/16 22:00 80 19 128/50 86 Nasal Cannula 04/27/16 20:00 Nasal Cannula 4.0 04/27/16 20:00 78 22 95 Nasal Cannula 5.0 04/27/16 20:00 36.4 79 20 140/82 90 Nasal Cannula 04/27/16 18:07 76 22 95 Mask 9.0 04/27/16 18:00 85 17 133/68 95 Nasal Cannula 4.0 04/27/16 16:00 36.5 70 15 122/60 98 Nasal Cannula 4.0 04/27/16 16:00 Nasal Cannula 4.0 04/27/16 14:00 75 23 104/81 98 Nasal Cannula 4.0 GENERAL: Elderly female, AAA x 3, pleasant, ill-appearing, in mild to moderate distress. HEENT: Atraumatic, normocephalic. NECK: Supple, no JVD, no carotid bruit appreciated. ENT: No sinus tenderness MOUTH and THROAT: Wearing BiPAP RESPIRATORY: Decreased breath sound bilateral bases CARDIOVASCULAR: S1, S2 normal, rate rhythm regular. ABDOMEN: Soft, nontender, positive bowel sound. MUSCULOSKELETAL: No joint swelling, erythema or tenderness. SKIN: No skin rash EXTREMITY: No lower extremity edema NEURO: No gross focal neurological deficit, speech fluent. PSYCHIATRY: Normal mood and judgment Laboratory Results Last 24 Hours Test 04/27/16 18:07 04/27/16 20:42 04/28/16 05:32 04/28/16 11:18 Sodium Level 136 mmol/L 136 mmol/L Potassium Level 5.2 mmol/L 4.9 mmol/L Chloride Level 99 mmol/L 98 mmol/L Carbon Dioxide Level 24 mmol/L 24 mmol/L Anion Gap 13.0 mmol/L 14.0 mmol/L Blood Urea Nitrogen 53 mg/dl 61 mg/dl Creatinine 3.00 mg/dl 3.20 mg/dl Est Creatinine Clear Calc Drug Dose 16.6 ml/min 15.5 ml/min Estimated GFR () 17.3 16.0 Estimated GFR (Non- 14.9 13.8 BUN/Creatinine Ratio 17.7 19.1 Random Glucose 220 mg/dl 165 mg/dl Calcium Level 8.6 mg/dl 8.8 mg/dl Bedside Glucose 163 mg/dl 177 mg/dl White Blood Count 20.75 K/uL Red Blood Count 4.32 M/uL Hemoglobin 10.9 g/dL Hematocrit 34.7 % Mean Corpuscular Volume 80.3 fL Mean Corpuscular Hemoglobin 25.2 pg Mean Corpuscular Hemoglobin Concent 31.4 g/dl Platelet Count 238 K/uL Mean Platelet Volume 9.5 fL Neutrophils (%) (Auto) 93.8 % Lymphocytes (%) (Auto) 2.1 % Monocytes (%) (Auto) 3.8 % Eosinophils (%) (Auto) 0.0 % Basophils (%) (Auto) 0.0 % Neutrophils # (Auto) 19.45 K/uL Lymphocytes # (Auto) 0.44 K/uL Monocytes # (Auto) 0.79 K/uL Eosinophils # (Auto) 0.00 K/uL Basophils # (Auto) 0.01 K/uL RDW Standard Deviation 50.1 fL RDW Coefficient of Variation 17.0 % Immature Granulocyte % (Auto) 0.3 % Immature Granulocyte # (Auto) 0.06 K/uL Phosphorus Level 6.4 mg/dl Magnesium Level 2.5 mg/dl Noe López is a 71-year-old female with them complicated past medical history including stage 3 chronic kidney disease, hypertension, history of for a COPD and interstitial lung disease, pulmonary hypertension, tricuspid regurgitation, diastolic CHF, prior history of via intestinal resection for bowel obstruction admitted to the hospital with abdominal pain and respiratory failure with them acute on chronic diastolic CHF. She had [id number] IV contrast us study on 2 consecutive days. Has history of stage 3 chronic kidney disease, creatinine seems to be variable from 1-1.5, possibly secondary to microvascular disease versus grade 2 cardiorenal syndrome. On admission creatinine was 1.3 which rapidly worsened over last few days and creatinine was 3.2 days this morning and she has been oliguric. Currently her blood pressure, volume status and other electrolyte acceptable. Overall she seems to be clinically improving but still requiring BiPAP to maintain her oxygen saturation. Chest x-ray yesterday was concerning for right lower lobe pneumonia, currently on Zosyn empirically. On admission she was also found to have bilateral pleural effusion and had a thoracentesis done, with transudative effusion. Recommendations --Will hold off on the IV fluid as patient is able to take orally now and the fact that her urine output has been low last 2 days and there was no significant improvement overnight with continued IV fluid --encourage to increase p.o. intake. --monitor intake and output closely, if urine output continues to be low, suggest giving 1 dose of Lasix 80 mg IV --Monitor renal function closely with daily renal panel, as renal function continues to worsen slowly without any sign of recovery from possible ATN after recurrent IV contrast exposure and concomitant use of IV diuretics -- avoid nephrotoxins medications --dose medications for GFR less than 10 --start on Tums 1 tablet 3 times a day with each meal as phosphate binder Thank you for allowing me to participate in your patient's care. It was a pleasure to see Maribel This chart was completed utilizing [employer] Speech and voice recognition software. Grammatical errors, random word insertions, pronoun errors and incomplete sentences are occasional consequences of this system. Any questions or concerns about the content, text or information contained within the body of this dictation should be addressed directly to the physician for clarification.
[2016-04-29] MEDS: ALLOPURINOL 300 MG TAB PO SCH ×2 (10:26→11:20)
[2016-04-29] MEDS: PANTOprazole SOD 40 MG TAB PO SCH (10:26)
[2016-04-29] MEDS: PAROXETINE 20 MG TAB PO SCH ×2 (10:26→11:20)
[2016-04-29] MEDS: SENNA 17.6 MG/10 ML UDP PO SCH ×2 (10:27→11:20)
[2016-04-29] MEDS: DILTIAZEM HCL 120 MG CAPCR PO SCH (10:27)
[2016-04-29] MEDS ORDERED: SOAP SUDS ENEMA PR SCH (10:30)
--- NOTE | 2016-04-29 10:59 | Nephrology Progress Note ---
Nephrology Progress Note Date of Service Apr 29, 2016. Chief Complaint Evaluation and management for acute kidney injury with history of chronic kidney disease. Fadumo López was seen and examined in ICU this am. Still oliguric, renal function continues to worsen, cr 3.6, BUN 76. BP acceptable. Desaturates easily off of BiPAP. Overall seems uncomfortable. Review of Systems A complete review of systems was performed. Pertinent positives are noted above. All other systems are negative. Vital Signs Last 8 Hrs Date Time Temp Pulse Resp B/P Pulse Ox O2 Delivery O2 Flow Rate FiO2 04/29/16 07:30 88 93 60 04/29/16 07:28 88 24 93 BiPAP/CPAP 60 04/29/16 06:01 89 15 164/84 93 04/29/16 06:00 87 13 93 04/29/16 05:22 87 93 60 04/29/16 05:01 89 13 155/80 94 04/29/16 05:00 88 13 93 04/29/16 04:24 90 BiPAP 60.0 60 04/29/16 04:01 36.8 80 17 151/77 93 04/29/16 04:00 80 15 93 04/29/16 03:30 86 22 162/87 91 04/29/16 03:14 94 24 92 BiPAP/CPAP 60 I & O 24-Hour Column 04/29/16 08:00 Intake Total 1299 ml Output Total 575 ml Balance 724 ml Last Recorded Weight Weight (Kilograms): 82.300 Physical Exam GENERAL: elderly female, AAA x 3, ill-appearing, in mild to moderate respiratory distress. NECK: Supple, no JVD. RESPIRATORY: Decrease BS rt base but otherwise clear CARDIOVASCULAR: S1, S2 normal, rate rhythm regular. EXTREMITY: No lower extremity edema NEURO: speech fluent. PSYCHIATRY: Normal mood and judgment Family History Cancer Hypertension Social History Smoking Status: Never smoker Drug Use: none Marital Status: Occupation: retired Laboratory Results Past 24 Hours 04/29/16 04:40 Red Blood Count 4.49, Mean Corpuscular Volume 78.6, Mean Corpuscular Hemoglobin 24.7, Mean Corpuscular Hemoglobin Concent 31.4, Mean Platelet Volume 10.0, Neutrophils (%) (Auto) 93.2, Lymphocytes (%) (Auto) 4.2, Monocytes (%) (Auto) 2.2, Eosinophils (%) (Auto) 0.0, Basophils (%) (Auto) 0.1, Neutrophils # (Auto) 15.06, Lymphocytes # (Auto) 0.68, Monocytes # (Auto) 0.36, Eosinophils # (Auto) 0.00, Basophils # (Auto) 0.01 04/28/16 18:06 04/29/16 04:40 Test 04/28/16 11:18 04/28/16 17:00 04/28/16 18:06 04/28/16 20:41 Bedside Glucose 177 mg/dl (70-90) 129 mg/dl (70-90) 149 mg/dl (70-90) Anion Gap 15.0 mmol/L (3-11) Est Creatinine Clear Calc Drug Dose 14.2 ml/min Estimated GFR () 14.3 Estimated GFR (Non- 12.4 BUN/Creatinine Ratio 18.5 (10-20) Calcium Level 9.0 mg/dl (8.5-10.1) Test 04/29/16 04:40 04/29/16 08:30 White Blood Count 16.16 K/uL (4.8-10.8) Red Blood Count 4.49 M/uL (4.2-5.4) Hemoglobin 11.1 g/dL (12.0-16.0) Hematocrit 35.3 % (37-47) Mean Corpuscular Volume 78.6 fL (80-100) Mean Corpuscular Hemoglobin 24.7 pg (25-34) Mean Corpuscular Hemoglobin Concent 31.4 g/dl (32-36) Platelet Count 251 K/uL (130-400) Mean Platelet Volume 10.0 fL (7.4-10.4) Neutrophils (%) (Auto) 93.2 % Lymphocytes (%) (Auto) 4.2 % Monocytes (%) (Auto) 2.2 % Eosinophils (%) (Auto) 0.0 % Basophils (%) (Auto) 0.1 % Neutrophils # (Auto) 15.06 K/uL (1.4-6.5) Lymphocytes # (Auto) 0.68 K/uL (1.2-3.4) Monocytes # (Auto) 0.36 K/uL (0.11-0.59) Eosinophils # (Auto) 0.00 K/uL (0-0.5) Basophils # (Auto) 0.01 K/uL (0-0.2) RDW Standard Deviation 48.6 fL (36.4-46.3) RDW Coefficient of Variation 17.0 % (11.5-14.5) Immature Granulocyte % (Auto) 0.3 % Immature Granulocyte # (Auto) 0.05 K/uL (0.00-0.02) Anion Gap 16.0 mmol/L (3-11) Est Creatinine Clear Calc Drug Dose 13.8 ml/min Estimated GFR () 13.9 Estimated GFR (Non- 12.0 BUN/Creatinine Ratio 20.2 (10-20) Calcium Level 8.7 mg/dl (8.5-10.1) Magnesium Level 2.6 mg/dl (1.8-2.4) Lactic Acid Level 0.8 mmol/L (0.4-2.0) Total Bilirubin 0.8 mg/dl (0.2-1) Direct Bilirubin 0.6 mg/dl (0-0.2) Aspartate Amino Transf (AST/SGOT) 23 U/L (15-37) Alanine Aminotransferase (ALT/SGPT) 17 U/L (12-78) Alkaline Phosphatase 105 U/L (45-117) Total Protein 6.9 gm/dl (6.4-8.2) Albumin 3.3 gm/dl (3.4-5.0) Lipase 129 U/L (73-393) Allergies Coded Allergies: Morphine (Verified Allergy, Unknown, 04/25/16) Sulfamethoxazole w/Trimethoprim (Verified Allergy, Unknown, ., 04/25/16) Codeine (Verified Adverse Reaction, Mild, nausea, 04/25/16) Penicillins (Verified Adverse Reaction, Mild, severe nausea,HAD CEPHALOSPORINS, ZOSYN W/O PROBLEM, 04/25/16) Medications Current Inpatient Medications Medications (Trade) Dose Ordered Sig/Gilma Route Start Time Stop Time Status Last Admin Dose Admin Ioversol (Optiray 320) 100 ml UD PRN IV 04/25/16 15:15 04/29/16 15:14 Acetaminophen (Tylenol Tab) 650 mg Q4H PRN PO 04/25/16 18:45 05/25/16 18:44 04/28/16 00:40 650 MG Heparin Sodium (Porcine) (Heparin Sq 5000 Unit/0.5ml) 5,000 unit Q12H SQ 04/25/16 21:00 05/25/16 20:59 04/29/16 08:05 5,000 UNIT Allopurinol (Zyloprim Tab) 150 mg QAM PO 04/26/16 09:00 05/26/16 08:59 04/28/16 09:17 150 MG Diltiazem HCl (Cardizem Cd Cap) 120 mg QAM PO 04/26/16 09:00 05/26/16 08:59 04/28/16 09:18 120 MG Paroxetine HCl (pAXil TAB) 20 mg DAILY PO 04/26/16 09:00 05/26/16 08:59 04/28/16 09:18 20 MG Piperacillin Sod/ Tazobactam Sod (Consult) 1 ea UD PRN N/A 04/25/16 20:15 05/25/16 20:14 Heparin Sodium (Porcine) (Heparin 100 Unit/ml 5ml Flush) 5 ml PRN PRN IV 04/25/16 20:30 05/25/16 20:29 04/26/16 06:11 5 ML Ioversol (Optiray 320) 100 ml UD PRN IV 04/26/16 04:45 04/30/16 04:44 Levalbuterol (Xopenex 1.25MG/ 3ML Neb) 1.25 mg Q4R INH 04/26/16 05:00 05/26/16 04:59 04/29/16 07:28 1.25 MG Ondansetron HCl 4 mg 4 mg Q6H PRN IV 04/26/16 13:00 05/26/16 12:59 04/29/16 06:39 4 MG Acetaminophen (Ofirmev Iv) 100 ml @ 400 mls/hr Q8H PRN IV 04/26/16 17:30 05/26/16 17:29 Pantoprazole Sodium 40 mg 40 mg QAM PO 04/27/16 09:00 05/27/16 08:59 04/28/16 09:18 40 MG Piperacillin Sod/ Tazobactam Sod/ Dextrose (Zosyn Iv/D5 100ml) 115 ml @ 28.75 mls/ hr Q12H IV 04/27/16 16:00 05/04/16 23:59 04/29/16 04:16 28.75 MLS/HR Insulin Aspart (novoLOG ASPART) SLIDING SCALE G... ACHS SC 04/27/16 21:00 05/27/16 20:59 04/28/16 13:24 6 UNITS Docusate Sodium (coLACE CAP) 100 mg BID PO 04/28/16 21:00 05/28/16 20:59 04/29/16 09:29 100 MG Polyethylene (Miralax Powder Packet) 17 gm DAILY PO 04/29/16 09:00 05/29/16 08:59 Calcium Carbonate 500 mg 500 mg AC PRN PO 04/28/16 13:15 05/28/16 13:14 04/28/16 23:46 500 MG Methylprednisolone Sodium Succinate/ Syringe (Solu-Medrol IV/ Syringe) 0.64 ml @ 1.5 mls/min Q8H IV 04/29/16 00:00 05/29/16 00:00 04/29/16 08:06 1.5 MLS/MIN Senna 17.6 mg 17.6 mg 0930 PO 04/29/16 09:30 04/29/16 11:00 Furosemide/Syringe (Lasix Inj/ Syringe) 6 ml @ 4 mls/min 0945 IV 04/29/16 09:45 04/29/16 11:00 Noe López is a 71-year-old female with them complicated past medical history including stage 3 chronic kidney disease, hypertension, history of for a COPD and interstitial lung disease, pulmonary hypertension, tricuspid regurgitation, diastolic CHF, prior history of via intestinal resection for bowel obstruction admitted to the hospital with abdominal pain and respiratory failure with them acute on chronic diastolic CHF. She had [id number] IV contrast us study on 2 consecutive days. Has history of stage 3 chronic kidney disease, creatinine seems to be variable from 1-1.5, possibly secondary to microvascular disease versus grade 2 cardiorenal syndrome. On admission creatinine was 1.3 which rapidly worsened over last few days and creatinine was 3.2 days this morning and she has been oliguric. Currently her blood pressure, volume status and other electrolyte acceptable. Overall she seems to be clinically improving but still requiring BiPAP to maintain her oxygen saturation. Chest x-ray yesterday was concerning for right lower lobe pneumonia, currently on Zosyn empirically. On admission she was also found to have bilateral pleural effusion and had a thoracentesis done, with transudative effusion. Recommendations --monitor UO with IV lasix --Fena suggest prerenal and on exam no significant pulmonary congestion, SOB and desaturation could be due to underlying restrictive lung disease and reaccumulation of rt pl effusion. Gastric decompression done with NG tube but still abdomen seems distended which could be contributing as well. --encouraged to increase p.o. intake. --if no response to diuretics, will consider IV NS @100ml/h and reassess but needs to monitor closely with underlying pulmonary hypertension and diastolic dysfunction --Monitor renal function closely with daily renal panel, as renal function continues to worsen slowly without any sign of recovery from possible ATN after recurrent IV contrast exposure --electrolytes acceptable, no indication for [employer] at this point -- avoid nephrotoxins medications --dose medications for GFR less than 10 --continue on Tums 1 tablet 3 times a day with each meal as phosphate binder Will follow
--- NOTE | 2016-04-29 11:37 | PROGRESS NOTE ---
DATE: 04/29/2016 DATE: 04/29/2016. SUBJECTIVE: A 71-year-old female with extensive medical problems includin. Acute respiratory failure. 2. Chronic respiratory failure on home oxygen. 3. Interstitial lung disease. 4. Chronic obstructive pulmonary disease. 5. Bilateral pleural effusions requiring thoracentesis. 6. Diastolic congestive heart failure, acute and chronic. 7. Severe pulmonary hypertension. 8. Acute renal failure. 9. Chronic kidney disease. 10. History of multiple abdominal surgeries. During the night the patient presented with an acute onset of severe abdominal pain. An NG tube was placed. She was also given 1 dose of IV Reglan. Her symptoms did subside. We are still dealing with her respiratory failure. She is on BiPAP. Her FIO2 is 60 and 70%. Her chest x-ray showing evidence of congestive heart failure, also right pleural effusion. This morning when I saw with Mrs. Shepard she was resting comfortably. She was not in any distress. She denied any headache. No dizziness. She had no chest pain. She is on the BiPAP, 70% FIO2. She is not having any abdominal pain. The problem is that from the time of her admission on all the imaging studies she had evidence of a large amount of retained stool. This could very well account for her abdominal pain. She has a Britton catheter in place. No pain in her back or extremities. PHYSICAL EXAMINATION: GENERAL: Well-developed. No acute distress. VITAL SIGNS: Blood pressure 164/80, pulse 88, respiration 15, temperature 36.7, oxygen saturation 94% on her BIPAP with 70% FIO2. SKIN: Warm and dry. No rash. HEAD, EYES, EARS, NOSE, AND THROAT: BiPAP mask in place. NG tube in place. NECK: No JVD. HEART: Regular heart sounds. 2/6 systolic murmur. LUNGS: Decreased breath sounds. Rhonchi. No wheezing. ABDOMEN: Slightly distended. Soft. No significant tenderness. Decreased bowel sounds. EXTREMITIES: No edema, clubbing, or cyanosis. [facility] LABORATORY TESTS: WBC count 16,160, hemoglobin 11.1, hematocrit 35.3, platelet count 251,000. Sodium 135, potassium 4.4, chloride 97, CO2 22, BUN 73, creatinine 3.6, glucose 125, calcium 8.7, magnesium 2.6, lactic acid 0.6, total bilirubin 0.8, direct bilirubin 0.6, AST 23, ALT 17, alkaline phosphatase 105, total protein 6.9, albumin 3.3, alkaline phosphatase 129. Her chest x-ray showed evidence of congestive heart failure. Also, she does have layering pleural effusions. Thought to be looking the same as it did yesterday. ASSESSMENT: 1. Acute respiratory failure. 2. Acute renal failure. 3. Diastolic congestive heart failure, acute and chronic. 4. Abdominal pain and constipation. 5. Pulmonary hypertension. PLAN: 1. All her laboratory tests were reviewed. 2. Dr. Dang already ordered dose of IV Lasix 60 mg IV. 3. She already had a suppository this morning, but no results yet. 4. We will try to give her a soapsuds enema. We need to try to relieve some of her constipation. I think that would have a beneficial effect as far as her abdominal pain. 5. At this time, her abdomen is not consistent with an acute abdominal pathology. 6. Continue regulating her FIO2 to assure adequate oxygenation on her BiPAP. Unfortunately, she has not tolerated being off the BiPAP. 7. Her renal function is being monitored. Yesterday, her creatinine was 3.5. It was 3.6 this morning. Hopefully the elevation will level off. 8. Also, her WBC count started to decrease. Dr. Dang decreased her steroid dose yesterday. 9. The patient remains in critical condition. Multiple ongoing problems.
--- NOTE | 2016-04-29 12:45 | CRITICAL CARE PROGRESS NOTE ---
DATE: 04/29/2016 GENERAL INFORMATION: This is a 71-year-old woman with a history of multiple abdominal surgeries as well as interstitial lung disease and diastolic dysfunction, using 3 liters of oxygen at home. She presented to the Emergency Department on April 25 secondary to abdominal pain. A CT scan of the abdomen and pelvis noted a 3.9 x 1.7 cm more organized fluid collection, questioned in the mid abdomen. She also had moderate pleural effusions with dense bilateral consolidation. She was admitted to the hospital and started on Zosyn and was given some Ativan and Dilaudid. In the afternoon on April 26, she was extremely lethargic and was transferred to the intensive care unit. Prior to her transfer, she received Narcan, which improved her mental status and when she was in the intensive care unit, she received flumazenil. Her mental status improved but not dramatically. She underwent bilateral thoracentesis on 04/26 and developed a left apical pneumothorax which quickly resolved. The following day, her mental status had significantly improved and she was off BiPAP most of the day. Since then, her oxygen requirement has increased and she is reaccumulating fluid on the right side. Additionally, she has gone into renal failure which may be secondary to 2 dye loads for CTs earlier in her hospitalization. She is also constipated and has fecal retention in the colon. Last night she complained of nausea and generalized abdominal discomfort. She was given Zofran and an NG tube was placed. A KUB showed no bowel obstruction and fecal retention in the colon. Additionally, she has required BiPAP much of the time since yesterday, 15/5, 70%. She continues to complain of generalized abdominal discomfort. She has not had a bowel movement since admission. She had dry heaving last night. PHYSICAL EXAMINATION: VITAL SIGNS: Maximum temperature 37.5, heart rate 80-94, respiratory rate 13-16, blood pressure 140-164/77-84, oxygen saturation 93%. BiPAP 15/5, 70%. GENERAL: She will awaken on the BiPAP and is able to communicate her needs. NEUROLOGIC: She follows commands and moves all 4 extremities. LUNGS: Decreased breath sounds in the bases with some mild bilateral rales. No rhonchi or wheezes. HEART: Regular rate and rhythm with a 2/6 systolic murmur heard best at the apex. ABDOMEN: Moderately distended but soft with generalized tenderness with the exception of the right lower quadrant. No rebound or guarding. Hypoactive bowel sounds. EXTREMITIES: Warm with trace pretibial edema. LABORATORY DATA: White blood cell count 16.16, hemoglobin 11.1, hematocrit 35.3, platelets 251. Sodium 135, potassium 4.4, chloride 97, CO2 22, BUN 73, creatinine 3.6. Portable chest x-ray from this morning was reviewed and shows pulmonary edema as well as bibasilar consolidation. The right pleural effusion is present. NG tube below the diaphragm on my interpretation. MEDICATIONS: Acetaminophen, allopurinol, calcium carbonate, Cardizem CD, Colace, heparin, insulin, Xopenex, Solu-Medrol, Zofran, Protonix, Paxil, Zosyn day 4, MiraLax, senna. MICROBIOLOGY DATA: Was reviewed. There is no growth on the thoracentesis fluid or blood cultures. IMPRESSION: 1. Acute on chronic hypoxemic respiratory failure. She has underlying interstitial lung disease and her right pleural effusion is reaccumulating. In addition, she has severe pulmonary hypertension. I am less suspicious that she has pneumonia. 2. Abdominal pain with fecal retention. Lactate and lipase are within normal limits. LFT's are not remarkable. She is on Zosyn for the possibility of an intra-abdominal abscess which could be followed up with a CT in the next 1-2 days. I do not think she has an obstruction or an acute abdomen. 3. Acute kidney injury, likely secondary to acute tubular necrosis. Urine output is decreasing and Lasix 60 mg IV was given this morning. Nephrology is consulting and wants senait try fluids if lasix does not improve urine output. 4. Bilateral pleural effusions, status post bilateral thoracentesis on 04/26. Right is reaccummulating. 5. Constipation. 6. Interstitial lung disease with oxygen dependence. 7. Moderate to severe pulmonary hypertension. 8. History of diastolic dysfunction. 9. Leukocytosis, worse with steroids but beginning to improve. In talking to Dr. Dahl, he reports that she often will bump her white count dramatically when she is on steroids. PLAN: NEUROLOGIC: Continue to avoid sedating medications and using acetaminophen for pain control. PULMONARY: Continue BiPAP and increase the PEEP. Continue bronchodilators and steroids at the present dose. Consider ultrasound of the right chest and possible Pleurx catheter. Await reevaluation by thoracic surgery tomorrow. RENAL: Many thanks to Dr. Tinsley who is seeing her. Try some Lasix 60 mg IV x1 today. If there is no improvement, she and I talked about starting some fluid on her. No indications presently for emergent hemodialysis. Watch potassium carefully. INFECTIOUS DISEASE: No definite source of infection. I do not think she has an acute abdomen and she remains on Zosyn empirically. Consider CT of the abdomen. If she has a fever, panculture and expand antibiotic coverage and check ct abdomen and pelvis. CARDIOVASCULAR: Heart rate and blood pressure have been acceptable. Continue Cardizem p.o. GASTROINTESTINAL: I ordered a Dulcolax suppository this morning and recently ordered a soapsuds enema. She is on Colace and MiraLax as well as senna. Continue Protonix for GI prophylaxis. Consider moving her diet back to clears or full liquids if she decompensates further or looks like she is going to need to be intubated. HEMATOLOGY: No active acute issues. Continue heparin for deep venous thrombosis prophylaxis. IV Access: APort in R chest. I discussed her care with Dr. Dahl this morning and updated family yesterday. She is quite frail and I do not think she has a lot of reserve. I discussed intubation with her several days ago and she is agreeable to it if there is the possibility of recovery and getting off the ventilator. Critical care time, 60 minutes. [facility]
[2016-04-29 14:13] LABS: URINE APPEARANCE TURBID (CLEAR); URINE BILIRUBIN NEG (NEG); URINE COLOR YELLOW; URINE EPITHELIAL CELL AUTO >30 /lpf (0-5); URINE NITRITE NEG (NEG); URINE SPECIFIC GRAVITY 1.013 (1.000-1.030); UROBILINOGEN NEG (NEG)
[2016-04-29 14:14] LABS: MANUAL MICROSCOPIC REQUIRED? NO; REVIEW REQ? YES
[2016-04-29 14:31] LABS: URINE PATH CASTS 0-3 GRANULAR CASTS /lpf (0)
[2016-04-29] MEDS ORDERED: LACTULOSE SYRUP 30 GM/45 ML UDP NG ONE (19:30)
[2016-04-29] MEDS ORDERED: FUROSEMIDE INJ 40 MG in SYRINGE 0 ML IV ONE (23:45)
[2016-04-30] VITALS (34 sets, daily range): BP systolic 130–179; BP diastolic 70–125; PULSE 87–109; TEMP 36.5–37; O2SAT 84–96
[2016-04-30] MEDS: METHYLPREDNISOLONE IV 40 MG in SYRINGE 0 ML IV SCH ×2 (00:09→08:13)
[2016-04-30] MEDS: LEVALBUTEROL 1.25MG/3ML NEB INH SCH ×6 (03:31→23:24)
[2016-04-30] MEDS: PIPERACILL/TAZOBAC IV 3.375 GM in DEXTROSE 5% 100ML 100 ML IV SCH ×2 (03:44→16:57)
[2016-04-30 05:43] LABS: BASO % 0.1 %; BASO ABS # 0.01 K/uL (0-0.2); COMPLETE YES; IG% 0.2 %; LYMPH % 5.8 %; LYMPH ABS # 0.84 K/uL (1.2-3.4); MEAN CELL VOLUME 78.2 fL (80-100); MEAN CORPUSCULAR HEMOGLOBIN 25.2 pg (25-34); MEAN CORPUSCULAR HGB CONC 32.2 g/dl (32-36); MEAN PLATELET VOLUME 9.8 fL (7.4-10.4); MONO % 0.5 %; NEUT % 93.4 %; PLATELET COUNT 264 K/uL (130-400); RED BLOOD COUNT 4.73 M/uL (4.2-5.4); WHITE BLOOD COUNT 14.41 K/uL (4.8-10.8)
[2016-04-30 06:09] LABS: BUN/CREATININE RATIO 23.6 (10-20); CALCIUM 8.8 mg/dl (8.5-10.1); CREATININE 3.3 mg/dl (0.60-1.20); MAGNESIUM 2.9 mg/dl (1.8-2.4); POTASSIUM 3.8 mmol/L (3.5-5.1)
[2016-04-30 06:15] LABS: FERRITIN 114.9 ng/ml (8.0-388.0); PHOSPHORUS 6.9 mg/dl (2.5-4.9)
--- NOTE | 2016-04-30 07:14 | DIAGNOSTIC IMAGING REPORT ---
CHEST ONE VIEW PORTABLE CLINICAL HISTORY: hypoxia, ILD pain COMPARISON STUDY: 04/29/2016 FINDINGS: Components of congestive failure slightly improved radiographically. Bilateral pleural effusions similar. Nasogastric tube within the stomach. IMPRESSION: Congestive failure and bilateral pleural effusions. No change radiographically from the prior date. Electronically signed by: Mello Mayfield M.D. 04/30/2016 7:13 AM Dictated Date/Time: 04/30/2016 7:12 AM
[2016-04-30] MEDS ORDERED: MINERAL OIL 30 ML UDC NG STA (08:09)
[2016-04-30] MEDS: HEPARIN SOD 5000 UNIT/0.5 ML CARP SQ SCH ×2 (08:14→21:18)
[2016-04-30] MEDS: INSULIN ASPART 100 UNITS/ML 3 ML PEN SC SCH ×4 (08:15→21:17)
[2016-04-30] MEDS ORDERED: LACTULOSE SYRUP 20 GM/30 ML UDC PO ONE (08:15)
[2016-04-30] MEDS ORDERED: FUROSEMIDE INJ 60 MG in SYRINGE 0 ML IV SCH (08:15)
--- NOTE | 2016-04-30 09:32 | SURGERY PROGRESS NOTE ---
DATE: 04/30/2016 Ms. Shepard was seen today on 04/30/2016. The patient is on BiPAP. She is awake and alert. She has minimal abdominal tenderness. She has good bowel sounds today. The patient has no wheezing, does have decreased breath sounds throughout, particularly in the bases. Her x-ray does not really look much different. She has reaccumulated a small amount of pleural fluid. At this time, we would continue to watch these pleural effusions. The pathology and labs are really unrevealing. This does indeed appear to be a transudate as the LDH is 124 and serum LDH of 236.
--- NOTE | 2016-04-30 09:46 | Nephrology Progress Note ---
Nephrology Progress Note Date of Service Apr 30, 2016. Chief Complaint F/U for acute kidney injury with history of chronic kidney disease. Fadumo López was seen and examined in ICU this am. Overall stable and feeling slightly better, denies SOB, still requiring BiPAP. BP well controlled. UO improved. Cr seems to have peaked and started to improve slowly, other electrolytes table. Review of Systems A complete review of systems was performed. Pertinent positives are noted above. All other systems are negative. Vital Signs Last 8 Hrs Date Time Temp Pulse Resp B/P Pulse Ox O2 Delivery O2 Flow Rate FiO2 04/30/16 07:28 95 20 96 BiPAP/CPAP 70 04/30/16 07:23 95 96 70 04/30/16 06:00 36.7 87 20 142/72 93 BiPAP 70 04/30/16 04:00 36.8 96 21 130/70 95 BiPAP 70 04/30/16 04:00 BiPAP 70 04/30/16 03:32 93 94 70 04/30/16 03:31 93 16 94 BiPAP/CPAP 70 04/30/16 02:00 96 16 154/91 92 BiPAP I & O 24-Hour Column 04/30/16 08:00 Intake Total 76 ml Output Total 1250 ml Balance -1174 ml Last Recorded Weight Weight (Kilograms): 82.300 Physical Exam GENERAL: elderly female, AAA x 3, ill-appearing, in mild distress. NECK: Supple, no JVD. RESPIRATORY: Decrease BS B/L bases CARDIOVASCULAR: S1, S2 normal, rate rhythm regular. EXTREMITY: No lower extremity edema NEURO: speech fluent. PSYCHIATRY: Normal mood and judgment Family History Cancer Hypertension Social History Smoking Status: Never smoker Drug Use: none Marital Status: Occupation: retired Laboratory Results Past 24 Hours 04/30/16 05:36 Red Blood Count 4.73, Mean Corpuscular Volume 78.2, Mean Corpuscular Hemoglobin 25.2, Mean Corpuscular Hemoglobin Concent 32.2, Mean Platelet Volume 9.8, Neutrophils (%) (Auto) 93.4, Lymphocytes (%) (Auto) 5.8, Monocytes (%) (Auto) 0.5, Eosinophils (%) (Auto) 0.0, Basophils (%) (Auto) 0.1, Neutrophils # (Auto) 13.46, Lymphocytes # (Auto) 0.84, Monocytes # (Auto) 0.07, Eosinophils # (Auto) 0.00, Basophils # (Auto) 0.01 04/30/16 05:36 Test 04/29/16 12:28 04/29/16 13:45 04/29/16 16:10 04/29/16 19:57 Bedside Glucose 143 mg/dl (70-90) 142 mg/dl (70-90) 153 mg/dl (70-90) Urine Color YELLOW Urine Appearance TURBID (CLEAR) Urine pH 5.0 (4.5-7.5) Urine Specific Echo 1.013 (1.000-1.030) Urine Protein TRACE (NEG) Urine Glucose (UA) NEG (NEG) Urine Ketones NEG (NEG) Urine Occult Blood 1+ (NEG) Urine Nitrite NEG (NEG) Urine Bilirubin NEG (NEG) Urine Urobilinogen NEG (NEG) Urine Leukocyte Esterase NEG (NEG) Urine WBC (Auto) 10-30 /hpf (0-5) Urine RBC (Auto) 5-10 /hpf (0-4) Urine Hyaline Casts (Auto) 1-5 /lpf (0-5) Urine Epithelial Cells (Auto) >30 /lpf (0-5) Urine Bacteria (Auto) 1+ (NEG) Urine Renal Epithelial Cells /lpf (0-5) Urine Crystals See comments (NONE PRSENT) Urine Pathogenic Casts 0-3 GRANULAR CASTS /lpf (0) Urine Yeast (Auto) (NONE PRSENT) Test 04/30/16 05:36 White Blood Count 14.41 K/uL (4.8-10.8) Red Blood Count 4.73 M/uL (4.2-5.4) Hemoglobin 11.9 g/dL (12.0-16.0) Hematocrit 37.0 % (37-47) Mean Corpuscular Volume 78.2 fL (80-100) Mean Corpuscular Hemoglobin 25.2 pg (25-34) Mean Corpuscular Hemoglobin Concent 32.2 g/dl (32-36) Platelet Count 264 K/uL (130-400) Mean Platelet Volume 9.8 fL (7.4-10.4) Neutrophils (%) (Auto) 93.4 % Lymphocytes (%) (Auto) 5.8 % Monocytes (%) (Auto) 0.5 % Eosinophils (%) (Auto) 0.0 % Basophils (%) (Auto) 0.1 % Neutrophils # (Auto) 13.46 K/uL (1.4-6.5) Lymphocytes # (Auto) 0.84 K/uL (1.2-3.4) Monocytes # (Auto) 0.07 K/uL (0.11-0.59) Eosinophils # (Auto) 0.00 K/uL (0-0.5) Basophils # (Auto) 0.01 K/uL (0-0.2) RDW Standard Deviation 48.5 fL (36.4-46.3) RDW Coefficient of Variation 16.8 % (11.5-14.5) Immature Granulocyte % (Auto) 0.2 % Immature Granulocyte # (Auto) 0.03 K/uL (0.00-0.02) Anion Gap 16.0 mmol/L (3-11) Est Creatinine Clear Calc Drug Dose 15.3 ml/min Estimated GFR () 15.4 Estimated GFR (Non- 13.3 BUN/Creatinine Ratio 23.6 (10-20) Calcium Level 8.8 mg/dl (8.5-10.1) Phosphorus Level 6.9 mg/dl (2.5-4.9) Magnesium Level 2.9 mg/dl (1.8-2.4) Iron Level 33 mcg/dl (35-150) Total Iron Binding Capacity 399 mcg/dl (250-450) Transferrin 303 mg/dl (200-360) Transferrin % Saturation 8 % (15-50) Ferritin 114.9 ng/ml (8.0-388.0) Allergies Coded Allergies: Morphine (Verified Allergy, Unknown, 04/25/16) Sulfamethoxazole w/Trimethoprim (Verified Allergy, Unknown, ., 04/25/16) Codeine (Verified Adverse Reaction, Mild, nausea, 04/25/16) Penicillins (Verified Adverse Reaction, Mild, severe nausea,HAD CEPHALOSPORINS, ZOSYN W/O PROBLEM, 04/25/16) Medications Current Inpatient Medications Medications (Trade) Dose Ordered Sig/Gilma Route Start Time Stop Time Status Last Admin Dose Admin Acetaminophen (Tylenol Tab) 650 mg Q4H PRN PO 04/25/16 18:45 05/25/16 18:44 04/28/16 00:40 650 MG Heparin Sodium (Porcine) (Heparin Sq 5000 Unit/0.5ml) 5,000 unit Q12H SQ 04/25/16 21:00 05/25/16 20:59 04/30/16 08:14 5,000 UNIT Allopurinol (Zyloprim Tab) 150 mg QAM PO 04/26/16 09:00 05/26/16 08:59 04/28/16 09:17 150 MG Diltiazem HCl (Cardizem Cd Cap) 120 mg QAM PO 04/26/16 09:00 05/26/16 08:59 04/29/16 10:27 120 MG Paroxetine HCl (pAXil TAB) 20 mg DAILY PO 04/26/16 09:00 05/26/16 08:59 04/28/16 09:18 20 MG Piperacillin Sod/ Tazobactam Sod (Consult) 1 ea UD PRN N/A 04/25/16 20:15 05/25/16 20:14 Heparin Sodium (Porcine) (Heparin 100 Unit/ml 5ml Flush) 5 ml PRN PRN IV 04/25/16 20:30 05/25/16 20:29 04/26/16 06:11 5 ML Levalbuterol (Xopenex 1.25MG/ 3ML Neb) 1.25 mg Q4R INH 04/26/16 05:00 05/26/16 04:59 04/30/16 07:28 1.25 MG Ondansetron HCl 4 mg 4 mg Q6H PRN IV 04/26/16 13:00 05/26/16 12:59 04/29/16 11:08 4 MG Acetaminophen (Ofirmev Iv) 100 ml @ 400 mls/hr Q8H PRN IV 04/26/16 17:30 05/26/16 17:29 Pantoprazole Sodium 40 mg 40 mg QAM PO 04/27/16 09:00 05/27/16 08:59 04/29/16 10:26 40 MG Piperacillin Sod/ Tazobactam Sod/ Dextrose (Zosyn Iv/D5 100ml) 115 ml @ 28.75 mls/ hr Q12H IV 04/27/16 16:00 05/04/16 23:59 04/30/16 03:44 28.75 MLS/HR Insulin Aspart (novoLOG ASPART) SLIDING SCALE G... ACHS SC 04/27/16 21:00 05/27/16 20:59 04/30/16 08:15 1 UNITS Docusate Sodium (coLACE CAP) 100 mg BID PO 04/28/16 21:00 05/28/16 20:59 04/29/16 19:58 100 MG Polyethylene (Miralax Powder Packet) 17 gm DAILY PO 04/29/16 09:00 05/29/16 08:59 Calcium Carbonate 500 mg 500 mg AC PRN PO 04/28/16 13:15 05/28/16 13:14 04/28/16 23:46 500 MG Methylprednisolone Sodium Succinate 40 mg/Syringe 0.64 ml @ 1.5 mls/min Q8H IV 04/29/16 00:00 05/29/16 00:00 04/30/16 08:13 1.5 MLS/MIN Furosemide/Syringe (Lasix Inj/ Syringe) 6 ml @ 4 mls/min TODAY@0815 IV 04/30/16 08:15 04/30/16 10:00 04/30/16 08:13 4 MLS/MIN Impression (1) Acute kidney injury (2) acute exacer. copd, chronic resp failure (3) Anemia (4) Hyperphosphatemia (5) ACUTE BRONCO-PNEUM,ACUTE RESP FAIL (6) CKD (chronic kidney disease) stage 3, GFR 30-59 ml/min Maribel is a 71-year-old female with them complicated past medical history including stage 3 chronic kidney disease, hypertension, history of for a COPD and interstitial lung disease, pulmonary hypertension, tricuspid regurgitation, diastolic CHF, prior history of via intestinal resection for bowel obstruction admitted to the hospital with abdominal pain and respiratory failure with them acute on chronic diastolic CHF. She had [id number] IV contrast us study on 2 consecutive days. Has history of stage 3 chronic kidney disease, creatinine seems to be variable from 1-1.5, possibly secondary to microvascular disease versus grade 2 cardiorenal syndrome. On admission creatinine was 1.3 which rapidly worsened over last few days and creatinine was 3.2 days this morning and she has been oliguric. Currently her blood pressure, volume status and other electrolyte acceptable. Overall she seems to be clinically improving but still requiring BiPAP to maintain her oxygen saturation. Chest x-ray yesterday was concerning for right lower lobe pneumonia, currently on Zosyn empirically. On admission she was also found to have bilateral pleural effusion and had a thoracentesis done, with transudative effusion. Recommendations --continue diuretics as needed, aim for net even, as creatinine seems to have peaked and now slowly started to improve, expect UO to improve and may not need much diuretics on going --Monitor renal function closely with daily renal panel -- avoid nephrotoxins medications --avoid hypotension --dose medications for GFR less than 10 --continue on Tums 1 tablet 3 times a day with each meal as phosphate binder --start on Venofer 200mg IV every other day for total 5 doses Will follow
--- NOTE | 2016-04-30 09:50 | Pulmonology Progress Note ---
Pulmonary Progress Note Date of Service Apr 30, 2016. Attending Dr. Garcia Subjective Patient awake and alert, she notes severe dyspnea even at rest. At this time she denies: Pleurisy, cardiac chest pain, productive cough Objective Patient is notably tachypnea get rest and with minimal conversation using accessory muscles. PmHx: ILD (3L oxygen support), diastolic heart failure Vital signs: Tm: 96, RR: 16-27, FiO2: 100%, high flow oxygen system: 60%, 45 L/ m General: Fatigued Respiratory: Apices bilaterally clear with decreased breath sounds and dullness to percussion the right lower lobe posterior subsegment Cardiac: S1-S2 tachycardic distant heart sounds I'm unable to auscultate for murmurs rubs or gallops Skin: Intact Abdomen: Decreased bowel sounds soft nontender, no rebound Radiology: CT abdomen and pelvis 07/25/2015: Small right-sided pleural effusion CT angiogram 04/26/2016: Bilateral pleural effusions appears associated trapped lung Chest x-ray 04/30/2016: Opacification global RLL, bilateral parabronchial cuffing, fluid in the minor fissure, costophrenic blunting bilaterally Medications: #1 methylprednisolone 40 mg IV every 8 #2 Zosyn 3.375g Q12 (start date: 04/27/2016) #3 Xopenex nebulizer every 4 hours Abd pain (CT 3.9 x 1.7cm possible organized fluid collection mid abdomen) Txted with Zosyn Respiratory: Abdomen: Status post Dilaudid/Ativan Respiratory acidosis Hypoxia: AA gradient 454 (BIPAP: FIO2:100%) Bilateral pleural exudative effusions: Thoracentesis right-sided (04/26/16) 800cc, pH 7.25 Thoracentesis left-sided (04/26/16) 500cc, pH 7.28 Complication: PTX small Microbiology: Negative to date Pathology: No malignant cells noted Interstitial lung disease: Continue Solu-Medrol Renal: Progressive renal insufficiency BUN/Cr: 78/3.30 UOP: 450cc Assessment & Plan 71-year-old female admitted 04/25/16 with abdominal pain now with progressive hypoxic respiratory insufficiency: #1 Hypoxemia: Patient currently stabilizing on high flow oxygen but continues with notable hypoxemia last AA gradient 454. Agree with BiPAP when necessary and high flow oxygen for rest. Etiology most likely from SIRS/ARDS physiology, underlying ILD, diastolic heart failure, renal insufficiency with volume overload and bilateral pleural effusions. Continue to monitor at this time and when patient stable obtain noncontrast CT of the chest for follow-up on abnormal right lower lobe via chest x-ray. #2 pleural effusions: Patient with bilateral exudative pleural effusions with notable decreased pH. His pleural effusions also had a low pH. This type of acidotic pleural effusion is most often associated with parapneumonic effusions , malignant effusions, tuberculosis, rheumatoid arthritis, esophageal ruptures, paragonimiasis, empyema is our possibly even pneumothoraces. The atypical nature of this effusion is at also had a normal glucose level which is not consistent with any these current diagnoses. This could be a pseudo-acidotic effusion secondary to lidocaine contamination. I suggest we continue to follow her effusions possibly repeating thoracentesis if necessary. She will need a 6- 12 month follow-up as an outpatient. Data Medications: Current Inpatient Medications Medications (Trade) Dose Ordered Sig/Gilma Route Start Time Stop Time Status Last Admin Dose Admin Acetaminophen (Tylenol Tab) 650 mg Q4H PRN PO 04/25/16 18:45 05/25/16 18:44 04/28/16 00:40 650 MG Heparin Sodium (Porcine) (Heparin Sq 5000 Unit/0.5ml) 5,000 unit Q12H SQ 04/25/16 21:00 05/25/16 20:59 04/30/16 08:14 5,000 UNIT Allopurinol (Zyloprim Tab) 150 mg QAM PO 04/26/16 09:00 05/26/16 08:59 04/28/16 09:17 150 MG Diltiazem HCl (Cardizem Cd Cap) 120 mg QAM PO 04/26/16 09:00 05/26/16 08:59 04/29/16 10:27 120 MG Paroxetine HCl (pAXil TAB) 20 mg DAILY PO 04/26/16 09:00 05/26/16 08:59 04/28/16 09:18 20 MG Piperacillin Sod/ Tazobactam Sod (Consult) 1 ea UD PRN N/A 04/25/16 20:15 05/25/16 20:14 Heparin Sodium (Porcine) (Heparin 100 Unit/ml 5ml Flush) 5 ml PRN PRN IV 04/25/16 20:30 05/25/16 20:29 04/26/16 06:11 5 ML Levalbuterol (Xopenex 1.25MG/ 3ML Neb) 1.25 mg Q4R INH 04/26/16 05:00 05/26/16 04:59 04/30/16 07:28 1.25 MG Ondansetron HCl 4 mg 4 mg Q6H PRN IV 04/26/16 13:00 05/26/16 12:59 04/29/16 11:08 4 MG Acetaminophen (Ofirmev Iv) 100 ml @ 400 mls/hr Q8H PRN IV 04/26/16 17:30 05/26/16 17:29 Pantoprazole Sodium 40 mg 40 mg QAM PO 04/27/16 09:00 05/27/16 08:59 04/29/16 10:26 40 MG Piperacillin Sod/ Tazobactam Sod/ Dextrose (Zosyn Iv/D5 100ml) 115 ml @ 28.75 mls/ hr Q12H IV 04/27/16 16:00 05/04/16 23:59 04/30/16 03:44 28.75 MLS/HR Insulin Aspart (novoLOG ASPART) SLIDING SCALE G... ACHS SC 04/27/16 21:00 05/27/16 20:59 04/30/16 08:15 1 UNITS Docusate Sodium (coLACE CAP) 100 mg BID PO 04/28/16 21:00 05/28/16 20:59 04/29/16 19:58 100 MG Polyethylene (Miralax Powder Packet) 17 gm DAILY PO 04/29/16 09:00 05/29/16 08:59 Calcium Carbonate 500 mg 500 mg AC PRN PO 04/28/16 13:15 05/28/16 13:14 04/28/16 23:46 500 MG Methylprednisolone Sodium Succinate 40 mg/Syringe 0.64 ml @ 1.5 mls/min Q8H IV 04/29/16 00:00 05/29/16 00:00 04/30/16 08:13 1.5 MLS/MIN Furosemide/Syringe (Lasix Inj/ Syringe) 6 ml @ 4 mls/min TODAY@0815 IV 04/30/16 08:15 04/30/16 10:00 04/30/16 08:13 4 MLS/MIN I & O: 24-Hour Column 04/30/16 08:00 Intake Total 76 ml Output Total 1250 ml Balance -1174 ml Vital Signs: Date Time Temp Pulse Resp B/P Pulse Ox O2 Delivery O2 Flow Rate FiO2 04/30/16 08:00 36.6 94 16 164/91 94 BiPAP 70 04/30/16 08:00 BiPAP 70 04/30/16 07:28 95 20 96 BiPAP/CPAP 70 04/30/16 07:23 95 96 70 04/30/16 06:00 36.7 87 20 142/72 93 BiPAP 70 04/30/16 04:00 36.8 96 21 130/70 95 BiPAP 70 04/30/16 04:00 BiPAP 70 04/30/16 03:32 93 94 70 04/30/16 03:31 93 16 94 BiPAP/CPAP 70 04/30/16 02:00 96 16 154/91 92 BiPAP 04/30/16 00:00 94 27 144/78 93 04/29/16 23:59 BiPAP 70 04/29/16 23:17 95 18 93 BiPAP/CPAP 70 04/29/16 23:17 95 93 70 04/29/16 23:01 89 24 142/65 92 04/29/16 23:00 87 28 92 04/29/16 22:01 84 23 132/56 93 04/29/16 22:00 83 27 93 04/29/16 21:01 94 31 136/69 95 04/29/16 21:00 96 24 95 04/29/16 20:13 87 95 70 04/29/16 20:08 87 22 95 BiPAP/CPAP 70 04/29/16 20:00 BiPAP 70 04/29/16 20:00 36.6 91 16 158/81 97 BiPAP 70 04/29/16 18:00 82 18 154/74 93 BiPAP 70 04/29/16 16:00 36.6 100 20 158/83 93 BiPAP 70 04/29/16 16:00 BiPAP 70 04/29/16 14:52 90 20 93 BiPAP/CPAP 70 04/29/16 14:48 90 93 70 04/29/16 14:00 78 23 161/72 92 BiPAP 70 04/29/16 12:00 36.6 76 15 151/82 91 BiPAP 70 04/29/16 12:00 BiPAP 70 04/29/16 11:35 77 20 85 Nasal Cannula 6.0 04/29/16 10:00 90 15 159/77 94 BiPAP 70 Laboratory Results: Last 24 Hours Test 04/29/16 12:28 04/29/16 13:45 04/29/16 16:10 04/29/16 19:57 Bedside Glucose 143 mg/dl 142 mg/dl 153 mg/dl Urine Color YELLOW Urine Appearance TURBID Urine pH 5.0 Urine Specific [place] 1.013 Urine Protein TRACE Urine Glucose (UA) NEG Urine Ketones NEG Urine Occult Blood 1+ Urine Nitrite NEG Urine Bilirubin NEG Urine Urobilinogen NEG Urine Leukocyte Esterase NEG Urine WBC (Auto) 10-30 /hpf Urine RBC (Auto) 5-10 /hpf Urine Hyaline Casts (Auto) 1-5 /lpf Urine Epithelial Cells (Auto) >30 /lpf Urine Bacteria (Auto) 1+ Urine Renal Epithelial Cells /lpf Urine Crystals See comments Urine Pathogenic Casts 0-3 GRANULAR CASTS /lpf Urine Yeast (Auto) Test 04/30/16 05:36 White Blood Count 14.41 K/uL Red Blood Count 4.73 M/uL Hemoglobin 11.9 g/dL Hematocrit 37.0 % Mean Corpuscular Volume 78.2 fL Mean Corpuscular Hemoglobin 25.2 pg Mean Corpuscular Hemoglobin Concent 32.2 g/dl Platelet Count 264 K/uL Mean Platelet Volume 9.8 fL Neutrophils (%) (Auto) 93.4 % Lymphocytes (%) (Auto) 5.8 % Monocytes (%) (Auto) 0.5 % Eosinophils (%) (Auto) 0.0 % Basophils (%) (Auto) 0.1 % Neutrophils # (Auto) 13.46 K/uL Lymphocytes # (Auto) 0.84 K/uL Monocytes # (Auto) 0.07 K/uL Eosinophils # (Auto) 0.00 K/uL Basophils # (Auto) 0.01 K/uL RDW Standard Deviation 48.5 fL RDW Coefficient of Variation 16.8 % Immature Granulocyte % (Auto) 0.2 % Immature Granulocyte # (Auto) 0.03 K/uL Sodium Level 139 mmol/L Potassium Level 3.8 mmol/L Chloride Level 100 mmol/L Carbon Dioxide Level 23 mmol/L Anion Gap 16.0 mmol/L Blood Urea Nitrogen 78 mg/dl Creatinine 3.30 mg/dl Est Creatinine Clear Calc Drug Dose 15.3 ml/min Estimated GFR () 15.4 Estimated GFR (Non- 13.3 BUN/Creatinine Ratio 23.6 Random Glucose 147 mg/dl Calcium Level 8.8 mg/dl Phosphorus Level 6.9 mg/dl Magnesium Level 2.9 mg/dl Iron Level 33 mcg/dl Total Iron Binding Capacity 399 mcg/dl Transferrin 303 mg/dl Transferrin % Saturation 8 % Ferritin 114.9 ng/ml
--- NOTE | 2016-04-30 10:37 | Critical Care Progress Note ---
Critical Care Progress Note Date of Service Apr 30, 2016. ICU Day ICU Day Number: [address] Tate Subjective Patient is alert and oriented, no vomiting overnight States she is feeling a little better, plan is try to high flow this am and patient agreeable Objective General: ambulatory, not in acute distress, BIPAP is on Skin: no rashes noted, no suspicious lesions, no areas of inflammations/ lacerations/ erythema noted CVS: S1/ S2 noted, RRR, no rubs/ murmurs noted, no cyanosis RVS: not in acute respiratory distress, coarse breath sounds noted, decreased to bilat bases Neck: inspection WNL, full ROM of neck ABD: BSx4 however hypoactive, distended abdomen, no pain on palpation MSK: inspection of all limbs WNL, motor and sensation intact in all limbs, no swelling/ pain on palpation of joints, YOSI on bilat LE NVS:Alert, oriented x 3 Lymph: No lymphadenopathy palpable Assessment & Plan 1. Acute on chronic hypoxemic respiratory failure 2. Recurring right pleural effusion; Bilateral pleural effusions - thoracentesis 04/26 3. Severe pulmonary hypertension: Feb 25, 2016 pressure was 73 mm HG with RV/ RA dilation 4. Abdominal pain with fecal retention 5. RAMBO on CKD; ATN: multifactorial 6. ILD with oxygen dependence 7. Diastolic dysfunction 8. Depression 9. Gout NVS: alert and oriented - continue to avoid sedating medications - Tylenol for pain control - continue paxil RVS - attempt to transition to Hi flow today -Thoracic sx - no need for thoracentesis at this point - pulmonary consult - Transition of steroids - Hydrocort 20 mg q 8 h today - Prednisone 20 mg bid x 2 days - Prednisone 10 mg daily x 2 days - bronchodilators as gilma CVS - continue to monitor but NSR - Cardizem PO cont ID - Patient is on Zosyn empirically for concern for intra abdominal abscess- day GI - Patient has still not had a BM this am - most likely the cause of the N&V yesterday - 30 mg of Mineral oil and lactulose - continue the docusate and miralax - NG tube clamped - clear fluid diet and advance as tolerated - protonix daily PO 40 mg RENAL Consult nephro- appreciate in put - Cr improved to 3.3 today - negative balance - follow BMP ENDO - Insulin NSS - BSG AC HS HEME - heparin bid for DVT prophylaxis Access: A Port in right chest PT/OT Resident Physician Supervision Note: Dr. Figueroa was resident physician during care of patient. I separately evaluated patient and did history and exam. I discussed the case with the resident and generally agree with the findings and plan. No BM since admission, no hard evidence of SBO at this time. Want to prevent stercol-colitis. replete K, out of bed, and vibration to help with GI motility. Avoid nephro-toxins. I have personally spent 40 minutes of critical care time in the direct management of this patient. This is a life/limb threatening event. This includes time spent evaluating patient, direct bedside care, chart review, placing orders, interpretation of diagnostic studies, discussion with consultants, patient, and family members, as well as other required patient management activities. This time is exclusive of all separately billable procedures, and teaching time and separate from and in addition to any other critical care service time. Documented By: Desmond Tate DO Data Medications: Current Inpatient Medications Medications (Trade) Dose Ordered Sig/Gilma Route Start Time Stop Time Status Last Admin Dose Admin Acetaminophen (Tylenol Tab) 650 mg Q4H PRN PO 04/25/16 18:45 05/25/16 18:44 04/28/16 00:40 650 MG Heparin Sodium (Porcine) (Heparin Sq 5000 Unit/0.5ml) 5,000 unit Q12H SQ 04/25/16 21:00 05/25/16 20:59 04/30/16 08:14 5,000 UNIT Allopurinol (Zyloprim Tab) 150 mg QAM PO 04/26/16 09:00 05/26/16 08:59 04/28/16 09:17 150 MG Diltiazem HCl (Cardizem Cd Cap) 120 mg QAM PO 04/26/16 09:00 05/26/16 08:59 04/29/16 10:27 120 MG Paroxetine HCl (pAXil TAB) 20 mg DAILY PO 04/26/16 09:00 05/26/16 08:59 04/28/16 09:18 20 MG Piperacillin Sod/ Tazobactam Sod (Consult) 1 ea UD PRN N/A 04/25/16 20:15 05/25/16 20:14 Heparin Sodium (Porcine) (Heparin 100 Unit/ml 5ml Flush) 5 ml PRN PRN IV 04/25/16 20:30 05/25/16 20:29 04/26/16 06:11 5 ML Levalbuterol (Xopenex 1.25MG/ 3ML Neb) 1.25 mg Q4R INH 04/26/16 05:00 05/26/16 04:59 04/30/16 07:28 1.25 MG Ondansetron HCl 4 mg 4 mg Q6H PRN IV 04/26/16 13:00 05/26/16 12:59 04/29/16 11:08 4 MG Acetaminophen (Ofirmev Iv) 100 ml @ 400 mls/hr Q8H PRN IV 04/26/16 17:30 05/26/16 17:29 Pantoprazole Sodium 40 mg 40 mg QAM PO 04/27/16 09:00 05/27/16 08:59 04/29/16 10:26 40 MG Piperacillin Sod/ Tazobactam Sod/ Dextrose (Zosyn Iv/D5 100ml) 115 ml @ 28.75 mls/ hr Q12H IV 04/27/16 16:00 05/04/16 23:59 04/30/16 03:44 28.75 MLS/HR Insulin Aspart (novoLOG ASPART) SLIDING SCALE G... ACHS SC 04/27/16 21:00 05/27/16 20:59 04/30/16 08:15 1 UNITS Docusate Sodium (coLACE CAP) 100 mg BID PO 04/28/16 21:00 05/28/16 20:59 04/29/16 19:58 100 MG Polyethylene (Miralax Powder Packet) 17 gm DAILY PO 04/29/16 09:00 05/29/16 08:59 Calcium Carbonate 500 mg 500 mg AC PRN PO 04/28/16 13:15 05/28/16 13:14 04/28/16 23:46 500 MG Methylprednisolone Sodium Succinate 20 mg/Syringe 0.32 ml @ 1.5 mls/min Q8H IV 04/30/16 16:00 05/01/16 00:01 Iron Sucrose/ Sodium Chloride (Venofer Inj/Nss 100ml) 110 ml @ 220 mls/hr Q2D@1100 IV 04/30/16 11:00 05/08/16 16:00 I & O: 24-Hour Column 04/30/16 07:59 Intake Total 76 ml Output Total 1250 ml Balance -1174 ml Vital Signs: Date Time Temp Pulse Resp B/P Pulse Ox O2 Delivery O2 Flow Rate FiO2 04/30/16 10:00 101 23 168/95 91 High Flow Oxygen 60 04/30/16 08:00 36.6 94 16 164/91 94 BiPAP 70 04/30/16 08:00 BiPAP 70 04/30/16 08:00 BiPAP 70 04/30/16 07:28 95 20 96 BiPAP/CPAP 70 04/30/16 07:23 95 96 70 04/30/16 06:00 36.7 87 20 142/72 93 BiPAP 70 04/30/16 04:00 36.8 96 21 130/70 95 BiPAP 70 04/30/16 04:00 BiPAP 70 04/30/16 03:32 93 94 70 04/30/16 03:31 93 16 94 BiPAP/CPAP 70 04/30/16 02:00 96 16 154/91 92 BiPAP 04/30/16 00:00 94 27 144/78 93 04/29/16 23:59 BiPAP 70 04/29/16 23:17 95 18 93 BiPAP/CPAP 70 04/29/16 23:17 95 93 70 04/29/16 23:01 89 24 142/65 92 04/29/16 23:00 87 28 92 04/29/16 22:01 84 23 132/56 93 04/29/16 22:00 83 27 93 04/29/16 21:01 94 31 136/69 95 04/29/16 21:00 96 24 95 04/29/16 20:13 87 95 70 04/29/16 20:08 87 22 95 BiPAP/CPAP 70 04/29/16 20:00 BiPAP 70 04/29/16 20:00 36.6 91 16 158/81 97 BiPAP 70 04/29/16 18:00 82 18 154/74 93 BiPAP 70 04/29/16 16:00 36.6 100 20 158/83 93 BiPAP 70 04/29/16 16:00 BiPAP 70 04/29/16 14:52 90 20 93 BiPAP/CPAP 70 04/29/16 14:48 90 93 70 04/29/16 14:00 78 23 161/72 92 BiPAP 70 04/29/16 12:00 36.6 76 15 151/82 91 BiPAP 70 04/29/16 12:00 BiPAP 70 04/29/16 11:35 77 20 85 Nasal Cannula 6.0 Laboratory Results: Last 24 Hours Test 04/29/16 12:28 04/29/16 13:45 04/29/16 16:10 04/29/16 19:57 Bedside Glucose 143 mg/dl 142 mg/dl 153 mg/dl Urine Color YELLOW Urine Appearance TURBID Urine pH 5.0 Urine Specific [place] 1.013 Urine Protein TRACE Urine Glucose (UA) NEG Urine Ketones NEG Urine Occult Blood 1+ Urine Nitrite NEG Urine Bilirubin NEG Urine Urobilinogen NEG Urine Leukocyte Esterase NEG Urine WBC (Auto) 10-30 /hpf Urine RBC (Auto) 5-10 /hpf Urine Hyaline Casts (Auto) 1-5 /lpf Urine Epithelial Cells (Auto) >30 /lpf Urine Bacteria (Auto) 1+ Urine Renal Epithelial Cells /lpf Urine Crystals See comments Urine Pathogenic Casts 0-3 GRANULAR CASTS /lpf Urine Yeast (Auto) Test 04/30/16 05:36 White Blood Count 14.41 K/uL Red Blood Count 4.73 M/uL Hemoglobin 11.9 g/dL Hematocrit 37.0 % Mean Corpuscular Volume 78.2 fL Mean Corpuscular Hemoglobin 25.2 pg Mean Corpuscular Hemoglobin Concent 32.2 g/dl Platelet Count 264 K/uL Mean Platelet Volume 9.8 fL Neutrophils (%) (Auto) 93.4 % Lymphocytes (%) (Auto) 5.8 % Monocytes (%) (Auto) 0.5 % Eosinophils (%) (Auto) 0.0 % Basophils (%) (Auto) 0.1 % Neutrophils # (Auto) 13.46 K/uL Lymphocytes # (Auto) 0.84 K/uL Monocytes # (Auto) 0.07 K/uL Eosinophils # (Auto) 0.00 K/uL Basophils # (Auto) 0.01 K/uL RDW Standard Deviation 48.5 fL RDW Coefficient of Variation 16.8 % Immature Granulocyte % (Auto) 0.2 % Immature Granulocyte # (Auto) 0.03 K/uL Sodium Level 139 mmol/L Potassium Level 3.8 mmol/L Chloride Level 100 mmol/L Carbon Dioxide Level 23 mmol/L Anion Gap 16.0 mmol/L Blood Urea Nitrogen 78 mg/dl Creatinine 3.30 mg/dl Est Creatinine Clear Calc Drug Dose 15.3 ml/min Estimated GFR () 15.4 Estimated GFR (Non- 13.3 BUN/Creatinine Ratio 23.6 Random Glucose 147 mg/dl Calcium Level 8.8 mg/dl Phosphorus Level 6.9 mg/dl Magnesium Level 2.9 mg/dl Iron Level 33 mcg/dl Total Iron Binding Capacity 399 mcg/dl Transferrin 303 mg/dl Transferrin % Saturation 8 % Ferritin 114.9 ng/ml
[2016-04-30] MEDS: IRON SUCROSE INJ 200 MG in SODIUM CHLORIDE 0.9% 100ML 100 ML IV SCH (11:12)
[2016-04-30] MEDS ORDERED: NURSING VERBAL MED ORDER ONE (12:15)
[2016-04-30] MEDS ORDERED: MINERAL OIL 30 ML UDC NG ONE (12:30)
[2016-04-30] MEDS: POLYETHYLENE (MIRALAX) 17 GM PACK PO SCH (12:56)
[2016-04-30] MEDS: ONDANSETRON INJ 2 MG/ML 2 ML VIAL IV PRN (13:29)
[2016-04-30] MEDS: PANTOprazole SOD 40 MG TAB PO SCH (15:48)
[2016-04-30] MEDS: ALLOPURINOL 300 MG TAB PO SCH (15:48)
[2016-04-30] MEDS: DILTIAZEM HCL 120 MG CAPCR PO SCH (15:48)
[2016-04-30] MEDS: PAROXETINE 20 MG TAB PO SCH (15:48)
[2016-04-30] MEDS: DOCUSATE SODIUM 100 MG CAP PO SCH ×2 (15:48→19:49)
[2016-04-30] MEDS: METHYLPREDNISOLONE IV 20 MG in SYRINGE 0 ML IV SCH ×2 (16:57→23:49)
[2016-04-30] MEDS ORDERED: GLYCOPYRROLATE INJ 0.2 MG/ML VIAL IV SCH (17:45)
[2016-04-30] MEDS ORDERED: NEOSTIGMINE METHYLSULFATE 1 MG/ML 10ML VIAL IV ONE (17:45)
[2016-04-30] MEDS ORDERED: METOPROLOL TARTRATE 1 MG/ML VIAL IV STA (20:50)
[2016-04-30] MEDS ORDERED: MAGNESIUM CITRATE 296 ML/BTL NG ONE (21:00)
--- NOTE | 2016-04-30 23:05 | PROGRESS NOTE ---
DATE: 04/30/2016 A 71-year-old female, with multiple medical problems includin. Acute respiratory failure. 2. Chronic respiratory failure, on home oxygen. 3. Interstitial lung disease. 4. Chronic obstructive pulmonary disease. 5. Bilateral pleural effusion status post bilateral thoracentesis. 6. Diastolic congestive heart failure, acute and chronic. 7. Severe pulmonary hypertension. 8. Acute renal failure, superimposed on chronic kidney disease. 9. Constipation. Overall, her condition has not really significantly changed. She is still requiring BIPAP to maintain adequate oxygen saturation. She seems to be comfortable, not complaining of any pain. She denied any headache or dizziness. No chest pain. She does get dyspneic and tachypneic with minimal activity, even just moving in bed. She has had recurrent abdominal pain, mostly spastic in nature. She has not had a bowel movement yet. She still has her NG tube in place. She denied any pain in her back or extremities. No ankle edema. PHYSICAL EXAMINATION: GENERAL: Well-developed, in no acute distress. VITAL SIGNS: Blood pressure 165/80, pulse 103, respirations 21, temperature 36.5 and oxygen saturation 89% on 90% FIO2. This was on high-flow oxygen. SKIN: Warm and dry. No rash. HEENT: BiPAP mask in place. NG tube in place. NECK: No JVD, no adenopathy. HEART: Regular heart sounds, 2/6 systolic murmur. LUNGS: Decreased breath sounds at the bases. No wheezing. ABDOMEN: Distended. Soft. Slight tenderness. Nonspecific. Markedly decreased bowel sounds. EXTREMITIES: No edema, clubbing or cyanosis. RECTAL: Done this afternoon showed the rectum to be completely empty. No stool whatsoever. No impaction in her rectum. TODAY'S LABORATORY TESTS: WBC count 14,410 which is improving, hemoglobin 11.9, hematocrit 37% and platelet count 264,000. Sodium 139, potassium 3.8, chloride 100, CO2 23, BUN 78, creatinine 3.3 which is improving, glucose 147, calcium 8.8, phosphorus 6.9, magnesium 2.9, iron 33, transferrin 303 ____ and ferritin level 114.9. Her chest x-ray continued to show bilateral pleural effusion and evidence of congestive heart failure. ASSESSMENT: 1. Acute respiratory failure. 2. Chronic respiratory failure. 3. Acute renal failure. 4. Chronic renal failure. 5. Diastolic congestive heart failure. 6. Arterial hypertension. 7. Constipation. PLAN: 1. This morning, she was given one dose of IV Lasix 60 mg IV and she had a good response with good diuresis. 2. She was also given 60 grams of lactulose p.o. 3. Additional laxatives were added, unfortunately without any response. We will continue attempting to initiate bowel activity with different laxatives. 4. Continuing all her other medications. 5. Still getting her out of bed as much as possible. 6. Maintain the NG tube in place. We will keep it in place until we initiate some definite bowel activity. 7. Her condition remains critical. Multiple problems going on. Some improvement today as far as her WBC count and her creatinine level.
[2016-04-30] MEDS ORDERED: METHYLNALTREXONE BROMIDE INJ 12 MG/0.6 ML SYR SQ ONE (23:30)
[2016-04-30] MEDS: POTASSIUM CHLR 10 MEQ / WTR 10 MEQ in PREMIXED WATER 100 ML IV SCH (23:51)
[2016-04-30] MEDS: HydrALAZINE HCL 20 MG/ML VIAL IV. PRN (23:56)
[2016-05-01] VITALS (27 sets, daily range): BP systolic 137–179; BP diastolic 71–111; PULSE 88–120; TEMP 36.2–37.1; O2SAT 83–98
[2016-05-01] MEDS: ACETAMINOPHEN IV 100 ML IV PRN ×3 (00:34→19:40)
[2016-05-01] MEDS: POTASSIUM CHLR 10 MEQ / WTR 10 MEQ in PREMIXED WATER 100 ML IV SCH ×5 (01:06→11:30)
[2016-05-01] MEDS: PIPERACILL/TAZOBAC IV 3.375 GM in DEXTROSE 5% 100ML 100 ML IV SCH ×2 (03:36→15:52)
[2016-05-01] MEDS: LEVALBUTEROL 1.25MG/3ML NEB INH SCH ×6 (03:46→22:48)
[2016-05-01 05:44] LABS: COMPLETE YES; HEMATOCRIT 40.2 % (37-47); IG% 0.4 %; LYMPH % 6.5 %; LYMPH ABS # 1.21 K/uL (1.2-3.4); MEAN CELL VOLUME 79.6 fL (80-100); MEAN CORPUSCULAR HEMOGLOBIN 25.1 pg (25-34); MEAN CORPUSCULAR HGB CONC 31.6 g/dl (32-36); MEAN PLATELET VOLUME 9.6 fL (7.4-10.4); MONO % 0.8 %; NEUT % 92.3 %; PLATELET COUNT 316 K/uL (130-400); RED BLOOD COUNT 5.05 M/uL (4.2-5.4); WHITE BLOOD COUNT 18.57 K/uL (4.8-10.8)
[2016-05-01] MEDS: HydrALAZINE HCL 20 MG/ML VIAL IV. PRN ×2 (06:15→16:57)
[2016-05-01 06:17] LABS: BUN/CREATININE RATIO 27.2 (10-20); CALCIUM 9.1 mg/dl (8.5-10.1); CREATININE 2.8 mg/dl (0.60-1.20); MAGNESIUM 3.7 mg/dl (1.8-2.4); POTASSIUM 3.7 mmol/L (3.5-5.1)
[2016-05-01 06:21] LABS: PHOSPHORUS 5.4 mg/dl (2.5-4.9)
[2016-05-01] MEDS: INSULIN ASPART 100 UNITS/ML 3 ML PEN SC SCH ×4 (06:30→21:58)
[2016-05-01] MEDS: DILTIAZEM HCL 120 MG CAPCR PO SCH (08:10)
[2016-05-01] MEDS: POLYETHYLENE (MIRALAX) 17 GM PACK PO SCH (08:10)
--- NOTE | 2016-05-01 08:10 | DIAGNOSTIC IMAGING REPORT ---
CHEST ONE VIEW PORTABLE HISTORY: Diminished right-sided breath sounds. COMPARISON: Chest 04/30/2016. FINDINGS: Nasogastric tube terminates below the diaphragm. The tip is not included on this study. Left subclavian Port-A-Cath terminates in the distal left brachiocephalic vein. This remains unchanged. No pneumothorax. The heart remains enlarged. Bilateral pleural effusions persist. The right pleural effusion is seen within the right major fissure. This explains the right mid to lower lung zone hazy opacity. Patchy bibasilar densities persist. Mild pulmonary vascular congestion persists. IMPRESSION: 1. No change from the prior study. 2. Mild pulmonary congestion and bilateral pleural effusions persist. Electronically signed by: Richi Pearson M.D. 05/01/2016 8:09 AM Dictated Date/Time: 05/01/2016 8:07 AM
[2016-05-01] MEDS: PAROXETINE 20 MG TAB PO SCH (08:11)
[2016-05-01] MEDS: ALLOPURINOL 300 MG TAB PO SCH (08:15)
[2016-05-01] MEDS: HEPARIN SOD 5000 UNIT/0.5 ML CARP SQ SCH ×2 (08:16→21:21)
--- NOTE | 2016-05-01 08:37 | Critical Care Progress Note ---
Critical Care Progress Note Date of Service May 01, 2016. ICU Day ICU Day Number: [address] Tate Subjective Patient still has not had a BM, only a smear of stool overnight She continues to feel uncomfortable from the distention attempted a KUB and patient desaturated when flat, she is also having a very difficult time tolerating anything PO ROS of 10 systems completed and negative aside from above questions and concerns were addressed Objective General: ambulatory, not in acute distress, BIPAP is on Skin: no rashes noted, no suspicious lesions, no areas of inflammations/ lacerations/ erythema noted CVS: S1/ S2 noted, RRR, 3/6 systolic murmur, no cyanosis RVS: not in acute respiratory distress, coarse breath sounds noted, decreased to bilat bases Neck: inspection WNL, full ROM of neck ABD: BSx4 however hypoactive, distended abdomen, no pain on palpation MSK: inspection of all limbs WNL, motor and sensation intact in all limbs, no swelling/ pain on palpation of joints, YOSI on bilat LE NVS:Alert, oriented x 3 Lymph: No lymphadenopathy palpable Assessment & Plan 1. Acute on chronic hypoxemic respiratory failure 2. Recurring right pleural effusion; Bilateral pleural effusions - thoracentesis 04/26 3. Severe pulmonary hypertension: Feb 25, 2016 pressure was 73 mm HG with RV/ RA dilation 4. Abdominal pain with fecal retention 5. RAMBO on CKD; ATN: multifactorial - improving 6. ILD with oxygen dependence 7. Diastolic dysfunction 8. Depression 9. Gout NVS: alert and oriented - continue to avoid sedating medications - Tylenol for pain control - continue paxil RVS - attempt to transition to Hi flow today -Thoracic sx - no need for thoracentesis at this point - pulmonary consult - Transition of steroids - Patient is having an extremely difficult time tolerating anything PO - will wait to continue the PO wean - Methyl pred 20 mg bid IV for now - bronchodilators as gilma - CT chest warranted however as the patient can not tolerate being flat will wait CVS - continue to monitor but NSR - Cardizem PO cont ID - Patient is on Zosyn empirically for concern for intra abdominal abscess- day GI - Patient has still not had a BM this am - most likely the cause of the N&V yesterday - multiple agents given without a bm - nothing in rectal vault - NG tube clamped - intermittent suction - clear fluid diet and advance as tolerated consult GI/ gen surg FEN replete K as needed - follow bmp RENAL Consult nephro- appreciate in put - Cr improved to 2.8 today - negative balance - follow BMP ENDO - Insulin NSS - BSG AC HS HEME - heparin bid for DVT prophylaxis Access: A Port in right chest PT/OT Resident Physician Supervision Note: Dr. Figueroa was resident physician during care of patient. I separately evaluated patient and did history and exam. I discussed the case with the resident and generally agree with the findings and plan. Multiple medications were used in an attempt to relieve the patient's constipation. I believe she has a pseudoobstruction at this time. Discussed the case with Dr. Lani Adler, who is alert he contacted general surgery as well as GI for possible colonoscopy to facilitate disimpaction. Dr. Michel Yin of general surgery is aware the patient, he reports extensive scar tissue and nonoperative means to relieve the constipation is of the utmost importance. Patient still requires significant oxygen and BiPAP. Her creatinine has slowly improved. Overall I don't feel as if it made significant forward improvement in her critical condition. I have personally spent 30 minutes of critical care time in the direct management of this patient. This is a life/limb threatening event. This includes time spent evaluating patient, direct bedside care, chart review, placing orders, interpretation of diagnostic studies, discussion with consultants, patient, and family members, as well as other required patient management activities. This time is exclusive of all separately billable procedures, and teaching time and separate from and in addition to any other critical care service time. Documented By: Desmond Tate DO Data Medications: Current Inpatient Medications Medications (Trade) Dose Ordered Sig/Gilma Route Start Time Stop Time Status Last Admin Dose Admin Acetaminophen (Tylenol Tab) 650 mg Q4H PRN PO 04/25/16 18:45 05/25/16 18:44 04/28/16 00:40 650 MG Heparin Sodium (Porcine) (Heparin Sq 5000 Unit/0.5ml) 5,000 unit Q12H SQ 04/25/16 21:00 05/25/16 20:59 05/01/16 08:16 5,000 UNIT Allopurinol (Zyloprim Tab) 150 mg QAM PO 04/26/16 09:00 05/26/16 08:59 05/01/16 08:15 150 MG Paroxetine HCl (pAXil TAB) 20 mg DAILY PO 04/26/16 09:00 05/26/16 08:59 05/01/16 08:11 20 MG Piperacillin Sod/ Tazobactam Sod (Consult) 1 ea UD PRN N/A 04/25/16 20:15 05/25/16 20:14 Heparin Sodium (Porcine) (Heparin 100 Unit/ml 5ml Flush) 5 ml PRN PRN IV 04/25/16 20:30 05/25/16 20:29 04/26/16 06:11 5 ML Levalbuterol (Xopenex 1.25MG/ 3ML Neb) 1.25 mg Q4R INH 04/26/16 05:00 05/26/16 04:59 05/01/16 07:18 1.25 MG Ondansetron HCl 4 mg 4 mg Q6H PRN IV 04/26/16 13:00 05/26/16 12:59 04/30/16 13:29 4 MG Acetaminophen 100 ml @ 400 mls/hr Q8H PRN IV 04/26/16 17:30 05/26/16 17:29 05/01/16 00:34 400 MLS/HR Piperacillin Sod/ Tazobactam Sod/ Dextrose (Zosyn Iv/D5 100ml) 115 ml @ 28.75 mls/ hr Q12H IV 04/27/16 16:00 05/04/16 23:59 05/01/16 03:36 28.75 MLS/HR Insulin Aspart (novoLOG ASPART) SLIDING SCALE G... ACHS SC 04/27/16 21:00 05/27/16 20:59 05/01/16 06:30 1 UNITS Polyethylene (Miralax Powder Packet) 17 gm DAILY PO 04/29/16 09:00 05/29/16 08:59 05/01/16 08:10 17 GM Calcium Carbonate 500 mg 500 mg AC PRN PO 04/28/16 13:15 05/28/16 13:14 04/28/16 23:46 500 MG Iron Sucrose/ Sodium Chloride (Venofer Inj/Nss 100ml) 110 ml @ 220 mls/hr Q2D@1100 IV 04/30/16 11:00 05/08/16 16:00 04/30/16 11:12 220 MLS/HR Prednisone (PredniSONE TAB) 20 mg BID PO 05/01/16 09:00 05/02/16 21:01 05/01/16 08:14 20 MG Prednisone (PredniSONE TAB) 10 mg DAILY PO 05/03/16 09:00 05/04/16 09:01 Hydralazine HCl 10 mg 10 mg Q6H PRN IV. 04/30/16 21:45 05/30/16 21:44 05/01/16 06:15 10 MG Potassium Chloride/Prmx (Kcl 10 Meq / Wtr/Premixed Water) 100 ml @ 100 mls/hr Q1H IV 05/01/16 07:30 05/01/16 11:29 05/01/16 08:09 100 MLS/HR Docusate Sodium (coLACE SYRUP) 100 mg BID NG 05/01/16 09:00 05/31/16 08:59 Lansoprazole (Prevacid Solutab) 30 mg QAM NG 05/01/16 09:00 05/31/16 08:59 Diltiazem HCl (Cardizem Tab) 30 mg Q6 NG 05/01/16 09:00 05/31/16 08:59 I & O: 24-Hour Column 05/01/16 08:00 Intake Total 1602 ml Output Total 2515 ml Balance -913 ml Vital Signs: Date Time Temp Pulse Resp B/P Pulse Ox O2 Delivery O2 Flow Rate FiO2 05/01/16 07:19 105 98 90 05/01/16 07:18 105 20 98 BiPAP/CPAP 90 05/01/16 06:00 92 16 163/82 97 BiPAP 90 05/01/16 04:00 95 BiPAP 90 05/01/16 04:00 37.0 95 13 137/76 95 BiPAP 90 05/01/16 03:46 100 91 90 05/01/16 03:46 100 20 91 BiPAP/CPAP 90 05/01/16 02:00 95 18 146/71 94 BiPAP 90 05/01/16 00:00 97 23 152/74 93 BiPAP 90 04/30/16 23:59 BiPAP 90 04/30/16 23:25 99 94 90 04/30/16 23:24 99 18 94 BiPAP/CPAP 90 04/30/16 23:01 100 16 172/91 94 BiPAP 90 04/30/16 23:00 98 17 94 04/30/16 22:01 87 26 146/91 93 04/30/16 22:00 89 24 BiPAP 90 04/30/16 21:19 108 180/79 04/30/16 20:02 103 96 100 04/30/16 20:01 103 18 96 BiPAP/CPAP 100 04/30/16 20:00 37.0 104 20 172/102 95 BiPAP 04/30/16 20:00 BiPAP 100 04/30/16 18:30 98 18 166/81 94 BiPAP 100 04/30/16 18:00 103 24 179/89 94 BiPAP 100 04/30/16 17:01 105 26 167/116 92 BiPAP 100 04/30/16 16:18 105 17 172/125 91 BiPAP 100 04/30/16 16:01 36.9 109 17 166/113 91 BiPAP 100 04/30/16 16:00 BiPAP 100 04/30/16 15:50 103 90 100 04/30/16 15:38 100 18 89 Nasal Cannula 50.0 100 04/30/16 15:01 101 16 179/76 87 High Flow Oxygen 100 04/30/16 14:01 103 21 165/80 89 High Flow Oxygen 90 04/30/16 12:00 High Flow Oxygen 70 04/30/16 12:00 36.5 96 15 153/76 90 High Flow Oxygen 70 04/30/16 11:46 97 20 153/73 90 High Flow Oxygen 70 04/30/16 11:31 101 19 159/72 84 High Flow Oxygen 65 04/30/16 11:28 89 20 162/73 87 High Flow Oxygen 60 04/30/16 11:10 100 17 89 Nasal Cannula 50.0 60 04/30/16 11:04 109 27 163/75 92 High Flow Oxygen 60 04/30/16 10:00 101 23 168/95 91 High Flow Oxygen 60 Laboratory Results: Last 24 Hours Test 04/30/16 11:11 04/30/16 16:56 04/30/16 20:52 05/01/16 05:36 Bedside Glucose 154 mg/dl 136 mg/dl 143 mg/dl White Blood Count 18.57 K/uL Red Blood Count 5.05 M/uL Hemoglobin 12.7 g/dL Hematocrit 40.2 % Mean Corpuscular Volume 79.6 fL Mean Corpuscular Hemoglobin 25.1 pg Mean Corpuscular Hemoglobin Concent 31.6 g/dl Platelet Count 316 K/uL Mean Platelet Volume 9.6 fL Neutrophils (%) (Auto) 92.3 % Lymphocytes (%) (Auto) 6.5 % Monocytes (%) (Auto) 0.8 % Eosinophils (%) (Auto) 0.0 % Basophils (%) (Auto) 0.0 % Neutrophils # (Auto) 17.14 K/uL Lymphocytes # (Auto) 1.21 K/uL Monocytes # (Auto) 0.15 K/uL Eosinophils # (Auto) 0.00 K/uL Basophils # (Auto) 0.00 K/uL RDW Standard Deviation 49.5 fL RDW Coefficient of Variation 17.1 % Immature Granulocyte % (Auto) 0.4 % Immature Granulocyte # (Auto) 0.07 K/uL Sodium Level 143 mmol/L Potassium Level 3.7 mmol/L Chloride Level 103 mmol/L Carbon Dioxide Level 27 mmol/L Anion Gap 13.0 mmol/L Blood Urea Nitrogen 76 mg/dl Creatinine 2.80 mg/dl Est Creatinine Clear Calc Drug Dose 18.1 ml/min Estimated GFR () 18.8 Estimated GFR (Non- 16.2 BUN/Creatinine Ratio 27.2 Random Glucose 143 mg/dl Calcium Level 9.1 mg/dl Phosphorus Level 5.4 mg/dl Magnesium Level 3.7 mg/dl Total Bilirubin 0.8 mg/dl Aspartate Amino Transf (AST/SGOT) 38 U/L Alanine Aminotransferase (ALT/SGPT) 30 U/L Alkaline Phosphatase 124 U/L Total Protein 7.1 gm/dl Albumin 3.6 gm/dl Globulin 3.5 gm/dl Albumin/Globulin Ratio 1.0
[2016-05-01] MEDS ORDERED: MAGIC SWIZZLE PO SCH (09:00)
[2016-05-01] MEDS ORDERED: METHYLPREDNISOLONE IV 20 MG in SYRINGE 0 ML IV SCH (09:00)
[2016-05-01] MEDS ORDERED: LANSOPRAZOLE SOLUTAB 30 MG NG SCH (09:00)
[2016-05-01] MEDS: METHYLPREDNISOLONE IV 20 MG in SYRINGE 0 ML IV SCH ×2 (09:31→21:21)
[2016-05-01] MEDS: DILTIAZEM HCL 30 MG TAB NG SCH ×3 (09:31→23:47)
[2016-05-01] MEDS: DOCUSATE SODIUM 100 MG/10 ML UDC NG SCH ×2 (09:32→21:21)
[2016-05-01] MEDS ORDERED: NURSING VERBAL MED ORDER ONE ×2 (09:45→22:00)
[2016-05-01] MEDS ORDERED: NYSTATIN POWDER 15GM BTL EXT SCH (10:00)
[2016-05-01] MEDS: ONDANSETRON INJ 2 MG/ML 2 ML VIAL IV PRN ×2 (10:02→17:13)
--- NOTE | 2016-05-01 10:02 | DIAGNOSTIC IMAGING REPORT ---
KUB CLINICAL HISTORY: Abdominal pain. Stool impaction. COMPARISON STUDY: CT of the abdomen and pelvis April 25, 2016 and KUB April 29, 2016. FINDINGS: The tip of the nasogastric tube projects over the gastric antrum. Surgical coils and clips are noted. There is mild colonic dilatation. This is slightly improved. The amount of stool within the colon appears diminished since prior exam. There are few prominent loops of small bowel without convincing evidence for a bowel obstruction. IMPRESSION: 1. Interval decrease in the amount of stool within the colon since exam of April 29, 2016. 2. Mild colonic distention, slightly improved since prior exam. 3. No convincing evidence for a bowel obstruction. Electronically signed by: Esteban Tyler M.D. 05/01/2016 10:00 AM Dictated Date/Time: 05/01/2016 9:47 AM
[2016-05-01] MEDS: LIDOCAINE HCL 2% VISCOUS SOLN 60 ML, DiphenhydrAMINE HCL SYRUP 150 MG, ALUMINUM/MAGNESI... MT SCH ×8 (10:06→21:21)
--- NOTE | 2016-05-01 10:39 | PROGRESS NOTE ---
DATE: 05/01/2016 SUBJECTIVE: A 71-year-old female with extensive complex medical problems includin. Acute respiratory failure. 2. Chronic respiratory failure, on home oxygen. 3. Mild chronic obstructive pulmonary disease. 4. Interstitial lung disease. 5. Diastolic congestive heart failure, acute and chronic. 6. Pulmonary hypertension. 7. Acute renal failure. 8. Chronic renal failure. 9. Severe constipation. 10. History of multiple abdominal surgeries for bowel obstruction and abdominal wall surgeries for hernias. The patient remains in respiratory failure. She is on a BiPAP. Her FiO2 is about 80%. Her oxygen saturation is around 92%. She denied any headache. No chest pain. She becomes dyspneic and tachypneic with any activity. She is having abdominal pain. All the imaging studies that we have done in the past of her abdomen showed large amount of stool in her intestine, but unfortunately we have not been successful in reestablishing her intestinal transit. She has received enemas and has received multiple laxatives without much success even she received neostigmine. She does have a Britton catheter in place. She also has an NG tube in place. PHYSICAL EXAMINATION: GENERAL: Well developed. No acute distress, but she is having some abdominal discomfort. VITAL SIGNS: Blood pressure 168/83, pulse 102, respirations 22, temperature 37.1, and oxygen saturation 92%-94% on 80% FiO2 with her BiPAP. SKIN: Warm and dry. No rash. HEENT: BiPAP mask in place. NG tube in place. NECK: No JVD. No adenopathy. HEART: Regular heart sounds with 2/6 systolic murmur. LUNGS: Markedly decreased breath sounds. No wheezing. ABDOMEN: Soft, but diffusely tender without any guarding. No rebound. Very minimal bowel sounds. EXTREMITIES: No edema, clubbing, or cyanosis. TODAY'S LABORATORY TESTS: WBC count 18,570, hemoglobin 12.7, hematocrit 40.2, and platelet count 316,000. Sodium 143, potassium 3.7, chloride 103, CO2 of 27, BUN 76, creatinine 2.8, glucose 143, calcium 9.1, phosphorus 5.4, and magnesium 3.7. Keeping in mind, the patient received a dose of magnesium citrate last night and that could account for the rise in her magnesium. AST 38, ALT 30, and alkaline phosphatase 124. Total protein 7.1 and albumin 3.6. ASSESSMENT: 1. Acute and chronic respiratory failure. 2. Acute and chronic renal failure. 3. Acute and chronic diastolic dysfunction. 4. Acute and chronic congestive heart failure. 5. Severe constipation without any success using multiple laxatives and enemas and neostigmine. 6. Arterial hypertension. PLAN: 1. Her respiratory status has not significantly improved. She has not tolerated being off the BiPAP. She is still requiring 80% of FiO2. 2. Her creatinine is improving. 3. Her abdominal pain is still quite an issue with constipation. I spoke with Dr. Cornelius Abbasi, requiring a consultation. I spoke with Dr. Da Silva and requested a consultation. 4. KUB was repeated. 5. We will wait for the opinion of Dr. Abbasi and Dr. Da Silva and see what else is recommended. 6. The only thing she is receiving for pain is the IV Tylenol. We are trying to avoid any narcotic because of her respiratory status. MTDD
--- NOTE | 2016-05-01 11:14 | Nephrology Progress Note ---
Nephrology Progress Note Date of Service May 01, 2016. Chief Complaint F/U for acute kidney injury with history of chronic kidney disease. Fadumo López was seen and examined in ICU this am. Abdominal pain and discomfort seems worse but KUB this am with no obstruction. still requiring BiPAP. BP running high.. UO improved. Cr seems to have peaked and started to improve slowly, 2.8 this am, other electrolytes stable. Review of Systems A complete review of systems was performed. Pertinent positives are noted above. All other systems are negative. Vital Signs Last 8 Hrs Date Time Temp Pulse Resp B/P Pulse Ox O2 Delivery O2 Flow Rate FiO2 05/01/16 08:00 37.1 102 22 168/83 92 BiPAP 80 05/01/16 08:00 94 BiPAP 80 05/01/16 07:19 105 98 90 05/01/16 07:18 105 20 98 BiPAP/CPAP 90 05/01/16 06:00 92 16 163/82 97 BiPAP 90 05/01/16 04:00 95 BiPAP 90 05/01/16 04:00 37.0 95 13 137/76 95 BiPAP 90 05/01/16 03:46 100 91 90 05/01/16 03:46 100 20 91 BiPAP/CPAP 90 I & O 24-Hour Column 05/01/16 08:00 Intake Total 1602 ml Output Total 2515 ml Balance -913 ml Last Recorded Weight Weight (Kilograms): 79.500 Physical Exam GENERAL: elderly female, AAA x 3, ill-appearing, in mild to moderate distress. NECK: Supple, no JVD. RESPIRATORY: Decrease BS rt base CARDIOVASCULAR: S1, S2 normal, rate rhythm regular. ABDOMEN: distended, tense and tender specially lower abdomen. EXTREMITY: No lower extremity edema NEURO: speech fluent. PSYCHIATRY: Normal mood and judgment Family History Cancer Hypertension Social History Smoking Status: Never smoker Drug Use: none Marital Status: Occupation: retired Laboratory Results Past 24 Hours 05/01/16 05:36 Red Blood Count 5.05, Mean Corpuscular Volume 79.6, Mean Corpuscular Hemoglobin 25.1, Mean Corpuscular Hemoglobin Concent 31.6, Mean Platelet Volume 9.6, Neutrophils (%) (Auto) 92.3, Lymphocytes (%) (Auto) 6.5, Monocytes (%) (Auto) 0.8, Eosinophils (%) (Auto) 0.0, Basophils (%) (Auto) 0.0, Neutrophils # (Auto) 17.14, Lymphocytes # (Auto) 1.21, Monocytes # (Auto) 0.15, Eosinophils # (Auto) 0.00, Basophils # (Auto) 0.00 05/01/16 05:36 Test 04/30/16 11:11 04/30/16 16:56 04/30/16 20:52 05/01/16 05:36 Bedside Glucose 154 mg/dl (70-90) 136 mg/dl (70-90) 143 mg/dl (70-90) White Blood Count 18.57 K/uL (4.8-10.8) Red Blood Count 5.05 M/uL (4.2-5.4) Hemoglobin 12.7 g/dL (12.0-16.0) Hematocrit 40.2 % (37-47) Mean Corpuscular Volume 79.6 fL (80-100) Mean Corpuscular Hemoglobin 25.1 pg (25-34) Mean Corpuscular Hemoglobin Concent 31.6 g/dl (32-36) Platelet Count 316 K/uL (130-400) Mean Platelet Volume 9.6 fL (7.4-10.4) Neutrophils (%) (Auto) 92.3 % Lymphocytes (%) (Auto) 6.5 % Monocytes (%) (Auto) 0.8 % Eosinophils (%) (Auto) 0.0 % Basophils (%) (Auto) 0.0 % Neutrophils # (Auto) 17.14 K/uL (1.4-6.5) Lymphocytes # (Auto) 1.21 K/uL (1.2-3.4) Monocytes # (Auto) 0.15 K/uL (0.11-0.59) Eosinophils # (Auto) 0.00 K/uL (0-0.5) Basophils # (Auto) 0.00 K/uL (0-0.2) RDW Standard Deviation 49.5 fL (36.4-46.3) RDW Coefficient of Variation 17.1 % (11.5-14.5) Immature Granulocyte % (Auto) 0.4 % Immature Granulocyte # (Auto) 0.07 K/uL (0.00-0.02) Anion Gap 13.0 mmol/L (3-11) Est Creatinine Clear Calc Drug Dose 18.1 ml/min Estimated GFR () 18.8 Estimated GFR (Non- 16.2 BUN/Creatinine Ratio 27.2 (10-20) Calcium Level 9.1 mg/dl (8.5-10.1) Phosphorus Level 5.4 mg/dl (2.5-4.9) Magnesium Level 3.7 mg/dl (1.8-2.4) Total Bilirubin 0.8 mg/dl (0.2-1) Aspartate Amino Transf (AST/SGOT) 38 U/L (15-37) Alanine Aminotransferase (ALT/SGPT) 30 U/L (12-78) Alkaline Phosphatase 124 U/L (45-117) Total Protein 7.1 gm/dl (6.4-8.2) Albumin 3.6 gm/dl (3.4-5.0) Globulin 3.5 gm/dl (2.5-4.0) Albumin/Globulin Ratio 1.0 (0.9-2) Allergies Coded Allergies: Morphine (Verified Allergy, Unknown, 04/25/16) Sulfamethoxazole w/Trimethoprim (Verified Allergy, Unknown, ., 04/25/16) Codeine (Verified Adverse Reaction, Mild, nausea, 04/25/16) Penicillins (Verified Adverse Reaction, Mild, severe nausea,HAD CEPHALOSPORINS, ZOSYN W/O PROBLEM, 04/25/16) Medications Current Inpatient Medications Medications (Trade) Dose Ordered Sig/Gilma Route Start Time Stop Time Status Last Admin Dose Admin Acetaminophen (Tylenol Tab) 650 mg Q4H PRN PO 04/25/16 18:45 05/25/16 18:44 04/28/16 00:40 650 MG Heparin Sodium (Porcine) (Heparin Sq 5000 Unit/0.5ml) 5,000 unit Q12H SQ 04/25/16 21:00 05/25/16 20:59 05/01/16 08:16 5,000 UNIT Allopurinol (Zyloprim Tab) 150 mg QAM PO 04/26/16 09:00 05/26/16 08:59 05/01/16 08:15 150 MG Paroxetine HCl (pAXil TAB) 20 mg DAILY PO 04/26/16 09:00 05/26/16 08:59 05/01/16 08:11 20 MG Piperacillin Sod/ Tazobactam Sod (Consult) 1 ea UD PRN N/A 04/25/16 20:15 05/25/16 20:14 Heparin Sodium (Porcine) (Heparin 100 Unit/ml 5ml Flush) 5 ml PRN PRN IV 04/25/16 20:30 05/25/16 20:29 04/26/16 06:11 5 ML Levalbuterol (Xopenex 1.25MG/ 3ML Neb) 1.25 mg Q4R INH 04/26/16 05:00 05/26/16 04:59 05/01/16 07:18 1.25 MG Ondansetron HCl 4 mg 4 mg Q6H PRN IV 04/26/16 13:00 05/26/16 12:59 05/01/16 10:02 4 MG Acetaminophen 100 ml @ 400 mls/hr Q8H PRN IV 04/26/16 17:30 05/26/16 17:29 05/01/16 10:02 400 MLS/HR Piperacillin Sod/ Tazobactam Sod/ Dextrose (Zosyn Iv/D5 100ml) 115 ml @ 28.75 mls/ hr Q12H IV 04/27/16 16:00 05/04/16 23:59 05/01/16 03:36 28.75 MLS/HR Insulin Aspart (novoLOG ASPART) SLIDING SCALE G... ACHS SC 04/27/16 21:00 05/27/16 20:59 05/01/16 06:30 1 UNITS Polyethylene (Miralax Powder Packet) 17 gm DAILY PO 04/29/16 09:00 05/29/16 08:59 05/01/16 08:10 17 GM Calcium Carbonate 500 mg 500 mg AC PRN PO 04/28/16 13:15 05/28/16 13:14 04/28/16 23:46 500 MG Iron Sucrose/ Sodium Chloride (Venofer Inj/Nss 100ml) 110 ml @ 220 mls/hr Q2D@1100 IV 04/30/16 11:00 05/08/16 16:00 04/30/16 11:12 220 MLS/HR Prednisone (PredniSONE TAB) 20 mg BID PO 05/01/16 09:00 Future Hold 05/01/16 08:14 20 MG Hydralazine HCl 10 mg 10 mg Q6H PRN IV. 04/30/16 21:45 05/30/16 21:44 05/01/16 06:15 10 MG Potassium Chloride/Prmx (Kcl 10 Meq / Wtr/Premixed Water) 100 ml @ 100 mls/hr Q1H IV 05/01/16 07:30 05/01/16 11:29 05/01/16 09:30 100 MLS/HR Docusate Sodium (coLACE SYRUP) 100 mg BID NG 05/01/16 09:00 05/31/16 08:59 05/01/16 09:32 100 MG Lansoprazole (Prevacid Solutab) 30 mg QAM NG 05/01/16 09:00 05/31/16 08:59 Future Hold Diltiazem HCl 30 mg 30 mg Q6 NG 05/01/16 09:00 05/31/16 08:59 05/01/16 09:31 30 MG Methylprednisolone Sodium Succinate/ Syringe 0.32 ml @ 1.5 mls/min BID IV 05/01/16 09:00 05/31/16 08:59 05/01/16 09:31 1.5 MLS/MIN Lidocaine HCl/ Diphenhydramine HCl/Al Hydroxide/ Mg Hydroxide/ Glycerin/Barcode (VISCOUS LIDOCAINE 2% Soln/ Benadryl Syrup/ Maalox Susp/ Glycerin Anhydrous Soln) BID MT 05/01/16 10:00 05/31/16 09:59 Metoclopramide HCl (Reglan Inj) 5 mg Q6H IV. 05/01/16 12:00 05/31/16 09:29 Impression (1) Acute kidney injury (2) acute exacer. copd, chronic resp failure (3) Anemia (4) Hyperphosphatemia (5) ACUTE BRONCO-PNEUM,ACUTE RESP FAIL (6) CKD (chronic kidney disease) stage 3, GFR 30-59 ml/min Maribel is a 71-year-old female with them complicated past medical history including stage 3 chronic kidney disease, hypertension, history of for a COPD and interstitial lung disease, pulmonary hypertension, tricuspid regurgitation, diastolic CHF, prior history of via intestinal resection for bowel obstruction admitted to the hospital with abdominal pain and respiratory failure with them acute on chronic diastolic CHF. She had [id number] IV contrast us study on 2 consecutive days. Has history of stage 3 chronic kidney disease, creatinine seems to be variable from 1-1.5, possibly secondary to microvascular disease versus grade 2 cardiorenal syndrome. On admission creatinine was 1.3 which rapidly worsened over last few days and creatinine was 3.2 days this morning and she has been oliguric. Currently her blood pressure, volume status and other electrolyte acceptable. Overall she seems to be clinically improving but still requiring BiPAP to maintain her oxygen saturation. Chest x-ray yesterday was concerning for right lower lobe pneumonia, currently on Zosyn empirically. On admission she was also found to have bilateral pleural effusion and had a thoracentesis done, with transudative effusion. Recommendations --seems to be in recovery phase from recent ATN, continue diuretics as needed, aim for net slightly negative, expect UO continue to improve and may not need much diuretics on going --Monitor renal function closely with daily renal panel -- avoid nephrotoxins medications --dose medications for GFR less than 10 --continue Venofer 200mg IV every other day for total 5 doses Will follow
[2016-05-01] MEDS: METOCLOPRAMIDE HCL INJ 5 MG/ML 2 ML VIAL IV. SCH ×3 (11:31→23:46)
--- NOTE | 2016-05-01 11:45 | SURGERY PROGRESS NOTE ---
DATE: 05/01/2016 DATE: 05/01/2016. Ms. Shepard was seen today on 05/02/2015. The patient's NG is draining. It drained 500 mL last shift. Her urine output was 1850 yesterday which is encouraging. She is on 60% FIO2 on the BiPAP with 95% saturations. She does have more fluid in her chest, particularly on the right. At this point there would not an intervention that I would offer unless she worsens and has more fluid.
[2016-05-01] MEDS: MISOPROSTOL 200 MCG TAB PO SCH ×3 (13:45→21:18)
[2016-05-01] MEDS: SOD PHOSPHATE/SOD BIPHOSPHATE ENEMA 132 ML BTL PR SCH ×2 (13:46→16:55)
--- NOTE | 2016-05-01 14:07 | GASTROINTESTINAL CONSULTATION ---
DATE OF CONSULTATION: 05/01/2016 REASON FOR CONSULTATION: Severe constipation. HISTORY OF PRESENT ILLNESS: The patient is a 71-year-old female admitted on 25 of April with worsening abdominal pain and decompensation of her lungs. The patient is on BiPAP and continues to struggle breathing. She has chronic renal failure among other chronic medical problems. In the past, she has had multiple abdominal operations including an appendectomy and hernia repairs. The patient has been in the hospital and has not had a bowel movement now in the last 5 days. She is very distended and uncomfortable. They have tried soapsuds and Fleet Enemas, lactulose, neostigmine, magnesium citrate and mineral oil, none of which have been effective in getting her bowels to move. Rectal exam yesterday showed no stool in the rectal vault. She continues to be very uncomfortable and distended. PAST MEDICAL HISTORY: Remarkable for congestive heart failure, chronic renal insufficiency, COPD, chronic interstitial lung disease. She had small bowel obstructions in the past, partial small bowel resection in July of 2015. She had a lysis of adhesions. She has hypertension, appendectomy, renal artery occlusion in 2005, and bilateral tubal ligation. MEDICATIONS: Per list. ALLERGIES: CODEINE, MORPHINE, PENICILLIN, AND SULFA. FAMILY HISTORY: Father of a stroke in his 50s. Mother is in her 90s, multiple problems. She has 3 brothers and 3 sisters. One sister has systemic lupus. SOCIAL HISTORY: The patient is . She has 3 children. No smoking, no alcohol. 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 REVIEW OF SYSTEMS: Unobtainable but she is on a BiPAP. PHYSICAL EXAMINATION: GENERAL: The patient is in some abdominal pain. VITAL SIGNS: Her blood pressure 150/70, pulse 80, respirations 20, temperature is normal, O2 saturations 92% on BiPAP. ABDOMEN: Shows a midline incisional scar with a bandage over the umbilicus, where there is some skin breakdown. Abdomen is obese with a panniculus. Bowel sounds are absent. There is diffuse abdominal tenderness to light palpation. RECTAL: Showed no stool in the rectal vault. LUNGS: Showed decreased breath sounds. HEART: Showed a normal S1 and S2 with a regular rate and rhythm. NEUROLOGIC: She is alert and oriented. IMPRESSION: The patient has prolonged constipation, obstipation or ileus. Multiple measures have been tried so far including enemas, lactulose, neostigmine, magnesium citrate and mineral oil, none of which have been successful. Her white count is 18,000 and she is diffusely tender. I am a little bit concerned that she may have developed a bowel obstruction and that is why her bowels are not moving. I plan on stopping her calcium containing antacid, which she is not really getting anyway, as calcium can be constipating. I will give her some ice chips for her dry mouth and we are going to try her on IV Reglan 5 mg every 6 hours and add p.o. Cytotec 200 mcg to see if this helps stimulate her intestinal motility and we will give her Fleet Enemas 4 times a day. It is unlikely that the phosphorus and the Fleet Enemas will be detrimental to her kidney function and soapsuds enemas should be avoided at all costs as these can be significantly irritating to the colonic mucosa and can even cause colonic necrosis. If she fails to improve with these measures and she continues to deteriorate, we may need to consider some form of surgical intervention despite the incredibly high risks as she may have a bowel obstruction as the cause of her obstipation. I will continue to follow the patient during her hospital stay.
[2016-05-01 14:56] LABS: VEN BLD GAS O2 SATURATION 87.5 %; VEN BLOOD GAS BASE EXCESS -0.1 mmol/L
--- NOTE | 2016-05-01 15:41 | SURGICAL CONSULTATION ---
DATE OF CONSULTATION: 05/01/2016 DATE OF CONSULTATION: 05/01/2016. Seen in consultation at the request of Dr. Dahl on 05/01/2016 regarding inability to move bowels. SUMMARY: Maribel is a 71-year-old female with significant comorbid conditions who is well known to me, especially her abdomen. Had a chance to operate on her back in July of 2015 where at that time she presented with recurrent bouts of small-bowel obstruction. After failing conservative therapy multiple times we were forced to proceed and enter her abdomen. Entering her abdomen was not easy. She basically had a hostile abdomen. She has had numeral abdominal surgery including significant hernias repaired with mesh, both here and tertiary centers. Needless to say at that time the patient required a small bowel resection. She has not virtually a small bowel syndrome but quite a significant loss of her small bowel. Having said that, she stayed approximately in the hospital a month after that surgery with wound problems that took months to heal, especially the midline incision that we were forced to go through a Stirum-Laureano mesh. They eventually healed with wound care assistance. At this time, we were asked to see her by Dr. Dahl as stated. Maribel was admitted through the Emergency Room on 04/25/2016 where at that time she presented with worsening abdominal pain. She had superimposed chronic respiratory failure. She was found to have bilateral pleural effusions. These were addressed by the thoracic surgeon. Having said that she has been here approximately 6 days with virtually no GI function. She has tried multiple modalities to free significant colonic contents. She has tried multiple medical measures including enemas, lactulose, neostigmine, magnesium citrate, mineral oil and all of these have been unsuccessful. Dr. Dahl has addressed us the possibility if there is anything surgically that could be done with her. Given her significant comorbid condition at this time I recommended her to Dr. Abbasi possibility reevaluating her with the intent of freeing up and doing a colonoscopy on her since radiographically it seems that she does have a small-bowel obstruction. It may just be an obstructed or inspissated colonic contents as the primary goal. Regarding any abdominal procedures on her it would be almost prohibitive undertaking that would certainly bring her to a situation that will most likely lead her to her demise. We will await Dr. Abbasi's evaluation and input and make further recommendations after that.
--- NOTE | 2016-05-01 16:32 | SURGERY PROGRESS NOTE ---
DATE: 05/01/2016 SUMMARY: adding to my brief note from earlier this morning, however, the patient waiting the consultation from Dr. Abbasi for a gastroenterology consultation regarding possibility of entertaining a colonoscopy to try to decompress this colon inspissated with stool. He will try at this time to use some Cytotecs and supplemented with some Reglan. This was instituted a few hours ago. On reexamining the patient at this time, the patient is resting comfortably, she is alert, coherent and in no distress and she has a CPAP on. On questioning her further, the patient has had some abdominal distention all along and were well aware of that because she basically has no abdominal wall. She states that she does really not feel any worse than she was 24 hours ago. Her last vitals showed a temperature of 37.1, pulse 102, respirations 18, blood pressure 168/82, O2 sats 96% on CPAP and on BiPAP at 60%. Her I\T\O; she had 350 mL of urine over the last 8 hours. The NG drainage is about 500 mL today. It is reported that she had 1 bowel movement, but the nurses could not confirm that completely. Her laboratory studies this morning was 18.57 white count. She is slightly more hemoconcentrated at 12.7. She does have a left shift. Her chemistry shows a BUN of 76; a creatinine 2.80, which is improved from yesterday. Her abdomen is markedly distended, but it is nontender. We can palpate through the abdominal wall the mesh that are causing some discomfort and this has outlined pretty much about 3/4 of her abdomen is synthetic material to reconstruct her abdominal wall. Her midline incision is pretty well healed except one small area. There are no femoral hernias. At this point, I will see if we can maximize her medical therapy to try to avoid any surgery on this patient, which pretty much would be catastrophic knowing what is the contents of the remaining tissue in her abdominal wall and abdominal contents. At most, one must consider the possibility if allowable to try to do us a cecostomy on her and we may be able to outline that radiographically by the ultrasound or by CAT scan to make a small incision and just try to decompress her in that fashion. There is a small possibility that must be considered, but I would try to avoid major abdominal exposure at all costs . Based on her clinical picture further rec will be made MTDD
[2016-05-01] MEDS: SODIUM CHLORIDE 0.9% 1000ML 1,000 ML IV SCH (17:15)
--- NOTE | 2016-05-01 20:52 | DIAGNOSTIC IMAGING REPORT ---
CT SCAN OF THE CHEST, ABDOMEN, AND PELVIS WITHOUT IV CONTRAST CLINICAL HISTORY: Respiratory failure. Generalized abdominal pain. COMPARISON STUDY: Chest CT dated 04/26/2016. Abdominal CT dated 04/25/2016. TECHNIQUE: CT scan of the chest, abdomen, and pelvis was performed from the thoracic inlet to the proximal femora. Images are reviewed in the axial, sagittal, and coronal planes. IV contrast was not administered without complication as per the referring clinician. Note that the examination was performed and significant suboptimal fashion without oral and IV contrast. Automated dose control exposure was utilized. CT DOSE: 1855.97 mGy.cm FINDINGS: CHEST: Thyroid: Imaged portions of the thyroid gland are normal in size and heterogeneous in attenuation. Thoracic aorta: There is atherosclerotic calcification of the thoracic aorta is normal in caliber and demonstrates standard 3-vessel arch anatomy. A left subclavian central venous infusion port is in place. Heart: The heart is mildly enlarged and without pericardial effusion. The coronary arteries and mitral annulus are densely calcified. The main pulmonary arteries are dilated suggesting pulmonary artery hypertension. Lungs and pleural spaces: There are moderate pleural effusions with consolidation. This likely represents atelectasis. The trachea and central airways are clear. Mediastinum: There are scattered subcentimeter mediastinal lymph nodes. These are not pathologically enlarged by size criteria. Selina: Not well assessed without IV contrast. Axillae: There is no axillary lymphadenopathy. Bony thorax: The skeletal structures are osteopenic. No lytic or blastic lesions are identified. Degenerative change and hyperkyphosis are noted in the thoracic spine. Arthritic change is also seen in the shoulders. ABDOMEN AND PELVIS: Liver: The unenhanced liver is normal in size, contour, and attenuation. There is no intrahepatic biliary ductal dilatation. Gallbladder: Hyperdense material. The gallbladder, likely representing vicariously excreted contrast. Spleen: Normal in size and attenuation. Pancreas: Mildly atrophic and grossly unremarkable. Adrenal glands: Unremarkable. Kidneys: The unenhanced kidneys are atrophic and without hydronephrosis. The renal cortex appears hyperdense, likely representing retained contrast and acute renal injury. No renal calculi are identified. Scattered subcentimeter cortical hypodensities likely represent cysts but are too small for definitive characterization. Abdominal vasculature: The abdominal aorta is normal in course and caliber noting moderate to advanced atherosclerotic calcification. Stomach and bowel: An enteric tube terminates in the stomach. The duodenum is normal in configuration. A duodenal diverticulum is noted. There is marked laxity of the ventral abdominal wall with diastases of the rectus musculature and ventral protrusion of both small bowel loops and colon. There is no bowel obstruction. Residual enteric contrast is present within the colon. The colon is distended and filled with liquid stool, and the cecum measures 7 cm. There is marked colonic wall thickening and edema seen involving the left colon, extending from the mid transverse colon to the sigmoid region. The appendix is not identified and reported surgically absent. Peritoneum: There is a small volume of perihepatic and perisplenic ascites. The volume of ascitic fluid has decreased from 04/25/2016. No intraperitoneal free air is seen. No organized fluid collection is identified. Lymphadenopathy: None. Pelvic viscera: The bladder is decompressed around a Britton catheter. Foci of intraluminal gas are likely related to instrumentation. The uterus and adnexa are normal as imaged. Skeletal structures: The skeletal structures are osteopenic. Mild lumbosacral spondylosis is observed. No lytic or blastic lesions are seen. There are healed right pubic ring fractures. Soft tissues: There is body wall edema. IMPRESSION: 1. Suboptimal examination without oral and IV contrast. 2. There are moderate pleural effusions with bibasilar consolidation which likely represents atelectasis. The pleural effusions have decreased in size from 04/26/2016. 3. Mild cardiomegaly. 4. There is a small volume of abdominopelvic ascites, decreased from 04/25/2016. No organized fluid collection is suspected. 5. There is marked laxity of the ventral abdominal wall with diastases of the rectus abdominal musculature and ventral protrusion of both small bowel and colon. No bowel obstruction is seen. 6. The colon is distended and filled with liquid stool. Additionally, there is marked wall thickening and edema identified involving the left colon from the mid transverse colon to the sigmoid. The appearance is consistent with a nonspecific colitis. The degree of edema suggests Clostridium difficile. Clinical correlation will be required. 7. The bladder is decompressed around a Britton catheter. Foci of intraluminal gas are likely related to instrumentation. Correlate clinically and with urinalysis for evidence of superimposed cystitis. 8. The kidneys are atrophic and there is cortical retention of IV contrast suggesting acute renal injury. Clinical correlation will be required. 9. Additional findings as above. Electronically signed by: Sunil Keenan M.D. 05/01/2016 8:51 PM Dictated Date/Time: 05/01/2016 8:35 PM
[2016-05-01] MEDS ORDERED: ZOLPIDEM TARTRATE 5 MG TAB NG ONE (22:15)
[2016-05-02] VITALS (43 sets, daily range): BP systolic 123–192; BP diastolic 61–104; PULSE 100–122; TEMP 36.6–37.2; O2SAT 81–100
[2016-05-02] MEDS: LEVALBUTEROL 1.25MG/3ML NEB INH SCH ×6 (04:22→23:30)
[2016-05-02] MEDS: PIPERACILL/TAZOBAC IV 3.375 GM in DEXTROSE 5% 100ML 100 ML IV SCH ×3 (04:31→20:25)
[2016-05-02] MEDS: METOCLOPRAMIDE HCL INJ 5 MG/ML 2 ML VIAL IV. SCH ×3 (05:32→17:39)
[2016-05-02] MEDS: DILTIAZEM HCL 30 MG TAB NG SCH ×3 (05:32→17:39)
[2016-05-02 05:49] LABS: HEMATOCRIT 38.8 % (37-47); MEAN CELL VOLUME 80.3 fL (80-100); MEAN CORPUSCULAR HEMOGLOBIN 24.8 pg (25-34); MEAN CORPUSCULAR HGB CONC 30.9 g/dl (32-36); MEAN PLATELET VOLUME 10.3 fL (7.4-10.4); PLATELET COUNT 315 K/uL (130-400); RED BLOOD COUNT 4.83 M/uL (4.2-5.4)
[2016-05-02] MEDS: INSULIN ASPART 100 UNITS/ML 3 ML PEN SC SCH ×4 (05:50→21:00)
[2016-05-02] MEDS: SOD PHOSPHATE/SOD BIPHOSPHATE ENEMA 132 ML BTL PR SCH (05:52)
[2016-05-02 06:31] LABS: BUN/CREATININE RATIO 29.8 (10-20); CALCIUM 8.5 mg/dl (8.5-10.1); CREATININE 2.3 mg/dl (0.60-1.20); MAGNESIUM 3.6 mg/dl (1.8-2.4); PHOSPHORUS 3.8 mg/dl (2.5-4.9); POTASSIUM 4.4 mmol/L (3.5-5.1)
[2016-05-02] MEDS: LIDOCAINE HCL 2% VISCOUS SOLN 60 ML, DiphenhydrAMINE HCL SYRUP 150 MG, ALUMINUM/MAGNESI... MT SCH ×8 (07:41→20:59)
[2016-05-02] MEDS: DOCUSATE SODIUM 100 MG/10 ML UDC NG SCH ×2 (07:41→21:02)
[2016-05-02] MEDS: MISOPROSTOL 200 MCG TAB PO SCH ×4 (07:42→21:02)
[2016-05-02] MEDS: PAROXETINE 20 MG TAB PO SCH (07:42)
[2016-05-02] MEDS: POLYETHYLENE (MIRALAX) 17 GM PACK PO SCH (07:42)
--- NOTE | 2016-05-02 07:48 | SURGERY PROGRESS NOTE ---
DATE: 05/02/2016 Maribel has not had any output per rectum. She had a repeat CAT scan yesterday which I intended to order for today, but having said that it did show that she has markedly more distention of the colon and there may be a transition point in the descending colon area reinforcing the clinical aspect that her rectum and vault is empty. As far as the etiology of this it certainly could be just a kink or since she has no abdominal wall it could be just a panniculus causing some obstruction in that area. But having said this at this point there is no evidence of any true bowel obstruction other than that point. I went over with the radiologist to see the position of the cecum and it seems to be at McBurney's point. Therefore, having said this, I think probably we could offer her cecostomy at least to decompress that area. I discussed with the patient the possibility and she would like to proceed accordingly. I will discuss it with Dr. Dahl and house coordinator and will plan to do it later this morning if we all agree. Risks and complications were explained to the patient and as stated she would like to proceed accordingly. Discussed wth DR Nabila ANGEL
[2016-05-02] MEDS: METHYLPREDNISOLONE IV 20 MG in SYRINGE 0 ML IV SCH ×2 (07:49→21:01)
[2016-05-02] MEDS: HEPARIN SOD 5000 UNIT/0.5 ML CARP SQ SCH ×2 (07:50→21:04)
[2016-05-02] MEDS ORDERED: MIDAZOLAM HCL 1 MG/ML 2ML VIAL ONE (07:51)
[2016-05-02] MEDS ORDERED: FENTANYL CITRATE INJ 50 MCG/1 ML 2 ML VIAL ONE (07:51)
[2016-05-02] MEDS ORDERED: KETAMINE HCL INJ 50 MG/ML 10 ML VIAL ONE (07:52)
[2016-05-02] MEDS ORDERED: BUPIVACAINE/EPINEPHRINE 0.5% MPF 1:200,000 30 ML VIAL ONE ×2 (07:53→09:03)
--- NOTE | 2016-05-02 09:25 | Critical Care Progress Note ---
Critical Care Progress Note Date of Service May 02, 2016. ICU Day ICU Day Number: [id number] Tate Subjective Patient states she feels her SOB has improved but still had had no improvement in the abdominal distention/ pain - She has yet to have a BM Dr Da Silva was in this am to see the patient and it was decided she would go to the OR for intervention ROS of 10 systems was completed and negative aside from above Objective General: ambulatory, not in acute distress, BIPAP is on Skin: no rashes noted, no suspicious lesions, no areas of inflammations/ lacerations/ erythema noted CVS: S1/ S2 noted, RRR, 3/6 systolic murmur, no cyanosis RVS: not in acute respiratory distress, coarse breath sounds noted, decreased to bilat bases Neck: inspection WNL, full ROM of neck ABD: BSx4 however hypoactive, distended abdomen, no pain on palpation MSK: inspection of all limbs WNL, motor and sensation intact in all limbs, no swelling/ pain on palpation of joints, YOSI on bilat LE NVS:Alert, oriented x 3 Lymph: No lymphadenopathy palpable Assessment & Plan 1. Acute on chronic hypoxemic respiratory failure 2. Recurring right pleural effusion; Bilateral pleural effusions - thoracentesis 04/26 3. Severe pulmonary hypertension: Feb 25, 2016 pressure was 73 mm HG with RV/ RA dilation 4. Abdominal pain with fecal retention 5. RAMBO on CKD; ATN: multifactorial - improving 6. ILD with oxygen dependence 7. Diastolic dysfunction 8. Depression 9. Gout 10. Non specific colitis NVS: alert and oriented - continue to avoid sedating medications - Tylenol for pain control - continue paxil PO as concern for withdrawal with abrupt d/c RVS - attempt to transition to Hi flow today -Thoracic sx - no need for thoracentesis at this point - CT chest did not reveal an empyema - pulmonary consult - Transition of steroids - Patient is having an extremely difficult time tolerating anything PO - will wait to continue the PO wean - Methyl pred 20 mg bid IV for now - Appropriate to consider high dose steroids for her ILD? - bronchodilators as gilma CVS - continue to monitor but NSR - Cardizem PO cont ID - Patient is on Zosyn empirically for concern for intra abdominal abscess- day GI - Patient has still not had a BM - Multiple agents were trialed along with Cytotec and fleets yesterday = Dr Da Silva plans to bring patient to the OR for intervention - GI consult- appreciate input - NG tube to suction - clear fluid diet and advance as tolerated FEN replete K as needed - follow bmp RENAL Consult nephro- appreciate in put - Cr improved to 2.3 today - will hold on additional lasix at this time - NSS @ 75cc/h - follow BMP - phosphorous now WNL ENDO - Insulin NSS - BSG AC HS HEME - heparin bid for DVT prophylaxis Access: A Port in right chest PT/OT Resident Physician Supervision Note: Dr. Figueroa was resident physician during care of patient. I separately evaluated patient and did history and exam. I discussed the case with the resident and generally agree with the findings and plan. I evaluated the patient after the operative procedure. She had liquid brown stool freely draining into the collection bag. There is significantly decreased firmness of the abdomen. Discussed the case with Dr. Da Silva, will allow decompression to occur today and then possibly start utilizing this drainage tube to facilitate irrigation. He reports that he felt the section: He could review did not appear to be ischemic and was healthy. We have clamped the NG tube and will likely remove it if the patient is freely draining from the tube. I briefly discussed the case with Dr. Garcia with regards to steroid usage and the ILD. He will leave recommendations later today. Discussed with Dr. Dahl. I reviewed the CT scan as well as CT report, I do not believe the patient has C. difficile. She does have risk factors, however, we have given significant stool laxatives and have not had significant nasogastric drainage nor stool output. I have personally spent 60 minutes of critical care time in the direct management of this patient. This is a life/limb threatening event. This includes time spent evaluating patient, direct bedside care, chart review, placing orders, interpretation of diagnostic studies, discussion with consultants, patient, and family members, as well as other required patient management activities. This time is exclusive of all separately billable procedures, and teaching time and separate from and in addition to any other critical care service time. Documented By: Desmond Tate DO Consults & Procedures Consultants: Dr Da Silva- General Surgery Dr Abbasi - GI Dr Reddy- Pulm Dr Benrardo- thoracic sx Data Medications: Current Inpatient Medications Medications (Trade) Dose Ordered Sig/Gilma Route Start Time Stop Time Status Last Admin Dose Admin Acetaminophen (Tylenol Tab) 650 mg Q4H PRN PO 04/25/16 18:45 05/25/16 18:44 04/28/16 00:40 650 MG Heparin Sodium (Porcine) (Heparin Sq 5000 Unit/0.5ml) 5,000 unit Q12H SQ 04/25/16 21:00 05/25/16 20:59 05/02/16 07:50 5,000 UNIT Paroxetine HCl (pAXil TAB) 20 mg DAILY PO 04/26/16 09:00 05/26/16 08:59 05/01/16 08:11 20 MG Piperacillin Sod/ Tazobactam Sod (Consult) 1 ea UD PRN N/A 04/25/16 20:15 05/25/16 20:14 Heparin Sodium (Porcine) (Heparin 100 Unit/ml 5ml Flush) 5 ml PRN PRN IV 04/25/16 20:30 05/25/16 20:29 04/26/16 06:11 5 ML Levalbuterol (Xopenex 1.25MG/ 3ML Neb) 1.25 mg Q4R INH 04/26/16 05:00 05/26/16 04:59 05/02/16 07:44 1.25 MG Ondansetron HCl 4 mg 4 mg Q6H PRN IV 04/26/16 13:00 05/26/16 12:59 05/01/16 17:13 4 MG Acetaminophen 100 ml @ 400 mls/hr Q8H PRN IV 04/26/16 17:30 05/26/16 17:29 05/01/16 19:40 400 MLS/HR Piperacillin Sod/ Tazobactam Sod/ Dextrose (Zosyn Iv/D5 100ml) 115 ml @ 28.75 mls/ hr Q12H IV 04/27/16 16:00 05/04/16 23:59 05/02/16 04:31 28.75 MLS/HR Insulin Aspart (novoLOG ASPART) SLIDING SCALE G... ACHS SC 04/27/16 21:00 05/27/16 20:59 05/02/16 05:50 3 UNITS Polyethylene 17 gm 17 gm DAILY PO 04/29/16 09:00 05/29/16 08:59 05/01/16 08:10 17 GM Iron Sucrose/ Sodium Chloride (Venofer Inj/Nss 100ml) 110 ml @ 220 mls/hr Q2D@1100 IV 04/30/16 11:00 05/08/16 16:00 04/30/16 11:12 220 MLS/HR Prednisone (PredniSONE TAB) 20 mg BID PO 05/01/16 09:00 Future Hold 05/01/16 08:14 20 MG Hydralazine HCl (HydrALAZINE INJ) 10 mg Q6H PRN IV. 04/30/16 21:45 05/30/16 21:44 05/01/16 16:57 10 MG Docusate Sodium (coLACE SYRUP) 100 mg BID NG 05/01/16 09:00 05/31/16 08:59 05/01/16 21:21 100 MG Lansoprazole (Prevacid Solutab) 30 mg QAM NG 05/01/16 09:00 05/31/16 08:59 Future Hold Diltiazem HCl 30 mg 30 mg Q6 NG 05/01/16 09:00 05/31/16 08:59 05/02/16 05:32 30 MG Methylprednisolone Sodium Succinate/ Syringe 0.32 ml @ 1.5 mls/min BID IV 05/01/16 09:00 05/31/16 08:59 05/02/16 07:49 1.5 MLS/MIN Lidocaine HCl/ Diphenhydramine HCl/Al Hydroxide/ Mg Hydroxide/ Glycerin/Barcode (VISCOUS LIDOCAINE 2% Soln/ Benadryl Syrup/ Maalox Susp/ Glycerin Anhydrous Soln) BID MT 05/01/16 10:00 05/31/16 09:59 05/01/16 21:21 5 ML Metoclopramide HCl (Reglan Inj) 5 mg Q6H IV. 05/01/16 12:00 05/31/16 09:29 05/02/16 05:32 5 MG Misoprostol (Cytotec Tab) 200 mcg QID PO 05/01/16 13:00 05/31/16 12:59 05/01/16 21:18 200 MCG Sodium Biphosphate/ Sodium Phosphate 132 ml 132 ml [id number] [place] 05/01/16 13:00 05/31/16 12:59 05/02/16 05:52 132 ML Sodium Chloride (Nss 1000ml) 1,000 ml @ 75 mls/hr [id number] IV 05/01/16 17:15 05/01/16 17:15 50 MLS/HR I & O: 24-Hour Column 05/02/16 08:00 Intake Total 1926 ml Output Total 725 ml Balance 1201 ml Vital Signs: Date Time Temp Pulse Resp B/P Pulse Ox O2 Delivery O2 Flow Rate FiO2 05/02/16 08:00 37.0 110 19 150/80 96 BiPAP 05/02/16 08:00 100 BiPAP 50.0 60 05/02/16 07:19 112 100 70 05/02/16 07:18 112 18 100 BiPAP/CPAP 70 05/02/16 06:01 107 23 151/85 91 05/02/16 05:01 112 33 126/61 99 05/02/16 04:01 36.9 113 21 157/76 98 05/02/16 04:01 113 21 157/76 98 05/02/16 04:00 113 94 70 05/02/16 04:00 94 BiPAP 70 05/02/16 04:00 113 26 94 BiPAP/CPAP 70 05/02/16 03:01 114 21 157/74 97 05/02/16 02:01 111 21 158/77 100 05/02/16 02:01 111 21 158/77 100 05/02/16 01:01 114 27 145/94 100 05/02/16 01:01 114 27 145/94 100 05/02/16 00:01 113 23 154/78 98 05/02/16 00:01 113 23 154/78 98 05/02/16 00:00 98 BiPAP 70 05/01/16 23:01 106 19 159/89 91 BiPAP 70 106 05/01/16 22:50 117 94 70 05/01/16 22:48 117 19 94 BiPAP/CPAP 70 05/01/16 22:01 112 22 175/73 91 BiPAP 70 112 05/01/16 21:41 118 19 160/79 87 BiPAP 70 118 05/01/16 21:35 116 25 174/87 83 BiPAP 70 116 05/01/16 21:01 115 21 164/102 96 BiPAP 70 115 05/01/16 20:54 108 21 159/88 93 BiPAP 70 108 05/01/16 20:53 100 95 80 05/01/16 20:01 37.1 120 20 173/95 98 BiPAP 70 05/01/16 20:00 BiPAP 05/01/16 19:30 88 20 86 BiPAP/CPAP 80 05/01/16 18:00 116 24 146/85 90 BiPAP 60 05/01/16 17:21 115 152/91 05/01/16 16:00 94 BiPAP 60 05/01/16 16:00 36.2 106 20 179/111 94 BiPAP 60 05/01/16 15:46 115 20 86 BiPAP/CPAP 60 05/01/16 12:00 102 18 168/82 96 BiPAP 60 05/01/16 12:00 96 BiPAP 05/01/16 11:49 105 20 95 BiPAP/CPAP 90 05/01/16 11:00 100 18 165/76 95 BiPAP 60 05/01/16 10:00 102 21 159/81 96 BiPAP 60 Laboratory Results: Last 24 Hours Test 05/01/16 11:24 05/01/16 14:48 05/01/16 15:48 05/01/16 21:27 Bedside Glucose 133 mg/dl 100 mg/dl 138 mg/dl Venous Blood pH 7.44 Venous Blood Partial Pressure CO2 36 mmHg Venous Blood Partial Pressure O2 54 mmHg Venous Blood HCO3 24 mmol/L Venous Blood Oxygen Saturation 87.5 % Venous Blood Base Excess -0.1 mmol/L Lactic Acid Level 1.6 mmol/L Test 05/02/16 05:44 05/02/16 05:45 Bedside Glucose 188 mg/dl White Blood Count 21.00 K/uL Red Blood Count 4.83 M/uL Hemoglobin 12.0 g/dL Hematocrit 38.8 % Mean Corpuscular Volume 80.3 fL Mean Corpuscular Hemoglobin 24.8 pg Mean Corpuscular Hemoglobin Concent 30.9 g/dl RDW Standard Deviation 50.3 fL RDW Coefficient of Variation 17.2 % Platelet Count 315 K/uL Mean Platelet Volume 10.3 fL Sodium Level 141 mmol/L Potassium Level 4.4 mmol/L Chloride Level 104 mmol/L Carbon Dioxide Level 22 mmol/L Anion Gap 15.0 mmol/L Blood Urea Nitrogen 69 mg/dl Creatinine 2.30 mg/dl Est Creatinine Clear Calc Drug Dose 21.6 ml/min Estimated GFR () 23.8 Estimated GFR (Non- 20.5 BUN/Creatinine Ratio 29.8 Random Glucose 171 mg/dl Calcium Level 8.5 mg/dl Phosphorus Level 3.8 mg/dl Magnesium Level 3.6 mg/dl Albumin 3.4 gm/dl
--- NOTE | 2016-05-02 09:51 | [facility] Post Operative Brief Note ---
Immediate Operative Summary Operative Date May 02, 2016. Pre-Operative Diagnosis colonic obstruction Post-Operative Diagnosis same Procedure(s) Performed Cecostomy Surgeon Dr. Da Silva Transportation Planning Engineer Surgeon(s) none Estimated Blood Loss 3.5cc Findings as preop dilated colon liquid stool mucosa no evidence grossly of inflammation or ischemia Specimens none per surgeon Drains #34 mushroom catheter cecum, wound packed with strip vaseline gauze Anesthesia 1% xyl(15 cc) and iv sedation
--- NOTE | 2016-05-02 10:08 | Anesthesiology Progress Note ---
Anesthesia Post Op Note Date & Time May 02, 2016 at 10:05 Vital Signs Pain Intensity: 5.0 Vital Signs Past 12 Hours Date Time Temp Pulse Resp B/P Pulse Ox O2 Delivery O2 Flow Rate FiO2 05/02/16 08:00 37.0 110 19 150/80 96 BiPAP 05/02/16 08:00 100 BiPAP 50.0 60 05/02/16 07:19 112 100 70 05/02/16 07:18 112 18 100 BiPAP/CPAP 70 05/02/16 06:01 107 23 151/85 91 05/02/16 05:01 112 33 126/61 99 05/02/16 04:01 36.9 113 21 157/76 98 05/02/16 04:01 113 21 157/76 98 05/02/16 04:00 113 94 70 05/02/16 04:00 94 BiPAP 70 05/02/16 04:00 113 26 94 BiPAP/CPAP 70 05/02/16 03:01 114 21 157/74 97 05/02/16 02:01 111 21 158/77 100 05/02/16 02:01 111 21 158/77 100 05/02/16 01:01 114 27 145/94 100 05/02/16 01:01 114 27 145/94 100 05/02/16 00:01 113 23 154/78 98 05/02/16 00:01 113 23 154/78 98 05/02/16 00:00 98 BiPAP 70 05/01/16 23:01 106 19 159/89 91 BiPAP 70 106 05/01/16 22:50 117 94 70 05/01/16 22:48 117 19 94 BiPAP/CPAP 70 Notes Mental Status: alert / awake / arousable, participated in evaluation Pt Amnestic to Procedure: Yes Nausea / Vomiting: adequately controlled Pain: adequately controlled Airway Patency, RR, SpO2: stable & adequate BP & HR: stable & adequate Hydration State: stable & adequate Anesthetic Complications: no major complications apparent Pt had open cecectomy under local w/ IV sedation. She did very well. We left her on her BiPAP for the case w/ the same 15/10 setting but increased the FiO2 from 60 to 100%. She received 2 mg midazolam and 50 mg ketamine. She remains on BiPAP 15/10 w/ FiO2 down to 80%. Will continue to wean FiO2. Post-op vitals BP 155/82, HR 105, RR 18, SpO2 100%, T 36.8. I gave report to Dr. Tate.
--- NOTE | 2016-05-02 10:20 | OPERATIVE REPORT ---
DATE OF OPERATION: 05/02/2016 PREOPERATIVE DIAGNOSIS: Colonic bowel obstruction. POSTOPERATIVE DIAGNOSIS: Same. PROCEDURE: Cecostomy. SURGEON: Dr. Da Silva. OPERATION AND FINDINGS: SUMMARY: The patient was brought into the operating room theater. Actually could not be lying flat. She was almost at 45 degrees with BiPAP on. The abdomen was prepped with Betadine solution and properly draped. We had felt that in the midline, probably at McBurney's point, after review of the CAT scan with the radiologist, was an area that we possibly could enter whether it was the cecum or ascending color or right colon in that area. It was hard to tell but most likely was cecum. We could palpate a very soft area just about 4 inches away from the midline and I felt that it was probably an area that we may be able to access this through. We marked it out almost at McBurney's point as best as we could. Therefore, local anesthetic was used, 1% Xylocaine. We used about 20 mL. We infiltrated an area about 2 inches at most surrounding it. We made an incision after achieving anesthetic level, deepened through subcutaneous tissue. The incision we made was probably an inch and a half long. We dissected out 2 large veins in the subcutaneous tissue was cauterized. We went down to the external oblique where we were able to open this and actually identified the internal oblique, very attenuated fibers, very pulled up and eventually we entered the peritoneal cavity where it was identified a structure that seemed to be colonic in nature but hard to tell at this time. As we maneuvered it more, we were able to identify as we were pulling this out of the incision with Imer clamp, we saw the tinea confirming that we were in the colonic area. At this point, we placed stay sutures of 3-0 silk suture and made a small opening in the colon itself, some escape gas quickly came out, and enlarge the incision enough to place a suction and suctioned out a significant amount of liquid stool. Once this had been performed, we would look at the mucosa and grossly appeared normal, it was not ischemic. At this point, we prepped a #34mushroom catheter, cut the mushroom aspect out of it sufficient enough that we could have cupola that would hold it into the belly. We then positioned this inside the cecum and closed the cecum around it with interrupted 3-0 and 2-0 silk and 3-0 chromic. We then tacked this area, the cecum to the internal oblique in at least 3 points. We then tacked more of it into the external oblique fascia was similarly 3-0 silk sutures. I elected at this point then just to pack the wound with some plain Vaseline gauze which we laid in there. We then tacked the mushroom catheter onto the abdominal wall north and south using 2-0 silk suture. We closed the wound with 2-0 interrupted silk. Dressing was applied. The procedure was tolerated well by the patient. Estimated blood loss approximately 5 mL. The patient was taken to recovery room in good condition. I attest to the content of the Intraoperative Record and any orders documented therein. Any exceptions are noted below. EUNICED
--- NOTE | 2016-05-02 11:08 | Nephrology Progress Note ---
Nephrology Progress Note Date of Service May 02, 2016. Chief Complaint F/U for acute kidney injury with history of chronic kidney disease. Subjective Maribel was seen and examined in ICU this am with her sister at bedside after she was just back from OR after cecostomy. On BiPAP. Renal function continues to improve, Cr 2.3 this am, other electrolytes stable. BP fair. UO decent Review of Systems A complete review of systems was performed. Pertinent positives are noted above. All other systems are negative. Vital Signs Last 8 Hrs Date Time Temp Pulse Resp B/P Pulse Ox O2 Delivery O2 Flow Rate FiO2 05/02/16 08:00 37.0 110 19 150/80 96 BiPAP 05/02/16 08:00 100 BiPAP 50.0 60 05/02/16 07:19 112 100 70 05/02/16 07:18 112 18 100 BiPAP/CPAP 70 05/02/16 06:01 107 23 151/85 91 05/02/16 05:01 112 33 126/61 99 05/02/16 04:01 36.9 113 21 157/76 98 05/02/16 04:01 113 21 157/76 98 05/02/16 04:00 113 94 70 05/02/16 04:00 94 BiPAP 70 05/02/16 04:00 113 26 94 BiPAP/CPAP 70 05/02/16 03:01 114 21 157/74 97 05/02/16 02:01 111 21 158/77 100 05/02/16 02:01 111 21 158/77 100 I & O 24-Hour Column 05/02/16 08:00 Intake Total 1926 ml Output Total 725 ml Balance 1201 ml Last Recorded Weight Weight (Kilograms): 79.500 Physical Exam GENERAL: elderly female, AAA x 3, ill-appearing, drowsy and sleepy ,no distress. NECK: Supple, no JVD. RESPIRATORY: Decrease BS B/L base CARDIOVASCULAR: S1, S2 normal, rate rhythm regular. ABDOMEN: distended, tense and has cecostomy tube in place EXTREMITY: No lower extremity edema Family History Cancer Hypertension Social History Smoking Status: Never smoker Drug Use: none Marital Status: Occupation: retired Laboratory Results Past 24 Hours 05/02/16 05:45 05/02/16 05:45 Test 05/01/16 11:24 05/01/16 14:48 05/01/16 15:48 05/01/16 21:27 Bedside Glucose 133 mg/dl (70-90) 100 mg/dl (70-90) 138 mg/dl (70-90) Venous Blood pH 7.44 (7.36-7.41) Venous Blood Partial Pressure CO2 36 mmHg (38.0-50.0) Venous Blood Partial Pressure O2 54 mmHg Venous Blood HCO3 24 mmol/L Venous Blood Oxygen Saturation 87.5 % Venous Blood Base Excess -0.1 mmol/L Lactic Acid Level 1.6 mmol/L (0.4-2.0) Test 05/02/16 05:44 05/02/16 05:45 Bedside Glucose 188 mg/dl (70-90) Red Blood Count 4.83 M/uL (4.2-5.4) Mean Corpuscular Volume 80.3 fL (80-100) Mean Corpuscular Hemoglobin 24.8 pg (25-34) Mean Corpuscular Hemoglobin Concent 30.9 g/dl (32-36) RDW Standard Deviation 50.3 fL (36.4-46.3) RDW Coefficient of Variation 17.2 % (11.5-14.5) Mean Platelet Volume 10.3 fL (7.4-10.4) Anion Gap 15.0 mmol/L (3-11) Est Creatinine Clear Calc Drug Dose 21.6 ml/min Estimated GFR () 23.8 Estimated GFR (Non- 20.5 BUN/Creatinine Ratio 29.8 (10-20) Calcium Level 8.5 mg/dl (8.5-10.1) Phosphorus Level 3.8 mg/dl (2.5-4.9) Magnesium Level 3.6 mg/dl (1.8-2.4) Albumin 3.4 gm/dl (3.4-5.0) Allergies Coded Allergies: Morphine (Verified Allergy, Unknown, 04/25/16) Sulfamethoxazole w/Trimethoprim (Verified Allergy, Unknown, ., 04/25/16) Codeine (Verified Adverse Reaction, Mild, nausea, 04/25/16) Penicillins (Verified Adverse Reaction, Mild, severe nausea,HAD CEPHALOSPORINS, ZOSYN W/O PROBLEM, 04/25/16) Medications Current Inpatient Medications Medications (Trade) Dose Ordered Sig/Gilma Route Start Time Stop Time Status Last Admin Dose Admin Acetaminophen (Tylenol Tab) 650 mg Q4H PRN PO 04/25/16 18:45 05/25/16 18:44 04/28/16 00:40 650 MG Heparin Sodium (Porcine) (Heparin Sq 5000 Unit/0.5ml) 5,000 unit Q12H SQ 04/25/16 21:00 05/25/16 20:59 05/02/16 07:50 5,000 UNIT Paroxetine HCl (pAXil TAB) 20 mg DAILY PO 04/26/16 09:00 05/26/16 08:59 05/01/16 08:11 20 MG Piperacillin Sod/ Tazobactam Sod (Consult) 1 ea UD PRN N/A 04/25/16 20:15 05/25/16 20:14 Heparin Sodium (Porcine) (Heparin 100 Unit/ml 5ml Flush) 5 ml PRN PRN IV 04/25/16 20:30 05/25/16 20:29 04/26/16 06:11 5 ML Levalbuterol (Xopenex 1.25MG/ 3ML Neb) 1.25 mg Q4R INH 04/26/16 05:00 05/26/16 04:59 05/02/16 07:44 1.25 MG Ondansetron HCl 4 mg 4 mg Q6H PRN IV 04/26/16 13:00 05/26/16 12:59 05/01/16 17:13 4 MG Acetaminophen 100 ml @ 400 mls/hr Q8H PRN IV 04/26/16 17:30 05/26/16 17:29 05/01/16 19:40 400 MLS/HR Piperacillin Sod/ Tazobactam Sod/ Dextrose (Zosyn Iv/D5 100ml) 115 ml @ 28.75 mls/ hr Q12H IV 04/27/16 16:00 05/04/16 23:59 05/02/16 04:31 28.75 MLS/HR Insulin Aspart (novoLOG ASPART) SLIDING SCALE G... ACHS SC 04/27/16 21:00 05/27/16 20:59 05/02/16 05:50 3 UNITS Polyethylene 17 gm 17 gm DAILY PO 04/29/16 09:00 05/29/16 08:59 05/01/16 08:10 17 GM Iron Sucrose/ Sodium Chloride (Venofer Inj/Nss 100ml) 110 ml @ 220 mls/hr Q2D@1100 IV 04/30/16 11:00 05/08/16 16:00 04/30/16 11:12 220 MLS/HR Prednisone (PredniSONE TAB) 20 mg BID PO 05/01/16 09:00 Future Hold 05/01/16 08:14 20 MG Hydralazine HCl (HydrALAZINE INJ) 10 mg Q6H PRN IV. 04/30/16 21:45 05/30/16 21:44 05/01/16 16:57 10 MG Docusate Sodium (coLACE SYRUP) 100 mg BID NG 05/01/16 09:00 05/31/16 08:59 05/01/16 21:21 100 MG Lansoprazole (Prevacid Solutab) 30 mg QAM NG 05/01/16 09:00 05/31/16 08:59 Future Hold Diltiazem HCl 30 mg 30 mg Q6 NG 05/01/16 09:00 05/31/16 08:59 05/02/16 05:32 30 MG Methylprednisolone Sodium Succinate/ Syringe 0.32 ml @ 1.5 mls/min BID IV 05/01/16 09:00 05/31/16 08:59 05/02/16 07:49 1.5 MLS/MIN Lidocaine HCl/ Diphenhydramine HCl/Al Hydroxide/ Mg Hydroxide/ Glycerin/Barcode (VISCOUS LIDOCAINE 2% Soln/ Benadryl Syrup/ Maalox Susp/ Glycerin Anhydrous Soln) BID MT 05/01/16 10:00 05/31/16 09:59 05/01/16 21:21 5 ML Metoclopramide HCl (Reglan Inj) 5 mg Q6H IV. 05/01/16 12:00 05/31/16 09:29 05/02/16 05:32 5 MG Misoprostol (Cytotec Tab) 200 mcg QID PO 05/01/16 13:00 05/31/16 12:59 05/01/16 21:18 200 MCG Sodium Biphosphate/ Sodium Phosphate 132 ml 132 ml [id number] [place] 05/01/16 13:00 05/31/16 12:59 05/02/16 05:52 132 ML Sodium Chloride (Nss 1000ml) 1,000 ml @ 75 mls/hr [id number] IV 05/01/16 17:15 05/01/16 17:15 50 MLS/HR Hydromorphone HCl (Dilaudid Inj) 0.5 mg Q3R PRN IV 05/02/16 10:00 05/16/16 09:59 UNV Impression (1) Acute kidney injury (2) acute exacer. copd, chronic resp failure (3) Anemia (4) Hyperphosphatemia (5) ACUTE BRONCO-PNEUM,ACUTE RESP FAIL (6) CKD (chronic kidney disease) stage 3, GFR 30-59 ml/min Maribel is a 71-year-old female with them complicated past medical history including stage 3 chronic kidney disease, hypertension, history of for a COPD and interstitial lung disease, pulmonary hypertension, tricuspid regurgitation, diastolic CHF, prior history of via intestinal resection for bowel obstruction admitted to the hospital with abdominal pain and respiratory failure with them acute on chronic diastolic CHF. She had [id number] IV contrast us study on 2 consecutive days. Has history of stage 3 chronic kidney disease, creatinine seems to be variable from 1-1.5, possibly secondary to microvascular disease versus grade 2 cardiorenal syndrome. On admission creatinine was 1.3 which rapidly worsened over last few days and creatinine was 3.2 days this morning and she has been oliguric. Currently her blood pressure, volume status and other electrolyte acceptable. Overall she seems to be clinically improving but still requiring BiPAP to maintain her oxygen saturation. Chest x-ray yesterday was concerning for right lower lobe pneumonia, currently on Zosyn empirically. On admission she was also found to have bilateral pleural effusion and had a thoracentesis done, with transudative effusion. Recommendations --In recovery phase from recent ATN, with surgery this am, would avoid diuretics and aim for net even. --Monitor renal function closely with daily renal panel -- avoid nephrotoxins medications --dose medications for GFR less than 10 --on Venofer 200mg IV every other day Will follow
[2016-05-02] MEDS: SODIUM CHLORIDE 0.9% 1000ML 1,000 ML IV SCH (11:16)
[2016-05-02] MEDS: IRON SUCROSE INJ 200 MG in SODIUM CHLORIDE 0.9% 100ML 100 ML IV SCH (11:16)
--- NOTE | 2016-05-02 11:55 | SURGERY PROGRESS NOTE ---
DATE: 05/02/2016 DATE: 05/02/2016. Ms. Shepard still has GI issues. I discussed this with Dr. Da Silva. She is to have a cecostomy tube today. I have reviewed the patient's CT scan of her chest done yesterday. She does have some fluid, but I do not think this is the patient's problem. We know both sides are benign and I would not do anything different today. I am a bit concerned with her white count is up to 21,000. We see no growth on any cultures to date. We will continue to follow along. At this point, I would not do anything different with this patient. EUNICED
[2016-05-02 12:37] LABS: IPAP 15; ISTAT ARTERIAL BLOOD GAS HCO3 24 meq/L (19-24); ISTAT ARTERIAL BLOOD GAS PCO2 42 mmHg (35-46); ISTAT ARTERIAL BLOOD GAS PO2 46 mmHg (80-95); ISTAT ARTERIAL BLOOD GAS pH 7.36 (7.35-7.45); ISTAT CARBON DIOXIDE 25 mEq/l (24-31); ISTAT DELIVERY SYSTEM BIPAP; ISTAT FIO2 100 %; ISTAT RATE 20; ISTAT SITE L Brachial
--- NOTE | 2016-05-02 13:30 | Progress Note ---
Progress Note Date of Service May 02, 2016. Progress Note Patient is post cecostomy, doing well Abdomen is less distended and the site is draining well. Patient states that she currently feels more comfortable plan is to d/c NG tube and encourage PO intake as tolerated hold fleet x 24 hour and see how the patient is before restarting
--- NOTE | 2016-05-02 15:31 | GASTROINTESTINAL CONSULTATION ---
DATE OF CONSULTATION: 05/02/2016 DATE OF CONSULTATION: 05/02/2016. HISTORY OF PRESENT ILLNESS: The patient underwent a CT scan last night which showed marked thickening of the colon with a ventral wall hernia that contains both small and large bowel components although a clear obstruction is not identified. The patient went for surgery today for cecostomy tube placement to aid in colonic decompression. The patient's white count is up to 21,000 today, although hemoglobin remained stable at 12. The blood chemistry BUN and creatinine are 69 and 2.3, phosphorus is normal at 3.8, magnesium is slightly elevated at 3.6. Potassium normal at 4.4. The patient is awake and alert and appears oriented to person, place, and time. CURRENT MEDICATIONS: Include piperacillin, tazobactam, Dilaudid IV, metoclopramide was attempted last evening along with Cytotec tablets. The patient also on Solu-Medrol, diltiazem, hydralazine, parenteral iron, Zofran, Paxil and DVT heparin. ALLERGIES: TO CODEINE, MORPHINE, PENICILLIN AND BACTRIM. PHYSICAL EXAMINATION: VITAL SIGNS: At this time are afebrile at 37.0 axillary, blood pressure is 153/76, 110 heart rate, respirations 25. The patient is on BIPAP with a FIO2 of 70%, pulse ox 96%. HEAD, EYES, EARS, NOSE, AND THROAT: Sclerae are anicteric. HEART: Normal S1, S2. Tachycardic. LUNGS: Showed poor effort. ABDOMEN: Soft, mildly tender diffusely throughout the abdomen. There is a tube exiting near the midline consistent with her cecostomy recently placed. There is sand colored stool, nonbloody in the collection bag. EXTREMITIES: Show +1 edema. IMPRESSION: The patient with what appears to be either colonic obstruction or high grade ileus. The patient is now undergoing a colonic decompression via cecostomy tube. Mucosa on CT scan is markedly inflamed and with the rise in the white count it is reasonable to empirically cover the patient for C. difficile. A sample was requested at this time from the cecostomy bag for C. diff processing. Given these findings, she may require either oral vancomycin or vanco via the cecostomy tube as well as IV Flagyl. Would continue to maintain normal electrolytes and follow white count and flat plate serially. We will continue to follow with you.
[2016-05-02] MEDS: HYDROmorphone INJ 0.5 MG/0.5 ML SYR IV PRN (21:30)
--- NOTE | 2016-05-02 23:32 | PROGRESS NOTE ---
DATE: 05/02/2016 A 71-year-old female with multiple medical problems as previously noted including her acute and chronic respiratory failure, acute and chronic renal failure, diastolic congestive heart failure, suspected ileus. The patient remains on her BiPAP. FiO2 is anywhere from 70-90% in order to maintain adequate oxygen saturation. The patient has not had a bowel movement. Multiple attempts were tried including multiple medications, multiple enemas, multiple laxatives without success. Yesterday, she was seen in GI consultation by Dr. Abbasi. Also seen in surgical consultation by Dr. Da Silva. Today, the patient was taken to the operating room and she had a cecostomy tube placed. Large amount of liquid stool removed. She remains afebrile. She seems to be resting. She denied any headache. No dizziness. She is markedly dyspneic with any activity. No chest pain. She has had recurrent nausea. No vomiting. She has an NG tube in place. She was having abdominal pain. She has a Britton catheter in place. PHYSICAL EXAMINATION: GENERAL: Well developed, in no acute distress. VITAL SIGNS: Blood pressure 155/94, pulse 121, respiration 25, temperature 37, oxygen saturation 96% on high FiO2, sometimes up to 100%. SKIN: Warm and dry. No rash. HEENT: BiPAP mask in place. NECK: Supple. No JVD. HEART: Regular heart sounds. 2/6 systolic murmur. LUNGS: Decreased breath sounds. ABDOMEN: Soft. Very minimal bowel sounds. EXTREMITIES: No edema, clubbing or cyanosis. TODAY'S LABORATORY TESTS: WBC count 21,000, hemoglobin 12, hematocrit 38.8, platelet count 315,000. Sodium 141, potassium 4.4, chloride 104, CO2 of 22, BUN 69, creatinine 2.3, glucose 171, calcium 8.5, magnesium 3.6, phosphorus 3.8. ASSESSMENT: 1. Acute and chronic respiratory failure. 2. Acute and chronic renal failure, but her creatinine is improving. 3. Diastolic congestive heart failure. 4. Severe constipation. Suspected multiple possibilities including ileus and obstruction. 5. CT scan of the abdomen and pelvis showed evidence of left-sided colitis. PLAN: 1. As noted, the patient underwent cecostomy early this morning by Dr. Da Silva. 2. She is continued on the same medications. 3. Dealing with her respiratory failure and adjusting her FiO2 as needed to maintain adequate oxygen saturation. 4. Her creatinine number is improving. 5. Today, her WBC count is back up to 21,000. We will see how it evolves once some of her intestinal obstruction or ileus is improved with the cecostomy tube. 6. Continuing on IV Zosyn.
[2016-05-03] VITALS (44 sets, daily range): BP systolic 59–185; BP diastolic 31–96; PULSE 62–125; TEMP 36.6–37.1; O2SAT 20–100
[2016-05-03] MEDS: DILTIAZEM HCL 30 MG TAB NG SCH ×2 (00:15→05:15)
[2016-05-03] MEDS: METOCLOPRAMIDE HCL INJ 5 MG/ML 2 ML VIAL IV. SCH ×4 (00:15→18:28)
[2016-05-03] MEDS: SODIUM CHLORIDE 0.9% 1000ML 1,000 ML IV SCH (00:19)
[2016-05-03] MEDS: PIPERACILL/TAZOBAC IV 3.375 GM in DEXTROSE 5% 100ML 100 ML IV SCH ×3 (03:22→20:32)
[2016-05-03] MEDS: HYDROmorphone INJ 0.5 MG/0.5 ML SYR IV PRN (03:23)
[2016-05-03] MEDS: LEVALBUTEROL 1.25MG/3ML NEB INH SCH ×4 (03:33→16:00)
[2016-05-03 05:54] LABS: HEMATOCRIT 35.4 % (37-47); MEAN CELL VOLUME 81.9 fL (80-100); MEAN CORPUSCULAR HEMOGLOBIN 25.2 pg (25-34); MEAN CORPUSCULAR HGB CONC 30.8 g/dl (32-36); MEAN PLATELET VOLUME 10.3 fL (7.4-10.4); PLATELET COUNT 225 K/uL (130-400); RED BLOOD COUNT 4.32 M/uL (4.2-5.4); WHITE BLOOD COUNT 22.42 K/uL (4.8-10.8)
[2016-05-03 06:26] LABS: BUN/CREATININE RATIO 31.9 (10-20); CALCIUM 8.7 mg/dl (8.5-10.1); CREATININE 2.1 mg/dl (0.60-1.20); MAGNESIUM 3.6 mg/dl (1.8-2.4); PHOSPHORUS 3.5 mg/dl (2.5-4.9); POTASSIUM 4.3 mmol/L (3.5-5.1)
[2016-05-03] MEDS: SOD PHOSPHATE/SOD BIPHOSPHATE ENEMA 132 ML BTL PR SCH (07:14)
--- NOTE | 2016-05-03 07:23 | SURGERY PROGRESS NOTE ---
DATE: 05/03/2016 Jazlyn is first postoperative day cecostomy. She is resting comfortably as she has been. She still requires significant oxygen administration. She is alert and coherent. She denies any abdominal pain. She denies any nausea. Last vitals showed a temperature of 36.6, pulse 102, respirations 24, blood pressure 132/64, O2 sats BiPAP 98% on 90%. I\T\O she had 225 mL urine overnight. The cecostomy tube is putting out some amount of liquid stool. The abdomen is softer than it had been. The right lower quadrant incision at the cecostomy site is free of any cellulitis. She had minimal bloody drainage on the dressing, which was changed. Laboratory studies this morning, her white count is still elevated at 22.42. Hemoglobin is 10.9. The PRP is pending. At this point, I would continue advancing her diet as tolerated. Certainly she can be out of bed as tolerated also. I will leave further management of fluids to Dr. Dahl and police and fire dispatcher.
[2016-05-03] MEDS: METHYLPREDNISOLONE IV 20 MG in SYRINGE 0 ML IV SCH (08:43)
[2016-05-03] MEDS: PAROXETINE 20 MG TAB PO SCH (08:43)
[2016-05-03] MEDS: POLYETHYLENE (MIRALAX) 17 GM PACK PO SCH (08:43)
[2016-05-03] MEDS: MISOPROSTOL 200 MCG TAB PO SCH ×2 (08:43→14:00)
[2016-05-03] MEDS: HEPARIN SOD 5000 UNIT/0.5 ML CARP SQ SCH ×2 (08:44→21:00)
[2016-05-03] MEDS: INSULIN ASPART 100 UNITS/ML 3 ML PEN SC SCH ×3 (08:45→18:29)
[2016-05-03] MEDS: LIDOCAINE HCL 2% VISCOUS SOLN 60 ML, DiphenhydrAMINE HCL SYRUP 150 MG, ALUMINUM/MAGNESI... MT SCH ×8 (08:46→20:10)
[2016-05-03] MEDS ORDERED: DOCUSATE SODIUM 100 MG CAP PO SCH (09:00)
[2016-05-03] MEDS ORDERED: RANITIDINE HCL 150 MG TAB PO SCH (09:00)
[2016-05-03] MEDS ORDERED: FUROSEMIDE 20 MG TAB PO SCH (09:00)
[2016-05-03] MEDS ORDERED: METOPROLOL TARTRATE 25 MG TAB PO SCH (09:00)
--- NOTE | 2016-05-03 09:37 | Critical Care Progress Note ---
Critical Care Progress Note Date of Service May 03, 2016. ICU Day ICU Day Number: [address] Tate Subjective Patient has ongoing improvement in the patient's abdominal distention however continues to have high oxygen requirement Denies any pain at this time Seems a little more disoriented and agitated this morning but still alert Objective General: ambulatory, not in acute distress, BIPAP is on Skin: no rashes noted, no suspicious lesions, no areas of inflammations/ lacerations/ erythema noted CVS: S1/ S2 noted, RRR, 3/6 systolic murmur, no cyanosis RVS: not in acute respiratory distress, coarse breath sounds noted, decreased to bilat bases Neck: inspection WNL, full ROM of neck ABD: BSx4 but still hypoactive, RLQ cecostomy noted, no drainage from site, shell and cecostomy draining well, abdomen is soft MSK: inspection of all limbs WNL, motor and sensation intact in all limbs, no swelling/ pain on palpation of joints, YOSI on bilat LE NVS:Alert, oriented x 3 Lymph: No lymphadenopathy palpable Assessment & Plan 1. Acute on chronic hypoxemic respiratory failure 2. Recurring right pleural effusion; Bilateral pleural effusions - thoracentesis 04/26 3. Severe pulmonary hypertension: Feb 25, 2016 pressure was 73 mm HG with RV/ RA dilation 4. Abdominal pain with fecal retention 5. RAMBO on CKD; ATN: multifactorial - improving 6. ILD with oxygen dependence 7. Diastolic dysfunction 8. Depression 9. Gout 10. Non specific colitis s/p cecostomy POD 1 NVS: alert and oriented - continue to avoid sedating medications - Tylenol for pain control - continue paxil PO as concern for withdrawal with abrupt d/c RVS - still requiring high O2 requirement, will discuss case with pulmonary to develop a plan of care -Thoracic sx - no need for thoracentesis at this point - CT chest did not reveal an empyema - Transition of steroids - Methyl pred 20 mg bid IV for now - Appropriate to consider high dose steroids for her ILD? - bronchodilators as gilma CVS - continue to monitor but NSR - Cardizem PO cont - Continue lopressor home dose - lasix bid ID - Patient is on Zosyn empirically for concern for intra abdominal abscess- day - plan is to d/c tomorrow - No c diff isolated GI - POD 1 Cecostomy - After multiple agents trialed, cecostomy was placed - Will irrigate with fleet bid as concern that stool blockage is still in place - Dr Da Silva following - GI consult- appreciate input - NG tube d/c - NPO until plan decided with pulmonary FEN replete K as needed - follow bmp RENAL Consult nephro- appreciate in put - Cr improved to 2.1 today - lasix bid - NSS @ 75cc/h d/c - follow BMP - phosphorous now WNL, magnesium still elevated ENDO - Insulin NSS - BSG AC HS HEME - heparin bid for DVT prophylaxis Access: A Port in right chest PT/OT Resident Physician Supervision Note: Dr. Figueroa was resident physician during care of patient. I separately evaluated patient and did history and exam. I discussed the case with the resident and generally agree with the findings and plan. I had an extensive discussion today with the patient, , and children at the patient's bedside. I explained that the patient has not had significant improvement in her respiratory status and we either need to progress to mechanical ventilation and tracheostomy given her oxygen and PEEP requirements or alternatively look towards comfort measures. I also explained to the family that with a tracheostomy she will likely not be returning home and would likely proceed to be living in a long-term care facility that can manage ventilated patients. The patient is agreeable with proceeding with intubation and tracheostomy. The family reiterated the patient's desires which she indicated that she did want to undergo tracheostomy if possible. Also discussed resuscitation status should her heart stop. The patient does not want to undergo her relic measures including shocks and CPR in event of cardiac arrest. Accordingly, she has been made a DO NOT RESUSCITATE in event of cardiac arrest. Patient is obviously very critically ill and has a very tenuous respiratory status, during the intubation which in its entirety lasted less than 60 seconds , the patient had significant hypoxia which was very difficult for her to recover from. I discussed the case with Dr. Garcia as well as Dr. Alejandro Adler. At this point I think the patient is an end-stage terminal condition without chance of meaningful recovery. If the family decides to transition to comfort measures I would be agreeable with this. Currently the patient still requires 100% FiO2 and is on a PEEP of 18. She is not a candidate for a tracheostomy at this point as that procedure which surely lead to her demise. If we're able to gain some ground on her hypoxia and ultimately have significant improvement in her PEEP and FiO2 at that time it may be reasonable to consider tracheostomy. I have personally spent 180 minutes of critical care time in the direct management of this patient. This is a life/limb threatening event. This includes time spent evaluating patient, direct bedside care, chart review, placing orders, interpretation of diagnostic studies, discussion with consultants, patient, and family members, as well as other required patient management activities. This time is exclusive of all separately billable procedures, and teaching time and separate from and in addition to any other critical care service time. Documented By: Desmond Tate DO Consults & Procedures Consultants: Dr Da Silva- General Surgery Dr Abbasi - GI Dr Reddy- Pulm Dr Bernardo- thoracic sx Data Medications: Current Inpatient Medications Medications (Trade) Dose Ordered Sig/Gilma Route Start Time Stop Time Status Last Admin Dose Admin Acetaminophen (Tylenol Tab) 650 mg Q4H PRN PO 04/25/16 18:45 05/25/16 18:44 04/28/16 00:40 650 MG Heparin Sodium (Porcine) (Heparin Sq 5000 Unit/0.5ml) 5,000 unit Q12H SQ 04/25/16 21:00 05/25/16 20:59 05/02/16 21:04 5,000 UNIT Paroxetine HCl (pAXil TAB) 20 mg DAILY PO 04/26/16 09:00 05/26/16 08:59 05/01/16 08:11 20 MG Piperacillin Sod/ Tazobactam Sod (Consult) 1 ea UD PRN N/A 04/25/16 20:15 05/25/16 20:14 Heparin Sodium (Porcine) (Heparin 100 Unit/ml 5ml Flush) 5 ml PRN PRN IV 04/25/16 20:30 05/25/16 20:29 04/26/16 06:11 5 ML Levalbuterol (Xopenex 1.25MG/ 3ML Neb) 1.25 mg Q4R INH 04/26/16 05:00 05/26/16 04:59 05/03/16 07:39 1.25 MG Ondansetron HCl 4 mg 4 mg Q6H PRN IV 04/26/16 13:00 05/26/16 12:59 05/01/16 17:13 4 MG Acetaminophen (Ofirmev Iv) 100 ml @ 400 mls/hr Q8H PRN IV 04/26/16 17:30 05/26/16 17:29 05/01/16 19:40 400 MLS/HR Insulin Aspart (novoLOG ASPART) SLIDING SCALE G... ACHS SC 04/27/16 21:00 05/27/16 20:59 05/02/16 16:56 3 UNITS Polyethylene 17 gm 17 gm DAILY PO 04/29/16 09:00 05/29/16 08:59 05/01/16 08:10 17 GM Iron Sucrose/ Sodium Chloride (Venofer Inj/Nss 100ml) 110 ml @ 220 mls/hr Q2D@1100 IV 04/30/16 11:00 05/08/16 16:00 05/02/16 11:16 220 MLS/HR Prednisone (PredniSONE TAB) 20 mg BID PO 05/01/16 09:00 Future Hold 05/01/16 08:14 20 MG Hydralazine HCl (HydrALAZINE INJ) 10 mg Q6H PRN IV. 04/30/16 21:45 05/30/16 21:44 05/01/16 16:57 10 MG Docusate Sodium (coLACE SYRUP) 100 mg BID NG 05/01/16 09:00 05/31/16 08:59 05/02/16 21:02 100 MG Lansoprazole (Prevacid Solutab) 30 mg QAM NG 05/01/16 09:00 05/31/16 08:59 Future Hold Diltiazem HCl 30 mg 30 mg Q6 NG 05/01/16 09:00 05/31/16 08:59 05/03/16 05:15 30 MG Methylprednisolone Sodium Succinate/ Syringe 0.32 ml @ 1.5 mls/min BID IV 05/01/16 09:00 05/31/16 08:59 05/02/16 21:01 1.5 MLS/MIN Lidocaine HCl/ Diphenhydramine HCl/Al Hydroxide/ Mg Hydroxide/ Glycerin/Barcode (VISCOUS LIDOCAINE 2% Soln/ Benadryl Syrup/ Maalox Susp/ Glycerin Anhydrous Soln) BID MT 05/01/16 10:00 05/31/16 09:59 05/02/16 20:59 5 ML Metoclopramide HCl (Reglan Inj) 5 mg Q6H IV. 05/01/16 12:00 05/31/16 09:29 05/03/16 05:15 5 MG Misoprostol (Cytotec Tab) 200 mcg QID PO 05/01/16 13:00 05/31/16 12:59 05/02/16 21:02 200 MCG Sodium Biphosphate/ Sodium Phosphate 132 ml 132 ml [id number] 05/01/16 13:00 05/31/16 12:59 Future Hold 05/02/16 05:52 132 ML Sodium Chloride (Nss 1000ml) 1,000 ml @ 75 mls/hr [id number] IV 05/01/16 17:15 05/03/16 00:19 75 MLS/HR Hydromorphone HCl 0.5 mg 0.5 mg Q3R PRN IV 05/02/16 10:00 05/16/16 09:59 05/03/16 03:23 0.5 MG Piperacillin Sod/ Tazobactam Sod/ Dextrose (Zosyn Iv/D5 100ml) 115 ml @ 28.75 mls/ hr Q8H IV 05/02/16 12:00 05/04/16 23:59 05/03/16 03:22 28.75 MLS/HR I & O: 24-Hour Column 05/03/16 07:59 Intake Total 2819 ml Output Total 875 ml Balance 1944 ml Vital Signs: Date Time Temp Pulse Resp B/P Pulse Ox O2 Delivery O2 Flow Rate FiO2 05/03/16 07:39 86 18 94 BiPAP/CPAP 80 05/03/16 06:01 103 12 152/76 97 05/03/16 04:01 36.6 102 24 132/64 98 BiPAP 90 05/03/16 04:00 100 BiPAP 90 05/03/16 03:35 105 96 90 05/03/16 03:33 105 18 96 BiPAP/CPAP 90 05/03/16 02:01 114 23 132/64 96 BiPAP 90 05/03/16 00:01 113 13 142/72 96 05/02/16 23:59 100 BiPAP 90 05/02/16 23:37 110 93 90 05/02/16 23:30 110 15 93 BiPAP/CPAP 90 05/02/16 22:01 103 14 146/89 90 BiPAP 90 05/02/16 20:01 120 100 100 05/02/16 20:01 37.2 116 21 153/73 100 BiPAP 90 05/02/16 20:00 116 24 100 05/02/16 20:00 100 BiPAP 90 05/02/16 20:00 120 26 100 BiPAP/CPAP 100 05/02/16 17:48 37.0 114 25 138/85 85 BiPAP 100 05/02/16 17:46 116 23 136/85 92 05/02/16 17:31 116 19 154/94 85 05/02/16 17:16 116 21 156/75 87 05/02/16 17:01 112 21 155/73 95 05/02/16 17:00 114 16 87 05/02/16 16:46 115 21 164/74 92 05/02/16 16:31 118 18 148/77 97 05/02/16 16:16 117 27 156/70 97 05/02/16 16:01 114 21 165/82 99 05/02/16 16:00 113 22 100 05/02/16 15:46 122 25 133/104 100 05/02/16 15:31 121 27 123/75 95 05/02/16 15:30 96 BiPAP 100.0 100 05/02/16 15:30 37.0 121 25 155/94 96 BiPAP 100 05/02/16 15:27 112 22 100 BiPAP/CPAP 97 05/02/16 15:27 112 97 100 05/02/16 15:16 118 27 153/71 99 05/02/16 15:01 119 24 135/68 98 05/02/16 15:00 118 25 98 05/02/16 14:00 110 25 153/76 96 BiPAP 50.0 70 05/02/16 12:00 37.0 107 30 192/80 81 BiPAP 05/02/16 12:00 100 BiPAP 50.0 60 05/02/16 11:21 106 22 100 BiPAP/CPAP 80 05/02/16 11:21 105 100 80 05/02/16 10:35 36.6 104 30 140/70 95 BiPAP 05/02/16 10:20 36.6 103 30 132/64 100 BiPAP 05/02/16 10:05 36.8 100 30 160/73 100 BiPAP 05/02/16 09:50 36.8 101 30 155/82 100 BiPAP Laboratory Results: Last 24 Hours Test 05/02/16 11:07 05/02/16 12:23 05/02/16 16:51 05/02/16 21:06 Bedside Glucose 163 mg/dl 169 mg/dl 110 mg/dl Blood Gas Sample Site L Brachial Bedside Blood Gas pH (LAB) 7.36 Bedside Blood Gas pCO2 (LAB) 42 mmHg Bedside Blood Gas pO2 (LAB) 46 mmHg Bedside Blood Gas HCO3 (LAB) 24 meq/L Bedside Blood Gas Total CO2 25 mEq/l Bedside Blood Gas Base Excess (LAB) -1.0 meq/L Bedside Blood Gas O2 Saturation 80.0 % David Test NA Oxygen Delivery Device BIPAP Bedside Oxygen Rate (breaths/min) 20 Bedside FiO2 100 % Blood Gas IPAP 15 Test 05/03/16 05:30 White Blood Count 22.42 K/uL Red Blood Count 4.32 M/uL Hemoglobin 10.9 g/dL Hematocrit 35.4 % Mean Corpuscular Volume 81.9 fL Mean Corpuscular Hemoglobin 25.2 pg Mean Corpuscular Hemoglobin Concent 30.8 g/dl RDW Standard Deviation 51.4 fL RDW Coefficient of Variation 17.2 % Platelet Count 225 K/uL Mean Platelet Volume 10.3 fL Nucleated RBC Absolute Count (auto) 0.02 K/uL Nucleated Red Blood Cells % 0.1 % Sodium Level 138 mmol/L Potassium Level 4.3 mmol/L Chloride Level 102 mmol/L Carbon Dioxide Level 27 mmol/L Anion Gap 9.0 mmol/L Blood Urea Nitrogen 67 mg/dl Creatinine 2.10 mg/dl Est Creatinine Clear Calc Drug Dose 23.7 ml/min Estimated GFR () 26.6 Estimated GFR (Non- 22.9 BUN/Creatinine Ratio 31.9 Random Glucose 141 mg/dl Calcium Level 8.7 mg/dl Phosphorus Level 3.5 mg/dl Magnesium Level 3.6 mg/dl Albumin 3.1 gm/dl
--- NOTE | 2016-05-03 10:32 | Nephrology Progress Note ---
Nephrology Progress Note Date of Service May 03, 2016. Chief Complaint F/U for acute kidney injury with history of chronic kidney disease. Subjective Maribel was seen and examined in ICU this am with her sister at bedside. On BiPAP. Renal function continues to improve, Cr 2.1 this am, other electrolytes stable. BP fair. UO decent. Respiratory status continue to declining. BP stable. Review of Systems A complete review of systems was performed. Pertinent positives are noted above. All other systems are negative. Vital Signs Last 8 Hrs Date Time Temp Pulse Resp B/P Pulse Ox O2 Delivery O2 Flow Rate FiO2 05/03/16 07:39 86 18 94 BiPAP/CPAP 80 05/03/16 06:01 103 12 152/76 97 05/03/16 04:01 36.6 102 24 132/64 98 BiPAP 90 05/03/16 04:00 100 BiPAP 90 05/03/16 03:35 105 96 90 05/03/16 03:33 105 18 96 BiPAP/CPAP 90 I & O 24-Hour Column 05/03/16 08:00 Intake Total 2819 ml Output Total 875 ml Balance 1944 ml Last Recorded Weight Weight (Kilograms): 79.600 Physical Exam GENERAL: elderly female, AAA x 3, ill-appearing,no distress. NECK: Supple, no JVD. RESPIRATORY: Decrease BS B/L base CARDIOVASCULAR: S1, S2 normal, rate rhythm regular. ABDOMEN: distended, has cecostomy tube in place EXTREMITY: No lower extremity edema Family History Cancer Hypertension Social History Smoking Status: Never smoker Drug Use: none Marital Status: Occupation: retired Laboratory Results Past 24 Hours 05/03/16 05:30 05/03/16 05:30 Test 05/02/16 11:07 05/02/16 12:23 05/02/16 16:51 05/02/16 21:06 Bedside Glucose 163 mg/dl (70-90) 169 mg/dl (70-90) 110 mg/dl (70-90) Blood Gas Sample Site L Brachial Bedside Blood Gas pH (LAB) 7.36 (7.35-7.45) Bedside Blood Gas pCO2 (LAB) 42 mmHg (35-46) Bedside Blood Gas pO2 (LAB) 46 mmHg (80-95) Bedside Blood Gas HCO3 (LAB) 24 meq/L (19-24) Bedside Blood Gas Total CO2 25 mEq/l (24-31) Bedside Blood Gas Base Excess (LAB) -1.0 meq/L (-9-1.8) Bedside Blood Gas O2 Saturation 80.0 % (90-95) David Test NA Oxygen Delivery Device BIPAP Bedside Oxygen Rate (breaths/min) 20 Bedside FiO2 100 % Blood Gas IPAP 15 Test 05/03/16 05:30 Red Blood Count 4.32 M/uL (4.2-5.4) Mean Corpuscular Volume 81.9 fL (80-100) Mean Corpuscular Hemoglobin 25.2 pg (25-34) Mean Corpuscular Hemoglobin Concent 30.8 g/dl (32-36) RDW Standard Deviation 51.4 fL (36.4-46.3) RDW Coefficient of Variation 17.2 % (11.5-14.5) Mean Platelet Volume 10.3 fL (7.4-10.4) Nucleated RBC Absolute Count (auto) 0.02 K/uL (0-0) Nucleated Red Blood Cells % 0.1 % Anion Gap 9.0 mmol/L (3-11) Est Creatinine Clear Calc Drug Dose 23.7 ml/min Estimated GFR () 26.6 Estimated GFR (Non- 22.9 BUN/Creatinine Ratio 31.9 (10-20) Calcium Level 8.7 mg/dl (8.5-10.1) Phosphorus Level 3.5 mg/dl (2.5-4.9) Magnesium Level 3.6 mg/dl (1.8-2.4) Albumin 3.1 gm/dl (3.4-5.0) Date/Time Source Procedure Growth Status 05/02/16 15:39 Stool C.difficile Toxin B Gene (PCR) - Final No C. difficile toxin B gene detected Complete Allergies Coded Allergies: Morphine (Verified Allergy, Unknown, 04/25/16) Sulfamethoxazole w/Trimethoprim (Verified Allergy, Unknown, ., 04/25/16) Codeine (Verified Adverse Reaction, Mild, nausea, 04/25/16) Penicillins (Verified Adverse Reaction, Mild, severe nausea,HAD CEPHALOSPORINS, ZOSYN W/O PROBLEM, 04/25/16) Medications Current Inpatient Medications Medications (Trade) Dose Ordered Sig/Gilma Route Start Time Stop Time Status Last Admin Dose Admin Acetaminophen (Tylenol Tab) 650 mg Q4H PRN PO 04/25/16 18:45 05/25/16 18:44 04/28/16 00:40 650 MG Heparin Sodium (Porcine) (Heparin Sq 5000 Unit/0.5ml) 5,000 unit Q12H SQ 04/25/16 21:00 05/25/16 20:59 05/03/16 08:44 5,000 UNIT Paroxetine HCl (pAXil TAB) 20 mg DAILY PO 04/26/16 09:00 05/26/16 08:59 05/03/16 08:43 20 MG Piperacillin Sod/ Tazobactam Sod (Consult) 1 ea UD PRN N/A 04/25/16 20:15 05/25/16 20:14 Heparin Sodium (Porcine) (Heparin 100 Unit/ml 5ml Flush) 5 ml PRN PRN IV 04/25/16 20:30 05/25/16 20:29 04/26/16 06:11 5 ML Levalbuterol (Xopenex 1.25MG/ 3ML Neb) 1.25 mg Q4R INH 04/26/16 05:00 05/26/16 04:59 05/03/16 07:39 1.25 MG Ondansetron HCl 4 mg 4 mg Q6H PRN IV 04/26/16 13:00 05/26/16 12:59 05/01/16 17:13 4 MG Acetaminophen (Ofirmev Iv) 100 ml @ 400 mls/hr Q8H PRN IV 04/26/16 17:30 05/26/16 17:29 05/01/16 19:40 400 MLS/HR Polyethylene 17 gm 17 gm DAILY PO 04/29/16 09:00 05/29/16 08:59 05/03/16 08:43 17 GM Iron Sucrose/ Sodium Chloride (Venofer Inj/Nss 100ml) 110 ml @ 220 mls/hr Q2D@1100 IV 04/30/16 11:00 05/08/16 16:00 05/02/16 11:16 220 MLS/HR Prednisone (PredniSONE TAB) 20 mg BID PO 05/01/16 09:00 Future Hold 05/01/16 08:14 20 MG Hydralazine HCl (HydrALAZINE INJ) 10 mg Q6H PRN IV. 04/30/16 21:45 05/30/16 21:44 05/01/16 16:57 10 MG Diltiazem HCl 30 mg 30 mg Q6 NG 05/01/16 09:00 05/31/16 08:59 05/03/16 05:15 30 MG Methylprednisolone Sodium Succinate/ Syringe 0.32 ml @ 1.5 mls/min BID IV 05/01/16 09:00 05/31/16 08:59 05/03/16 08:43 1.5 MLS/MIN Lidocaine HCl/ Diphenhydramine HCl/Al Hydroxide/ Mg Hydroxide/ Glycerin/Barcode (VISCOUS LIDOCAINE 2% Soln/ Benadryl Syrup/ Maalox Susp/ Glycerin Anhydrous Soln) BID MT 05/01/16 10:00 05/31/16 09:59 05/03/16 08:46 5 ML Metoclopramide HCl (Reglan Inj) 5 mg Q6H IV. 05/01/16 12:00 05/31/16 09:29 05/03/16 05:15 5 MG Misoprostol (Cytotec Tab) 200 mcg QID PO 05/01/16 13:00 05/31/16 12:59 05/03/16 08:43 200 MCG Hydromorphone HCl 0.5 mg 0.5 mg Q3R PRN IV 05/02/16 10:00 05/16/16 09:59 05/03/16 03:23 0.5 MG Piperacillin Sod/ Tazobactam Sod/ Dextrose (Zosyn Iv/D5 100ml) 115 ml @ 28.75 mls/ hr Q8H IV 05/02/16 12:00 05/04/16 23:59 05/03/16 03:22 28.75 MLS/HR Ranitidine HCl (zANTac TAB) 150 mg DAILY PO 05/03/16 09:00 06/02/16 08:59 Furosemide (Lasix Tab) 20 mg BID17 PO 05/03/16 09:00 06/02/16 08:59 Metoprolol Tartrate (Lopressor Tab) 25 mg BID PO 05/03/16 09:00 06/02/16 08:59 Insulin Aspart (novoLOG ASPART) SLIDING SCALE G... Q6 SC 05/03/16 12:00 06/02/16 11:59 Docusate Sodium (coLACE CAP) 100 mg BID PO 05/03/16 09:00 06/02/16 08:59 Impression (1) Acute kidney injury (2) acute exacer. copd, chronic resp failure (3) Anemia (4) Hyperphosphatemia (5) ACUTE BRONCO-PNEUM,ACUTE RESP FAIL (6) CKD (chronic kidney disease) stage 3, GFR 30-59 ml/min Maribel is a 71-year-old female with them complicated past medical history including stage 3 chronic kidney disease, hypertension, history of for a COPD and interstitial lung disease, pulmonary hypertension, tricuspid regurgitation, diastolic CHF, prior history of via intestinal resection for bowel obstruction admitted to the hospital with abdominal pain and respiratory failure with them acute on chronic diastolic CHF. She had [id number] IV contrast us study on 2 consecutive days. Has history of stage 3 chronic kidney disease, creatinine seems to be variable from 1-1.5, possibly secondary to microvascular disease versus grade 2 cardiorenal syndrome. On admission creatinine was 1.3 which rapidly worsened over last few days and creatinine was 3.2 days this morning and she has been oliguric. Currently her blood pressure, volume status and other electrolyte acceptable. Overall she seems to be clinically improving but still requiring BiPAP to maintain her oxygen saturation. Chest x-ray yesterday was concerning for right lower lobe pneumonia, currently on Zosyn empirically. On admission she was also found to have bilateral pleural effusion and had a thoracentesis done, with transudative effusion. Recommendations --In recovery phase from recent ATN,cr continues to improve --worsening respiratory status unlikely due to significant pulmonary congestion , more likely related to underlying interstitial lung disease as does not seem to be volume overloaded. --Monitor renal function closely with daily renal panel -- avoid nephrotoxins medications --dose medications for GFR less than 10 --on Venofer 200mg IV every other day Will follow
--- NOTE | 2016-05-03 11:51 | DIAGNOSTIC IMAGING REPORT ---
CHEST ONE VIEW PORTABLE CLINICAL HISTORY: prong SOB dyspnea. Pneumonia. COMPARISON STUDY: 05/01/2016 FINDINGS: Slight decrease in volume of a consolidative infiltrate right base. Small parenchymal infiltrate left base unaltered. Pulmonary vascular congestion similar to minimally improved. Central catheter remains in the superior vena cava. IMPRESSION: Slight improvement of the right and to a lesser extent left basilar infiltrate/effusions. Persistent component of pulmonary vascular congestion Electronically signed by: Mello Mayfield M.D. 05/03/2016 11:50 AM Dictated Date/Time: 05/03/2016 11:49 AM
[2016-05-03] MEDS ORDERED: DILTIAZEM HCL 120 MG CAPCR PO SCH (12:00)
[2016-05-03] MEDS ORDERED: RAPID SEQUENCE INDUCTION BAG ONE (12:58)
[2016-05-03] MEDS ORDERED: PROPOFOL IV EMULSION 10 MG/ML 100 ML VIAL IV ONE (12:58)
--- NOTE | 2016-05-03 13:12 | SURGERY PROGRESS NOTE ---
DATE: 05/03/2016 DATE: 05/03/2016. Ms. Shepard was seen today. I discussed this case with several physicians involved. She is now on increasing amounts of oxygen. She is not growing anything out. Her x-ray shows she still has some fluid on the right. CT scan from 2 days ago shows she does have some fluid in his chest but does not appear to be increasing on the x-ray today. I had a long discussion with Dr. Dahl and I do not think this fluid is a cause of her problems. I think this is a symptom. We could always drain it if we think it would help her; however the amount of fluid on a CT scan it certainly does not appear that this is going to make much difference clinically as we already know that it is benign and a transudate. I would be hesitant to intervene. We will continue to follow along.
--- NOTE | 2016-05-03 13:51 | DIAGNOSTIC IMAGING REPORT ---
CHEST ONE VIEW PORTABLE CLINICAL HISTORY: Verify ETT tube position COMPARISON STUDY: 05/03/2016 at 11:31 AM FINDINGS: Interval placement of an endotracheal tube 3.3 cm above the alex. All remaining components of the study are similar area IMPRESSION: Placement of an endotracheal tube 3.3 cm both alex. Electronically signed by: Mello Mayfield M.D. 05/03/2016 1:50 PM Dictated Date/Time: 05/03/2016 1:49 PM
[2016-05-03 14:16] LABS: ISTAT ARTERIAL BLOOD GAS HCO3 16 meq/L (19-24); ISTAT ARTERIAL BLOOD GAS PCO2 33 mmHg (35-46); ISTAT ARTERIAL BLOOD GAS PO2 48 mmHg (80-95); ISTAT CARBON DIOXIDE 17 mEq/l (24-31); ISTAT HEMATOCRIT 41 % (37-47); ISTAT HEMOGLOBIN 13.9 g/dl (12.0-16.0); ISTAT SODIUM 131 mEq/L (135-144)
[2016-05-03] MEDS ORDERED: PROPOFOL IV EMULSION 10 MG/ML 100 ML VIAL IV PRN (14:23)
[2016-05-03] MEDS ORDERED: NOREPINEPHRINE BIT INJ 4 MG in DEXTROSE 5% 250ML 250 ML IV PRN (14:30)
[2016-05-03] MEDS ORDERED: MIDAZOLAM 125MG/250ML D5W 250 ML IV PRN (14:46)
[2016-05-03 14:56] LABS: ISTAT ARTERIAL BLOOD GAS HCO3 25 meq/L (19-24); ISTAT ARTERIAL BLOOD GAS PCO2 44 mmHg (35-46); ISTAT ARTERIAL BLOOD GAS PO2 108 mmHg (80-95); ISTAT ARTERIAL BLOOD GAS pH 7.36 (7.35-7.45); ISTAT CARBON DIOXIDE 26 mEq/l (24-31); ISTAT HEMATOCRIT 37 % (37-47); ISTAT HEMOGLOBIN 12.6 g/dl (12.0-16.0); ISTAT SODIUM 136 mEq/L (135-144)
[2016-05-03] MEDS ORDERED: NURSING VERBAL MED ORDER ONE ×2 (15:30→22:00)
--- NOTE | 2016-05-03 16:07 | Pulmonology Progress Note ---
Pulmonary Progress Note Date of Service May 03, 2016. Attending Dr. Garcia Subjective Patient is currently obtunded and intubated. Objective Patient became progressively more hypoxic and required emergent intubation. Following this she had dramatic desaturations and was difficult to stabilize. Currently she is on mechanical ventilation before meals/pressure control/100% FiO2/PEEP of 18. Vital signs: Tm: 96, RR: 16-27, FiO2: 100%, high flow oxygen system: 60%, 45 L/ m General: Fatigued Respiratory: Apices bilaterally clear with decreased breath sounds and dullness to percussion the right lower lobe posterior subsegment Cardiac: S1-S2 tachycardic distant heart sounds I'm unable to auscultate for murmurs rubs or gallops Skin: Intact Abdomen: Decreased bowel sounds soft nontender, no rebound Pulmonary function test dated 01/20/2015 FEV1/FVC: 75 FEV1: 1.69/82% FVC: 2.25/87% T.43/100% RV: 1.71/95% VC: 2.27/105% DLCO: 56% DL/VA: 93% Assessment & Plan 71-year-old female admitted 04/25/16 with abdominal pain now with progressive hypoxic respiratory insufficiency: #1 Hypoxemia: Currently gradient 524. Ultrasound evaluation done of cardiac function notably within normal limits no signs of right ventricular strain or dysfunction. Patient also showing no signs of hemodynamics instability. These findings together suggest patient with ARDS physiology/shunting physiology. At this time I agree with the intensive care team and current ventilator management. #2 ILD: After reviewing patient's previous CTs of the thorax over the last 3-4 years as well as pulmonary function tests performed 01/20/2015 she shows no signs of interstitial lung disease. I suggest we taper down steroids over the next 7-10 days or as the patient's adrenal function can tolerate. #3 pleural effusions: The nature or etiology though these pleural effusions is currently unknown. Bilateral pleural effusions are more consistent with renal failure, sepsis are heart failure. Most likely her pleural effusions are a combination of renal failure and sepsis physiology of unknown etiology, most likely gastric in origin. I do not believe any further interventions with thoracentesis and/or chest tube placement would benefit this patient as drainage of these effusion would not change her severe hypoxemia and she is not showing signs by ventilator standards of severe restrictive ventilatory disease at this time. #4 mortality: Patient's mortality is extremely high at this time. I believe the ICU team as maximized her care and agree with proper end-of-life discussion with the family. Data Medications: Current Inpatient Medications Medications (Trade) Dose Ordered Sig/Gilma Route Start Time Stop Time Status Last Admin Dose Admin Acetaminophen (Tylenol Tab) 650 mg Q4H PRN PO 04/25/16 18:45 05/25/16 18:44 04/28/16 00:40 650 MG Heparin Sodium (Porcine) (Heparin Sq 5000 Unit/0.5ml) 5,000 unit Q12H SQ 04/25/16 21:00 05/25/16 20:59 05/03/16 08:44 5,000 UNIT Paroxetine HCl (pAXil TAB) 20 mg DAILY PO 04/26/16 09:00 05/26/16 08:59 05/03/16 08:43 20 MG Piperacillin Sod/ Tazobactam Sod (Consult) 1 ea UD PRN N/A 04/25/16 20:15 05/04/16 23:59 Heparin Sodium (Porcine) (Heparin 100 Unit/ml 5ml Flush) 5 ml PRN PRN IV 04/25/16 20:30 05/25/16 20:29 04/26/16 06:11 5 ML Levalbuterol (Xopenex 1.25MG/ 3ML Neb) 1.25 mg Q4R INH 04/26/16 05:00 05/26/16 04:59 05/03/16 11:46 1.25 MG Ondansetron HCl 4 mg 4 mg Q6H PRN IV 04/26/16 13:00 05/26/16 12:59 05/01/16 17:13 4 MG Acetaminophen (Ofirmev Iv) 100 ml @ 400 mls/hr Q8H PRN IV 04/26/16 17:30 05/26/16 17:29 05/01/16 19:40 400 MLS/HR Polyethylene 17 gm 17 gm DAILY PO 04/29/16 09:00 05/29/16 08:59 05/03/16 08:43 17 GM Iron Sucrose/ Sodium Chloride (Venofer Inj/Nss 100ml) 110 ml @ 220 mls/hr Q2D@1100 IV 04/30/16 11:00 05/08/16 16:00 05/02/16 11:16 220 MLS/HR Prednisone (PredniSONE TAB) 20 mg BID PO 05/01/16 09:00 Future Hold 05/01/16 08:14 20 MG Hydralazine HCl 10 mg 10 mg Q6H PRN IV. 04/30/16 21:45 05/30/16 21:44 05/01/16 16:57 10 MG Methylprednisolone Sodium Succinate/ Syringe 0.32 ml @ 1.5 mls/min BID IV 05/01/16 09:00 05/31/16 08:59 05/03/16 08:43 1.5 MLS/MIN Lidocaine HCl/ Diphenhydramine HCl/Al Hydroxide/ Mg Hydroxide/ Glycerin/Barcode (VISCOUS LIDOCAINE 2% Soln/ Benadryl Syrup/ Maalox Susp/ Glycerin Anhydrous Soln) BID MT 05/01/16 10:00 05/31/16 09:59 05/03/16 08:46 5 ML Metoclopramide HCl (Reglan Inj) 5 mg Q6H IV. 05/01/16 12:00 05/31/16 09:29 05/03/16 12:30 5 MG Misoprostol (Cytotec Tab) 200 mcg QID PO 05/01/16 13:00 05/31/16 12:59 05/03/16 08:43 200 MCG Hydromorphone HCl 0.5 mg 0.5 mg Q3R PRN IV 05/02/16 10:00 05/16/16 09:59 05/03/16 03:23 0.5 MG Piperacillin Sod/ Tazobactam Sod/ Dextrose (Zosyn Iv/D5 100ml) 115 ml @ 28.75 mls/ hr Q8H IV 05/02/16 12:00 05/04/16 23:59 05/03/16 12:30 28.75 MLS/HR Ranitidine HCl (zANTac TAB) 150 mg DAILY PO 05/03/16 09:00 06/02/16 08:59 05/03/16 11:39 150 MG Furosemide (Lasix Tab) 20 mg BID17 PO 05/03/16 09:00 06/02/16 08:59 05/03/16 11:38 20 MG Metoprolol Tartrate (Lopressor Tab) 25 mg BID PO 05/03/16 09:00 06/02/16 08:59 05/03/16 11:38 25 MG Insulin Aspart (novoLOG ASPART) SLIDING SCALE G... Q6 SC 05/03/16 12:00 06/02/16 11:59 Diltiazem HCl 120 mg 120 mg QAM PO 05/03/16 12:00 06/02/16 11:59 Norepinephrine Bitartrate/ Dextrose (Levophed Inj/D5 250ml) 254 ml @ 0 mls/hr Q0M PRN IV 05/03/16 14:30 06/02/16 14:29 Future Hold Propofol (Diprivan Iv Emulsion 100ml Vial) 1 dose UD PRN IV 05/03/16 14:23 05/06/16 14:22 Docusate Sodium 100 mg 100 mg BID NG 05/03/16 21:00 06/02/16 20:59 Midazolam HCl (Midazolam 125MG/ 250ML D5w) 250 ml @ 0 mls/hr Q0M PRN IV 05/03/16 14:46 06/02/16 14:45 I & O: 24-Hour Column 05/03/16 08:00 Intake Total 2819 ml Output Total 875 ml Balance 1944 ml Vital Signs: Date Time Temp Pulse Resp B/P Pulse Ox O2 Delivery O2 Flow Rate FiO2 05/03/16 14:31 77 18 81/56 79 Mechanical Ventilator 100 05/03/16 14:26 79 18 83/52 80 Mechanical Ventilator 100 05/03/16 14:21 78 21 85/44 81 Mechanical Ventilator 100 05/03/16 14:19 77 18 79/44 76 Mechanical Ventilator 100 05/03/16 14:16 77 18 80/51 72 Mechanical Ventilator 100 05/03/16 14:11 97 18 84/53 81 Mechanical Ventilator 100 05/03/16 14:06 100 18 97/67 85 Mechanical Ventilator 100 05/03/16 14:05 100 05/03/16 14:01 107 17 123/80 86 Mechanical Ventilator 100 05/03/16 13:59 110 18 139/89 90 Mechanical Ventilator 100 05/03/16 13:56 104 18 185/96 97 Mechanical Ventilator 100 05/03/16 13:51 96 27 90/31 54 Mechanical Ventilator 100 05/03/16 13:50 95 21 82/58 52 Mechanical Ventilator 100 05/03/16 13:37 62 11 59/39 20 Mechanical Ventilator 100 05/03/16 13:29 125 18 38 Mechanical Ventilator 100 05/03/16 13:21 120 30 121/73 46 Mechanical Ventilator 100 05/03/16 13:16 73 26 125/68 05/03/16 12:01 36.9 71 19 124/82 71 BiPAP 100 05/03/16 12:00 BiPAP 100 05/03/16 11:47 83 18 86 BiPAP/CPAP 100 05/03/16 11:01 103 18 159/89 87 100 05/03/16 10:14 96 15 164/86 88 BiPAP 100 05/03/16 09:01 101 21 149/82 95 BiPAP 80 05/03/16 08:01 37.1 99 12 146/76 92 BiPAP 80 05/03/16 08:00 BiPAP 80 05/03/16 07:39 86 18 94 BiPAP/CPAP 80 05/03/16 06:01 103 12 152/76 97 05/03/16 04:01 36.6 102 24 132/64 98 BiPAP 90 05/03/16 04:00 100 BiPAP 90 05/03/16 03:35 105 96 90 05/03/16 03:33 105 18 96 BiPAP/CPAP 90 05/03/16 02:01 114 23 132/64 96 BiPAP 90 05/03/16 00:01 113 13 142/72 96 05/02/16 23:59 100 BiPAP 90 05/02/16 23:37 110 93 90 05/02/16 23:30 110 15 93 BiPAP/CPAP 90 05/02/16 22:01 103 14 146/89 90 BiPAP 90 05/02/16 20:01 120 100 100 05/02/16 20:01 37.2 116 21 153/73 100 BiPAP 90 05/02/16 20:00 116 24 100 05/02/16 20:00 100 BiPAP 90 05/02/16 20:00 120 26 100 BiPAP/CPAP 100 05/02/16 17:48 37.0 114 25 138/85 85 BiPAP 100 05/02/16 17:46 116 23 136/85 92 05/02/16 17:31 116 19 154/94 85 05/02/16 17:16 116 21 156/75 87 05/02/16 17:01 112 21 155/73 95 05/02/16 17:00 114 16 87 05/02/16 16:46 115 21 164/74 92 05/02/16 16:31 118 18 148/77 97 05/02/16 16:16 117 27 156/70 97 05/02/16 16:01 114 21 165/82 99 05/02/16 16:00 113 22 100 05/02/16 15:46 122 25 133/104 100 Laboratory Results: Last 24 Hours Test 05/02/16 16:51 05/02/16 21:06 05/03/16 05:30 05/03/16 13:46 Bedside Glucose 169 mg/dl 110 mg/dl White Blood Count 22.42 K/uL Red Blood Count 4.32 M/uL Hemoglobin 10.9 g/dL Hematocrit 35.4 % Mean Corpuscular Volume 81.9 fL Mean Corpuscular Hemoglobin 25.2 pg Mean Corpuscular Hemoglobin Concent 30.8 g/dl RDW Standard Deviation 51.4 fL RDW Coefficient of Variation 17.2 % Platelet Count 225 K/uL Mean Platelet Volume 10.3 fL Nucleated RBC Absolute Count (auto) 0.02 K/uL Nucleated Red Blood Cells % 0.1 % Sodium Level 138 mmol/L Potassium Level 4.3 mmol/L Chloride Level 102 mmol/L Carbon Dioxide Level 27 mmol/L Anion Gap 9.0 mmol/L Blood Urea Nitrogen 67 mg/dl Creatinine 2.10 mg/dl Est Creatinine Clear Calc Drug Dose 23.7 ml/min Estimated GFR () 26.6 Estimated GFR (Non- 22.9 BUN/Creatinine Ratio 31.9 Random Glucose 141 mg/dl Calcium Level 8.7 mg/dl Phosphorus Level 3.5 mg/dl Magnesium Level 3.6 mg/dl Albumin 3.1 gm/dl Bedside Hemoglobin 13.9 g/dl Bedside Hematocrit 41 % Bedside Blood Gas pH (LAB) 7.30 Bedside Blood Gas pCO2 (LAB) 33 mmHg Bedside Blood Gas pO2 (LAB) 48 mmHg Bedside Blood Gas HCO3 (LAB) 16 meq/L Bedside Blood Gas Total CO2 17 mEq/l Bedside Blood Gas Base Excess (LAB) -10.0 meq/L Bedside Blood Gas O2 Saturation 80.0 % Bedside Sodium 131 mEq/L Bedside Potassium 5.8 mEq/L Test 05/03/16 14:43 Bedside Hemoglobin 12.6 g/dl Bedside Hematocrit 37 % Bedside Blood Gas pH (LAB) 7.36 Bedside Blood Gas pCO2 (LAB) 44 mmHg Bedside Blood Gas pO2 (LAB) 108 mmHg Bedside Blood Gas HCO3 (LAB) 25 meq/L Bedside Blood Gas Total CO2 26 mEq/l Bedside Blood Gas Base Excess (LAB) -1.0 meq/L Bedside Blood Gas O2 Saturation 98.0 % Bedside Sodium 136 mEq/L Bedside Potassium 4.7 mEq/L
[2016-05-03] MEDS ORDERED: NOREPINEPHRINE BIT INJ 8 MG in DEXTROSE 5% 500ML 500 ML IV PRN (16:15)
[2016-05-03] MEDS: METOPROLOL TARTRATE 1 MG/ML VIAL IV. SCH (18:00)
[2016-05-03] MEDS: LEValbuterol HFA 15GM INHALER INH SCH ×2 (20:09→23:35)
--- NOTE | 2016-05-03 20:17 | Procedure Note ---
Procedure Note Date of Service May 03, 2016. Procedure Note Procedure Date: 05/03/2016 Procedure: Endotracheal intubation Pre-procedure Diagnosis: Acute Hypoxic respiratory failure Post-procedure Diagnosis: same as above Prior to Procedure: Informed Consent: emergent Attending Staff: Bishnu Tate DO Indications: After extended discussion with the patient and family, the patient desires to undergo a tracheostomy for refractory hypoxic respiratory failure. We have been unable to liberate the patient from noninvasive mechanical ventilation, and at this time feel it is safer for her to be mechanically ventilated until time it is safe for her to receive a tracheostomy. The identity of the patient was confirmed and a bedside time out was performed. Description of Procedure: Patient was evaluated and required intubation for respiratory failure. The patient was prepared in the usual fashion. Patient was sedated with 100 g of fentanyl, 2 mg per said, and 150 mg of ketamine for an awake intubation. A Garza 2 laryngoscope was used initially, 4 grade 4 view was obtained. Tube was passed into the esophagus, there was no end-tidal CO2 change this was immediately recognized and the tube was removed. Immediately changed to a Mac 3 laryngoscope and obtained a grade 1 view with bimanual laryngoscopy. A 7.5 Fr endotrachial tube was placed endotracheally to 23 cm at the teeth. A grade 1 view was obtained. The endotracheal tube was noted to pass through the vocal cords. Chest rise was bilateral. Bilateral breath sounds were heard without air sounds in the abdomen. Mist was noted in the endotracheal tube. End-tidal CO2 measurement was positive. Chest x-ray shows proper endotracheal tube placement. The entire procedure was completed and under 60 seconds Complications: The patient did have a prolonged hypoxic. After placement of the endotracheal tube. Patient remained on 100% FiO2 and required high positive end expiratory pressures. She was cyanotic and the pulse oximetry was unable to picker packer an oxygen saturation, when I was finally able to the pulse oximeter was reading 30s, I do not believe this was an accurate measurement as this would be incompatible with life. The patient did clinically appear hypoxic she was switched to inverse ratio ventilation. This marginally increased her oxygen saturations, she clinically became less cyanotic and the pulse oximeter was reading in the 50s and 60s. The patient's sats dropped again and she became more cyanotic again, we manually bagged the patient she became bradycardic requiring 1 mg of epinephrine, 3 A of bicarbonate, and started on norepinephrine infusion. By manual bagging with a Peep valve all the way closed (greater than 15 cm of water) the patient's hypoxia did improve to the low 70s, there was significant clinical improvement. The patient's vital signs did start stabilized she was placed on pressure control ventilation and returned to her baseline hypoxia. The family was updated of the events. Findings: not applicable Specimens: not applicable Estimated blood loss: Zero
[2016-05-03] MEDS ORDERED: DOCUSATE SODIUM 100 MG/10 ML UDC NG SCH (21:00)
[2016-05-03] MEDS ORDERED: FUROSEMIDE 40 MG/4 ML VIAL IV ONE (22:15)
--- NOTE | 2016-05-03 23:52 | PROGRESS NOTE ---
DATE: 05/03/2016 SUBJECTIVE: A 71-year-old female with multiple problems includin. Acute and chronic respiratory failure. 2. Acute and chronic renal failure. 3. Acute and chronic diastolic congestive heart failure. 4. Diastolic dysfunction. 5. Severe constipation, thought to be related to an ileus. There has been no evidence of obstruction. The patient has been maintained on a BiPAP. Her oxygen requirement has been increased. At times, she needs to be on 100% FIO2 with her BiPAP. Today, she had had multiple episodes where she became hypoxic. She has not been able to maintain adequate oxygenation even on 100% FIO2. She required intubation and placement on a respirator. I saw the patient early this morning and she was continued to feel tired and weak. We still having problem related to her bowel movements. She had a cecostomy tube placed yesterday by Dr. Da Silva. As noted during the day, she had to be intubated and placed on a respirator. I saw the patient this afternoon and she was on a respirator. She was resting comfortably. She was sedated. She was on Versed infusion. She had no apparent distress or discomfort. PHYSICAL EXAMINATION: GENERAL: Well developed. Sedated. VITAL SIGNS: Blood pressure 107/69, pulse 83, respirations 18. Her oxygen saturation was 93%. She was on 100% FIO2. SKIN: Warm and dry. HEENT: ET tube in place. NECK: No JVD. HEART: Regular heart sounds with 2/6 systolic murmur. LUNGS: Minimal rhonchi. No wheezing. ABDOMEN: Slightly distended. Soft. Cecostomy tube in place. EXTREMITIES: No edema, clubbing, or cyanosis. TODAY'S LABORATORY TESTS: WBC count 22,420, hemoglobin 10.9, hematocrit 35.4, platelet count 225,000. Sodium 138, potassium 4.3, chloride 102, CO2 27, BUN 67, creatinine 2.1, glucose 141. Calcium 8.7, phosphorus 3.5, magnesium 3.6, albumin 3.1. ASSESSMENT: 1. Acute respiratory failure, required intubation. 2. Chronic respiratory failure on home oxygen. 3. Acute renal failure. 4. Chronic kidney disease. 5. Diastolic congestive heart failure. 6. Bilateral pleural effusions. 7. Severe constipation and possible ileus. PLAN: 1. As noted, she is on assisted ventilation. 2. I discontinued her oral medications and switched most of her medications that need to be continued to IV route. 3. I spoke with the family. I explained to them how critical her condition is and her poor prognosis. She had multiple family members at the hospital this evening. 4. We will continue monitoring her laboratory tests. Continue assisted ventilation. Dr. Tate already discussed the tracheostomy with the family.
[2016-05-04] VITALS (14 sets, daily range): BP systolic 90–121; BP diastolic 46–73; PULSE 83–97; TEMP 36.5–37.6; O2SAT 93–100
[2016-05-04] MEDS: METOCLOPRAMIDE HCL INJ 5 MG/ML 2 ML VIAL IV. SCH ×4 (00:06→18:00)
[2016-05-04] MEDS: METHYLPREDNISOLONE IV 20 MG in SYRINGE 0 ML IV SCH ×3 (00:42→18:13)
[2016-05-04] MEDS: METOPROLOL TARTRATE 1 MG/ML VIAL IV. SCH ×4 (00:42→18:00)
[2016-05-04] MEDS: LEValbuterol HFA 15GM INHALER INH SCH ×4 (03:19→15:21)
[2016-05-04] MEDS: PIPERACILL/TAZOBAC IV 3.375 GM in DEXTROSE 5% 100ML 100 ML IV SCH ×2 (05:19→12:12)
[2016-05-04] MEDS: INSULIN ASPART 100 UNITS/ML 3 ML PEN SC SCH ×4 (05:21→18:00)
[2016-05-04 05:57] LABS: ISTAT ALLEN TEST Pass; ISTAT ARTERIAL BLOOD GAS HCO3 24 meq/L (19-24); ISTAT ARTERIAL BLOOD GAS PCO2 41 mmHg (35-46); ISTAT ARTERIAL BLOOD GAS PO2 84 mmHg (80-95); ISTAT ARTERIAL BLOOD GAS pH 7.38 (7.35-7.45); ISTAT CARBON DIOXIDE 25 mEq/l (24-31); ISTAT DELIVERY SYSTEM Ventilator; ISTAT FIO2 60 %; ISTAT PEEP 18; ISTAT RATE 18; ISTAT SITE R Radial
[2016-05-04 05:58] LABS: HEMATOCRIT 39.7 % (37-47); MEAN CELL VOLUME 80.4 fL (80-100); MEAN CORPUSCULAR HEMOGLOBIN 24.9 pg (25-34); MEAN PLATELET VOLUME 10.6 fL (7.4-10.4); PLATELET COUNT 292 K/uL (130-400); RED BLOOD COUNT 4.94 M/uL (4.2-5.4)
[2016-05-04 06:23] LABS: BUN/CREATININE RATIO 31.3 (10-20); CALCIUM 9.3 mg/dl (8.5-10.1); CREATININE 2.6 mg/dl (0.60-1.20); POTASSIUM 4.8 mmol/L (3.5-5.1)
[2016-05-04] MEDS ORDERED: IMPACT LIQ 1000 ML BAG PO SCH (07:00)
--- NOTE | 2016-05-04 07:14 | SURGERY PROGRESS NOTE ---
DATE: 05/04/2016 Maribel is 48 hours postop cecostomy tube placement. Yesterday, she had increased respiratory difficulty, was intubated. This morning she is well sedated. She is on a respirator. Her last vitals showed a temperature of 36.6, pulse 88, respiration 18 on the vent. She is requiring FiO2 of 60-70%, O2 sats 98. Her urine output yesterday was 525. She has been slightly positive a few liters in the last few days. Laboratory renee this morning, her white count is up to 26.50. She is slightly more hemoconcentrated than she was yesterday. The PRP is pending. Other consultants' notes were reviewed. At this point, consideration apparently was given to make her end-of-life do not resuscitate protocol. I will leave that up to Dr. Dahl to make that decision since he knows her well and knows the family well.
--- NOTE | 2016-05-04 07:47 | DIAGNOSTIC IMAGING REPORT ---
SINGLE VIEW CHEST CLINICAL HISTORY: Respiratory failure. Enteric tube placement. FINDINGS: An AP, portable, upright chest radiograph is compared to study dated 05/03/2016. Correlation is made with chest CT dated 05/01/2016. The examination is degraded by portable technique and patient rotation, as well as by the patient's head obscuring the lung apices. A left subclavian central venous infusion port is unchanged in position. An enteric tube projects below the diaphragm over the stomach. An endotracheal tube is unchanged in position. The heart is enlarged and there is atherosclerotic calcification of the thoracic and. Pulmonary vascular congestion persists. The mitral annulus is densely calcified. There are layering pleural effusions with bibasilar consolidation. No pneumothorax is seen. The skeletal structures are osteopenic. The bony thorax is grossly intact. Degenerative change is noted throughout the thoracic spine. IMPRESSION: 1. Lines and tubes as above. 2. Cardiomegaly with mild persistent pulmonary vascular congestion. 3. Layering pleural effusions with bibasilar consolidation, also unchanged. Electronically signed by: Sunil Keenan M.D. 05/04/2016 7:46 AM Dictated Date/Time: 05/04/2016 7:43 AM
[2016-05-04] MEDS ORDERED: BUMETANIDE IV 1 MG in SYRINGE 0 ML IV ONE (08:30)
[2016-05-04] MEDS: LIDOCAINE HCL 2% VISCOUS SOLN 60 ML, DiphenhydrAMINE HCL SYRUP 150 MG, ALUMINUM/MAGNESI... MT SCH ×4 (09:00)
[2016-05-04] MEDS ORDERED: CHLORHEXIDINE GLUCONATE 0.12% 480 ML MT SCH (09:00)
[2016-05-04] MEDS: HEPARIN SOD 5000 UNIT/0.5 ML CARP SQ SCH (09:18)
--- NOTE | 2016-05-04 09:41 | Critical Care Progress Note ---
Critical Care Progress Note Date of Service May 04, 2016. ICU Day ICU Day Number: [address] Tate Subjective Patient is currently sedated intermittently with Versed, continues to require high levels of PEEP and FiO2 to maintain saturations unable to complete ROS because of sedation Objective General: Patient is sedated under ventilation Skin: no rashes noted, no suspicious lesions, no areas of inflammations/ lacerations/ erythema noted CVS: S1/ S2 noted, RRR, 3/6 systolic murmur, no cyanosis RVS: coarse breath sounds noted, decreased to bilat bases Neck: inspection WNL, full ROM of neck ABD:RLQ cecostomy noted, no drainage surrounding site, shell and cecostomy draining well, abdomen is soft MSK: inspection of all limbs WNL, motor and sensation intact in all limbs, no swelling/ pain on palpation of joints, YOSI on bilat LE NVS:patient is sedated Lymph: No lymphadenopathy palpable Assessment & Plan 1. Acute on chronic hypoxemic respiratory failure- ventilator dependent - PEEP 18, FiO2 60 2. Recurring right pleural effusion; Bilateral pleural effusions - thoracentesis 04/26 3. Severe pulmonary hypertension: Feb 25, 2016 pressure was 73 mm HG with RV/ RA dilation 4. Abdominal pain with fecal retention - Cecostomy 5. RAMBO on CKD; ATN: multifactorial - worsening after hypotensive episode 6. Possible ILD with oxygen dependence 7. Diastolic dysfunction 8. Depression 9. Gout 10. Non specific colitis s/p cecostomy POD 2 NVS: - sedation - Ativan intermittent bolus - Tylenol and Dilaudid for pain control - continue paxil PO as concern for withdrawal with abrupt d/c RVS - currently on ventilatory after inability to maintain saturations yesterday - Peep 18 and FiO2 is 60 - plan is to try and wean PEEP to make tracheostomy a potential option - continue to discuss plan of care with family, including discussion of comfort measures -Thoracic sx - no need for thoracentesis at this point - suboptimal after evaluation with [facility] - CT chest did not reveal an empyema - Transition of steroids - Methyl pred 20 mg bid IV for now - according to pulm if patient improves try to wean completely - bronchodilators as gilma CVS - continue to monitor but NSR- continue to monitor - Cardizem d/c - lopressor changed to IV - hydralazine for systolic > 150 - bumex 1 mg administered today ID - Patient is on Zosyn empirically for concern for intra abdominal abscess- day 11/27- d/c 05/04/16 - No c diff isolated - WBC is increasing - will continue to monitor GI - POD 2 Cecostomy - After multiple agents trialed, cecostomy was placed - Will irrigate - Dr Da Silva following - GI consult- appreciate input - OG tube placed while on ventilator- IMPACT initiated FEN replete K as needed - follow bmp - phosphorous and Mg elevated RENAL Consult nephro- appreciate in put - worsening of CR - potential candidate for hemodialysis? - follow BMP ENDO - Insulin NSS - BSG AC HS HEME - heparin bid for DVT prophylaxis Access: A Port in right chest Resident Physician Supervision Note: Dr. Figueroa was resident physician during care of patient. I separately evaluated patient and did history and exam. I discussed the case with the resident and generally agree with the findings and plan. Patient in multisystem organ failure, now anuric. Started to attempt to flush the cecostomy tube. Trial of Bumex did not produce urine. I updated the family of her clinical condition and all sons, her , sister, were in agreement that the patient would not want to be in the condition she is in. All feel that given the multisystem organ failure and poor prognosis she would not want to have ongoing life preserving measures continued. I discussed the case with Dr. Dahl is also in agreement with transition in the comfort care. At this time we are waiting for granddaughters to arrive to the bedside and will proceed with a terminal extubation. I have personally spent 60 minutes of critical care time in the direct management of this patient. This is a life/limb threatening event. This includes time spent evaluating patient, direct bedside care, chart review, placing orders, interpretation of diagnostic studies, discussion with consultants, patient, and family members, as well as other required patient management activities. This time is exclusive of all separately billable procedures, and teaching time and separate from and in addition to any other critical care service time. Documented By: Desmond Tate DO Consults & Procedures Consultants: Dr Da Silva- General Surgery Dr Abbasi - GI Dr Reddy- Pulm Dr Bernardo- thoracic sx Procedures: thoracentesis Cecostomy Data Medications: Current Inpatient Medications Medications (Trade) Dose Ordered Sig/Gilma Route Start Time Stop Time Status Last Admin Dose Admin Heparin Sodium (Porcine) (Heparin Sq 5000 Unit/0.5ml) 5,000 unit Q12H SQ 04/25/16 21:00 05/25/16 20:59 05/03/16 21:00 5,000 UNIT Piperacillin Sod/ Tazobactam Sod (Consult) 1 ea UD PRN N/A 04/25/16 20:15 05/04/16 23:59 Heparin Sodium (Porcine) (Heparin 100 Unit/ml 5ml Flush) 5 ml PRN PRN IV 04/25/16 20:30 05/25/16 20:29 04/26/16 06:11 5 ML Ondansetron HCl 4 mg 4 mg Q6H PRN IV 04/26/16 13:00 05/26/16 12:59 05/01/16 17:13 4 MG Acetaminophen 100 ml @ 400 mls/hr Q8H PRN IV 04/26/16 17:30 05/26/16 17:29 05/01/16 19:40 400 MLS/HR Iron Sucrose/ Sodium Chloride (Venofer Inj/Nss 100ml) 110 ml @ 220 mls/hr Q2D@1100 IV 04/30/16 11:00 05/08/16 16:00 05/02/16 11:16 220 MLS/HR Hydralazine HCl 10 mg Q6H PRN IV. 04/30/16 21:45 05/30/16 21:44 05/01/16 16:57 10 MG Lidocaine HCl/ Diphenhydramine HCl/Al Hydroxide/ Mg Hydroxide/ Glycerin/Barcode (VISCOUS LIDOCAINE 2% Soln/ Benadryl Syrup/ Maalox Susp/ Glycerin Anhydrous Soln) BID MT 05/01/16 10:00 05/31/16 09:59 05/03/16 08:46 5 ML Metoclopramide HCl (Reglan Inj) 5 mg Q6H IV. 05/01/16 12:00 05/31/16 09:29 05/04/16 05:21 5 MG Hydromorphone HCl 0.5 mg 0.5 mg Q3R PRN IV 05/02/16 10:00 05/16/16 09:59 05/03/16 03:23 0.5 MG Piperacillin Sod/ Tazobactam Sod/ Dextrose (Zosyn Iv/D5 100ml) 115 ml @ 28.75 mls/ hr Q8H IV 05/02/16 12:00 05/04/16 23:59 05/04/16 05:19 28.75 MLS/HR Insulin Aspart SLIDING SCALE G... Q6 SC 05/03/16 12:00 06/02/16 11:59 05/03/16 18:29 2 UNITS Norepinephrine Bitartrate/ Dextrose (Levophed Inj/ D5W 500ml) 508 ml @ 0 mls/hr Q0M PRN IV 05/03/16 16:15 06/02/16 16:14 Levalbuterol 4 puffs 4 puffs Q4R INH 05/03/16 20:00 06/02/16 19:59 05/04/16 07:43 4 PUFFS Methylprednisolone Sodium Succinate 20 mg/Syringe 0.32 ml @ 1.5 mls/min Q8H IV 05/04/16 01:00 06/03/16 00:59 05/04/16 00:42 1.5 MLS/MIN Pantoprazole Sodium/Syringe (Protonix Inj/ Syringe) 10 ml @ 5 mls/min DAILY@11 IV 05/04/16 11:00 06/03/16 10:59 Metoprolol Tartrate (Lopressor Iv) 5 mg Q6 IV. 05/03/16 18:00 06/02/16 17:59 05/04/16 05:20 5 MG Enteral Nutritional Formula (Impact 1.0 Toi) 1,000 ml UD PO 05/04/16 07:00 06/03/16 06:59 Lorazepam (Ativan Inj) 0.5 mg Q2H PRN IV 05/04/16 08:30 06/03/16 08:29 Chlorhexidine Gluconate (Peridex Oral Soln) 15 ml BID MT 05/04/16 09:00 06/03/16 08:59 I & O: 24-Hour Column 05/04/16 07:59 Intake Total 1756 ml Output Total 350 ml Balance 1406 ml Vital Signs: Date Time Temp Pulse Resp B/P Pulse Ox O2 Delivery O2 Flow Rate FiO2 05/04/16 08:13 60 05/04/16 08:00 37.6 85 18 109/66 95 Mechanical Ventilator 60 3/17/17 07:43 60 05/04/16 06:00 83 18 112/65 98 Mechanical Ventilator 60 05/04/16 05:43 60 05/04/16 05:20 89 113/59 05/04/16 04:00 98 Mechanical Ventilator 60 05/04/16 04:00 36.6 88 18 105/61 99 Mechanical Ventilator 60 05/04/16 04:00 70 05/04/16 03:19 60 05/04/16 03:00 89 19 99 05/04/16 02:00 85 18 121/69 99 70 05/04/16 01:37 70 05/04/16 00:42 88 121/85 05/04/16 00:01 36.9 89 18 110/69 100 Mechanical Ventilator 70 05/03/16 23:59 99 Mechanical Ventilator 70 05/03/16 23:59 70 05/03/16 23:34 80 05/03/16 22:01 87 18 111/67 98 Mechanical Ventilator 80 05/03/16 20:19 80 05/03/16 20:01 36.9 86 18 108/69 100 Mechanical Ventilator 100 05/03/16 20:00 92 Mechanical Ventilator 100.0 80 05/03/16 20:00 80 05/03/16 18:22 80 05/03/16 18:16 86 18 114/72 92 05/03/16 18:01 85 18 112/70 93 05/03/16 18:00 60 05/03/16 17:33 100 05/03/16 16:46 83 18 107/69 95 05/03/16 16:31 83 18 110/69 96 05/03/16 16:16 84 18 106/69 97 05/03/16 16:00 95 Mechanical Ventilator 100 05/03/16 16:00 37.1 82 18 116/69 95 Mechanical Ventilator 100 05/03/16 15:46 82 18 112/79 97 16 15:31 82 18 122/70 97 16 15:16 83 18 133/74 94 05/03/16 15:01 82 18 122/68 86 05/03/16 14:31 77 18 81/56 79 Mechanical Ventilator 100 05/03/16 14:26 79 18 83/52 80 Mechanical Ventilator 100 05/03/16 14:21 78 21 85/44 81 Mechanical Ventilator 100 05/03/16 14:19 77 18 79/44 76 Mechanical Ventilator 100 05/03/16 14:16 77 18 80/51 72 Mechanical Ventilator 100 05/03/16 14:11 97 18 84/53 81 Mechanical Ventilator 100 05/03/16 14:06 100 18 97/67 85 Mechanical Ventilator 100 05/03/16 14:05 100 05/03/16 14:01 107 17 123/80 86 Mechanical Ventilator 100 05/03/16 13:59 110 18 139/89 90 Mechanical Ventilator 100 05/03/16 13:56 104 18 185/96 97 Mechanical Ventilator 100 05/03/16 13:51 96 27 90/31 54 Mechanical Ventilator 100 05/03/16 13:50 95 21 82/58 52 Mechanical Ventilator 100 05/03/16 13:37 62 11 59/39 20 Mechanical Ventilator 100 05/03/16 13:29 125 18 38 Mechanical Ventilator 100 05/03/16 13:21 120 30 121/73 46 Mechanical Ventilator 100 05/03/16 13:16 73 26 125/68 05/03/16 12:01 36.9 71 19 124/82 71 BiPAP 100 05/03/16 12:00 BiPAP 100 05/03/16 11:47 83 18 86 BiPAP/CPAP 100 05/03/16 11:01 103 18 159/89 87 100 05/03/16 10:14 96 15 164/86 88 BiPAP 100 05/03/16 09:01 101 21 149/82 95 BiPAP 80 Laboratory Results: Last 24 Hours Test 05/03/16 13:46 05/03/16 14:43 05/03/16 15:39 05/04/16 00:00 Bedside Hemoglobin 13.9 g/dl 12.6 g/dl Bedside Hematocrit 41 % 37 % Bedside Blood Gas pH (LAB) 7.30 7.36 Bedside Blood Gas pCO2 (LAB) 33 mmHg 44 mmHg Bedside Blood Gas pO2 (LAB) 48 mmHg 108 mmHg Bedside Blood Gas HCO3 (LAB) 16 meq/L 25 meq/L Bedside Blood Gas Total CO2 17 mEq/l 26 mEq/l Bedside Blood Gas Base Excess (LAB) -10.0 meq/L -1.0 meq/L Bedside Blood Gas O2 Saturation 80.0 % 98.0 % Bedside Sodium 131 mEq/L 136 mEq/L Bedside Potassium 5.8 mEq/L 4.7 mEq/L Bedside Glucose 167 mg/dl 139 mg/dl Test 05/04/16 05:16 05/04/16 05:19 05/04/16 05:43 Bedside Glucose 126 mg/dl White Blood Count 26.50 K/uL Red Blood Count 4.94 M/uL Hemoglobin 12.3 g/dL Hematocrit 39.7 % Mean Corpuscular Volume 80.4 fL Mean Corpuscular Hemoglobin 24.9 pg Mean Corpuscular Hemoglobin Concent 31.0 g/dl RDW Standard Deviation 50.9 fL RDW Coefficient of Variation 17.5 % Platelet Count 292 K/uL Mean Platelet Volume 10.6 fL Nucleated RBC Absolute Count (auto) 0.10 K/uL Nucleated Red Blood Cells % 0.4 % Sodium Level 139 mmol/L Potassium Level 4.8 mmol/L Chloride Level 100 mmol/L Carbon Dioxide Level 24 mmol/L Anion Gap 15.0 mmol/L Blood Urea Nitrogen 81 mg/dl Creatinine 2.60 mg/dl Est Creatinine Clear Calc Drug Dose 19.0 ml/min Estimated GFR () 20.5 Estimated GFR (Non- 17.7 BUN/Creatinine Ratio 31.3 Random Glucose 122 mg/dl Calcium Level 9.3 mg/dl Phosphorus Level 5.0 mg/dl Albumin 3.1 gm/dl Blood Gas Sample Site R Radial Bedside Blood Gas pH (LAB) 7.38 Bedside Blood Gas pCO2 (LAB) 41 mmHg Bedside Blood Gas pO2 (LAB) 84 mmHg Bedside Blood Gas HCO3 (LAB) 24 meq/L Bedside Blood Gas Total CO2 25 mEq/l Bedside Blood Gas Base Excess (LAB) -1.0 meq/L Bedside Blood Gas O2 Saturation 96.0 % David Test Pass Oxygen Delivery Device Ventilator Bedside Oxygen Rate (breaths/min) 18 Bedside FiO2 60 % Blood Gas PEEP 18
[2016-05-04] MEDS ORDERED: PANTOprazole INJ 40 MG in SYRINGE 0 ML IV SCH (11:00)
--- NOTE | 2016-05-04 11:54 | SURGERY PROGRESS NOTE ---
DATE: 05/04/2016 SUBJECTIVE: Maribel Shepard was seen today. She is now on a ventilator. Her x-ray really does not look that bad. Again, I think that much of her presentation is due to an intra-abdominal process. Having said that, her pulmonary function is certainly quite poor. Intensivists have asked me about possibly performing a bedside tracheostomy. I would like to let her settle down a bit more to see how she does over the weekend. We will be happy to do that if Dr. Dahl and the family agree this is appropriate. STANLEY
[2016-05-04] MEDS: IRON SUCROSE INJ 200 MG in SODIUM CHLORIDE 0.9% 100ML 100 ML IV SCH (12:12)
[2016-05-04] MEDS: LORAZEPAM 2 MG/ML 1 ML VIAL IV PRN ×3 (12:12→18:15)
--- NOTE | 2016-05-04 12:15 | Nephrology Progress Note ---
Nephrology Progress Note Date of Service May 04, 2016. Chief Complaint F/U for acute kidney injury with history of chronic kidney disease. Subjective Maribel was seen and examined in ICU this am with her at bedside. She is intubated but awake. Renal function declined overnight to Cr 2.6 this am, other electrolytes stable. Has been oliguric overnight only 50 cc of urine, received 1 milligram of Bumex this morning without much response. BP fair. Review of Systems A complete review of systems was performed. Pertinent positives are noted above. All other systems are negative. Vital Signs Last 8 Hrs Date Time Temp Pulse Resp B/P Pulse Ox O2 Delivery O2 Flow Rate FiO2 05/04/16 08:13 60 05/04/16 07:43 60 05/04/16 06:00 83 18 112/65 98 Mechanical Ventilator 60 05/04/16 05:43 60 05/04/16 05:20 89 113/59 05/04/16 04:00 98 Mechanical Ventilator 60 05/04/16 04:00 36.6 88 18 105/61 99 Mechanical Ventilator 60 05/04/16 04:00 70 05/04/16 03:19 60 05/04/16 03:00 89 19 99 05/04/16 02:00 85 18 121/69 99 70 05/04/16 01:37 70 05/04/16 00:42 88 121/85 I & O 24-Hour Column 05/04/16 07:59 Intake Total 1756 ml Output Total 350 ml Balance 1406 ml Last Recorded Weight Weight (Kilograms): 78.700 Physical Exam GENERAL: elderly female, AAA x 3, ill-appearing,no distress. NECK: Supple, no JVD. RESPIRATORY: Decrease BS B/L base CARDIOVASCULAR: S1, S2 normal, rate rhythm regular. ABDOMEN: distended, has cecostomy tube in place EXTREMITY: No lower extremity edema Family History Cancer Hypertension Social History Smoking Status: Never smoker Drug Use: none Marital Status: Occupation: retired Laboratory Results Past 24 Hours 05/04/16 05:19 05/04/16 05:19 Test 05/03/16 13:46 05/03/16 14:43 05/03/16 15:39 05/04/16 00:00 Bedside Hemoglobin 13.9 g/dl (12.0-16.0) 12.6 g/dl (12.0-16.0) Bedside Hematocrit 41 % (37-47) 37 % (37-47) Bedside Blood Gas pH (LAB) 7.30 (7.35-7.45) 7.36 (7.35-7.45) Bedside Blood Gas pCO2 (LAB) 33 mmHg (35-46) 44 mmHg (35-46) Bedside Blood Gas pO2 (LAB) 48 mmHg (80-95) 108 mmHg (80-95) Bedside Blood Gas HCO3 (LAB) 16 meq/L (19-24) 25 meq/L (19-24) Bedside Blood Gas Total CO2 17 mEq/l (24-31) 26 mEq/l (24-31) Bedside Blood Gas Base Excess (LAB) -10.0 meq/L (-9-1.8) -1.0 meq/L (-9-1.8) Bedside Blood Gas O2 Saturation 80.0 % (90-95) 98.0 % (90-95) Bedside Sodium 131 mEq/L (135-144) 136 mEq/L (135-144) Bedside Potassium 5.8 mEq/L (3.3-5.0) 4.7 mEq/L (3.3-5.0) Bedside Glucose 167 mg/dl (70-90) 139 mg/dl (70-90) Test 05/04/16 05:16 05/04/16 05:19 05/04/16 05:43 Bedside Glucose 126 mg/dl (70-90) Red Blood Count 4.94 M/uL (4.2-5.4) Mean Corpuscular Volume 80.4 fL (80-100) Mean Corpuscular Hemoglobin 24.9 pg (25-34) Mean Corpuscular Hemoglobin Concent 31.0 g/dl (32-36) RDW Standard Deviation 50.9 fL (36.4-46.3) RDW Coefficient of Variation 17.5 % (11.5-14.5) Mean Platelet Volume 10.6 fL (7.4-10.4) Nucleated RBC Absolute Count (auto) 0.10 K/uL (0-0) Nucleated Red Blood Cells % 0.4 % Anion Gap 15.0 mmol/L (3-11) Est Creatinine Clear Calc Drug Dose 19.0 ml/min Estimated GFR () 20.5 Estimated GFR (Non- 17.7 BUN/Creatinine Ratio 31.3 (10-20) Calcium Level 9.3 mg/dl (8.5-10.1) Phosphorus Level 5.0 mg/dl (2.5-4.9) Albumin 3.1 gm/dl (3.4-5.0) Blood Gas Sample Site R Radial Bedside Blood Gas pH (LAB) 7.38 (7.35-7.45) Bedside Blood Gas pCO2 (LAB) 41 mmHg (35-46) Bedside Blood Gas pO2 (LAB) 84 mmHg (80-95) Bedside Blood Gas HCO3 (LAB) 24 meq/L (19-24) Bedside Blood Gas Total CO2 25 mEq/l (24-31) Bedside Blood Gas Base Excess (LAB) -1.0 meq/L (-9-1.8) Bedside Blood Gas O2 Saturation 96.0 % (90-95) David Test Pass Oxygen Delivery Device Ventilator Bedside Oxygen Rate (breaths/min) 18 Bedside FiO2 60 % Blood Gas PEEP 18 Date/Time Source Procedure Growth Status 05/03/16 11:54 Nasal MRSA DNA Surveillance Screen - Final Specimen Negative for MRSA by DNA Probe Complete Allergies Coded Allergies: Morphine (Verified Allergy, Unknown, 04/25/16) Sulfamethoxazole w/Trimethoprim (Verified Allergy, Unknown, ., 04/25/16) Codeine (Verified Adverse Reaction, Mild, nausea, 04/25/16) Penicillins (Verified Adverse Reaction, Mild, severe nausea,HAD CEPHALOSPORINS, ZOSYN W/O PROBLEM, 04/25/16) Medications Current Inpatient Medications Medications (Trade) Dose Ordered Sig/Gilma Route Start Time Stop Time Status Last Admin Dose Admin Heparin Sodium (Porcine) (Heparin Sq 5000 Unit/0.5ml) 5,000 unit Q12H SQ 04/25/16 21:00 05/25/16 20:59 05/03/16 21:00 5,000 UNIT Piperacillin Sod/ Tazobactam Sod (Consult) 1 ea UD PRN N/A 04/25/16 20:15 05/04/16 23:59 Heparin Sodium (Porcine) (Heparin 100 Unit/ml 5ml Flush) 5 ml PRN PRN IV 04/25/16 20:30 05/25/16 20:29 04/26/16 06:11 5 ML Ondansetron HCl 4 mg 4 mg Q6H PRN IV 04/26/16 13:00 05/26/16 12:59 05/01/16 17:13 4 MG Acetaminophen 100 ml @ 400 mls/hr Q8H PRN IV 04/26/16 17:30 05/26/16 17:29 05/01/16 19:40 400 MLS/HR Iron Sucrose/ Sodium Chloride (Venofer Inj/Nss 100ml) 110 ml @ 220 mls/hr Q2D@1100 IV 04/30/16 11:00 05/08/16 16:00 05/02/16 11:16 220 MLS/HR Hydralazine HCl 10 mg Q6H PRN IV. 04/30/16 21:45 05/30/16 21:44 05/01/16 16:57 10 MG Lidocaine HCl/ Diphenhydramine HCl/Al Hydroxide/ Mg Hydroxide/ Glycerin/Barcode (VISCOUS LIDOCAINE 2% Soln/ Benadryl Syrup/ Maalox Susp/ Glycerin Anhydrous Soln) BID MT 05/01/16 10:00 05/31/16 09:59 05/03/16 08:46 5 ML Metoclopramide HCl (Reglan Inj) 5 mg Q6H IV. 05/01/16 12:00 05/31/16 09:29 05/04/16 05:21 5 MG Hydromorphone HCl 0.5 mg 0.5 mg Q3R PRN IV 05/02/16 10:00 05/16/16 09:59 05/03/16 03:23 0.5 MG Piperacillin Sod/ Tazobactam Sod/ Dextrose (Zosyn Iv/D5 100ml) 115 ml @ 28.75 mls/ hr Q8H IV 05/02/16 12:00 05/04/16 23:59 05/04/16 05:19 28.75 MLS/HR Insulin Aspart SLIDING SCALE G... Q6 SC 05/03/16 12:00 06/02/16 11:59 05/03/16 18:29 2 UNITS Norepinephrine Bitartrate/ Dextrose (Levophed Inj/ D5W 500ml) 508 ml @ 0 mls/hr Q0M PRN IV 05/03/16 16:15 06/02/16 16:14 Levalbuterol 4 puffs 4 puffs Q4R INH 05/03/16 20:00 06/02/16 19:59 05/04/16 07:43 4 PUFFS Methylprednisolone Sodium Succinate 20 mg/Syringe 0.32 ml @ 1.5 mls/min Q8H IV 05/04/16 01:00 06/03/16 00:59 05/04/16 00:42 1.5 MLS/MIN Pantoprazole Sodium/Syringe (Protonix Inj/ Syringe) 10 ml @ 5 mls/min DAILY@11 IV 05/04/16 11:00 06/03/16 10:59 Metoprolol Tartrate (Lopressor Iv) 5 mg Q6 IV. 05/03/16 18:00 06/02/16 17:59 05/04/16 05:20 5 MG Enteral Nutritional Formula 1000 ml 1,000 ml UD PO 05/04/16 07:00 06/03/16 06:59 Bumetanide/Syringe (Bumex IV/ Syringe) 4 ml @ 4 mls/min NOW ONCE IV 05/04/16 08:30 05/04/16 08:31 Impression (1) Acute kidney injury (2) acute exacer. copd, chronic resp failure (3) Anemia (4) Hyperphosphatemia (5) ACUTE BRONCO-PNEUM,ACUTE RESP FAIL (6) CKD (chronic kidney disease) stage 3, GFR 30-59 ml/min Maribel is a 71-year-old female with them complicated past medical history including stage 3 chronic kidney disease, hypertension, history of for a COPD and interstitial lung disease, pulmonary hypertension, tricuspid regurgitation, diastolic CHF, prior history of via intestinal resection for bowel obstruction admitted to the hospital with abdominal pain and respiratory failure with acute on chronic diastolic CHF. She had tron-hm-rxen IV contrast us study on 2 consecutive days. Has history of stage 3 chronic kidney disease, creatinine seems to be variable from 1-1.5, possibly secondary to microvascular disease vs grade 2 cardiorenal syndrome. On admission creatinine was 1.3 which rapidly worsened to 3.1 over few days after she sees IV contrast back to back. Renal function started to improve 2 days ago when creatinine was 2.1 Over last few days she was having progressive abdominal distension, KUB did not show significant bowel obstruction however there was concern there may be 8 some abnormality in see come which seemed to be distended from radiological study, she was taken to was on 05/02/2016 and had a cecostomy tube placed but her abdomen continues to be distended. Yesterday however again seems to be declining and her urine output has been declining as well, creatinine was 2.6 this morning. Yesterday her respiratory status worsened and she was hypotensive and was intubated. she received pressor for a brief period of time after which her blood pressure stabilized and has been off of pressor since yesterday. Recommendations --Renal function worsening 18 with decreased urine output possibly contribution from hypotensive episode yesterday -- with her current declining respiratory status, intubation, worsening renal function and oliguria, she is at risk for further worsening of renal function and volume overload --Monitor renal function and urine output closely with daily renal panel -- avoid nephrotoxins medications --dose medications for GFR less than 10 --on Venofer 200mg IV every other day -- explain to patient's at bedside that if patient continues to be oliguric and renal function worsen he may have to consider emergency dialysis in next 24-48 hours however with her overall condition is possible that she may not tolerate dialysis. patient verbalized understanding and he will discuss with the family and will try to make a decision regarding dialysis. Will follow
--- NOTE | 2016-05-04 12:18 | Pulmonology Progress Note ---
Pulmonary Progress Note Date of Service May 04, 2016. Attending Dr. Garcia Subjective Patient intubated and sedated Objective Patient became progressively more hypoxic and required emergent intubation. Following this she had dramatic desaturations and was difficult to stabilize. Currently she is on mechanical ventilation: PC/60% FiO2/PEEP of 18. Vital signs: Tm: 96, RR: 16-27, FiO2: 60% General: Fatigued Respiratory: Apices bilaterally clear with decreased breath sounds and dullness to percussion the right lower lobe posterior subsegment Cardiac: S1-S2 tachycardic distant heart sounds I'm unable to auscultate for murmurs rubs or gallops Skin: Intact Abdomen: Decreased bowel sounds soft nontender, no rebound Pulmonary function test dated 01/20/2015 FEV1/FVC: 75 FEV1: 1.69/82% FVC: 2.25/87% T.43/100% RV: 1.71/95% VC: 2.27/105% DLCO: 56% DL/VA: 93% AB.38/41/84/24 a gradient: 276 Assessment & Plan 71-year-old female admitted 04/25/16 with abdominal pain now with progressive hypoxic respiratory insufficiency: #1 Hypoxemia: A-a gradient 276. Patient's a gradient has decreased but she is still requiring high mechanical ventilator support. At this time we'll continue current medical regimen. #2 ILD: After reviewing patient's previous CTs of the thorax over the last 3-4 years as well as pulmonary function tests performed 01/20/2015 she shows no signs of interstitial lung disease. I suggest we taper down steroids over the next 7-10 days or as the patient's adrenal function can tolerate. #3 pleural effusions: The nature or etiology though these pleural effusions is currently unknown. Bilateral pleural effusions are more consistent with renal failure, sepsis are heart failure. Most likely her pleural effusions are a combination of renal failure and sepsis physiology of unknown etiology, most likely gastric in origin. I do not believe any further interventions with thoracentesis and/or chest tube placement would benefit this patient as drainage of these effusion would not change her severe hypoxemia and she is not showing signs by ventilator standards of severe restrictive ventilatory disease at this time. #4 sign off: Pleural sign off at this time please reconsult if necessary. Also patient is to move forward with tracheostomy in the future and/or PEG tube please reconsult and IP program can assist with placement. Data Medications: Current Inpatient Medications Medications (Trade) Dose Ordered Sig/Gilma Route Start Time Stop Time Status Last Admin Dose Admin Heparin Sodium (Porcine) (Heparin Sq 5000 Unit/0.5ml) 5,000 unit Q12H SQ 04/25/16 21:00 05/25/16 20:59 05/04/16 09:18 5,000 UNIT Piperacillin Sod/ Tazobactam Sod (Consult) 1 ea UD PRN N/A 04/25/16 20:15 05/04/16 23:59 Heparin Sodium (Porcine) (Heparin 100 Unit/ml 5ml Flush) 5 ml PRN PRN IV 04/25/16 20:30 05/25/16 20:29 04/26/16 06:11 5 ML Ondansetron HCl 4 mg 4 mg Q6H PRN IV 04/26/16 13:00 05/26/16 12:59 05/01/16 17:13 4 MG Acetaminophen 100 ml @ 400 mls/hr Q8H PRN IV 04/26/16 17:30 05/26/16 17:29 05/01/16 19:40 400 MLS/HR Iron Sucrose/ Sodium Chloride (Venofer Inj/Nss 100ml) 110 ml @ 220 mls/hr Q2D@1100 IV 04/30/16 11:00 05/08/16 16:00 05/02/16 11:16 220 MLS/HR Hydralazine HCl 10 mg Q6H PRN IV. 04/30/16 21:45 05/30/16 21:44 05/01/16 16:57 10 MG Lidocaine HCl/ Diphenhydramine HCl/Al Hydroxide/ Mg Hydroxide/ Glycerin/Barcode (VISCOUS LIDOCAINE 2% Soln/ Benadryl Syrup/ Maalox Susp/ Glycerin Anhydrous Soln) BID MT 05/01/16 10:00 05/31/16 09:59 05/03/16 08:46 5 ML Metoclopramide HCl (Reglan Inj) 5 mg Q6H IV. 05/01/16 12:00 05/31/16 09:29 05/04/16 05:21 5 MG Hydromorphone HCl 0.5 mg 0.5 mg Q3R PRN IV 05/02/16 10:00 05/16/16 09:59 05/03/16 03:23 0.5 MG Piperacillin Sod/ Tazobactam Sod/ Dextrose (Zosyn Iv/D5 100ml) 115 ml @ 28.75 mls/ hr Q8H IV 05/02/16 12:00 05/04/16 23:59 05/04/16 05:19 28.75 MLS/HR Insulin Aspart SLIDING SCALE G... Q6 SC 05/03/16 12:00 06/02/16 11:59 05/03/16 18:29 2 UNITS Norepinephrine Bitartrate/ Dextrose (Levophed Inj/ D5W 500ml) 508 ml @ 0 mls/hr Q0M PRN IV 05/03/16 16:15 06/02/16 16:14 Levalbuterol 4 puffs 4 puffs Q4R INH 05/03/16 20:00 06/02/16 19:59 05/04/16 11:16 4 PUFFS Methylprednisolone Sodium Succinate 20 mg/Syringe 0.32 ml @ 1.5 mls/min Q8H IV 05/04/16 01:00 06/03/16 00:59 05/04/16 09:17 1.5 MLS/MIN Pantoprazole Sodium/Syringe (Protonix Inj/ Syringe) 10 ml @ 5 mls/min DAILY@11 IV 05/04/16 11:00 06/03/16 10:59 05/04/16 09:17 5 MLS/MIN Metoprolol Tartrate (Lopressor Iv) 5 mg Q6 IV. 05/03/16 18:00 06/02/16 17:59 05/04/16 05:20 5 MG Enteral Nutritional Formula (Impact 1.0 Toi) 1,000 ml UD PO 05/04/16 07:00 06/03/16 06:59 05/04/16 09:19 1,000 ML Lorazepam (Ativan Inj) 0.5 mg Q2H PRN IV 05/04/16 08:30 06/03/16 08:29 Chlorhexidine Gluconate (Peridex Oral Soln) 15 ml BID MT 05/04/16 09:00 06/03/16 08:59 05/04/16 09:47 15 ML I & O: 24-Hour Column 05/04/16 07:59 Intake Total 1756 ml Output Total 350 ml Balance 1406 ml Vital Signs: Date Time Temp Pulse Resp B/P Pulse Ox O2 Delivery O2 Flow Rate FiO2 05/04/16 11:17 60 05/04/16 08:13 60 05/04/16 08:00 37.6 85 18 109/66 95 Mechanical Ventilator 60 05/04/16 08:00 Mechanical Ventilator 60 05/04/16 08:00 60 05/04/16 08:00 Mechanical Ventilator 60 05/04/16 07:43 60 05/04/16 06:00 83 18 112/65 98 Mechanical Ventilator 60 05/04/16 05:43 60 05/04/16 05:20 89 113/59 05/04/16 04:00 98 Mechanical Ventilator 60 05/04/16 04:00 36.6 88 18 105/61 99 Mechanical Ventilator 60 05/04/16 04:00 70 05/04/16 03:19 60 05/04/16 03:00 89 19 99 05/04/16 02:00 85 18 121/69 99 70 05/04/16 01:37 70 05/04/16 00:42 88 121/85 05/04/16 00:01 36.9 89 18 110/69 100 Mechanical Ventilator 70 05/03/16 23:59 99 Mechanical Ventilator 70 05/03/16 23:59 70 05/03/16 23:34 80 05/03/16 22:01 87 18 111/67 98 Mechanical Ventilator 80 05/03/16 20:19 80 05/03/16 20:01 36.9 86 18 108/69 100 Mechanical Ventilator 100 05/03/16 20:00 92 Mechanical Ventilator 100.0 80 05/03/16 20:00 80 05/03/16 18:22 80 05/03/16 18:16 86 18 114/72 92 05/03/16 18:01 85 18 112/70 93 05/03/16 18:00 60 05/03/16 17:33 100 05/03/16 16:46 83 18 107/69 95 05/03/16 16:31 83 18 110/69 96 05/03/16 16:16 84 18 106/69 97 05/03/16 16:00 95 Mechanical Ventilator 100 05/03/16 16:00 37.1 82 18 116/69 95 Mechanical Ventilator 100 05/03/16 15:46 82 18 112/79 97 05/03/16 15:31 82 18 122/70 97 05/03/16 15:16 83 18 133/74 94 05/03/16 15:01 82 18 122/68 86 05/03/16 14:31 77 18 81/56 79 Mechanical Ventilator 100 05/03/16 14:26 79 18 83/52 80 Mechanical Ventilator 100 05/03/16 14:21 78 21 85/44 81 Mechanical Ventilator 100 05/03/16 14:19 77 18 79/44 76 Mechanical Ventilator 100 05/03/16 14:16 77 18 80/51 72 Mechanical Ventilator 100 05/03/16 14:11 97 18 84/53 81 Mechanical Ventilator 100 05/03/16 14:06 100 18 97/67 85 Mechanical Ventilator 100 05/03/16 14:05 100 05/03/16 14:01 107 17 123/80 86 Mechanical Ventilator 100 05/03/16 13:59 110 18 139/89 90 Mechanical Ventilator 100 05/03/16 13:56 104 18 185/96 97 Mechanical Ventilator 100 05/03/16 13:51 96 27 90/31 54 Mechanical Ventilator 100 05/03/16 13:50 95 21 82/58 52 Mechanical Ventilator 100 05/03/16 13:37 62 11 59/39 20 Mechanical Ventilator 100 05/03/16 13:29 125 18 38 Mechanical Ventilator 100 05/03/16 13:21 120 30 121/73 46 Mechanical Ventilator 100 05/03/16 13:16 73 26 125/68 Laboratory Results: Last 24 Hours Test 05/03/16 13:46 05/03/16 14:43 05/03/16 15:39 05/03/16 18:25 Bedside Hemoglobin 13.9 g/dl 12.6 g/dl Bedside Hematocrit 41 % 37 % Bedside Blood Gas pH (LAB) 7.30 7.36 Bedside Blood Gas pCO2 (LAB) 33 mmHg 44 mmHg Bedside Blood Gas pO2 (LAB) 48 mmHg 108 mmHg Bedside Blood Gas HCO3 (LAB) 16 meq/L 25 meq/L Bedside Blood Gas Total CO2 17 mEq/l 26 mEq/l Bedside Blood Gas Base Excess (LAB) -10.0 meq/L -1.0 meq/L Bedside Blood Gas O2 Saturation 80.0 % 98.0 % Bedside Sodium 131 mEq/L 136 mEq/L Bedside Potassium 5.8 mEq/L 4.7 mEq/L Bedside Glucose 167 mg/dl 169 mg/dl Test 05/04/16 00:00 05/04/16 05:16 05/04/16 05:19 05/04/16 05:43 Bedside Glucose 139 mg/dl 126 mg/dl White Blood Count 26.50 K/uL Red Blood Count 4.94 M/uL Hemoglobin 12.3 g/dL Hematocrit 39.7 % Mean Corpuscular Volume 80.4 fL Mean Corpuscular Hemoglobin 24.9 pg Mean Corpuscular Hemoglobin Concent 31.0 g/dl RDW Standard Deviation 50.9 fL RDW Coefficient of Variation 17.5 % Platelet Count 292 K/uL Mean Platelet Volume 10.6 fL Nucleated RBC Absolute Count (auto) 0.10 K/uL Nucleated Red Blood Cells % 0.4 % Sodium Level 139 mmol/L Potassium Level 4.8 mmol/L Chloride Level 100 mmol/L Carbon Dioxide Level 24 mmol/L Anion Gap 15.0 mmol/L Blood Urea Nitrogen 81 mg/dl Creatinine 2.60 mg/dl Est Creatinine Clear Calc Drug Dose 19.0 ml/min Estimated GFR () 20.5 Estimated GFR (Non- 17.7 BUN/Creatinine Ratio 31.3 Random Glucose 122 mg/dl Calcium Level 9.3 mg/dl Phosphorus Level 5.0 mg/dl Albumin 3.1 gm/dl Blood Gas Sample Site R Radial Bedside Blood Gas pH (LAB) 7.38 Bedside Blood Gas pCO2 (LAB) 41 mmHg Bedside Blood Gas pO2 (LAB) 84 mmHg Bedside Blood Gas HCO3 (LAB) 24 meq/L Bedside Blood Gas Total CO2 25 mEq/l Bedside Blood Gas Base Excess (LAB) -1.0 meq/L Bedside Blood Gas O2 Saturation 96.0 % David Test Pass Oxygen Delivery Device Ventilator Bedside Oxygen Rate (breaths/min) 18 Bedside FiO2 60 % Blood Gas PEEP 18
[2016-05-04] MEDS ORDERED: IMPACT LIQ 1000 ML BAG OG SCH (16:00)
[2016-05-04] MEDS ORDERED: MoRPHine SULFATE 2 MG/ML CARP IV SCH (17:30)
[2016-05-04] MEDS ORDERED: MoRPHine SULF/NSS INJ 1 MG/ML 250 ML BTL ONE (17:33)
[2016-05-04] MEDS ORDERED: MORPHINE SULF/NSS 250MG/250ML IV SCH (17:45)
[2016-05-04] MEDS ORDERED: ROCURONIUM BROMIDE 10 MG/ML 10 ML VIAL IV ONE (20:36)
[2016-05-04] MEDS ORDERED: FENTANYL CITRATE 100 MCG 2 ML CARP IV ONE (20:36)
[2016-05-04] MEDS ORDERED: KETAMINE HCL INJ 50 MG/ML 10 ML VIAL IV ONE (20:36)
[2016-05-04] MEDS ORDERED: SUCCINYLCHOLINE CHLORIDE 20 MG/ML 10 ML VIAL IV ONE (20:36)
[2016-05-04] MEDS ORDERED: GLYCOPYRROLATE INJ 0.2 MG/ML VIAL IM ONE (20:36)
[2016-05-04] MEDS ORDERED: SODIUM BICARB 8.4% INJ 50 MEQ/50 ML SYR IV ONE (20:36)
[2016-05-04] MEDS ORDERED: MIDAZOLAM HCL 5 MG/ML 2ML VIAL IV ONE (20:36)
--- NOTE | 2016-05-05 00:11 | PROGRESS NOTE ---
DATE: 05/04/2016 A 71-year-old female admitted with: 1. Acute respiratory failure. 2. Chronic respiratory failure. 3. Diastolic congestive heart failure. 4. Bilateral pleural effusions. 5. Acute renal failure. 6. Chronic renal failure. 7. Arterial hypertension. 8. Bowel obstruction secondary most likely to an ileus. Her condition deteriorated. Yesterday, she was intubated and placed on a respirator. Today, she remains with elevated WBC count. She also had worsening renal function. Dr. Tinsley discussed the possibility of dialysis with the family. Her condition was deteriorating with multisystem failure. The patient was sedated. She was on respirator. She was not in any distress. I saw the patient this morning. She was sedated. She was on assisted ventilation. All her laboratory tests were reviewed. As noted, there was sign of worsening in her condition. Today, Dr. Tate spoke with the family on multiple occasions. Given her condition and her poor prognosis, the decision was made by the family to discontinue her treatment. Dr. Tate did call me and I saw the patient and her family this afternoon. Again, she was resting comfortably. Whenever she is in bed and her head is lowered, her oxygen saturation dropped even while she is on the respirator. As noted, the decision was made by the family to discontinue all her treatment. The patient was started on IV morphine. She was given 2 mg per hour infusion. She was also given 1 dose of 5 mg intravenously and also given 0.5 mg of lorazepam IV. She was taken off the respirator. Her family was at her bedside. The patient ceased to breathe and she became asystolic at 1850. She was pronounced . As noted, all her family was at her bedside. [facility]ITAL[facility]aquan
--- NOTE | 2016-05-17 22:14 | DISCHARGE SUMMARY ---
(The patient ). FINAL DIAGNOSES: 1. Acute respiratory failure. 2. Chronic respiratory failure, on home oxygen. 3. Interstitial lung disease. 4. Chronic obstructive pulmonary disease. 5. Bilateral pleural effusions. 6. Acute renal failure superimposed on chronic kidney disease. 7. Diastolic congestive heart failure. 8. Pulmonary hypertension. 9. Ileus with severe constipation. CONSULTATIONS: 1. Dr. Jorge Silvestre in pulmonary medicine. 2. Dr. Jorge Bernardo in thoracic surgery. 3. Dr. Monie Dang in the intensive care medicine. 4. Dr. Desmond Tate in intensive care medicine. 5. Dr. Cornelius Abbasi in gastroenterology. 6. Dr. Wade Da Silva in general surgery. 7. Dr. Qi Tinsley in nephrology. A 71-year-old female admitted with multiple problems, including worsening abdominal pain and acute superimposed on chronic respiratory failure. The patient with multiple medical problems, including interstitial lung disease, obstructive lung disease, chronic respiratory failure, on home oxygen, diastolic congestive heart failure; had had multiple exacerbations, chronic kidney disease, obesity, history of multiple abdominal surgeries and abdominal hernias requiring surgeries. The patient called the office on the night prior to her admission, stated that she has had a problem with burning on urination and urinary frequency and some discomfort in her lower abdomen. She was asked to come to the office to check a urinalysis. It was done in the morning. There was no evidence of any urinary tract infection. She continued to have lower abdominal pain and it was getting worse. She also started to have nausea and she had one episode of vomiting. She did have a normal bowel movement. There was no blood in her stool. She has not had any fever or chills. Because of her gradually increasing abdominal pain, the patient was brought to the Emergency Room. She had imaging studies. There was a moderate amount of stool in her intestine. Also, there was a suspicion that she may have a fluid collection in her abdomen. An abscess could not be ruled out. Cultures were done. She was started on IV Zosyn. I admitted the patient for further evaluation and treatment. PAST MEDICAL HISTORY, SOCIAL HISTORY AND FAMILY HISTORY: All as noted. ALLERGIES: 1. CODEINE. 2. MORPHINE SULFATE. 3. PENICILLIN. 4. SULFA MEDICATIONS. MEDICATIONS ON ADMISSION: All as noted on her home medication list. PHYSICAL EXAMINATION AND ADMISSION LABORATORY TESTS: All as noted. HOSPITAL COURSE: The patient was admitted to medical bed. Resuscitation level 1. Laboratory tests were ordered. She was continued on IV Zosyn. Given Xopenex high flow treatment. Her chest x-ray showed evidence of bilateral pleural effusions. Her diuresis was continued with IV Lasix. A Britton catheter was placed. Usually, she has quite a bit of difficulty getting out of bed to urinate because of her shortness of breath. Her respiratory status started to deteriorate. She was getting more short of breath. She had to be on a BiPAP. Initially, she did not really tolerate it, but subsequently, she was able to keep the mask on. Pulmonary consultation was requested. She was seen by Dr. Silvestre. Because the patient had bilateral pleural effusions, I asked Dr. Bernardo for a consultation. He did a thoracentesis on the right side and evacuated 800 mL of fluid. Subsequently, her condition continued to deteriorate. She was continued to be dyspneic. She was able to tolerate her BiPAP. Dr. Silvestre ordered a set of ABGs. This was done and it did show significant abnormalities. Her pH was 7.22, pCO2 64, pO2 131, saturation 98%; she was on 100% oxygen with a BIPAP at that time. Her mental status had changed. She was lethargic. Difficult to arouse. Dr. Silvestre recommended transferring the patient to ICU, which was done. In the ICU, patient was seen in consultation by Dr. Dang. She was kept on her BiPAP. Her condition was closely monitored. Her respiratory failure persisted. She could not be taken off the BiPAP. Every time that was done, her oxygen saturation dropped significantly. The patient was complaining of abdominal pain. She has not had a bowel movement. GI consultation was requested. Multiple attempts were made to initiate bowel movements with suppositories, enemas and also oral medications and laxatives, all without any success. She was seen by Dr. Abbasi. He recommended added Reglan. This was done. Still without any significant results. Surgical consultation was requested. She was seen by Dr. Da Silva. The following day, Dr. Da Silva performed a cecostomy. A large amount of liquid stool evacuated. The patient still did not have any bowel movement per rectum. Her condition continued to deteriorate. Her respiratory status deteriorated significantly; even, we were not able to maintain adequate oxygenation with the BiPAP even at 100% oxygenation. Dr. Tate with multiple consultations with the family and the decision was made to go ahead and intubate her and placed her on a respirator. This was done. The patient was sedated. She was comfortable. Subsequently, her renal function deteriorated. She was in acute renal failure. Her urine output decreased significantly. She was seen by Dr. Tinsley in nephrology consultation. As her renal function deteriorated, Dr. Tinsley did discuss with the family the possibility that she may need dialysis. Her creatinine did rise to 3.6. Multiple problems continued to evolve, as far as her respiratory status, her intestinal ileus, her renal failure, her decreased urine output. The discussion took place with the family about a tracheostomy. Given her condition and her poor prognosis and after multiple discussions between Dr. Tate and the family and myself with the family, the decision was made to discontinue all aggressive treatments and to resort to comfort measures. On 05/04/2016, the patient was extubated. She was started on IV morphine. Her family was at her bedside. The patient did become breathless and pulseless at 1850. She was pronounced at that point. [facility]
== END 2016-05-04 20:37 | disposition expired | DRG 981 ==
LOC: ENRESERVDT → ENRESERVTM → C.EDB 11:56 → C.MS2W 18:51 → C.MSICU 04-26 10:56
PROVIDERS: ADMIT Internal Medicine; ATTEND Internal Medicine
PROC: 0W993ZZ Drainage of Right Pleural Cavity, Percutaneous Approach (ICD-10-PCS; principal; 2016-04-26)
PROC: 0W9B3ZZ Drainage of Left Pleural Cavity, Percutaneous Approach (ICD-10-PCS; 2016-04-26)
PROC: 0D9H00Z Drainage of Cecum with Drainage Device, Open Approach (ICD-10-PCS; 2016-05-02)
PROC: 5A1935Z Respiratory Ventilation, Less than 24 Consecutive Hours (ICD-10-PCS; 2016-05-03)
PROC: 0BH17EZ Insertion of Endotracheal Airway into Trachea, Via Natural or Artificial Opening (ICD-10-PCS; 2016-05-03)
DX: J96.21 Acute and chronic respiratory failure with hypoxia (principal); G93.41 Metabolic encephalopathy; N17.0 Acute kidney failure with tubular necrosis; J84.9 Interstitial pulmonary disease, unspecified; I50.32 Chronic diastolic (congestive) heart failure; J90 Pleural effusion, not elsewhere classified; J95.811 Postprocedural pneumothorax; K56.7 Ileus, unspecified; Z51.5 Encounter for palliative care; J44.9 Chronic obstructive pulmonary disease, unspecified; J96.22 Acute and chronic respiratory failure with hypercapnia; I12.9 Hypertensive chronic kidney disease with stage 1 through stage 4 chronic kidney disease, or unspecified chronic kidney disease; I27.2 Other secondary pulmonary hypertension; R51 Headache; K59.00 Constipation, unspecified; N18.3 Chronic kidney disease, stage 3 (moderate); Z79.82 Long term (current) use of aspirin; Z79.899 Other long term (current) drug therapy; Z66 Do not resuscitate